=== PATIENT | male | born 1935 | race Caucasian/White ===

== ENCOUNTER 2016-10-22 18:04 | Inpatient (IN) | payer OTHER ==
[~2016-10-22] VITALS: Ht 188 cm; Wt 101.7 kg
--- NOTE | ~2016-10-22 | PR ---
[place], [place] PROGRESS NOTE NAME: MARKY HAYWARD UNIT #: [id number] ROOM: 411 DOCTOR: BEL FERNANDEZ MD BIRTHDATE: [birth year] DOS: 10/24/2016 NEPHROLOGY FOLLOWUP NOTE SUBJECTIVE: The patient was seen and examined. He is awake and alert, sitting in a chair. He denies shortness of breath, nausea, vomiting or diarrhea. He appeared in no acute distress. OBJECTIVE: VITAL SIGNS: Temperature 97.5, pulse 69, respiratory rate 19, blood pressure 160/78. HEENT: Shows no JVD. LUNGS: Clear. No wheeze. HEART: Normal S1, S2. No rub, thrill or gallop. ABDOMEN: Soft, nontender. There is no organomegaly. EXTREMITIES: Showed trace edema. SKIN: Showed no rash. NEUROLOGIC: No focal findings. LABORATORY DATA: Hemoglobin 9.8, white count of 2.7, platelets of 43. BUN 36, creatinine 1.95, sodium 140, potassium 4.6, CO2 of 27 and calcium of 10.4. IMPRESSION: 1. Chronic kidney disease with a baseline creatinine in the range of 2.0. The patient's renal function is stable and appears to be at baseline. He has acceptable electrolytes. 2. Anemia with pancytopenia. Continue to follow CBC. He does have a history of myelodysplastic syndrome apparently. 3. Hypertension. Continue medications. 4. Diabetes mellitus type 2. Avoid using metformin. 5. Chest discomfort. Being worked up by the Primary Service. On discharge, the patient should follow up in our office, but apparently he would like to think about this first. [place], [place] PROGRESS NOTE NAME: MARKY HAYWARD UNIT #: [id number] ROOM: 411 DOCTOR: BEL FERNANDEZ MD BIRTHDATE: [birth year] BEL FERNANDEZ MD CM:PNTRANS 1356 1523 BEL FERNANDEZ MD 10/24/16 1524 interface
--- NOTE | ~2016-10-22 | PR ---
[place], [place] PROGRESS NOTE NAME: MARKY HAYWARD [facility] #: [id number] UNIT #: [id number] ROOM: 411 DOCTOR: RBUEN RUEDA MD BIRTHDATE: [birth year] DOS: 10/24/2016 SUBJECTIVE: The patient is doing much better. REVIEW OF SYSTEMS HEENT: No trouble swallowing. No double vision. No loss of vision. No pain. ENT AND RESPIRATORY: No wheeze. No change in voice. No cough. No shortness of breath. No coughing up blood. No epistaxis. CARDIOLOGIC: No chest pain. No dizziness. No irregular heartbeat. No leg edema. No palpitations. No shortness of breath. HEMATOLOGIC AND LYMPH: No past transfusion. No fatigue. No loss of appetite. No easy bruising. GASTROENTEROLOGIC: No change in bowel habits. No vomiting blood. No abdominal cramping. No nausea. No vomiting. No diarrhea. No constipation. No blood in stool. MALE REPRODUCTIVE: No testicular pain. No penile discharge. MUSCULOSKELETAL: No back pain. No muscle pain or weakness. No tingling/numbness. UROLOGIC: No pain with urination. No difficulty urinating. No frequent urination. NEUROLOGIC: No burning pain in feet. No trouble with coordination. No loss of consciousness. No headache. No tingling/numbness. No memory loss. PHYSICAL EXAMINATION: GENERAL: Pleasant gentleman, in no apparent distress. VITAL SIGNS: Blood pressure 140/60, pulse 65, respirations 20, temperature 98. HEENT: Normocephalic, atraumatic NECK AND THYROID: Supple. No JVD, thyromegaly, or lymphadenopathy. HEART: Normal S1, S2. Regular rate and rhythm. LUNGS: Clear to auscultation and percussion. ABDOMEN: Soft. Nontender, nondistended. Bowel sounds present. EXTREMITIES: Normal ROM. No clubbing. No edema. LABORATORY DATA: White count of 2.7, hemoglobin 9.8, hematocrit 29.3, MCV 96.7, platelet count of 43,000. ASSESSMENT: 1. Pancytopenia, probably secondary to myelodysplastic syndrome. 2. Macrocytosis secondary to possible myelodysplastic syndrome. 3. Chronic kidney disease. PLAN: We are awaiting for the records to come from [place] as well as from [facility], depending on further intervention. In the meantime, transfusion on p.r.n. basis. Ample time was given to the patient to ask me questions. We will follow. [place], [place] PROGRESS NOTE NAME: MARKY HAYWARD UNIT #: [id number] ROOM: 411 DOCTOR: RUBEN RUEDA MD BIRTHDATE: [birth year] RUBEN RUEDA MD CM:PNTRANS [id number] [id number] RUBEN RUEDA MD 10/24/16 2231 interface
--- NOTE | ~2016-10-22 | PR ---
[place], [place] PROGRESS NOTE NAME: MARKY HAYWARD [facility] #: [id number] UNIT #: [id number] ROOM: 411 DOCTOR: RUBEN RUEDA MD BIRTHDATE: [birth year] DOS: 10/27/2016 SUBJECTIVE: The patient is doing much better. PHYSICAL EXAMINATION: GENERAL: Pleasant gentleman in no apparent distress. VITAL SIGNS: Blood pressure 138/80, respirations 20, pulse 65, temperature 97.4. HEENT: Oral mucosa appears intact. The external ears are normal in appearance. Nares are patent without lesions, exudates, erythema, or inflammation. Tongue is symmetrical. Uvula is midline. NECK AND THYROID: Neck supple without palpable masses. Trachea is midline. No thyromegaly. No carotid bruit or JVD. BREASTS: Normal. Nipples unremarkable. No drainage. No lumps felt on either side. HEART: Normal S1, S2, without significant murmur, rub, or gallop. LUNGS: Clear to auscultation and percussion with good air entry bilaterally. The patient is breathing easily without the use of accessory muscles. Diaphragmatic excursions are intact. ABDOMEN: No costovertebral angle tenderness. Soft. No organomegaly or masses. Nontender. No hernias present. Liver and spleen are not palpable. LYMPHATIC: No adenopathy noted in the cervical, supraclavicular, axillary, or inguinal regions. NEUROLGIC: Nonfocal. Oriented to person, place, and time. MENTAL STATUS: Appropriate for mood and affect. PERIPHERAL PULSES: No varicosities. Femoral and pedal pulses are palpable. EXTREMITIES: Without cyanosis, clubbing, or edema. No gross anomalies. LABORATORY DATA: From 10/27/2016, white count of 3.6, hemoglobin 10.0, hematocrit 30.1, platelet count 61,000. Peripheral smear shows no metamyelocytes or myelocytes. Glucose 143, BUN of 73, EGFR is 35, sodium 139, potassium 4.6, chloride 98, bicarbonate 32, calcium 10.2, total protein 6.08, SGOT is 13, SGPT 19, alkaline phosphatase 34. IMPRESSION: Pancytopenia secondary to low grade myelodysplastic syndrome. ____ also cause pancytopenia, gastroesophageal reflux disease. PLAN: I had ____, but we will keep a close watch as the peripheral smear does not look to be abnormal. Advised if any fever, chills, any bleeding or bruising to call us. Otherwise, follow as outpatient. Ample time was given to the patient to ask me questions. [place], [place] PROGRESS NOTE NAME: MARKY HAYWARD UNIT #: [id number] ROOM: 411 DOCTOR: RUBEN RUEDA MD BIRTHDATE: [birth year] RUBEN RUEDA MD CM:PNTRANS 0918 1050 RUBEN RUEDA MD 10/27/16 1051 interface
--- NOTE | ~2016-10-22 | ST ---
[place], [place] EXERCISE STRESS TEST REPORT NAME: MARKY HAYWARD UNIT #: [id number] ROOM: 411 DOCTOR: LEOPOLDO GLYNN MD BIRTHDATE: [birth year] DOS: 10/23/2016 LEXISCAN STRESS TEST INDICATION: Chest pain, patient also has myelodysplastic syndrome. PHARMACOLOGICAL STRESS TEST: The patient was given Lexiscan 0.4 mg over 10 seconds followed by nuclear injection at 40 seconds. PERFORMANCE: Baseline heart rate 108, blood pressure 128/80. Stress EKG, no ST changes, then clinical response. Baseline EKG, sinus tachycardia. Stress EKG, no change. His baseline heart rate was 108, blood pressure 128/80, heart rate at 2 minutes was 122, blood pressure 148/68 and clinical response, no symptoms. INTERPRETATION: 1. Negative Lexiscan stress test. 2. Wait for Cardiolite images for full report. LEOPOLDO GLYNN MD CM:STRESS:EXERCISE STRESS TEST REPORT [id number] LEOPOLDO GLYNN MD
--- NOTE | ~2016-10-22 | PR ---
[place], [place] PROGRESS NOTE NAME: MARKY HAYWARD [facility] #: [id number] UNIT #: [id number] ROOM: 411 DOCTOR: RUBEN RUEDA MD BIRTHDATE: [birth year] DOS: 10/26/2016 SUBJECTIVE: The patient is doing much better. He is awake and alert. REVIEW OF SYSTEMS HEENT: No trouble swallowing. No double vision. No loss of vision. No pain. ENT AND RESPIRATORY: No wheeze. No change in voice. No cough. No shortness of breath. No coughing up blood. No epistaxis. CARDIOLOGIC: No chest pain. No dizziness. No irregular heartbeat. No leg edema. No palpitations. No shortness of breath. HEMATOLOGIC AND LYMPH: No past transfusion. No fatigue. No loss of appetite. No easy bruising. GASTROENTEROLOGIC: No change in bowel habits. No vomiting blood. No abdominal cramping. No nausea. No vomiting. No diarrhea. No constipation. No blood in stool. MALE REPRODUCTIVE: No testicular pain. No penile discharge. MUSCULOSKELETAL: No back pain. No muscle pain or weakness. No tingling/numbness. UROLOGIC: No pain with urination. No difficulty urinating. No frequent urination. NEUROLOGIC: No burning pain in feet. No trouble with coordination. No loss of consciousness. No headache. No tingling/numbness. No memory loss. PHYSICAL EXAMINATION: GENERAL: Pleasant gentleman, in no apparent distress. VITAL SIGNS: Blood pressure 138/80, respirations 20, pulse 65 and temperature 97.4. HEENT: Normocephalic, atraumatic NECK AND THYROID: Supple. No JVD, thyromegaly, or lymphadenopathy. HEART: Normal S1, S2. Regular rate and rhythm. LUNGS: Clear to auscultation and percussion. ABDOMEN: Soft. Nontender, nondistended. Bowel sounds present. EXTREMITIES: Normal ROM. No clubbing. No edema. LABORATORY DATA: Sodium of 136, potassium 4.4, chloride 94, bicarbonate 29, eGFR is 30. White count 2.6, hemoglobin 10.9, hematocrit 32.2, platelet count of 55,000. ASSESSMENT: 1. Pancytopenia secondary to low-grade myelodysplastic syndrome. 2. Splenomegaly. 3. Chest pain which has resolved. 4. Gastroesophageal reflux disease. PLAN: Overall, he is doing much better. He is not bleeding or bruising at this time. Denies any weakness, tiredness, fever or chills. We will follow his count as outpatient, if it continues to drop, then further intervention. In the meantime, we will review records from [place]. I had detailed discussion with the patient about it and seemed to understand. Ample time was given for the patient to ask me questions. [place], [place] PROGRESS NOTE NAME: YESYMARKY J UNIT #: [id number] ROOM: 411 DOCTOR: RUBEN RUEDA MD BIRTHDATE: [birth year] RUBEN RUEDA MD CM:BERNARD 1355 1604 RUBEN RUEDA MD 10/26/16 1604 interface
--- NOTE | ~2016-10-22 | PR ---
[place], [place] PROGRESS NOTE NAME: MARKY HAYWARD [facility] #: [id number] UNIT #: [id number] ROOM: 411 DOCTOR: MEG ESCOBAR MD BIRTHDATE: [birth year] DOS: 10/25/2016 SUBJECTIVE: The patient has been seen by Dr. Malik due to his pancytopenia, which is old, and he has not recommended any new treatment, and the patient has been seen by Dr. Carlitos Quispe, supportive employment case manager also. According to him, the patient does not have any acute [place] problem at present and the patient has been doing good. He does not have any chest pain, no difficulty in breathing, no nausea, no vomiting. Heart is regular. Chest is clear. Abdomen is soft. Blood culture and sensitivity did not grow any bacteria. OBJECTIVE: VITAL SIGNS: Blood pressure 154/72, pulse 73, respirations 18, temperature 97.3. CHEST: Clear. HEART: Regular. ABDOMEN: Soft. MEG ESCOBAR MD CM:PNTRANS 1003 [id number] MEG ESCOBAR MD 10/25/162106 interface
--- NOTE | ~2016-10-22 | PR ---
[place], [place] PROGRESS NOTE NAME: MARKY HAYWARD [facility] #: [id number] UNIT #: [id number] ROOM: 411 DOCTOR: MEG ESCOBAR MD BIRTHDATE: [birth year] DOS: 10/24/2016 SUBJECTIVE: The patient has been admitted to the hospital with chest pain with shortness of breath and weakness. Today, he is feeling fairly good. There is no chest pain, no difficulty breathing. Echocardiogram showed left ventricle is normal in size, moderate concentric left ventricular hypertrophy with normal left ventricular segmental wall motion, left ventricular systolic function is normal, left atrium is mildly dilated, aortic wall leaflets are sclerotic but open well and there is a small hemodynamically-insignificant pericardial effusion present. Myocardial perfusion scan: Left ventricle size is normal, systolic function is normal, left ventricular systolic function is normal, wall motions are normal, left ventricle wall motions are normal and this is a normal nuclear test. No evidence of any myocardial infarction. Stress test also did not show any positive findings. Blood cultures and sensitivities negative. CBC today showed white count of 2700. The patient has already seen by retail training manager. His hemoglobin is 9.8 and hematocrit 29.3. Blood pressure is 140/60, pulse 65, respirations 20 and temperature 98. MEG ESCOBAR MD CM:PNTRANS 1214 1304 MEG ESCOBAR MD 10/24/16 1305 interface
--- NOTE | ~2016-10-22 | CON ---
[place], [place] REPORT OF CONSULTATION NAME: MARKY HAYWARD [facility] #: [id number] UNIT #: [id number] ROOM: 411 DOCTOR: RUBEN RUEDA MD BIRTHDATE: [birth year] DOS: 10/23/2016 HISTORY OF PRESENT ILLNESS: The patient is a pleasant 81-year-old gentleman who looks much younger than his stated age. He started complaining of chest pain associated with shortness of breath. He has had chest pain that started a day before admission and was intermittently. It was substernal and sharp, but it started getting worse and subsequently presented to the Emergency Room and admitted. On routine CBC examination, the patient was found to have pancytopenia and subsequently consulted for further evaluation and management. PAST MEDICAL HISTORY: Significant for chronic kidney disease, COPD, diabetes mellitus type 2, diverticulitis, endogenous depression, GERD, hypertension, hyperlipidemia, insomnia, major depression, myelodysplastic syndrome, osteoarthritis, suicidal ideation, vitamin D deficiency. PAST SURGICAL HISTORY: Right knee surgery, history of transurethral resection of prostate, history of bilateral knee replacement, history of colonoscopy, history of EGD. SOCIAL HISTORY: No drinking, smoking, or drugs. FAMILY HISTORY: Father ____ back. Mother of cervical cancer. Other family history of diabetes, hypertension. ALLERGIES: CHLORDIAZEPOXIDE, CLONAZEPAM, LEVOFLOXACIN, AND KETOROLAC. MEDICATIONS: Allopurinol, vitamin D3, Toprol, fenofibrate, ____, lisinopril, metformin, metoprolol succinate, potassium chloride, Zosyn, and zolpidem tartrate. REVIEW OF SYSTEMS CONSTITUTIONAL: No chills. No fatigue. No fever. No loss of appetite. No night sweats. No weakness. No weight loss. HEENT: No trouble swallowing. No loss of smell. No loss of hearing. No double vision. No pain. No discharge. ENT AND RESPIRATORY: No wheeze. No sore throat. No change in voice. No hearing loss. No nose bleed. No cough. No trouble breathing through nose. No shortness of breath. No coughing up blood. No epistaxis. CARDIOVASCULAR: No chest pain. No dizziness. No irregular heartbeat. No leg edema. No pain in legs while walking. No palpitations. No shortness of breath. DERMATOLOGIC: No acne. No hives. No laceration. No mole. No rash. ENDOCRINE: No cold intolerance. No diabetes. No fatigue. No hot flashes. No polydipsia. No polyuria. No urinating frequently. No weight loss. HEMATOLOGIC AND LYMPH: No fatigue. No easy bruising. GASTROENTEROLOGIC: No change in bowel habits. No indigestion. No frequent bloating. No vomiting blood. No abdominal cramping. No nausea. No heartburn. No vomiting. No abdominal pain. No dysphagia. No diarrhea. No constipation. No blood in stool. MALE REPRODUCTIVE: No testicular pain. No difficulty with erection. No [place], [place] REPORT OF CONSULTATION NAME: MARKY HAYWARD UNIT #: [id number] ROOM: [facility] DOCTOR: RUBEN RUEDA MD BIRTHDATE: [birth year] diminished sexual drive. No penile discharge. MUSCULOSKELETAL: No back pain. No muscle pain or weakness. No neck pain. No tingling/numbness. No swelling/bruising. No osteoporosis treatment. OPHTHALMOLOGIC: No double vision. No diminished vision. No loss of vision. UROLOGIC: No dysuria. No frequent nighttime urination. No pain with urination. No difficulty urinating. No blood in urine. No frequent urination. No urinary incontinence. NEUROLOGIC: No loss of sensation in specific body area. No vertigo. No burning pain in feet. No trouble with balance. No trouble with coordination. No loss of consciousness. No loss of feeling/power. No confusion. No headache. No tingling/numbness. PSYCHOLOGIC: No tinnitus. No headaches. No shortness of breath. No weight decrease. No nausea. No vomiting. No abdominal discomfort. No constipation. No diarrhea. No depression. No anxiety. PHYSICAL EXAMINATION: GENERAL: Pleasant gentleman, in no apparent distress. VITAL SIGNS: Stable, afebrile. HEENT: Oral mucosa appears intact. The external ears are normal in appearance. Nares are patent without lesions, exudates, erythema, or inflammation. Tongue is symmetrical. Uvula is midline. NECK AND THYROID: Neck supple without palpable masses. Trachea is midline. No thyromegaly. No carotid bruit or JVD. BREASTS: Normal. Nipples unremarkable. No drainage. No lumps felt on either side. HEART: Normal S1, S2, without significant murmur, rub, or gallop. LUNGS: Clear to auscultation and percussion with good air entry bilaterally. The patient is breathing easily without the use of accessory muscles. Diaphragmatic excursions are intact. ABDOMEN: No costovertebral angle tenderness. Soft. No organomegaly or masses. Nontender. No hernias present. Liver and spleen are not palpable. LYMPHATIC: No adenopathy noted in the cervical, supraclavicular, axillary, or inguinal regions. NEUROLOGIC: Nonfocal. Oriented to person, place, and time. MENTAL STATUS: Appropriate for mood and affect. PERIPHERAL PULSES: No varicosities. Femoral and pedal pulses are palpable. EXTREMITIES: Without cyanosis, clubbing, or edema. No gross anomalies. LABORATORY DATA: Sodium 142, potassium 4.1, chloride 106, bicarbonate 25, BUN of 25. White count of 1.7, hemoglobin 10.3, hematocrit 30.4, platelet count of 42,000. ASSESSMENT: 1. Pancytopenia, probably secondary to myelodysplastic syndrome. 2. Chronic kidney disease. 3. Diabetes mellitus. 4. Gastroesophageal reflux disease. PLAN: The patient not bleeding or bruising at this time. I will get records from [place] as well as from Dr. Nilson Thapa's office. In the meantime, [place], [place] REPORT OF CONSULTATION NAME: MARKY HAYWARD UNIT #: [id number] ROOM: 411 DOCTOR: RUBEN RUEDA MD BIRTHDATE: [birth year] the patient was advised any bleeding, bruising, fevers, chills, to call us. Depending on the workup, further intervention. We will also get a peripheral smear. Thanks for consulting me and letting us participate in the care of this interesting patient. RUBEN RUEDA MD CM:CONSTR:REPORT OF CONSULTATION 0940 10/23/16 1010 interface
[~2016-10-22 18:04] MED LIST: ACTOS45 MG PO; ALLOPURINOL300 MG PO; AMBIEN10 M1 PO; AMOXICILLIN500 MG PO; AMOXIL500 MG PO; AUGMENTIN 875 M1 TAB PO; BACTRIM DS 8001 TA1 PO; CARDURA2 M1 PO; CENTRUM SILVER PO; CIPRO500 MG PO; CIPROFLOXACIN500 MG PO; CLARITIN10 MG PO; CLONIDINE HCL0.3 MG PO; CORBAN MAGNESI400 MG PO; CYMBALTA30 MG PO; CYMBALTA60 MG PO; DELTASONE20 MG PO; DIABETA5 MG PO; DIAZEPAM10 M1 PO; DOXYCYCLINE100 M3 PO; ESIDREX,ORETIC,25 MG PO; FAMILY PHARMAC325 MG PO; FENOFIBRATE134 MG PO; FENOFIBRATE160 MG PO; FLAGYL 500 MG500 MG PO; FLAGYL500 MG PO; FOLIC ACID1 MG PO; Fenofibrate PO; HYDROCODONE BIT1 T11 PO; HYDRODIURIL25 MG PO; IMDUR ER30 MG PO; IMDUR30 MG PO; K-DUR 20MEQ20 MEQ PO; K-PHOS500 MG PO; KLOR-CON M2020 MEQ PO; LASIX40 MG PO; LEVOFLOXACIN500 MG; LEVOFLOXACIN500 MG PO; LISINOPRIL10 M1 PO; LOPRESSOR50 MG PO; LOSARTAN POTAS100 M1 PO; METFORMIN500 MG PO; METOPROLOL SUCC50 M1 PO; METOPROLOL25 MG PO; MIRTAZAPINE15 M2 PO; MOTRIN600 MG PO; NATURE'S BLEND F1 MG PO; NEUTRA-PHOS1 PDR PO; PERCOCET 325 MG1 TA2 PO; PERCOCET 325 MG1 TA7 PO; PHOSPHA 250 NEU1 TAB PO; POTASSIUM CHLO20 ME3 PO; Percocet 325 MG1 TAB PO; REMERON30 MG PO; ROBAXIN750 MG PO; SIMVASTATIN40 MG PO; SINGULAIR10 MG PO; SONATA10 MG PO; TERAZOSIN1 MG PO; TERAZOSIN5 MG PO; TEVA PO; THERA TABS1 TAB PO; TORADOL10 MG PO; TRAZADONE HYDR100 MG PO; TRILIPIX45 M1 PO; ULTRAM50 MG PO; VALIUM10 MG PO; VIBRAMYCIN100 MG PO; VICODIN 5/500 505 MG PO; VICODIN 500 MG-1 TAB PO; VICODIN ES 7501 TA1 PO; VICON FORTE1 CAP PO; VISTARIL25 M1 PO; VITAMIN D1000 IU PO; VITAMIN D2; VITAMIN D50000 I2 PO; ZOFRAN ODT4 MG SL; ZOLPIDEM TART10 MG PO; [UNRECOGNIZED DRUG - OTHER] PO
[2016-10-22 18:06] VITALS: BP 170/79
[2016-10-22 18:43] LABS: HEMATOCRIT 30.4 % (42.0-52.0); HEMOGLOBIN 10.3 g/dl (14.0-18.0); MEAN CELL VOLUME 96.2 fl (80.0-94.0); MEAN CORPUSCULAR HGB 32.6 pg (27.0-31.0); MEAN CORPUSCULAR HGB CONC 33.9 g/dl (33.0-37.0); MEAN PLATELET VOLUME 11.6 fl (9.6-12.3); PLATELET COUNT AUTOMATED 42 10*3/uL (130-400); RED BLOOD COUNT 3.16 10*6/uL (4.50-5.90)
[2016-10-22 18:48] LABS: WHITE BLOOD COUNT 1.7 10*3/uL (4.8-10.8)
[2016-10-22 18:56] LABS: POTASSIUM 4.1 mmol/L (3.5-5.1)
[2016-10-22 19:04] LABS: ATYPICAL LYMPHS 3 % (0-0); EOSINOPHIL # 0.1 10*3/uL (0-0.4); EOSINOPHILS 6 % (1-4); LYMPHOCYTE # 0.7 10*3/uL (1.3-4.4); METAMYELOCYTES 1 % (0-0); MONOCYTE # 0.1 10*3/uL (0.1-1.0); NEUTROPHIL # 0.8 10*3/uL (2.3-7.9); NEUTROPHILS 48 % (47-73); TOTAL CELLS COUNTED 100 #CELLS
[2016-10-22 19:05] LABS: PLATELET SUFFICIENCY LOW (NORMAL)
[2016-10-22 19:06] LABS: OVALOCYTES FEW
[2016-10-22 19:12] LABS: TROPONIN I 0.026 ng/ml (<0.045)
[2016-10-22 19:14] VITALS: BP 169/88
[2016-10-22] MEDS ORDERED: FENOFIBRATE160 MG PO (19:19)
[2016-10-22] MEDS ORDERED: CITALOPRAM20 MG PO (19:27)
[2016-10-22 19:48] VITALS: BP 169/86
[2016-10-22 20:20] VITALS: BP 190/86; BP 191/86
[2016-10-22] MEDS ORDERED: VITAMIN D1000 IU PO (20:47)
[2016-10-23] VITALS (7 sets, daily range): BP systolic 134–169; BP diastolic 72–99
[2016-10-23 00:43] LABS: CKMB 2.7 ng/ml (0.5-3.6); TROPONIN I 0.031 ng/ml (<0.045)
[2016-10-23 06:24] LABS: HEMOGLOBIN 10.3 g/dl (14.0-18.0); MEAN CELL VOLUME 96.3 fl (80.0-94.0); MEAN CORPUSCULAR HGB CONC 33.2 g/dl (33.0-37.0); PLATELET COUNT AUTOMATED 46 10*3/uL (130-400); RED BLOOD COUNT 3.22 10*6/uL (4.50-5.90); RED CELL DISTRI WIDTH 14.9 % (0-14.5)
[2016-10-23 06:26] LABS: CKMB 2.3 ng/ml (0.5-3.6); TROPONIN I 0.032 ng/ml (<0.045)
[2016-10-23 06:34] LABS: ALBUMIN 3.8 gm/dl (3.1-4.5); BILIRUBIN, TOTAL 0.9 mg/dl (0.2-1.0); FREE T4 1.04 ng/dl (0.76-1.46); MAGNESIUM 1.8 mg/dL (1.5-2.1); PHOSPHOROUS 1.9 mg/dL (2.5-4.9); POTASSIUM 4.4 mmol/L (3.5-5.1); TOTAL PROTEIN 6.5 gm/dL (6.4-8.2)
[2016-10-23 06:36] LABS: INTERNATIONAL NORM RATIO 1.2 (2.0-3.5); PROTHROMBIN TIME 12.7 SECONDS (9.0-12.4)
[2016-10-23 06:39] LABS: THYROID STIM HORMONE (HS) 1.13 uIU/ml (0.358-4.75)
[2016-10-23 06:53] LABS: LYMPHOCYTE # 0.3 10*3/uL (1.3-4.4); METAMYELOCYTES 2 % (0-0); MONOCYTE # 0.1 10*3/uL (0.1-1.0); NEUTROPHIL # 1.6 10*3/uL (2.3-7.9); NEUTROPHILS 79 % (47-73); TOTAL CELLS COUNTED 100 #CELLS
[2016-10-23 06:56] LABS: PLATELET SUFFICIENCY LOW (NORMAL)
[2016-10-23 07:45] LABS: HEMOGLOBIN A1c 4.7 % (4.8-5.6)
[2016-10-23 08:06] LABS: VITAMIN D, 25-HYDROXY 22.2 ng/mL (30-100)
[2016-10-23 08:40] LABS: FOLIC ACID > 24.00 ng/mL (>5.38)
[2016-10-23 12:09] LABS: TROPONIN I 0.035 ng/ml (<0.045)
[2016-10-24] VITALS: BP 140/60
[2016-10-24 06:39] LABS: HEMATOCRIT 29.3 % (42.0-52.0); HEMOGLOBIN 9.8 g/dl (14.0-18.0); MEAN CELL VOLUME 96.7 fl (80.0-94.0); MEAN CORPUSCULAR HGB 32.3 pg (27.0-31.0); MEAN CORPUSCULAR HGB CONC 33.4 g/dl (33.0-37.0); MEAN PLATELET VOLUME 12.2 fl (9.6-12.3); PLATELET COUNT AUTOMATED 43 10*3/uL (130-400); RED BLOOD COUNT 3.03 10*6/uL (4.50-5.90); RED CELL DISTRI WIDTH 15.1 % (0-14.5); WHITE BLOOD COUNT 2.7 10*3/uL (4.8-10.8)
[2016-10-24 07:10] LABS: POTASSIUM 4.6 mmol/L (3.5-5.1)
[2016-10-24 07:13] LABS: ATYPICAL LYMPHS 1 % (0-0); LYMPHOCYTE # 0.4 10*3/uL (1.3-4.4); METAMYELOCYTES 1 % (0-0); MONOCYTE # 0.1 10*3/uL (0.1-1.0); NEUTROPHIL # 2.2 10*3/uL (2.3-7.9); NEUTROPHILS 82 % (47-73); TOTAL CELLS COUNTED 100 #CELLS
[2016-10-24 07:14] LABS: OVALOCYTES FEW; PLATELET SUFFICIENCY LOW (NORMAL)
[2016-10-24 08:00] VITALS: BP 148/68
[2016-10-24 12:00] VITALS: BP 160/78
[2016-10-24 16:00] VITALS: BP 139/82
[2016-10-24 20:00] VITALS: BP 142/74
[2016-10-25] VITALS: BP 152/77
[2016-10-25 08:00] VITALS: BP 154/72
[2016-10-25 12:00] VITALS: BP 154/78
[2016-10-25 16:00] VITALS: BP 137/84
[2016-10-25 20:00] VITALS: BP 160/79
[2016-10-26] VITALS: BP 155/82
[2016-10-26 08:00] VITALS: BP 138/80
[2016-10-26 12:00] VITALS: BP 148/70
[2016-10-26 13:17] LABS: HEMATOCRIT 32.2 % (42.0-52.0); HEMOGLOBIN 10.9 g/dl (14.0-18.0); IG # 0.1 10*3/uL (0.0-0.1); LYMPH # 0.2 10*3/uL (1.3-4.4); LYMPH % 9.2 % (27.0-41.0); MEAN CELL VOLUME 96.7 fl (80.0-94.0); MEAN CORPUSCULAR HGB 32.7 pg (27.0-31.0); MEAN CORPUSCULAR HGB CONC 33.9 g/dl (33.0-37.0); MEAN PLATELET VOLUME 12.3 fl (9.6-12.3); MONO # 0.1 10*3/uL (0.1-1.0); MONO % 3.1 % (3.0-9.0); NEUT # 2.2 10*3/uL (2.3-7.9); PLATELET COUNT AUTOMATED 55 10*3/uL (130-400); RED BLOOD COUNT 3.33 10*6/uL (4.50-5.90); RED CELL DISTRI WIDTH 15.1 % (0-14.5); WHITE BLOOD COUNT 2.6 10*3/uL (4.8-10.8)
[2016-10-26 13:29] LABS: POTASSIUM 4.4 mmol/L (3.5-5.1)
[2016-10-26 16:00] VITALS: BP 149/76
[2016-10-26 20:00] VITALS: BP 158/67
[2016-10-27] VITALS: BP 123/64
[2016-10-27 06:44] LABS: EOS % 0.3 % (1.0-4.0); HEMATOCRIT 30.1 % (42.0-52.0); IG # 0.1 10*3/uL (0.0-0.1); LYMPH # 0.7 10*3/uL (1.3-4.4); MEAN CELL VOLUME 95.9 fl (80.0-94.0); MEAN CORPUSCULAR HGB 31.8 pg (27.0-31.0); MEAN CORPUSCULAR HGB CONC 33.2 g/dl (33.0-37.0); MEAN PLATELET VOLUME 11.3 fl (9.6-12.3); MONO # 0.3 10*3/uL (0.1-1.0); MONO % 8.6 % (3.0-9.0); NEUT # 2.5 10*3/uL (2.3-7.9); NEUT % 68.9 % (47.0-73.0); PLATELET COUNT AUTOMATED 61 10*3/uL (130-400); RED BLOOD COUNT 3.14 10*6/uL (4.50-5.90); RED CELL DISTRI WIDTH 15.2 % (0-14.5); WHITE BLOOD COUNT 3.6 10*3/uL (4.8-10.8)
[2016-10-27 07:18] LABS: ALBUMIN 3.6 gm/dl (3.1-4.5); POTASSIUM 4.6 mmol/L (3.5-5.1)
[2016-10-27 08:00] VITALS: BP 128/66
[2016-10-27] MEDS ORDERED: AMARYL4 MG PO (11:24)
== END 2016-10-27 12:24 | disposition home or self-care (01) | DRG 871 ==
LOC: ED 18:04 → 4E 19:04 → EDHOLD 19:04 → 4E 19:55
PROVIDERS: Emergency Medicine; Internal Medicine; Student in an Organized Health Care Education/Training Program
PROC: 4A02XM4 Measurement of Cardiac Total Activity, External Approach (ICD-10-PCS; principal; 2016-10-23)
DX: A41.9 Sepsis, unspecified organism (principal); J18.9 Pneumonia, unspecified organism; D61.818 Other pancytopenia; E11.22 Type 2 diabetes mellitus with diabetic chronic kidney disease; N18.3 Chronic kidney disease, stage 3 (moderate); J44.9 Chronic obstructive pulmonary disease, unspecified; R16.1 Splenomegaly, not elsewhere classified; J44.0 Chronic obstructive pulmonary disease with (acute) lower respiratory infection; F33.9 Major depressive disorder, recurrent, unspecified; K21.9 Gastro-esophageal reflux disease without esophagitis; I12.9 Hypertensive chronic kidney disease with stage 1 through stage 4 chronic kidney disease, or unspecified chronic kidney disease; E78.5 Hyperlipidemia, unspecified; M19.90 Unspecified osteoarthritis, unspecified site; Z96.653 Presence of artificial knee joint, bilateral; I16.0 Hypertensive urgency; D46.9 Myelodysplastic syndrome, unspecified; E55.9 Vitamin D deficiency, unspecified; G47.00 Insomnia, unspecified; Z80.49 Family history of malignant neoplasm of other genital organs; Z80.8 Family history of malignant neoplasm of other organs or systems; Z88.1 Allergy status to other antibiotic agents; Z88.8 Allergy status to other drugs, medicaments and biological substances; Z79.899 Other long term (current) drug therapy; Z79.84 Long term (current) use of oral hypoglycemic drugs; Z90.49 Acquired absence of other specified parts of digestive tract

== ENCOUNTER 2017-03-27 15:37 | Emergency (ER) | payer OTHER ==
[~2017-03-27] VITALS: Ht 185.4 cm; Wt 102.1 kg
[~2017-03-27 15:37] MED LIST changes: +AMARYL4 MG PO; +CITALOPRAM20 MG PO
[2017-03-27 15:48] VITALS: BP 169/70
[2017-03-27 17:38] LABS: EOS % 2.2 % (1.0-4.0); HEMATOCRIT 31.9 % (42.0-52.0); HEMOGLOBIN 10.5 g/dl (14.0-18.0); LYMPH # 0.7 10*3/uL (1.3-4.4); MEAN CELL VOLUME 98.5 fl (80.0-94.0); MEAN CORPUSCULAR HGB 32.4 pg (27.0-31.0); MEAN CORPUSCULAR HGB CONC 32.9 g/dl (33.0-37.0); MEAN PLATELET VOLUME 12.8 fl (9.6-12.3); MONO # 0.2 10*3/uL (0.1-1.0); MONO % 10.8 % (3.0-9.0); NEUT # 0.9 10*3/uL (2.3-7.9); NEUT % 49.9 % (47.0-73.0); PLATELET COUNT AUTOMATED 47 10*3/uL (130-400); RED BLOOD COUNT 3.24 10*6/uL (4.50-5.90); RED CELL DISTRI WIDTH 14.7 % (0-14.5)
[2017-03-27 17:55] LABS: ALBUMIN 3.8 gm/dl (3.1-4.5); BILIRUBIN, TOTAL 0.7 mg/dl (0.2-1.0); POTASSIUM 4.4 mmol/L (3.5-5.1); TOTAL PROTEIN 6.8 gm/dL (6.4-8.2); TROPONIN I 0.024 ng/ml (<0.045)
[2017-03-27 18:07] LABS: EOSINOPHILS 4 % (1-4); METAMYELOCYTES 1 % (0-0); NEUTROPHILS 55 % (47-73); TOTAL CELLS COUNTED 100 #CELLS
[2017-03-27 18:10] LABS: PLATELET SUFFICIENCY LOW (NORMAL)
[2017-03-27 18:12] LABS: WHITE BLOOD COUNT 1.9 10*3/uL (4.8-10.8)
[2017-03-27] MEDS ORDERED: NORCO 5-325 TA1 EACH PO (18:20)
== END 2017-03-27 20:21 | disposition home or self-care (01) ==
LOC: ED 15:37
PROVIDERS: Physician Assistant
DX: M54.5 Low back pain (principal); H92.01 Otalgia, right ear; Z88.1 Allergy status to other antibiotic agents; Z88.6 Allergy status to analgesic agent; Z88.8 Allergy status to other drugs, medicaments and biological substances; Z79.899 Other long term (current) drug therapy

== ENCOUNTER 2017-04-20 11:19 | Inpatient (IN) | payer OTHER ==
[~2017-04-20] VITALS: Ht 185.4 cm; Wt 98.1 kg
[~2017-04-20 11:19] MED LIST changes: +NORCO 5-325 TA1 EACH PO
[2017-04-20 11:22] VITALS: BP 156/80
[2017-04-20 12:06] LABS: HEMATOCRIT 32.2 % (42.0-52.0); HEMOGLOBIN 10.5 g/dl (14.0-18.0); MEAN CORPUSCULAR HGB 32.6 pg (27.0-31.0); MEAN CORPUSCULAR HGB CONC 32.6 g/dl (33.0-37.0); MEAN PLATELET VOLUME 13.2 fl (9.6-12.3); PLATELET COUNT AUTOMATED 49 10*3/uL (130-400); RED BLOOD COUNT 3.22 10*6/uL (4.50-5.90); RED CELL DISTRI WIDTH 15.4 % (0-14.5); WHITE BLOOD COUNT 2.5 10*3/uL (4.8-10.8)
--- NOTE | 2017-04-20 12:16 | NUR ---
PT REPORTS MODERATE IMPROVEMENT IN PAIN LEVEL SINCE TORADOL INJECTION.
[2017-04-20 12:19] LABS: ALBUMIN 3.3 gm/dl (3.1-4.5); CREATININE 1.7 mg/dL (0.70-1.30); POTASSIUM 4.8 mmol/L (3.5-5.1)
[2017-04-20 12:34] LABS: TOTAL CELLS COUNTED 100 #CELLS
[2017-04-20 12:35] LABS: PLATELET SUFFICIENCY LOW (NORMAL)
--- NOTE | 2017-04-20 14:00 | NUR ---
ALL TESTING RETURNED, PT CONTINUES TO EXPRESS MODERATE RELIEF OF PAIN AFTER INJECTION OF TROADOL. AWAITING PLAN OF CARE DECISION.
--- NOTE | 2017-04-20 14:19 | NUR ---
PT IS SITTING UP NOW,EATING LUNCH. REMAINS ALERT. NO DISTRESS NOTED. ANIYAH MORGAN
--- NOTE | 2017-04-20 15:11 | NUR ---
PT REFUSES TO DISROBED PRIOR TO ADMISSION, PREFERS TO STAY IN HIS STRET CLOTHES.
[2017-04-20 16:00] VITALS: BP 190/86
--- NOTE | 2017-04-20 16:30 | NUR ---
A 81, admitted to , under the services of LEOPOLDO Jean MD with a diagnosis of RIGHT LEG PAIN, MALNUTRITION, UNABLE TO AMBULATE. Chief complaint is RIGHT LEG PAIN. Patient arrived via bed from ER. Monitor applied. Initial assessment completed. Vital signs taken and recorded. LEOPOLDO JEAN MD notified of admission to the unit. Orders received. See assessment for past medical history, medications and allergies. Patient and/or family oriented to unit. [facility] visitation policy reviewed. Clothing/patient valuable form completed. MAME REESE
[2017-04-20] MEDS ORDERED: METOPROLOL TART50 M1 PO (17:06)
--- NOTE | 2017-04-20 17:12 | NUR ---
DR. JONAS ANSWERING SERVICE NOTIFIED OF CONSULT.
--- NOTE | 2017-04-20 20:00 | NUR ---
ASSUMED CARE OF PATIENT. ASSESSMENT COMPLETE. RESTING IN BED. CALL LIGHT IN REACH. WILL CONTINUE TO MONITOR.
--- NOTE | 2017-04-20 20:21 | NUR ---
MEDICATE WITH PRN NORCO FOR C/O RIGHT HIP PAIN. RATES 03/18. WILL MONITOR FOR EFFECTIVENESS.
--- NOTE | 2017-04-20 21:44 | NUR ---
CALLED AND SPOKE TO DR DANIEL REGARDING PT HOME REMERON. ORDER RECEIVED TO CONTINUE IT
[2017-04-21] VITALS: BP 132/59
--- NOTE | 2017-04-21 02:00 | NUR ---
SLEEPING. RESP EASY AND NONLABORED ON ROOM AIR. NO DISTRESS NOTED. IVF INFUSING PER ORDER WITHOUT DIFFICULTY. CALL LIGHT IN REACH. WILL CONTINUE TO MONITOR.
--- NOTE | 2017-04-21 05:38 | NUR ---
PT REQUESTING SOMETHING STRONGER FOR RIGHT HIP PAIN. MEDICATED WITH PRN MORPHINE. SEE MAR
[2017-04-21 07:03] LABS: HEMOGLOBIN 9.8 g/dl (14.0-18.0); MEAN CELL VOLUME 98.7 fl (80.0-94.0); MEAN CORPUSCULAR HGB 32.2 pg (27.0-31.0); MEAN CORPUSCULAR HGB CONC 32.7 g/dl (33.0-37.0); MEAN PLATELET VOLUME 11.9 fl (9.6-12.3); PLATELET COUNT AUTOMATED 43 10*3/uL (130-400); RED BLOOD COUNT 3.04 10*6/uL (4.50-5.90); RED CELL DISTRI WIDTH 15.7 % (0-14.5); WHITE BLOOD COUNT 2.5 10*3/uL (4.8-10.8)
--- NOTE | 2017-04-21 07:30 | NUR ---
Shift chart check completed.24 HR chart check completed.
[2017-04-21 07:32] LABS: ACT PARTIAL THROMBO TIME 28.3 SECONDS (20.8-31.5); INTERNATIONAL NORM RATIO 1.2 (2.0-3.5)
[2017-04-21 07:33] LABS: ALBUMIN 2.9 gm/dl (3.1-4.5); CREATININE 1.73 mg/dL (0.70-1.30); MAGNESIUM 1.9 mg/dL (1.5-2.1); PHOSPHOROUS 3.3 mg/dL (2.5-4.9); POTASSIUM 4.4 mmol/L (3.5-5.1); TOTAL PROTEIN 5.6 gm/dL (6.4-8.2)
[2017-04-21 07:40] LABS: THYROID STIM HORMONE (HS) 1.14 uIU/ml (0.358-4.75)
[2017-04-21 07:48] LABS: ATYPICAL LYMPHS 1 % (0-0); PLATELET SUFFICIENCY LOW (NORMAL); ROULEAUX SLIGHT; TOTAL CELLS COUNTED 100 #CELLS
[2017-04-21 08:00] VITALS: BP 140/80
[2017-04-21 08:21] LABS: VITAMIN D, 25-HYDROXY 23.9 ng/mL (30-100)
--- NOTE | 2017-04-21 08:30 | NUR ---
Bronze Chaser in to talk to patient. Patient states lives at HOME IN AN APARTMENT ALONE with . There are 1 steps in the home. Physician: DR ESCOBAR Pharmacy: [facility] Home health services: NONE HAS PRIVATE [employer] Patient's level of ADLs: MINIMAL ASSIST Patient has working utilities: YES DME: [facility] Follow-up physician's appointment after d/c: PREFERS TO MAKE HIS OWN APPT Does patient want to access PORTAL?: Discharge plan DISCUSSED SNF PT HAS BEEN FALLING. REFUSES. STATES HE NEEDS TO GET THE PAIN UBDER CONTROL AND HE WILL BE FINE. ALOS REFUSES HOME HEALTH. LESLIE JACKSON
--- NOTE | 2017-04-21 10:29 | NUR ---
On assessment this am pt up and about in his room, pleasant, c/o some discomfort mainly pointing to back of his right thigh. Dr Thapa has visited.
--- NOTE | 2017-04-21 11:26 | NUR ---
PT TO CT SCAN, VIA W/C, PER PER ORDER.
--- NOTE | 2017-04-21 11:30 | NUR ---
OCCUPATIONAL THERAPY: Patient out of his room for testing. OTR will recheck at a later time. Thank you for this referral. Altagracia Beth OTR/regla
--- NOTE | 2017-04-21 11:50 | NUR ---
PHYSICAL THERAPY Patient out of room for CAT scan. Thank you for this referral. Lory Das,PT
--- NOTE | 2017-04-21 12:56 | NUR ---
Hold Occupational Therapy evaluation. Awaiting CT Scans of hip and femur and MD orders for weight bearing and activity tolerance. Altagracia Beth OTR/L
--- NOTE | 2017-04-21 12:56 | NUR ---
PHYSICAL THERAPY Awaiting results from CAT scan of femur and hip prior to initiating PT. Lory Das,PT
--- NOTE | 2017-04-21 14:28 | NUR ---
DR BETHANIE JOHN NOTIFIED OF THE CT RESULTS. NO NEW ORDERS.
[2017-04-21 16:00] VITALS: BP 118/77
--- NOTE | 2017-04-21 16:52 | NUR ---
DR MORILLO IN TO SEE PT.
[2017-04-22] VITALS: BP 145/75
--- NOTE | 2017-04-22 01:19 | NUR ---
SLEEPING. NO SXS OF DISTRESS. CALL LIGHT IN REACH
[2017-04-22 06:51] LABS: HEMATOCRIT 30.8 % (42.0-52.0); HEMOGLOBIN 10.1 g/dl (14.0-18.0); MEAN CELL VOLUME 98.1 fl (80.0-94.0); MEAN CORPUSCULAR HGB 32.2 pg (27.0-31.0); MEAN CORPUSCULAR HGB CONC 32.8 g/dl (33.0-37.0); MEAN PLATELET VOLUME 12.9 fl (9.6-12.3); PLATELET COUNT AUTOMATED 42 10*3/uL (130-400); RED BLOOD COUNT 3.14 10*6/uL (4.50-5.90); RED CELL DISTRI WIDTH 15.2 % (0-14.5); WHITE BLOOD COUNT 2.6 10*3/uL (4.8-10.8)
[2017-04-22 07:25] LABS: ALBUMIN 3.2 gm/dl (3.1-4.5); CREATININE 1.7 mg/dL (0.70-1.30); POTASSIUM 3.9 mmol/L (3.5-5.1)
[2017-04-22 07:33] LABS: TOTAL CELLS COUNTED 100 #CELLS
[2017-04-22 07:34] LABS: PLATELET SUFFICIENCY LOW (NORMAL)
[2017-04-22 08:00] VITALS: BP 154/73
--- NOTE | 2017-04-22 09:10 | NUR ---
PHYSICAL THERAPY PAtient evaluated on 4, full evaluation to follow. Continue with PT as per plan of care with fall, significant (B)LE and low back pain with associated weakness to (B)LE precautions. Ortho has ordered MRI. May require out patient PT pending MRI results versus farm specialist. PAtient is moderate complexity via chart review, tests and evalaution: [id number]. Thank you for this referral. Lory Das,PT
--- NOTE | 2017-04-22 10:11 | NUR ---
PATIENT RESTING IN BED CALL LIGHT IN REACH. GAVE MORNING MEDICATIONS . PATIENT WAITING FOR MORNING TESTING.
--- NOTE | 2017-04-22 11:20 | NUR ---
Occupational Therapy evaluation completed on 4 with full eval to follow. Precautions include severe low back pain, low complexity level 99549. Patient does not feel he needs to use adapative equipment for LB self care/back protection at this time. He does dress in bed to protect his back. Recommend no further OT at this time and return home alone upon d/c. Thank you for this referral. Altagracia Beth OTR/l
[2017-04-22] MEDS ORDERED: METFORMIN HCL500 MG PO (11:25)
[2017-04-22] MEDS ORDERED: POTASSIUM CHLO20 ME4 PO (11:26)
--- NOTE | 2017-04-22 13:15 | NUR ---
INFORMED CONSENT SIGNED FOR LEXISCAN WITH DR. GLYNN. RESTING EKG, NSR WITH HR OF 62 AND BP OF 172/82. BREATH SOUNDS CLEAR, POX 100% VIA RA. COMPLETED ONE MINUTE OF LEXISCAN PROTOCOL RECEIVING LEXISCAN 0.4 MG OVER 10 SECONDS. DEVELOPED A WARM FEELING THAT WAS RELIEVED IN RECOVERY. HAD A PEAK HR OF 75, WITH A BP 154/68. LAST RECOVERY HR OF 69 WITH A BP OF 144/66. AWAITING NUCLEAR IMAGING IN STABLE CONDITION.
--- NOTE | 2017-04-22 13:19 | NUR ---
PHYSICAL THERAPY Arturo off the floor this PM went down for his stress test. 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
--- NOTE | 2017-04-22 14:00 | NUR ---
tO mri TO PRE MEDICATE PT. HE IS CLAUSTROPHOBIC.
--- NOTE | 2017-04-22 14:02 | NUR ---
Dr. Burciaga was notified of need for valium dose for tomorrows MRI.
--- NOTE | 2017-04-22 15:04 | NUR ---
Returned from MRI and stress testing . Radiology called stating that pt. declined to have knee x-ray as he has developed right shoulder pain. Dr. Thacker aware stated he would be up to see pt.
--- NOTE | 2017-04-22 15:12 | NUR ---
medicated for c/o pain to right shoulder. placed heating pad to shoulder and stated it feels a little better.
[2017-04-22 16:00] VITALS: BP 173/75
--- NOTE | 2017-04-22 16:15 | NUR ---
PATIENT RESTING QUIETLY IN BED. NO DISTRESS NOTED. EARLIER PAIN MEDICATION COMBINED WITH HEATING PAD EFFECTIVE PER PT FOR RIGHT SHOULDER PAIN. WILL CONTINUE TO MONITOR. CALL LIGHT WITHIN REACH.
--- NOTE | 2017-04-22 17:44 | NUR ---
DR. Flower JOHN NOTIFIED REGARDING PATIENT'S REQUEST FOR A MUSCLE RELIEVER CREAM FOR HIS RIGHT SHOULDER. WILL BE UP TO SEE THE PATIENT. AWAITING PHYSICIAN ORDERS.
[2017-04-22 17:50] VITALS: BP 150/55
[2017-04-22 20:00] VITALS: BP 155/83
--- NOTE | 2017-04-22 20:32 | NUR ---
NORCO GIVEN FOR CHRONIC BACK PAIN THAT RADIATES IN THE RIGHT LEG. PATIENT RATED PAIN 7/10 WILL MONITOR.
--- NOTE | 2017-04-22 21:10 | NUR ---
NORCO EFFECTIVE NO C/O PAIN.
[2017-04-23] VITALS: BP 147/59
--- NOTE | 2017-04-23 00:14 | NUR ---
24 HR chart check completed.
--- NOTE | 2017-04-23 05:50 | NUR ---
NORCO GIVEN FOR LOWER BACK PAIN RATED 7/10. WILL MONITOR.
[2017-04-23 06:06] LABS: HEMATOCRIT 31.3 % (42.0-52.0); HEMOGLOBIN 10.3 g/dl (14.0-18.0); MEAN CORPUSCULAR HGB 32.9 pg (27.0-31.0); MEAN CORPUSCULAR HGB CONC 32.9 g/dl (33.0-37.0); MEAN PLATELET VOLUME 13.1 fl (9.6-12.3); PLATELET COUNT AUTOMATED 47 10*3/uL (130-400); RED BLOOD COUNT 3.13 10*6/uL (4.50-5.90); RED CELL DISTRI WIDTH 15.4 % (0-14.5); WHITE BLOOD COUNT 2.8 10*3/uL (4.8-10.8)
[2017-04-23 06:09] LABS: CREATININE 1.72 mg/dL (0.70-1.30); POTASSIUM 4.2 mmol/L (3.5-5.1)
[2017-04-23 06:34] LABS: PLATELET SUFFICIENCY LOW (NORMAL); POLYCHROMASIA SLIGHT; TOTAL CELLS COUNTED 100 #CELLS
--- NOTE | 2017-04-23 06:35 | NUR ---
NORCO EFFECTIVE, PATIENT SATISFIED.
--- NOTE | 2017-04-23 07:19 | NUR ---
DR. GLYNN, PATIENTS LISINOPRIL DID NOT GET ORDERED. HE WAS ALSO QUESTIONING WHY HE IS NOT GETTING HIS 20mEq POTASSIUM.
--- NOTE | 2017-04-23 07:32 | NUR ---
PT MEDICATED WITH PRN VALIUM AND TAKEN TO MRI AT THIS TIME.
[2017-04-23 08:00] VITALS: BP 162/80
--- NOTE | 2017-04-23 08:36 | NUR ---
PHYSICAL THERAPY Pt off the floor this AM therapy visit. Pt went down for his MRI. 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
--- NOTE | 2017-04-23 09:48 | NUR ---
PHYSICAL THERAPY Back to see Arturo this AM, Pt back from his MRI now. Pt supine in bed said that he was tired after his MRI but would try. Transfer supine/sit, sit/stand independent. Pt did have C/O back and bilateral leg pain with his gait. Gait with Pt's straight cane total 130' X 1, CGA X 1, no LOB just complaint of back discomfort and bilateral legs. Pt back supine in bed to rest, call light and phone no other complaints, treatment time 17 min. Arturo did not want to try the stairs today. 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
--- NOTE | 2017-04-23 12:32 | NUR ---
PEER TO PEER PAPERWORK FAXED TO DR GLYNN'S OFFICE. DR GLYNN MESSAGED.
[2017-04-23] MEDS ORDERED: VITAMIN D-32000 UNI1 PO (14:55)
--- NOTE | 2017-04-23 18:38 | NUR ---
REPORT GIVEN TO RECIEVING UNIT. 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
--- NOTE | 2017-04-23 18:48 | NUR ---
PT TRANSPORTED VIA [facility] TO [facility]. VSS. REPORT GIVEN .HEPLOCK INTACT.
--- NOTE | 2017-04-26 07:48 | NUR ---
PHYSICAL THERAPY CO-SIGN I approve of the Phyical Therapy notes written above. BRITTANEY PERALTA PT
== END 2017-04-23 18:48 | disposition short-term general hospital (02) | DRG 552 ==
LOC: ED 11:19 → 4E 15:03 → EDHOLD 15:03 → 4E 15:28
PROVIDERS: Emergency Medicine; Internal Medicine; ADMIT Internal Medicine
PROC: 3E073KZ Introduction of Other Diagnostic Substance into Coronary Artery, Percutaneous Approach (ICD-10-PCS; principal; 2017-04-22)
PROC: 4A02XM4 Measurement of Cardiac Total Activity, External Approach (ICD-10-PCS; principal; 2017-04-22)
DX: M48.06 Spinal stenosis, lumbar region (principal); E44.0 Moderate protein-calorie malnutrition; D68.9 Coagulation defect, unspecified; N18.3 Chronic kidney disease, stage 3 (moderate); I13.0 Hypertensive heart and chronic kidney disease with heart failure and stage 1 through stage 4 chronic kidney disease, or unspecified chronic kidney disease; E11.22 Type 2 diabetes mellitus with diabetic chronic kidney disease; I50.30 Unspecified diastolic (congestive) heart failure; D47.1 Chronic myeloproliferative disease; F33.9 Major depressive disorder, recurrent, unspecified; M54.31 Sciatica, right side; R26.81 Unsteadiness on feet; E86.0 Dehydration; K21.9 Gastro-esophageal reflux disease without esophagitis; E78.5 Hyperlipidemia, unspecified; M19.90 Unspecified osteoarthritis, unspecified site; J44.9 Chronic obstructive pulmonary disease, unspecified; E55.9 Vitamin D deficiency, unspecified; G47.00 Insomnia, unspecified; M70.61 Trochanteric bursitis, right hip; Z96.653 Presence of artificial knee joint, bilateral; E80.6 Other disorders of bilirubin metabolism; D72.825 Bandemia; Z79.899 Other long term (current) drug therapy; Z88.8 Allergy status to other drugs, medicaments and biological substances; Z88.1 Allergy status to other antibiotic agents; Z83.3 Family history of diabetes mellitus; Z82.49 Family history of ischemic heart disease and other diseases of the circulatory system; Z80.8 Family history of malignant neoplasm of other organs or systems; Z92.21 Personal history of antineoplastic chemotherapy; Z68.28 Body mass index [BMI] 28.0-28.9, adult

== ENCOUNTER 2017-05-13 20:04 | Emergency (ER) | payer OTHER ==
[~2017-05-13] VITALS: Ht 187.9 cm; Wt 90.7 kg
[2017-05-13 20:04] VITALS: BP 154/76
[~2017-05-13 20:04] MED LIST changes: +METFORMIN HCL500 MG PO; +METOPROLOL TART50 M1 PO; +POTASSIUM CHLO20 ME4 PO; +VITAMIN D-32000 UNI1 PO
[2017-05-13 20:46] LABS: HEMATOCRIT 26.9 % (42.0-52.0); HEMOGLOBIN 8.8 g/dl (14.0-18.0); MEAN CELL VOLUME 98.9 fl (80.0-94.0); MEAN CORPUSCULAR HGB 32.4 pg (27.0-31.0); MEAN CORPUSCULAR HGB CONC 32.7 g/dl (33.0-37.0); MEAN PLATELET VOLUME 12.7 fl (9.6-12.3); PLATELET COUNT AUTOMATED 49 10*3/uL (130-400); RED BLOOD COUNT 2.72 10*6/uL (4.50-5.90); RED CELL DISTRI WIDTH 15.1 % (0-14.5); WHITE BLOOD COUNT 3.2 10*3/uL (4.8-10.8)
[2017-05-13 20:59] LABS: ALBUMIN 2.8 gm/dl (3.1-4.5); CREATININE 1.78 mg/dL (0.70-1.30); POTASSIUM 4.3 mmol/L (3.5-5.1); TOTAL PROTEIN 5.4 gm/dL (6.4-8.2)
[2017-05-13 21:06] LABS: ATYPICAL LYMPHS 1 % (0-0); PLATELET SUFFICIENCY LOW (NORMAL); TOTAL CELLS COUNTED 100 #CELLS
[2017-05-13 21:52] LABS: BILIRUBIN NEGATIVE (NEGATIVE); BLOOD 1+ (NEGATIVE); CLARITY CLOUDY (CLEAR); COLOR YELLOW (YELLOW); GLUCOSE NEGATIVE (NEGATIVE); KETONE NEGATIVE (NEGATIVE); LEUKO ESTERASE 1+ (NEGATIVE); NITRITE NEGATIVE (NEGATIVE); PH 6.5 (5.0-9.0)
[2017-05-13 22:13] LABS: BACTERIA 1+; RBC 21-30 rbc/hpf (0-2); WBC 31-40 wbc/hpf (0-5)
[2017-05-13] MEDS ORDERED: MACROBID100 M1 PO (22:35)
[2017-05-13] MEDS ORDERED: PERCOCET 5-3251 EACH PO (22:35)
== END 2017-05-13 23:39 | disposition home or self-care (01) ==
LOC: ED 20:04
PROVIDERS: Emergency Medicine
DX: N39.0 Urinary tract infection, site not specified (principal); D64.9 Anemia, unspecified; K40.90 Unilateral inguinal hernia, without obstruction or gangrene, not specified as recurrent; I13.0 Hypertensive heart and chronic kidney disease with heart failure and stage 1 through stage 4 chronic kidney disease, or unspecified chronic kidney disease; I50.9 Heart failure, unspecified; N18.3 Chronic kidney disease, stage 3 (moderate); E78.5 Hyperlipidemia, unspecified; E11.9 Type 2 diabetes mellitus without complications; K21.9 Gastro-esophageal reflux disease without esophagitis; Z88.1 Allergy status to other antibiotic agents; Z88.6 Allergy status to analgesic agent

== ENCOUNTER 2018-06-22 23:09 | Emergency (ER) | payer OTHER ==
[~2018-06-22] VITALS: Wt 90.7 kg
--- NOTE | ~2018-06-22 | EKG ---
[place], [place] ELECTROCARDIOGRAM REPORT NAME: MARKY HAYWARD UNIT #: [id number] ROOM: DOCTOR: EPIPHANY DRAFT REPORT BIRTHDATE: [birth year] [facility] Test Date: 2018-06-23 Test Time: 00:07:53 Pat Name: MARKY HAYWARD Department: ER Room: Gender: Dance Entertainer: Keiko Gonzalez : 1935 Requested By: MYRIAM JONES PA-C Order Number: [id number] Reading MD: Nilson Thapa MD Measurements Intervals [place] Rate: 87 P: MO: QRS: -15 QRSD: 111 T: 74 QT: 352 QTc: 424 Interpretive Statements Atrial fibrillation Incomplete left bundle branch block Borderline low voltage, extremity leads Minimal ST elevation, inferior leads Electronically Signed On 06-28-2018 7:19:14 PST by Nilson Thapa MD CM:EKGRPT:ELECTROCARDIOGRAM REPORT [id number] MYRIAM JONES PA-C EPIPHANY DRAFT REPORT MYRIAM JONES PA-C
[~2018-06-22 23:09] MED LIST changes: +MACROBID100 M1 PO; +PERCOCET 5-3251 EACH PO
[2018-06-22 23:55] LABS: HEMATOCRIT 21.1 % (42.0-52.0); HEMOGLOBIN 6.7 g/dl (14.0-18.0); MEAN CELL VOLUME 99.5 fl (80.0-94.0); MEAN CORPUSCULAR HGB 31.6 pg (27.0-31.0); MEAN CORPUSCULAR HGB CONC 31.8 g/dl (33.0-37.0); PLATELET COUNT AUTOMATED 33 10*3/uL (130-400); RED BLOOD COUNT 2.12 10*6/uL (4.50-5.90); RED CELL DISTRI WIDTH 16.4 % (0-14.5)
[2018-06-22 23:59] LABS: WHITE BLOOD COUNT 0.9 10*3/uL (4.8-10.8)
[2018-06-23 00:02] LABS: INTERNATIONAL NORM RATIO 1.3 (2.0-3.5)
[2018-06-23 00:09] LABS: ALBUMIN 3.1 gm/dl (3.1-4.5); CREATININE 2.86 mg/dL (0.70-1.30); POTASSIUM 4.9 mmol/L (3.5-5.1); TOTAL PROTEIN 5.5 gm/dL (6.4-8.2)
[2018-06-23 00:22] LABS: TROPONIN I 0.07 ng/ml (<0.045)
[2018-06-23 00:29] LABS: PLATELET SUFFICIENCY LOW (NORMAL); TOTAL CELLS COUNTED 100 #CELLS
[2018-06-23 00:30] LABS: OVALOCYTES FEW
[2018-06-23 00:31] LABS: BURR CELLS MODERATE
[2018-06-23 02:33] VITALS: BP 144/72
== END 2018-06-23 03:26 | disposition short-term general hospital (02) ==
LOC: ED 23:09
PROVIDERS: Physician Assistant
DX: D61.818 Other pancytopenia (principal); R10.84 Generalized abdominal pain; N17.9 Acute kidney failure, unspecified; K74.69 Other cirrhosis of liver; R18.8 Other ascites; R79.89 Other specified abnormal findings of blood chemistry; R16.1 Splenomegaly, not elsewhere classified; E11.9 Type 2 diabetes mellitus without complications; Z79.84 Long term (current) use of oral hypoglycemic drugs; Z79.899 Other long term (current) drug therapy; Z88.8 Allergy status to other drugs, medicaments and biological substances; Z88.1 Allergy status to other antibiotic agents; Z88.6 Allergy status to analgesic agent; Z90.49 Acquired absence of other specified parts of digestive tract

== ENCOUNTER 2018-07-14 19:47 | Emergency (ER) | payer OTHER ==
[~2018-07-14] VITALS: Ht 190.5 cm; Wt 107.0 kg
[2018-07-14] MEDS ORDERED: AMBIEN10 M1 PO (20:05)
[2018-07-14] MEDS ORDERED: CELEXA20 MG PO (20:06)
[2018-07-14] MEDS ORDERED: DILTIAZEM60 MG PO (20:08)
[2018-07-14] MEDS ORDERED: FENOFIBRATE160 MG PO (20:10)
[2018-07-14] MEDS ORDERED: FIRVANQ25 MG/1 ML PO (20:14)
[2018-07-14] MEDS ORDERED: VOLTAREN100 GM T (20:15)
[2018-07-14 20:44] LABS: HEMATOCRIT 22.6 % (42.0-52.0); HEMOGLOBIN 7.3 g/dl (14.0-18.0); MEAN CELL VOLUME 94.2 fl (80.0-94.0); MEAN CORPUSCULAR HGB 30.4 pg (27.0-31.0); MEAN CORPUSCULAR HGB CONC 32.3 g/dl (33.0-37.0); PLATELET COUNT AUTOMATED 49 10*3/uL (130-400); RED CELL DISTRI WIDTH 16.5 % (0-14.5)
[2018-07-14 21:09] LABS: PLATELET SUFFICIENCY LOW (NORMAL); TOTAL CELLS COUNTED 100 #CELLS
[2018-07-14 21:10] LABS: BURR CELLS FEW
[2018-07-14 21:28] LABS: WHITE BLOOD COUNT 1.2 10*3/uL (4.8-10.8)
[2018-07-14 22:06] VITALS: BP 144/63; BP 147/70; BP 163/86; BP 164/78
== END 2018-07-14 21:32 ==
LOC: ED 19:47
PROVIDERS: Emergency Medicine Emergency Medical Services
DX: D61.818 Other pancytopenia (principal); J44.9 Chronic obstructive pulmonary disease, unspecified; K21.9 Gastro-esophageal reflux disease without esophagitis; E78.5 Hyperlipidemia, unspecified; I13.0 Hypertensive heart and chronic kidney disease with heart failure and stage 1 through stage 4 chronic kidney disease, or unspecified chronic kidney disease; E11.22 Type 2 diabetes mellitus with diabetic chronic kidney disease; N18.3 Chronic kidney disease, stage 3 (moderate); I50.30 Unspecified diastolic (congestive) heart failure; M19.90 Unspecified osteoarthritis, unspecified site; Z88.8 Allergy status to other drugs, medicaments and biological substances; Z88.1 Allergy status to other antibiotic agents; Z88.6 Allergy status to analgesic agent; Z79.4 Long term (current) use of insulin; Z79.899 Other long term (current) drug therapy

== ENCOUNTER → 2018-07-16 | Emergency (ER) | payer OTHER ==
[~2018-07-16] VITALS: Ht 187.9 cm; Wt 107.0 kg
[~2018-07-16] MED LIST changes: +CELEXA20 MG PO; +DILTIAZEM60 MG PO; +FIRVANQ25 MG/1 ML PO; +VOLTAREN100 GM T
[2018-07-16 18:31] LABS: BILIRUBIN NEGATIVE (NEGATIVE); BLOOD 3+ (NEGATIVE); CLARITY CLEAR (CLEAR); COLOR YELLOW (YELLOW); GLUCOSE NEGATIVE (NEGATIVE); KETONE NEGATIVE (NEGATIVE); LEUKO ESTERASE NEGATIVE (NEGATIVE); NITRITE NEGATIVE (NEGATIVE); SPECIFIC GRAVITY 1.025 (1.005-1.030); UROBILINOGEN 0.2 E.U./dl (0.2-1.0)
[2018-07-16 18:44] LABS: RBC TNTC rbc/hpf (0-2)
[2018-07-16 18:45] LABS: BACTERIA 2+; EPITHELIAL CELLS 0-2
[2018-07-16 20:00] VITALS: BP 160/81
== END ==
LOC: ED 17:25
PROVIDERS: Emergency Medicine
DX: N17.9 Acute kidney failure, unspecified (principal); N18.9 Chronic kidney disease, unspecified; D46.9 Myelodysplastic syndrome, unspecified; Z88.8 Allergy status to other drugs, medicaments and biological substances; Z88.1 Allergy status to other antibiotic agents; Z88.6 Allergy status to analgesic agent; Z79.2 Long term (current) use of antibiotics; Z79.899 Other long term (current) drug therapy

== ENCOUNTER 2018-08-14 10:44 | Inpatient (IN) | payer OTHER, MEDICAID ==
[~2018-08-14] VITALS: Ht 190.5 cm; Wt 89.2 kg
[2018-08-14] VITALS (13 sets, daily range): BP systolic 124–164; BP diastolic 51–92
--- NOTE | ~2018-08-14 | PR ---
[place], [place] PROGRESS NOTE NAME: MARKY HAYWARD [facility] #: [id number] UNIT #: [id number] ROOM: 518 DOCTOR: MEG ESCOBAR MD BIRTHDATE: [birth year] DOS: SUBJECTIVE: The patient has been admitted to the hospital with multiple medical problems including pancytopenia, C. difficile colitis, C. difficile diarrhea due to kidney injury supplemented chronic kidney disease, anemia, myelodysplastic syndrome, fatigue, generalized weakness, decreased appetite, stage 2 pressure ulcer on the right buttock, urinary tract infection, bronchitis, hyperkalemia, sepsis, elevated troponin level, diabetes mellitus type 2. He is progressively feeling better. He is not in any acute distress, active and alert. He does not have any new complaint. His CBC today showed white count 1.8, RBC 2.52, hemoglobin 7.8, hematocrit 24.9, MCV 98.8, 72% neutrophils, 20% lymphocyte, and comprehensive metabolic profile showed glucose 139, BUN 34, creatinine 1.99, GFR 32, total protein 5.9, albumin 2.5 indicating hypoproteinemia and albuminemia with chronic renal failure and his blood culture did not grow any bacteria. OBJECTIVE: VITAL SIGNS: His blood pressure today is 169/87, pulse is 96, respirations 20, temperature 97.6. CHEST: Clear. HEART: Regular. ABDOMEN: Soft. MEG ESCOBAR MD CM:PNTRANS [id number] MEG ESCOBAR MD 08/22/18 0711 interface
--- NOTE | ~2018-08-14 | CON ---
[place], [place] REPORT OF CONSULTATION [facility] [id number] UNIT #: [id number] ROOM: 518 DOCTOR: SUSAN ADAMS MD BIRTHDATE: [birth year] DOS: 08/17/2018 HISTORY OF PRESENT ILLNESS: This is a very pleasant -Chinese gentleman who is now 83 years old. He has never had a heart attack, heart failure, any rhythm disorder of the heart, but does carry a diagnosis of diastolic heart failure, type 2 diabetes mellitus, essential hypertension, previously known elevated troponin level, GERD, and chronic kidney disease, which has culminated end stage now. He has myelodysplastic syndrome, pancytopenia, and plasma cell dyscrasia. He also has had a history of cirrhosis of the liver and ascites. I was asked to see him because of sudden increased troponin I level. He did not have any chest pain, any palpitations, heaviness in the chest, but has had swelling in the legs for quite some time. MEDICATIONS: He had been taking medications regularly which are numerous. He has been on bumetanide 2 mg b.i.d., cholecalciferol, citalopram, diltiazem 240 once a day, fenofibrate 160 daily, folic acid, melatonin 3 mg at bedtime, metolazone 2.5 mg b.i.d., mirtazapine 15 mg at bedtime p.r.n., terazosin 5 mg b.i.d. He has been on vancomycin p.o., subcutaneous heparin. PHYSICAL EXAMINATION: GENERAL: This reveals a patient who is morbidly obese, pleasant, alert, and comfortable. He is oriented. He looks little pale. He is not diaphoretic. VITAL SIGNS: Temperature is normal at 98.1 degrees, pulse is 80 regular, blood pressure 151/77. NECK: JVP is normal. AJR is negative. No carotid bruit is present. CARDIAC: Auscultation revealed no murmurs or rubs, and there is no cardiomegaly. EXTREMITIES: He has a 2-3+ edema below the knees. Pedal pulses are difficult to appreciate because of severe pedal edema. RESPIRATORY: Breath sounds are pretty good bilaterally with hardly any adventitious sounds. ABDOMEN: Liver is not enlarged. There is no guarding or rigidity. There is no abdominal bruit. LABORATORY DATA: An ECG demonstrated normal sinus rhythm with PACs, rate 71 beats per minute, and no acute changes. Troponin I level has been 0.114 and there about. There is no trending upward, trending down of the number. Hemoglobin is 8.5 g/dL. INR is 1.4, BUN 63, creatinine 3.21. Serum albumin 2.6 g/dL. Chest x-ray demonstrated no acute changes and no edema. This patient had an echocardiogram in 2017, which showed normal LV systolic function and diastolic dysfunction of impaired relaxation of the left ventricle. IMPRESSION: [place], [place] REPORT OF CONSULTATION NAME: MARKY HAYWARD UNIT #: [id number] ROOM: 518 DOCTOR: SUSAN ADAMS MD BIRTHDATE: [birth year] 1. Slightly increased troponin level is most likely not due to epicardial coronary artery occlusion. It is most likely a type 2 myocardial infarction and also related to end-stage renal disease. 2. He does not display any evidence of volume overload or heart failure. 3. Edema in the lower extremities is substantial and this may be partly due to obesity and from a high dose of diltiazem. RECOMMENDATIONS: 1. Diltiazem changed to carvedilol for blood pressure control. I think this will result in improvement in edema of the lower extremities. 2. An echocardiogram has been done, but was not in my VOX to read. 3. Myelodysplastic syndrome with pancytopenia. 4. End-stage renal disease, he is currently dialyzing. I thank you for this consult. SUSAN ADAMS MD CM:CONSTR:REPORT OF CONSULTATION 1813 08/18/18 0720 interface
--- NOTE | ~2018-08-14 | PR ---
[place], [place] PROGRESS NOTE [facility]: [facility] [id number] UNIT #: [id number] ROOM: 518 DOCTOR: ABDULKADIR ALLEN MD BIRTHDATE: [birth year] DOS: 08/19/2018 SUBJECTIVE: The patient was seen by Dr. Orlando yesterday, covering for him today. The patient evaluated. Denies any complaints, tolerated the hemodialysis yesterday. He had about almost 3 liters out. OBJECTIVE: GENERAL: The patient is alert, awake, not in acute distress, responsive, pleasant and cooperative. HEENT: Unremarkable. NECK: Supple, no JVD. LUNGS: Diminished breath sounds. HEART: Sounds are regular. ABDOMEN: Soft. EXTREMITIES: About 2+ edema. NEUROLOGICAL: Intact. PSYCHOLOGICALLY: good historian. SKIN: Warm and dry. REVIEW OF SYSTEMS: As per HPI, otherwise unremarkable. I's and O's showed as 218 mL, positive. LABORATORY DATA: Shows hemoglobin 8.1, hematocrit 25.6, and white count of 6.6. Electrolytes are normal. Creatinine is 1.9. Blood pressure is 150/60, which is much better. IMPRESSION: Pancytopenia, hypertension, renal disease, myelodysplastic syndrome, end-stage renal disease, septicemia and diabetes mellitus. RECOMMENDATIONS: Continue the present medications. Continue the p.o. vancomycin to complete for C. diff treatment. Continue the Coreg as ordered. The patient is already undergoing dialysis. The patient diltiazem has been discontinued and recommend the use hydralazine as needed for blood pressure and we will follow up. [place], [place] PROGRESS NOTE NAME: MARKY HAYWARD UNIT #: [id number] ROOM: 518 DOCTOR: ABDULKADIR ALLEN MD BIRTHDATE: [birth year] ABDULKADIR ALLEN MD CM:PNTRANS 0715 1353 ABDULKADIR ALLEN MD 08/19/18 1354 interface
--- NOTE | ~2018-08-14 | PR ---
[place], [place] PROGRESS NOTE [id number] UNIT #: [id number] ROOM: 518 DOCTOR: SUSAN ADAMS MD BIRTHDATE: [birth year] DOS: 08/22/2018 SUBJECTIVE: The patient has been dialyzing irregularly. He has no chest pain or breathing difficulty. No palpitations. He is alert and who keeps asking the similar questions repeatedly. PHYSICAL EXAMINATION: GENERAL: Revealed the patient is very pleasant and alert. VITAL SIGNS: Temperature is normal, pulse is irregular, blood pressure is 126/60. NECK: Normal JVP. LUNGS: He has rhonchi in both lungs with some crackles. SKIN: Edema below the knees remains severe and 1+ edema in the thighs and very little edema of the torso. LABORATORY DATA: His weight on the 08/14/2018 was 105 kilos and now is 93.6 kilos, which is higher than a couple of days. IMPRESSION: This patient still has significant volume overload. I think he needs to be diuresed a little more aggressively. I had discontinued the high dose diltiazem in this gentleman, which I thought may have been causing some degree of lower limb edema. Chest x-ray 08/17/2018 showed some cephalization and some congestion on the right side. RECOMMENDATION: I think this gentleman needs to further unloading of fluid because of marked edema of the lower extremities. His vital signs seemed to be fairly stable. SUSAN ADAMS MD CM:PNTRANS 1725 [id number] SUSAN ADAMS MD 08/23/18 0740 interface
--- NOTE | ~2018-08-14 | EKG ---
[place], [place] ELECTROCARDIOGRAM REPORT NAME: MARKY HAYWARD UNIT #: [id number] ROOM: 518 DOCTOR: JOSE DRAFT REPORT BIRTHDATE: [birth year] [facility] Test Date: 2018-08-14 Test Time: 11:18:21 Pat Name: MARKY HAYWARD Department: Room: 518 Gender: M Check Viewer: Kourtney Cherry : 1935 Requested By: BHAVYA JOHN Order Number: [id number] Reading MD: Dante Paul MD Measurements Intervals [place] Rate: 71 P: 24 AK: 165 QRS: -13 QRSD: 105 T: 71 QT: 383 QTc: 417 Interpretive Statements Sinus rhythm Atrial premature complex LVH with secondary repolarization abnormality Compared to ECG 06/23/2018 00:07:53 Atrial premature complex(es) now present No significant change Electronically Signed On 08-15-2018 14:32:13 PST by Dante Pual MD CM:EKGRPT:ELECTROCARDIOGRAM REPORT [id number] BHAVYA BURTON DRAFT REPORT BHAVYA JOHN DO
[2018-08-14 11:26] LABS: HEMATOCRIT 20.9 % (42.0-52.0); HEMOGLOBIN 6.4 g/dl (14.0-18.0); MEAN CELL VOLUME 98.1 fl (80.0-94.0); MEAN CORPUSCULAR HGB CONC 30.6 g/dl (33.0-37.0); MEAN PLATELET VOLUME 12.9 fl (9.6-12.3); PLATELET COUNT AUTOMATED 37 10*3/uL (130-400); RED BLOOD COUNT 2.13 10*6/uL (4.50-5.90); RED CELL DISTRI WIDTH 18.8 % (0-14.5)
--- NOTE | 2018-08-14 11:27 | NUR ---
WBC IS 1.4 CALLED CRITICAL RESULT AT THIS TIME.
[2018-08-14 11:28] LABS: WHITE BLOOD COUNT 1.4 10*3/uL (4.8-10.8)
[2018-08-14 11:36] LABS: ACT PARTIAL THROMBO TIME 29.4 SECONDS (20.8-31.5); INTERNATIONAL NORM RATIO 1.4 (2.0-3.5)
[2018-08-14 11:43] LABS: ACANTHOCYTES FEW; PLATELET SUFFICIENCY LOW (NORMAL); POLYCHROMASIA SLIGHT; TOTAL CELLS COUNTED 100 #CELLS
[2018-08-14 11:46] LABS: ALBUMIN 2.3 gm/dl (3.1-4.5); CREATININE 3.08 mg/dL (0.70-1.30); POTASSIUM 4.7 mmol/L (3.5-5.1)
[2018-08-14 11:49] LABS: TROPONIN I 0.128 ng/ml (<0.045)
--- NOTE | 2018-08-14 11:50 | NUR ---
PT RESTING QUIETLY, VOICES NO COMPLAINTS, PT WITH TROP 0.128, DR JOHN NOTIFIED.
[2018-08-14] MEDS ORDERED: BUMETANIDE2 MG PO (11:53)
[2018-08-14] MEDS ORDERED: VITAMIN D5000 UNIT PO (11:54)
[2018-08-14] MEDS ORDERED: METOLAZONE2.5 MG PO (11:57)
[2018-08-14] MEDS ORDERED: MELATONIN1 MG PO (11:57)
[2018-08-14] MEDS ORDERED: OXYCODONE5 M1 PO (12:00)
[2018-08-14 12:15] LABS: BILIRUBIN NEGATIVE (NEGATIVE); BLOOD 3+ (NEGATIVE); CLARITY CLOUDY (CLEAR); COLOR YELLOW (YELLOW); GLUCOSE NEGATIVE (NEGATIVE); KETONE NEGATIVE (NEGATIVE); LEUKO ESTERASE 2+ (NEGATIVE); NITRITE NEGATIVE (NEGATIVE); UROBILINOGEN 0.2 E.U./dl (0.2-1.0)
[2018-08-14 12:22] LABS: BACTERIA 4+
--- NOTE | 2018-08-14 12:22 | NUR ---
PT REMAINS COMFORTABLE, VOICES NO COMPLAINTS. STAGE 2 WOUND TO COCCXY.
[2018-08-14 12:23] LABS: WBC TNTC wbc/hpf (0-5)
--- NOTE | 2018-08-14 14:35 | NUR ---
A 83YO MALE, admitted to , under the services of LEOPOLDO Jean MD with a diagnosis of PANCYTOPENIA/C DIFF COLITIS. Chief complaint is WEAKNESS, NAUSEA, AND ABNORMAL LAB RESULTS TODAY. Patient arrived via stretcher from ER. Monitor applied. Initial assessment completed. Vital signs taken and recorded. LEOPOLDO JEAN MD notified of admission to the unit. Orders received. See assessment for past medical history, medications and allergies. Patient and/or family oriented to unit. [facility] visitation policy reviewed. Clothing/patient valuable form completed. PHYLLIS PEREZ
[2018-08-14] MEDS ORDERED: MILK OF MA400 MG/51 PO (15:02)
[2018-08-14] MEDS ORDERED: MULTIVITAMINS1 EAC6 PO (15:03)
[2018-08-14] MEDS ORDERED: NATURAL BALANCE15 M1 OU (15:04)
[2018-08-14] MEDS ORDERED: ZOFRAN4 MG PO (15:05)
[2018-08-14] MEDS ORDERED: SALINE MIST 4444 ML NAS (15:07)
[2018-08-14] MEDS ORDERED: VANCOMYCIN LIQUID PO (15:12)
[2018-08-14] MEDS ORDERED: MELATONIN3 MG PO (15:15)
[2018-08-14] MEDS ORDERED: HUMALOG100 UNIT/1 SQ (15:19)
[2018-08-14] MEDS ORDERED: HEPARIN 5,5000 UNIT/ SC (15:20)
[2018-08-14] MEDS ORDERED: FLEET ENEMA 13133 ML R (15:22)
[2018-08-14] MEDS ORDERED: DULCOLAX10 M1 R (15:23)
[2018-08-14] MEDS ORDERED: DILTIAZEM 24HR120 MG PO (15:24)
--- NOTE | 2018-08-14 15:26 | NUR ---
MED REC UPDATED/CORRECTED USING INFORMATION PROVIDED BY [facility] RECORDS.
--- NOTE | 2018-08-14 17:12 | NUR ---
DR. DÍAZ NOTIFIED OF CONSULT RE: HEMODIALYSIS.
--- NOTE | 2018-08-14 23:20 | NUR ---
TRANSFUSION OF 2ND UNIT OF PRBC INITIATED AT THIS TIME.
[2018-08-15] VITALS (8 sets, daily range): BP systolic 144–167; BP diastolic 72–89
--- NOTE | 2018-08-15 00:33 | NUR ---
PT TOLERATED BLOOD TRANSFUSION WELL. NO SXS OF DISTRESS. NO COMPLAINTS VOICED. SEE VITALS.
--- NOTE | 2018-08-15 00:54 | NUR ---
MESSAGE LEFT FOR DIALYSIS REGARDING PTS NEEDS IN AM.
--- NOTE | 2018-08-15 01:45 | NUR ---
BLOOD TRANSFUSION COMPLETED. NO VOICED COMPLAINTS. VSS. IN BED WITH CALL LIGHT IN REACH.
--- NOTE | 2018-08-15 02:46 | NUR ---
24 HR CHART CHECK COMPLETED.
[2018-08-15 06:47] LABS: HEMATOCRIT 24.2 % (42.0-52.0); MEAN CELL VOLUME 95.3 fl (80.0-94.0); MEAN CORPUSCULAR HGB 31.5 pg (27.0-31.0); MEAN CORPUSCULAR HGB CONC 33.1 g/dl (33.0-37.0); PLATELET COUNT AUTOMATED 37 10*3/uL (130-400); RED BLOOD COUNT 2.54 10*6/uL (4.50-5.90)
[2018-08-15 06:50] LABS: WHITE BLOOD COUNT 1.7 10*3/uL (4.8-10.8)
[2018-08-15 07:09] LABS: ALBUMIN 2.3 gm/dl (3.1-4.5); POTASSIUM 4.6 mmol/L (3.5-5.1)
[2018-08-15 07:12] LABS: CREATININE 2.95 mg/dL (0.70-1.30); PHOSPHOROUS 3.3 mg/dL (2.5-4.9); TOTAL PROTEIN 5.1 gm/dL (6.4-8.2)
[2018-08-15 07:17] LABS: TOTAL CELLS COUNTED 100 #CELLS
[2018-08-15 07:18] LABS: ACANTHOCYTES FEW
[2018-08-15 07:22] LABS: PLATELET SUFFICIENCY LOW (NORMAL)
--- NOTE | 2018-08-15 08:33 | NUR ---
Patient comes from [facility]. Patient requires a precert to return, will need PT/OT evals.
--- NOTE | 2018-08-15 08:54 | NUR ---
MARKY HAYWARD [id number] Please refer to the physician's history and physical for past medical history, comorbid conditions, and allergies. Diagnosis: PANCYTOPENIA C DIFFICILE COLITIS Tye Score: 13,MODERATE RISK WOUND DESCRIPTIONS: Location of the wound: right buttocks Type of wound: stage 3 Thickness: Full Size: 1.7cm x 0.9cm x <0.1cm Tunneling: none Undermining: none Sinus Tract: none Presence of Exudate: Serous Amount: Light Color: Yellow, red Odor: None Periwound Skin Appearance: Scar Wound edges: approxiamted Pain (associated with wound): none at time of assessment How does patient state this happened? pt stated this opened 42 days ago when he was a patient in [facility] [place] at [facility]. Surface the patient is resting on: Isoflex SKIN PREVENTION RECOMMENDATION: 1. Pressure redistribution support surface as appropriate 2. Elevate heels 3. Remove boots/TEDS every shift and reapply 4. Head of bed 30 degrees as tolerated 5. Assess nutrition and hydration 6. Manage moisture 7. Avoid the use of containment devices while in bed 8. Use absorptive products on surfaces limit layers of linens on bed 9. Turn and reposition every 1-2 hours in bed and every 1 hour in chair as tolerated 10. Weight shifts every 15 minutes while up in chair 11. Offloading with pillows or device to keep heels elevated off bed 12. Monitor skin at least every shift 13. Inspect under medical devices twice a day WOUND TREATMENT RECOMMENDATIONS: Wheelchair cushion when oob. Heel raiser pro boots while in bed. Stage 3 guidelines: Cleanse right buttocks with nss and apply sureprep around the wound therahoney to wound bed and cover with optifoam gentle. Consult Sofie Montejo GEAR REPAIR SUPERVISOR- for possible debridement. Patient is requesting podiatry consult for toenails to be cut.
--- NOTE | 2018-08-15 09:00 | NUR ---
Ballet Dancer in to see patient. He is currently at [facility] short term and would like to return there upon discharge. He is independent in his ADLs and uses a cane for ambulation. He is MWF dialysis. environmental emergencies planner following. When medically stable and precert is obtained he will be discharged to [facility].
[2018-08-15 09:40] LABS: VITAMIN D, 25-HYDROXY 30.6 ng/mL (30-100)
[2018-08-15 09:41] LABS: PTH INTACT 151.7 pg/mL (18.5-88.0)
--- NOTE | 2018-08-15 11:19 | NUR ---
PER DR. DÍAZ, NO NEED FOR DIALYSIS TODAY ACCORDING TO LABS AND ADEQUATE AMOUNT OF URINARY OUTPUT FOR THE PAST 24 HOURS. SHE DID ENTER ORDER FOR 24 HOUR URINE CREATININE PROFILE.
--- NOTE | 2018-08-15 12:52 | NUR ---
MEDICATED WITH PRN PO OXY-IR FOR PELVIC PAIN D/T OLD FRACTURE INJURY.
--- NOTE | 2018-08-15 12:57 | NUR ---
Dr. Palm notified of wound care recommendations.
--- NOTE | 2018-08-15 13:20 | NUR ---
PRN OXY-IR EFFECTIVE, PER PATIENT.
--- NOTE | 2018-08-15 14:33 | NUR ---
PODIATRY IS AWARE OF CONSULT FOR TOENAIL CUTTING
--- NOTE | 2018-08-15 20:00 | NUR ---
CLEANED FOR SMALL, SIFT, ORANGE BM. SCDS/BOOTS APPLIED.
--- NOTE | 2018-08-15 20:11 | NUR ---
24 HR chart check completed.
--- NOTE | 2018-08-15 20:52 | NUR ---
MEDICATED WITH PO AMBIEN ORDERED PER PT REQUEST FOR C/O INSOMNIA.
--- NOTE | 2018-08-15 23:30 | NUR ---
ASSUMED CARE OF PT AT THIS TIME. PT ASLEEP IN BED, EASILY AROUSABLE. VOICES NO COMPLAINTS. RESPIRATIONS EASY ON 2L NC. WILL CONTINUE TO MONITOR. CALL LIGHT LEFT IN REACH.
[2018-08-16] VITALS: BP 149/64
--- NOTE | 2018-08-16 03:08 | NUR ---
PATIENT HAD SMALL ORANGE BOWEL MOVEMENT IN BEDPAN. PT CLEANED UP AND DRESSING TO R BUTTOCK CHANGED PER ORDER. NEW CHUCKS PROVIDED. IV TO R ARM/WRIST AREA WAS LEAKING BLOOD. IV SITE REMOVED AND NEW 20G IV SITE INITIATED IN RAC. PT TOLERATED WELL. PT ASSISTED TO REPOSITION FOR COMFORT. PT REQUESTING TO HAVE SCDs AND HEEL BOOTS TAKEN OFF. SCDs AND HEEL BOOTS REMOVED AT THIS TIME. WILL CONTINUE TO MONITOR. BED LEFT LOCKED IN LOW POSITION, CALL LIGHT LEFT IN REACH.
[2018-08-16 07:18] LABS: HEMATOCRIT 24.3 % (42.0-52.0); MEAN CELL VOLUME 95.7 fl (80.0-94.0); MEAN CORPUSCULAR HGB 31.5 pg (27.0-31.0); MEAN CORPUSCULAR HGB CONC 32.9 g/dl (33.0-37.0); PLATELET COUNT AUTOMATED 32 10*3/uL (130-400); RED BLOOD COUNT 2.54 10*6/uL (4.50-5.90); RED CELL DISTRI WIDTH 18.9 % (0-14.5)
[2018-08-16 07:21] LABS: WHITE BLOOD COUNT 0.9 10*3/uL (4.8-10.8)
--- NOTE | 2018-08-16 07:25 | NUR ---
NOTIFIED OF CRITICAL WBC COUNT 0.9. NO NEW ORDERS RECEIEVED.
[2018-08-16 07:44] LABS: ALBUMIN 2.4 gm/dl (3.1-4.5); CREATININE 3.12 mg/dL (0.70-1.30); TOTAL PROTEIN 5.1 gm/dL (6.4-8.2)
[2018-08-16 07:54] LABS: ACANTHOCYTES FEW; PLATELET SUFFICIENCY LOW (NORMAL); POLYCHROMASIA SLIGHT; TOTAL CELLS COUNTED 100 #CELLS
--- NOTE | 2018-08-16 08:16 | NUR ---
PHYSICAL THERAPY Nursing screen received. PT orders also received. Thank you. Lory Das,PT
--- NOTE | 2018-08-16 09:00 | NUR ---
Bd Special Education Teacher in to see patient. When medically stable and precert is obtained he will be discharged to [facility]. land planner following.
--- NOTE | 2018-08-16 10:16 | NUR ---
Recommend follow up for wound care in outpatient setting patient being discharge to another facility at this time.
--- NOTE | 2018-08-16 11:38 | NUR ---
INFECTIOUS DISEASE OFFICE AWARE OF CONSULT.
[2018-08-16 12:00] VITALS: BP 154/79
--- NOTE | 2018-08-16 13:34 | NUR ---
DR ADAMS AWARE OF CONSULT. STATES HE WILL SEE THE PATIENT THIS EVENING.
--- NOTE | 2018-08-16 14:32 | NUR ---
PHYSICAL THERAPY PAtient evaluated on 5, full evaluation to follow. Continue with PT as per plan of care with fall, max (A) x 2+ , C diff and non ambulatory or standing since Thankgiving precautions. May require LTAC versus SNF. Patient is high complexity via chart review, tests and evaluation: 61816. Thank you for this referral. Lory Das.PT
--- NOTE | 2018-08-16 15:16 | NUR ---
Occupational Therapy evaluation completed on 5 with full eval to follow. Precautions include mattson, fall risk, poor stand tolerance, IV UE, dialysis m,w,f, nigel for transfers. Patient is high complexity level 84264 per chart review, testing and evaluation. REcommend OT per pOC and SNf to enable max ability to function. Thank you. Altagracia Beth OTR/L
[2018-08-16 16:00] VITALS: BP 160/82
--- NOTE | 2018-08-16 19:15 | NUR ---
PATIENT RECEIVED OXY FOR PAIN RATED 6/10.
--- NOTE | 2018-08-16 21:59 | NUR ---
NOTIFIED OF PATIENT'S INABILITY TO URINATE AFTER GODOY REMOVAL AROUND 6PM THIS EVENING. DISCUSSED BLADDER SCAN OF >347. ALSO DISCUSSED PITTING EDEMA TO BLE. PATIENT STATES HE WAS AT [facility] FOR 47 DAYS AND HAD A GODOY THE ENTIRE TIME. WHEN THE NURSES AT [facility] D/Arnol GODOY, THEY INSERTED A NEW ONE THAT NIGHT BECAUSE OF HOW MUCH SWELLING IN LEGS THEY OBSERVED. PER , INSERT NEW GODOY.
--- NOTE | 2018-08-16 22:59 | NUR ---
PT MEDICATED WITH PO AMBIEN PER PRN ORDER FOR C/O SLEEPLESSNESS. WILL MONITOR EFFECTIVENESS. CALL LIGHT LEFT IN REACH.
--- NOTE | 2018-08-16 23:10 | NUR ---
GODOY CATHETER INSERTED UNDER STERILE PROCEDURE PER POLICY PER ' ORDER. PATIENT TOLERATED WELL. 200 CCs OF DARK YELLOW/ALMOST MARTIN URINE WITH SOME SEDIMENT NOTED. UA^UC COLLECTED AND SENT TO LAB PER ORDER. WILL MONITOR. CALL LIGHT LEFT IN REACH.
[2018-08-16 23:37] LABS: BILIRUBIN NEGATIVE (NEGATIVE); BLOOD 1+ (NEGATIVE); CLARITY SL CLOUDY (CLEAR); COLOR YELLOW (YELLOW); GLUCOSE NEGATIVE (NEGATIVE); KETONE NEGATIVE (NEGATIVE); LEUKO ESTERASE 2+ (NEGATIVE); NITRITE NEGATIVE (NEGATIVE); PH 5.5 (5.0-9.0); SPECIFIC GRAVITY 1.025 (1.005-1.030); UROBILINOGEN 0.2 E.U./dl (0.2-1.0)
[2018-08-17] VITALS: BP 147/78
[2018-08-17 00:18] LABS: BACTERIA 1+; RBC 21-30 rbc/hpf (0-2); WBC 31-40 wbc/hpf (0-5)
--- NOTE | 2018-08-17 01:37 | NUR ---
PT ASLEEP IN BED. RESPIRATIONS EASY. NO S/S OF DISTRESS NOTED. WILL MONITOR. CALL LIGHT LEFT IN REACH.
--- NOTE | 2018-08-17 02:25 | NUR ---
PATIENT ASLEEP IN BED AT THIS TIME. RESPIRATIONS EASY. NO S/S OF DISTRESS NOTED. ON ROOM AIR. WILL MONITOR. CALL LIGHT LEFT IN REACH.
[2018-08-17 07:29] LABS: HEMATOCRIT 26.1 % (42.0-52.0); HEMOGLOBIN 8.5 g/dl (14.0-18.0); MEAN CELL VOLUME 96.3 fl (80.0-94.0); MEAN CORPUSCULAR HGB 31.4 pg (27.0-31.0); MEAN CORPUSCULAR HGB CONC 32.6 g/dl (33.0-37.0); MEAN PLATELET VOLUME 13.2 fl (9.6-12.3); PLATELET COUNT AUTOMATED 33 10*3/uL (130-400); RED BLOOD COUNT 2.71 10*6/uL (4.50-5.90); RED CELL DISTRI WIDTH 19.1 % (0-14.5)
[2018-08-17 07:40] LABS: INTERNATIONAL NORM RATIO 1.4 (2.0-3.5)
[2018-08-17 07:48] LABS: TOTAL CELLS COUNTED 100 #CELLS
[2018-08-17 07:49] LABS: ACANTHOCYTES FEW; BURR CELLS FEW; PLATELET SUFFICIENCY LOW (NORMAL); POLYCHROMASIA SLIGHT
[2018-08-17 08:00] VITALS: BP 146/68
[2018-08-17 08:07] LABS: POTASSIUM 4.2 mmol/L (3.5-5.1)
[2018-08-17 08:22] LABS: ALBUMIN 2.6 gm/dl (3.1-4.5); CREATININE 3.21 mg/dL (0.70-1.30); TOTAL PROTEIN 5.3 gm/dL (6.4-8.2)
--- NOTE | 2018-08-17 09:00 | NUR ---
Supervisor Sewer System in to see patient. When medically stable and precert is obtained he will be discharged to [facility]. assortment planner following.
--- NOTE | 2018-08-17 09:03 | NUR ---
Patient updated clinicals and therapy evals faxed to [facility], asked to start precert for patient to return. Waiting on auth./
--- NOTE | 2018-08-17 09:17 | NUR ---
Nursing screen received 08/15/18 and Occupational Therapy evaluation completed. Thank you. Altagracia Beth OTR/L
--- NOTE | 2018-08-17 10:14 | NUR ---
Spoke with Dr. Carranza. We reviewed patients labs, x-ray results, and follow up treatment from 08-16-17. She said that patient will have dialysis today and let the dialysis nurse know. I had face to face encounter with Delores to let her know I spoke with Dr. Carranza and patient will have dialysis today.
--- NOTE | 2018-08-17 10:30 | NUR ---
OT NOTE Pt was seen this A.M. 1:1 for 15 minute OT session. Upon arrival pt was supine in bed, pt identified by name and . Pt had no complaints at this time. Pt transferred supine to sit EOB with with SBA. While sitting EOB pt completed BUE towel exercises over all planes of motion for 1 X 15 to increase UE strength needed for increased I in self care tasks and functional transfers. Pt then returned to supine in bed with SBA where he was left with call light in hand, tray table in place, and phone in reach. Continue with rec D/C plan to SNF. JOSE Bryant/Latrice
--- NOTE | 2018-08-17 10:52 | NUR ---
PHYSICAL THERAPY Patient presented to therapy in supine position with head of bed elevated and report of no pain or other concerns. Patient says he is willing to participate in therapy this morning. Patient was identified by name and . Patient performed supine to sitting at EOB with MOD A X 2. Patient transferred STS with MIN A X 2 with V/Cs for pushing off bed with hands. Patient performed seated ther ex to the bilateral LEs x 20 reps each in all planes of movement for strengthening in order to improve patient's functional mobility. Patient needed to use rest room and no bedside commode was available after extensive search, so patient was laid down in bed and call light was activated, and commercial loan assistant informed that patient needed cleaned up. Patient could not walk to the restroom due ot LE weakness. Patient was left in supine position in bed with head of bed elevated, call light activated, and bed alarm activated. Patient was 1:1 with this CHIEF SECURITY OFFICER for 20 minutes total. Patient is recommended for SNF upon discharge. MITA MCLAIN CHIEF SECURITY OFFICER
[2018-08-17 12:00] VITALS: BP 151/77
--- NOTE | 2018-08-17 12:26 | NUR ---
AQUAPHOR TO BLE APPLIED PER ORDER.
--- NOTE | 2018-08-17 13:33 | NUR ---
Called Dr. Orlando regarding consult for elevated troponins. He was unable to talk and is to call me back.
--- NOTE | 2018-08-17 14:37 | NUR ---
Waiting for 1400 dose of Vanc from pharmacy. Face to face encounter with registered pharmacy technician.
--- NOTE | 2018-08-17 14:40 | NUR ---
Called Dr. Palm for Tylenol order. Patient c/o headache. See new orders.
--- NOTE | 2018-08-17 14:52 | NUR ---
Tylenol given per patient request for c/o headache. Will monitor.
--- NOTE | 2018-08-17 15:45 | NUR ---
Tylenol effective. Patient satisfied.
--- NOTE | 2018-08-17 16:30 | NUR ---
patient not availalbe for echo. he is out of his room for other testing.
[2018-08-17 20:00] VITALS: BP 123/58; BP 153/69
--- NOTE | 2018-08-17 21:43 | NUR ---
PATIENT RECEIVED AMBIEN TO AIDE SLEEP.
--- NOTE | 2018-08-17 22:53 | NUR ---
PATIENT RESTING COMFORTABLY IN HIS BED AT THIS TIME. NO S/S OF DISTRESS. PATIENT RECEIVED ALL EVENING MEDICATIONS. RESPIRATIONS EASY. CALL LIGHT WITHIN REACH.
[2018-08-18] VITALS: BP 154/63
--- NOTE | 2018-08-18 00:48 | NUR ---
24 HR chart check completed.
--- NOTE | 2018-08-18 04:53 | NUR ---
PATIENT RESTING COMFORTABLY IN HIS BED AT THIS TIME. EYES CLOSED RESP EASY. NO S/S OF DISTRESS. CALL LIGHT WITHIN REACH.
--- NOTE | 2018-08-18 05:54 | NUR ---
TYLENOL GIVEN FOR SINUS CONGESTION
[2018-08-18 06:26] LABS: HEMATOCRIT 25.6 % (42.0-52.0); HEMOGLOBIN 8.1 g/dl (14.0-18.0); MEAN CELL VOLUME 97.7 fl (80.0-94.0); MEAN CORPUSCULAR HGB 30.9 pg (27.0-31.0); MEAN CORPUSCULAR HGB CONC 31.6 g/dl (33.0-37.0); RED BLOOD COUNT 2.62 10*6/uL (4.50-5.90); RED CELL DISTRI WIDTH 19.1 % (0-14.5); WHITE BLOOD COUNT 6.6 10*3/uL (4.8-10.8)
[2018-08-18 06:27] LABS: PLATELET COUNT AUTOMATED 31 10*3/uL (130-400)
[2018-08-18 06:35] LABS: ALBUMIN 2.2 gm/dl (3.1-4.5); CREATININE 1.92 mg/dL (0.70-1.30); POTASSIUM 3.9 mmol/L (3.5-5.1)
[2018-08-18 06:37] LABS: TOTAL PROTEIN 4.9 gm/dL (6.4-8.2)
[2018-08-18 07:08] LABS: PLATELET SUFFICIENCY LOW (NORMAL); TOTAL CELLS COUNTED 100 #CELLS
[2018-08-18 07:09] LABS: ACANTHOCYTES FEW; BURR CELLS FEW
--- NOTE | 2018-08-18 07:20 | NUR ---
BLOOD SUGAR ON BASIC WAS 77. BSG WAS NOT PERFORMED, TAKEN FROM LABS.
[2018-08-18 08:00] VITALS: BP 138/66
--- NOTE | 2018-08-18 09:00 | NUR ---
Server Administrator in to see patient. When medically stable and precert is obtained he will be discharged to [facility]. planner internship following.
--- NOTE | 2018-08-18 10:10 | NUR ---
PHYSICAL THERAPY Patient seen this am 1:1 for therapy visit and was supine in bed upon therapist arrival. Patient reports no new c/o's and stated he has had only a single episode of loose stool this morning. Patient transfers supine to sit EOB with MIN A x 1 tolerating EOB sit x 7 minutes, SBA. Patient able to perform seated AROM, B LE heel raises, marching and LAQ x 10 reps each without c/o. Patient also able to perform several sit to stand transfers, MOD A, tolerating 3 minutes or Less x 2 trials, CGA static stand. Patient returned to supine in bed upon physician arrival and remained in bed with call light, tray table and bed alarm for safety. Will continue per POC as tolerated, total treatment time 17 minutes. Aj Shoemaker, MOLD CONSTRUCTION SUPERVISOR
--- NOTE | 2018-08-18 10:25 | NUR ---
OT NOTE Pt was seen this A.M. 1:1 for 25 minute OT session. Upon arrival pt was supine in bed, pt identified by name and . Pt had no complaints at this time. Pt transferred supine to sit EOB with Estrella for assist with UB. While sitting EOB pt donned socks with maxA due to poor forward flexion. Pt then completed sit to stand transfers from bed level with modA X 2. Challenged pt's static standing tolerance needed for increased I in self care tasks and functional transfers, pt was able to tolerate aprox 3 minutes at a time before sitting due to fatigue. While sitting EOB pt completed BUE towel exercises over all planes of motion for 1 X 15 to increase UE strength needed for increased I in ADl/IADL tasks. Pt then transferred back into bed sit to supine with modA for assist with BLE. Pt was left supine in bed with call light in hand, tray table in place, and phone in reach. Continue with rec D/C plan to SNF. JOSE Bryant/Latrice
[2018-08-18 10:52] LABS: WBC TNTC wbc/hpf (0-5)
[2018-08-18 10:54] LABS: BACTERIA 2+
[2018-08-18 10:55] LABS: RBC 31-40 rbc/hpf (0-2)
--- NOTE | 2018-08-18 10:58 | NUR ---
Judy from [place] called regarding hematocrit of 50.7. Asking if Dr. Hale still wants phlebotomy today. Hematocrit was 55.[address] yesterday. Attempted to call Dr. Hale, was on hold for >[address] Hale called back and he said to do phlebotomy notified Judy in [place].
[2018-08-18 12:00] VITALS: BP 145/70
--- NOTE | 2018-08-18 13:00 | NUR ---
Pt states that Dr. Thapa was in and saw him, pt states that told him he will probably be DC on Wednesday. Pt son visiting.
[2018-08-18 16:00] VITALS: BP 158/79
[2018-08-18 20:00] VITALS: BP 170/68
[2018-08-19] VITALS: BP 156/71
--- NOTE | 2018-08-19 07:43 | NUR ---
Patient comes from [facility] short term, precert is required for patient to return. Precert started 08/17/18, waiting on auth
[2018-08-19 08:00] VITALS: BP 146/82
--- NOTE | 2018-08-19 09:00 | NUR ---
Printing Equipment Mechanic Apprentice in to see patient. When medically stable and precert is obtained he will be discharged to [facility]. Son and patient both want patient to return to [facility] for continued therapy. office workforce planner following.
--- NOTE | 2018-08-19 10:25 | NUR ---
OT NOTE Pt was seen this A.M. 1:1 for 25 minute OT session. Upon arrival pt was sitting upright on the EOB. Pt identified by name and and had no complaints at this time. While sitting EOB challenged pt's sitting balance needed for increased I and enhanced safety and pt was able to maintian G- sitting balance throughout. Completed multiple sit to stand transfers from bed level with modA X 2 and education for proper hand placement for increased I and improved technique. Challenged pt's static standing tolerance needed for increased I in ADL/IADL tasks, pt was able to tolerate aprox 2 minutes before sitting due to fatigue. Pt completed stand pivot to recliner with modA X 2 where we then completed sit to stand from chair level with maxA X 2 due to being a lower surface. While sitting in recliner pt completed BUE towel exercises over all planes of motion with emphasis on triceps for 1 X 15 to increase UE strength needed for functional transfers. Pt was left sitting upright in recliner with call light in hand, tray table in place, and body alarm on for safety. Continue with rec D/C plan to SNF. JOSE Bryant/Latrice
--- NOTE | 2018-08-19 10:27 | NUR ---
Dialysis called and stated they will be here at 2 pm for dialysis.
--- NOTE | 2018-08-19 10:30 | NUR ---
PHYSICAL THERAPY Patient seen this am 1:1 for therapy visit and was supine in bed upon therapist arrival. Patient reports no new c/o's at this time and transfers supine to sit EOB with Mod A, tolerating EOB sit x 5 minutes SBA. Patient performed sit to stand Mod A and completed SPT to bedside chair demonstrating "cautious" step sequence. Patient remained in bedside chair with call light, tray table and body alarm for safety. Will continue per POC as tolerated, total treatment time 13 minutes. Aj Shoemaker, EXHAUST MACHINE OPERATOR
[2018-08-19 12:00] VITALS: BP 133/58
--- NOTE | 2018-08-19 13:04 | NUR ---
Dr. Thapa and Dr. Carranza notified patient is able to go back to [facility] when medically stable. Possible discharge tomorrow.
--- NOTE | 2018-08-19 13:04 | NUR ---
Patient has received auth for [facility], patient is ok to go when medically stable for discharge as long as it is not on a dialysis day.
--- NOTE | 2018-08-19 14:40 | NUR ---
Pt taken to dialysis.
--- NOTE | 2018-08-19 18:30 | NUR ---
Pt remains in dialysis.
[2018-08-19 20:00] VITALS: BP 145/77
--- NOTE | 2018-08-19 23:13 | NUR ---
DR. BUTLER WAS NOTIFIED OF PATIENT'S HOME INSULIN NOT BEING CONTINUED.
[2018-08-20] VITALS: BP 141/67
--- NOTE | 2018-08-20 06:54 | NUR ---
PATIENT RATES BACK PAIN AT A 6. PATIENT REQUESTS AND RECIEVES PRN OXYCODONE. WILL MONITOR FOR EFFECTIVENESS.
[2018-08-20 08:00] VITALS: BP 140/72; BP 154/70
[2018-08-20 12:00] VITALS: BP 154/66
--- NOTE | 2018-08-20 14:50 | NUR ---
DR DÍAZ IN TO SEE PT AT THIS TIME.
[2018-08-20 15:00] LABS: ALBUMIN 2.5 gm/dl (3.1-4.5); CREATININE 1.99 mg/dL (0.70-1.30); POTASSIUM 4.2 mmol/L (3.5-5.1); TOTAL PROTEIN 5.2 gm/dL (6.4-8.2)
[2018-08-20 16:00] VITALS: BP 160/82
[2018-08-20 16:09] LABS: HEMATOCRIT 23.7 % (42.0-52.0); HEMOGLOBIN 7.8 g/dl (14.0-18.0); MEAN CELL VOLUME 97.9 fl (80.0-94.0); MEAN CORPUSCULAR HGB 32.2 pg (27.0-31.0); MEAN CORPUSCULAR HGB CONC 32.9 g/dl (33.0-37.0); RED BLOOD COUNT 2.42 10*6/uL (4.50-5.90); RED CELL DISTRI WIDTH 18.3 % (0-14.5)
[2018-08-20 16:17] LABS: PLATELET COUNT AUTOMATED 44 10*3/uL (130-400)
--- NOTE | 2018-08-20 16:30 | NUR ---
IN TO OBTAIN D/C PHOTOS IN PREPARATION FOR D/C. PT REFUSES ANY PHOTOS AND DENIES NEED FOR NEW DRESSING APPLICATION. AMINA MORGAN PRESENT,
[2018-08-20 16:31] LABS: PLATELET SUFFICIENCY LOW (NORMAL); TOTAL CELLS COUNTED 100 #CELLS
[2018-08-20 16:32] LABS: ACANTHOCYTES FEW; BURR CELLS FEW
[2018-08-20 20:00] VITALS: BP 173/90
--- NOTE | 2018-08-20 22:52 | NUR ---
PATIENT REQUESTED AND RECIEVED CORAZON FOR INSOMNIA. WILL MONITOR.
[2018-08-21] VITALS: BP 155/94
--- NOTE | 2018-08-21 02:35 | NUR ---
Shift chart check completed.
[2018-08-21 08:00] VITALS: BP 154/90; BP 160/74
--- NOTE | 2018-08-21 08:30 | NUR ---
PT CHANGED AND PILAR CARE PROVIDED AT THIS TIME FOR LARGE SOFT BM.
[2018-08-21 11:01] LABS: HEMATOCRIT 24.9 % (42.0-52.0); HEMOGLOBIN 7.8 g/dl (14.0-18.0); MEAN CELL VOLUME 98.8 fl (80.0-94.0); MEAN CORPUSCULAR HGB CONC 31.3 g/dl (33.0-37.0); MEAN PLATELET VOLUME 13.3 fl (9.6-12.3); RED BLOOD COUNT 2.52 10*6/uL (4.50-5.90); RED CELL DISTRI WIDTH 18.1 % (0-14.5)
[2018-08-21 11:06] LABS: PLATELET COUNT AUTOMATED 28 10*3/uL (130-400)
[2018-08-21 11:07] LABS: WHITE BLOOD COUNT 1.8 10*3/uL (4.8-10.8)
--- NOTE | 2018-08-21 11:10 | NUR ---
DR DÍAZ MADE AWARE OF CRITICAL LAB RESULTS- WBC 1.8, PLT 28.
[2018-08-21 11:22] LABS: ATYPICAL LYMPHS 1 % (0-0); TOTAL CELLS COUNTED 100 #CELLS
[2018-08-21 11:23] LABS: PLATELET SUFFICIENCY LOW (NORMAL); ROULEAUX MODERATE; SCHISTOCYTES FEW
[2018-08-21 12:00] VITALS: BP 156/58
[2018-08-21 16:00] VITALS: BP 160/78; BP 169/87
--- NOTE | 2018-08-21 17:30 | NUR ---
PT MEDICATED WITH TYLENOL PER PRN ORDER FOR COMPLAINTS OF HEADACHE. WILL MONITOR FOR EFFECTIVENESS.
[2018-08-21 20:00] VITALS: BP 160/80
--- NOTE | 2018-08-21 23:00 | NUR ---
DR. JACQUES WAS NOTIFIED ABOUT THE PTS AMBIEN ORDER FALLING OFF. HE REORDERED THE AMBIEN.
--- NOTE | 2018-08-21 23:18 | NUR ---
PATIENT REQUESTED AND RECIEVED PRN AMBIEN FOR INSOMNIA. WILL MONITOR FOR EFFECTIVENESS.
[2018-08-22] VITALS: BP 150/72
[2018-08-22 06:47] LABS: HEMATOCRIT 22.2 % (42.0-52.0); MEAN CELL VOLUME 97.8 fl (80.0-94.0); MEAN CORPUSCULAR HGB 30.8 pg (27.0-31.0); MEAN CORPUSCULAR HGB CONC 31.5 g/dl (33.0-37.0); RED BLOOD COUNT 2.27 10*6/uL (4.50-5.90); RED CELL DISTRI WIDTH 18.3 % (0-14.5)
[2018-08-22 06:52] LABS: WHITE BLOOD COUNT 1.7 10*3/uL (4.8-10.8)
[2018-08-22 06:53] LABS: PLATELET COUNT AUTOMATED 26 10*3/uL (130-400)
--- NOTE | 2018-08-22 06:54 | NUR ---
DR. BUENO WAS NOTIFIED ABOUT PATIENTS CRITICAL LAB
[2018-08-22 07:13] LABS: ACANTHOCYTES FEW; ATYPICAL LYMPHS 1 % (0-0); BASOPHILS 1 % (0-1); PLATELET SUFFICIENCY LOW (NORMAL); POLYCHROMASIA SLIGHT; TOTAL CELLS COUNTED 100 #CELLS
[2018-08-22 07:25] LABS: POTASSIUM 3.9 mmol/L (3.5-5.1)
[2018-08-22 07:36] LABS: ALBUMIN 2.3 gm/dl (3.1-4.5); CREATININE 2.22 mg/dL (0.70-1.30); TOTAL PROTEIN 4.8 gm/dL (6.4-8.2)
--- NOTE | 2018-08-22 08:42 | NUR ---
OT NOTE Attempted to see pt this A.M. for OT session and upon arrival pt was out of room for dialysis. Will check back at a later time/date as able. JOSE Bryant/Latrice
--- NOTE | 2018-08-22 09:00 | NUR ---
Outsole Handler in to see patient. When medically stable and precert is obtained he will be discharged to [facility]. enterprise resource planner following.
--- NOTE | 2018-08-22 09:41 | NUR ---
Pt off floor in dialysis unable to assess patient at this time.
--- NOTE | 2018-08-22 09:50 | NUR ---
Patient did have auth to go to [facility], however it was only through the weekend. Precert will need to be restarted again, will have to wait for auth.
--- NOTE | 2018-08-22 10:12 | NUR ---
PHYSICAL THERAPY Patient is out of room this am and in Dialysis. Will continue this pm per POC as able. Aj Shoemaker, CHIEF ELECTRICIAN
--- NOTE | 2018-08-22 10:49 | NUR ---
DR. DÍAZ ON FLOOR AT THIS TIME. MADE AWARE OF PATIENTS HEMOGLOBIN BEING 7.0. NO NEW ORDERS RECIEVED AT THIS TIME.
--- NOTE | 2018-08-22 12:00 | NUR ---
PATIENT RETURNED FROM DIALYSIS. 4KG REMOVED OFF PATIENT TODAY. BENCH ASSEMBLER ELECTRICAL STATED PATIENT TOLERATED WELL.
--- NOTE | 2018-08-22 14:10 | NUR ---
PHYSICAL THERAPY Patient seen this pm 1:1 for therapy visit and was supine in bed upon therapist arrival. Patient reports no c/o's pain and presented with increased B foot / ankle edema. Patient instructed on continued LE ROM including ankle pumps and heel slides to promote increased circulation prior to transfering supine to sit EOB with CGA x 1. Patient now able to transfer sit to stand, CGA, from elevated bed surface and amblated with use of std walker, 30'x 1, CGA, demonstrating decreased stride. Patient also needed v/c to improve walker safety / navigation due to "over reaching" with walker advance placement. Patient returned to supine in bed with mild fatigue and remained with bed side rails raised, call light, tray table and telephone. Bed alarm was INOP at this time as simeon is aware. Will continue per POC as tolerated, total treatment time 14 minutes. Aj Shoemaker, EVAPORATOR SUPERVISOR
--- NOTE | 2018-08-22 14:29 | NUR ---
OT NOTE Pt was seen this P.M. 1:1 for 15 minute OT session. Upon arrival pt was supine in bed, pt identified by name and . Pt had no complaints at this time. Pt transferred supine to sit EOB with SBA and use of bed rails. While sitting EOB pt donned socks with modA due to limited ROM. Sit to stand completed from bed level with Estrella followed by challenging his dynamic standing tolerance needed for increased I in self care tasks and functional transfers, pt was able to tolerate aprox 4 minutes each time before sitting due to fatigue. Pt transferred back into bed sit to supine with SBA where he was left with call light in hand, tray table in place, and bed rails up. Continue with rec D/C plan to SNF. JOSE Bryant/Latrice
[2018-08-22 15:31] LABS: HEMATOCRIT 23.4 % (42.0-52.0); HEMOGLOBIN 7.3 g/dl (14.0-18.0); MEAN CELL VOLUME 98.3 fl (80.0-94.0); MEAN CORPUSCULAR HGB 30.7 pg (27.0-31.0); MEAN CORPUSCULAR HGB CONC 31.2 g/dl (33.0-37.0); MEAN PLATELET VOLUME 12.6 fl (9.6-12.3); RED BLOOD COUNT 2.38 10*6/uL (4.50-5.90); RED CELL DISTRI WIDTH 18.4 % (0-14.5)
[2018-08-22 15:34] LABS: PLATELET COUNT AUTOMATED 25 10*3/uL (130-400); WHITE BLOOD COUNT 1.4 10*3/uL (4.8-10.8)
[2018-08-22 15:57] LABS: ACANTHOCYTES FEW; PLATELET SUFFICIENCY LOW (NORMAL); POLYCHROMASIA SLIGHT; TOTAL CELLS COUNTED 100 #CELLS
[2018-08-22 16:00] VITALS: BP 126/60
[2018-08-22 20:00] VITALS: BP 166/69
--- NOTE | 2018-08-22 20:00 | NUR ---
RESTING IN BED. RESPIRATIONS EASY. LUNGS DIMINISHED WITH EXP WHEEZES. PULSE OX 98% RA. LOOSE COUGH PRODUCTIVE FOR GREEN. ABD SOFT WITH HYPERACTIVE BOWEL SOUNDS, STOOLS FORMED. GODOY PATENT. CALL LIGHT WITHIN REACH. NO VOICED COMPLAINTS.
--- NOTE | 2018-08-22 21:39 | NUR ---
REQUESTED AND RECEIVED TYLENOL AND AMBIEN PER PRN ORDER FOR COMPLAINTS OF GENERALIZED PAIN RATING A 7 AND TO ASSIST WITH SLEEP. CALL LIGHT WITHIN REACH. WILL MONITOR FOR EFFECTIVENESS
--- NOTE | 2018-08-22 23:00 | NUR ---
MEDS EFFECTIVE. SLEEPING. RESPIRATIONS EASY. CALL LIGHT WITHIN REACH
[2018-08-23] VITALS (13 sets, daily range): BP systolic 143–166; BP diastolic 50–87
--- NOTE | 2018-08-23 00:30 | NUR ---
SLEEPING. RESPIRATIONS EASY. VSS. CALL LIGHT WITHIN REACH
--- NOTE | 2018-08-23 02:00 | NUR ---
24 HR chart check completed.
--- NOTE | 2018-08-23 06:00 | NUR ---
SLEPT THROUGHOUT NIGHT WITH NO DISTRESS NOTED. RESPIRATIONS EASY. CALL LIGHT WITHIN REACH. NO VOICED COMPLAINTS THIS SHIFT
--- NOTE | 2018-08-23 07:34 | NUR ---
Faxed patient updates to restart precert, waiting for auth
--- NOTE | 2018-08-23 09:00 | NUR ---
Song Writer in to see patient. When medically stable and precert is obtained he will be discharged to [facility] enterprise resource planner following.
--- NOTE | 2018-08-23 09:15 | NUR ---
MARKY HAYWARD [id number] Please refer to the physician's history and physical for past medical history, comorbid conditions, and allergies. Diagnosis: PANCYTOPENIA C DIFFICILE COLITIS Tye Score: 13,MODERATE RISK WOUND DESCRIPTIONS: Patient right buttocks is red and blanchable at this time. No open areas noted at this time. No complaints of pain at this time. Patient incontient for x-large amount of stool. Pericare provided. Surface the patient is resting on: Isoflex SKIN PREVENTION RECOMMENDATION: 1. Pressure redistribution support surface as appropriate 2. Elevate heels 3. Remove boots/TEDS every shift and reapply 4. Head of bed 30 degrees as tolerated 5. Assess nutrition and hydration 6. Manage moisture 7. Avoid the use of containment devices while in bed 8. Use absorptive products on surfaces limit layers of linens on bed 9. Turn and reposition every 1-2 hours in bed and every 1 hour in chair as tolerated 10. Weight shifts every 15 minutes while up in chair 11. Offloading with pillows or device to keep heels elevated off bed 12. Monitor skin at least every shift 13. Inspect under medical devices twice a day WOUND TREATMENT RECOMMENDATIONS: D/C stage 3 guidelines Cleanse right buttocks with soap and water and apply hydraguard every shift and prn for soiling.
--- NOTE | 2018-08-23 10:51 | NUR ---
Notified Dr. Palm of patient accepted and can go to [facility] today.
--- NOTE | 2018-08-23 10:53 | NUR ---
Hema michele stated patient can go today if ready for discharge; if patient is not able to discharge today, they will have to start completely over with the insurance precert. NEIDA Oh notified.
--- NOTE | 2018-08-23 10:55 | NUR ---
OT NOTE Attempted to see pt this A.M. for OT session and upon arrival pt's bed was stuck at an elevated height resulting in unsafe height for transfers. Nurse notified. Will check back at a later time/date after bed is fixed. JOSE Bryant/Latrice
--- NOTE | 2018-08-23 11:14 | NUR ---
Dr. Palm notified of wound care recommendations.
--- NOTE | 2018-08-23 12:17 | NUR ---
GODOY REMOVED AT THIS TIME PER DOCTOR ORDERS. PATIENT TOLERATED WELL.
--- NOTE | 2018-08-23 13:45 | NUR ---
PHYSICAL THERAPY Patient seen this pm 1:1 for therapy visit and was supine in bed upon therapist arrival. Patient still presents with increased B dorsum of foot / ankle edema, however no c/o's pain. Patient transfers supine to sit EOB with Min A and sit to stand, CGA x 2. Patient ambulates with use of wh walker, 30'x 1, demonstrating improved upright posture, cautious gait pattern and unsteady balance during all turns. Patient returned to supine in bed with Min A and remained with call light, tray table and telephone. Bed side rails were also raised as nurse / patient attendant made aware of INOP bed alarm and no body alarms available upon completion of all treatment. Will continue per POC as toerlated, total treatment time 14 minutes. Aj Shoemaker, FARE COLLECTOR
--- NOTE | 2018-08-23 14:00 | NUR ---
OT NOTE Pt was seen this P.M. 1:1 for 15 minute OT session. Upon arrival pt was supine in bed, pt identified by name and . Pt had no complaints at this time. Pt transferred supine to sit EOB with CGA and use of bed rails. While sitting EOB pt donned socks with modA due to limited forward flexion and being unable to bring legs over his knees. Pt then completed sit to stand transfers from bed level with Estrella X 2 and education on proper hand placement for increased I and improved technique. Challenged pt's dynamic standing tolerance needed for increased I in self care tasks and functional transfers, pt was able to tolerate aprox 3 minutes before sitting due to fatigue. Pt then transferred back into bed sit to supine with SBA where he was left with call light in hand, tray table in place, and bed rails up for safety. Continue with rec D/C plan SNF. JOSE Bryant/Latrice
--- NOTE | 2018-08-23 14:49 | NUR ---
PHYSICAL THERAPY CO-SIGN I approve of the Phyical Therapy notes written above. BRITTANEY PERALTA PT
--- NOTE | 2018-08-23 15:20 | NUR ---
BLOOD INITIATED AT THIS TIME PER DOCTOR ORDERS. PATIENT TOLERATING WELL.
[2018-08-23] MEDS ORDERED: OXYCODONE5 M1 PO (17:05)
[2018-08-23] MEDS ORDERED: AQUAPHOR WITH N50 GM T (17:05)
--- NOTE | 2018-08-23 18:09 | NUR ---
BLOOD FINISHED AT THIS TIME. PATIENT TOLERATED WELL.
[2018-08-23 18:40] LABS: HEMATOCRIT 28.1 % (42.0-52.0); HEMOGLOBIN 9.1 g/dl (14.0-18.0); MEAN CELL VOLUME 97.2 fl (80.0-94.0); MEAN CORPUSCULAR HGB 31.5 pg (27.0-31.0); MEAN CORPUSCULAR HGB CONC 32.4 g/dl (33.0-37.0); MEAN PLATELET VOLUME 12.4 fl (9.6-12.3); PLATELET COUNT AUTOMATED 30 10*3/uL (130-400); RED BLOOD COUNT 2.89 10*6/uL (4.50-5.90); RED CELL DISTRI WIDTH 18.9 % (0-14.5); WHITE BLOOD COUNT 13.3 10*3/uL (4.8-10.8)
[2018-08-23 19:00] LABS: TOTAL CELLS COUNTED 100 #CELLS
[2018-08-23 19:02] LABS: PLATELET SUFFICIENCY LOW (NORMAL)
--- NOTE | 2018-08-23 21:08 | NUR ---
JULIO CALLED TO [facility] NURSE TO AMBULANCE HERE TO SPOON MAKER PATIENT. PATIENT STABLE AND BELONGINGS READY TO GO BACK.
--- NOTE | 2018-08-24 07:49 | NUR ---
OCCUPATIONAL THERAPY CO-SIGN I approve of the Occupational Therapy notes written above. MALU ESCOBAR OTR/Latrice
[2018-09-15] MEDS ORDERED: MAPAP EXTRA ST500 MG PO (09:15)
[2018-09-15] MEDS ORDERED: Ipratropium Brom3 ML INH (09:23)
[2018-09-15] MEDS ORDERED: OXYCODONE HCL5 M1 PO (09:27)
[2018-09-20] MEDS ORDERED: GENTEAL TEARS 015 ML OP (04:18)
[2018-09-20] MEDS ORDERED: VOLTAREN100 GM T (04:20)
[2018-09-20] MEDS ORDERED: ACETAMINOPHEN500 M4 PO (04:26)
[2018-09-20] MEDS ORDERED: AMBIEN10 M1 PO (04:27)
[2018-10-18] MEDS ORDERED: NEUPOGEN300 MCG/1 IJ (11:46)
[2018-12-20] MEDS ORDERED: ALBUTEROL S5 MG/1 ML NEB (21:50)
[2018-12-20] MEDS ORDERED: Rocaltrol0.25 MCG PO (21:52)
[2018-12-20] MEDS ORDERED: CARDIZEM CD240 M1 PO (21:55)
[2018-12-20] MEDS ORDERED: XANAX0.25 MG PO (22:03)
[2019-01-21] MEDS ORDERED: CALPHRON667 MG PO (17:59)
[2019-01-31] MEDS ORDERED: BUMETANIDE2 MG (12:47)
[2019-02-17] MEDS ORDERED: DOCUSATE SOD100 MG PO (13:47)
[2019-02-17] MEDS ORDERED: GRANIX SQ (13:48)
[2019-02-17] MEDS ORDERED: CITALOPRAM10 MG PO (15:02)
[2019-03-02] MEDS ORDERED: VANCO 750750 MG/250 IV (11:13)
== END 2018-08-23 21:08 | disposition other institution (70) | DRG 871 ==
LOC: ED 10:44 → 5E 12:53 → EDHOLD 12:53 → 5E 13:56
PROVIDERS: Emergency Medicine; Internal Medicine Nephrology; Student in an Organized Health Care Education/Training Program; ADMIT Internal Medicine
DX: A41.9 Sepsis, unspecified organism (principal); N18.6 End stage renal disease; C94.6 Myelodysplastic disease, not elsewhere classified; D61.818 Other pancytopenia; A04.72 Enterocolitis due to Clostridium difficile, not specified as recurrent; N17.9 Acute kidney failure, unspecified; N30.01 Acute cystitis with hematuria; E44.0 Moderate protein-calorie malnutrition; I50.32 Chronic diastolic (congestive) heart failure; F33.1 Major depressive disorder, recurrent, moderate; I13.2 Hypertensive heart and chronic kidney disease with heart failure and with stage 5 chronic kidney disease, or end stage renal disease; D63.0 Anemia in neoplastic disease; E88.09 Other disorders of plasma-protein metabolism, not elsewhere classified; R05 Cough; K74.60 Unspecified cirrhosis of liver; Z96.653 Presence of artificial knee joint, bilateral; E11.22 Type 2 diabetes mellitus with diabetic chronic kidney disease; L89.312 Pressure ulcer of right buttock, stage 2; M48.00 Spinal stenosis, site unspecified; J40 Bronchitis, not specified as acute or chronic; E87.5 Hyperkalemia; R74.8 Abnormal levels of other serum enzymes; K21.9 Gastro-esophageal reflux disease without esophagitis; L89.152 Pressure ulcer of sacral region, stage 2; E78.5 Hyperlipidemia, unspecified; M19.91 Primary osteoarthritis, unspecified site; E55.9 Vitamin D deficiency, unspecified; R16.1 Splenomegaly, not elsewhere classified; J44.9 Chronic obstructive pulmonary disease, unspecified; E11.42 Type 2 diabetes mellitus with diabetic polyneuropathy; B96.5 Pseudomonas (aeruginosa) (mallei) (pseudomallei) as the cause of diseases classified elsewhere; B96.89 Other specified bacterial agents as the cause of diseases classified elsewhere; S90.414A Abrasion, right lesser toe(s), initial encounter; Y92.238 Other place in hospital as the place of occurrence of the external cause; X58.XXXA Exposure to other specified factors, initial encounter; Y93.89 Activity, other specified; Y99.8 Other external cause status; Z88.1 Allergy status to other antibiotic agents; Z88.8 Allergy status to other drugs, medicaments and biological substances; Z92.21 Personal history of antineoplastic chemotherapy; Z91.81 History of falling; Z87.440 Personal history of urinary (tract) infections; Z83.3 Family history of diabetes mellitus; Z82.49 Family history of ischemic heart disease and other diseases of the circulatory system; Z80.8 Family history of malignant neoplasm of other organs or systems; Z79.899 Other long term (current) drug therapy; Z99.2 Dependence on renal dialysis; Z68.28 Body mass index [BMI] 28.0-28.9, adult

== ENCOUNTER → 2018-09-15 | Outpatient (CLI) | payer OTHER ==
[2018-09-15] VITALS (7 sets, daily range): BP systolic 108–133; BP diastolic 59–87
[~2018-09-15] MED LIST changes: +ACETAMINOPHEN500 M4 PO; +AQUAPHOR WITH N50 GM T; +BUMETANIDE2 MG PO; +DILTIAZEM 24HR120 MG PO; +DULCOLAX10 M1 R; +FLEET ENEMA 13133 ML R; +GENTEAL TEARS 015 ML OP; +HEPARIN 5,5000 UNIT/ SC; +HUMALOG100 UNIT/1 SQ; +Ipratropium Brom3 ML INH; +MAPAP EXTRA ST500 MG PO; +MELATONIN1 MG PO; +MELATONIN3 MG PO; +METOLAZONE2.5 MG PO; +MILK OF MA400 MG/51 PO; +MULTIVITAMINS1 EAC6 PO; +NATURAL BALANCE15 M1 OU; +NEUPOGEN300 MCG/1 IJ; +OXYCODONE HCL5 M1 PO; +OXYCODONE5 M1 PO; +SALINE MIST 4444 ML NAS; +VANCOMYCIN LIQUID PO; +VITAMIN D5000 UNIT PO; +ZOFRAN4 MG PO
--- NOTE | 2018-09-15 10:26 | NUR ---
MEDICATED WITH ROXICODONE 5MG PO FOR C/O GENERALIZED PAIN.
== END | disposition home or self-care (01) ==
LOC: TRNFUSION 07:51
DX: D46.9 Myelodysplastic syndrome, unspecified (principal)

== ENCOUNTER 2018-10-25 15:28 | Inpatient (IN) | payer OTHER, MEDICAID ==
[2018-10-25] VITALS (9 sets, daily range): BP systolic 102–140; BP diastolic 47–72
[~2018-10-25] VITALS: Ht 190.5 cm; Wt 86.8 kg
[2018-10-25 16:37] LABS: HEMATOCRIT 21.6 % (42.0-52.0); MEAN CELL VOLUME 101.4 fl (80.0-94.0); MEAN CORPUSCULAR HGB 32.9 pg (27.0-31.0); MEAN CORPUSCULAR HGB CONC 32.4 g/dl (33.0-37.0); RED BLOOD COUNT 2.13 10*6/uL (4.50-5.90); RED CELL DISTRI WIDTH 16.5 % (0-14.5); WHITE BLOOD COUNT 2.7 10*3/uL (4.8-10.8)
[2018-10-25 16:43] LABS: PLATELET COUNT AUTOMATED 43 10*3/uL (130-400)
--- NOTE | 2018-10-25 16:45 | NUR ---
Time: 1644 A 83 year old MALE admitted to 5E under services of [facility]. RENARD FOX,[facility]. Pt. arrived via bed from ER. Chief complaint: ANEMIA. ARIANA JONES
[2018-10-25 17:06] LABS: PLATELET SUFFICIENCY LOW (NORMAL); SCHISTOCYTES FEW; TOTAL CELLS COUNTED 100 #CELLS
[2018-10-25 17:08] LABS: BURR CELLS FEW
--- NOTE | 2018-10-25 17:26 | NUR ---
CALLED DR GLYNN FOR ORDERS. ORDERS RECEIVED.
--- NOTE | 2018-10-25 17:26 | NUR ---
CALLED DR DÍAZ TO CLARIFY THAT THE PATIENT'S NEXT DIALYSIS SESSION WILL BE WEDNESDAY. CONFIRMED. DR DÍAZ WILL SEE PATIENT TOMORROW.
--- NOTE | 2018-10-25 17:27 | NUR ---
MED REC COMPLETED PER [facility] PAPERWORK, HOME MEDICATIONS CONTINUED PER DR GLYNN.
--- NOTE | 2018-10-25 19:00 | NUR ---
PT AWAKE AND RESTING IN BED. NO COMPLAINTS VOICED AT THIS TIME. PT REASSURED THAT SOON BLOOD IS RECIEVED WE WILL BEGIN TRANSFUSION. BED LOW, CALL LIGHT WITHIN REACH.
--- NOTE | 2018-10-25 19:30 | NUR ---
BLOOD TRANSFUSION INITIATED. BASELINE VITALS OBTAINED AND WNL. WILL CONTINUE TO MONITOR.
--- NOTE | 2018-10-25 19:39 | NUR ---
PRN ZOFRAN GIVEN FOR C/O NAUSEA. WILL CONTINUE TO MONITOR.
--- NOTE | 2018-10-25 23:00 | NUR ---
PT'S SECOND UNIT OF BLOOD INITIATED. PT TOLERATING WELL WITH NO COMPLAINTS. VITALS STABLE WILL CONTINUE TO MONITOR.
[2018-10-26 00:15] VITALS: BP 117/63
[2018-10-26 06:58] LABS: HEMATOCRIT 24.2 % (42.0-52.0); HEMOGLOBIN 7.9 g/dl (14.0-18.0); MEAN CELL VOLUME 98.8 fl (80.0-94.0); MEAN CORPUSCULAR HGB 32.2 pg (27.0-31.0); MEAN CORPUSCULAR HGB CONC 32.6 g/dl (33.0-37.0); MEAN PLATELET VOLUME 13.2 fl (9.6-12.3); PLATELET COUNT AUTOMATED 46 10*3/uL (130-400); RED BLOOD COUNT 2.45 10*6/uL (4.50-5.90); RED CELL DISTRI WIDTH 18.6 % (0-14.5); WHITE BLOOD COUNT 9.1 10*3/uL (4.8-10.8)
[2018-10-26 07:07] LABS: CREATININE 3.27 mg/dL (0.70-1.30); POTASSIUM 4.6 mmol/L (3.5-5.1)
[2018-10-26 08:00] VITALS: BP 152/73
[2018-10-26 08:49] LABS: ACANTHOCYTES FEW; PLATELET SUFFICIENCY LOW (NORMAL); TOTAL CELLS COUNTED 100 #CELLS
--- NOTE | 2018-10-26 11:00 | NUR ---
Sausage Linker in to see patient. He is currently short term at [facility] and plans to return their upon discharge. program services planner following.
[2018-10-26 12:00] VITALS: BP 152/76
--- NOTE | 2018-10-26 12:16 | NUR ---
DR GLYNN UPDATED ON PT LABS. DR DÍAZ UPDATED ON PT STATUS ALSO AT THIS TIME.
[2018-10-26 16:00] VITALS: BP 144/56
--- NOTE | 2018-10-26 18:06 | NUR ---
REPORT CALLED TO NURSE RYDER AT [facility].
--- NOTE | 2018-10-26 18:10 | NUR ---
PT OFF UNIT AT THIS TIME WITH AMBULANCE COMPANY, ALL DOCUMENTS AND BELONGINGS SENT WITH PT. Discharge instructions reviewed with patient/family. Patient receptive and verbalizes understanding. Follow-up care arranged. Written instructions given to patient/family. HUGO BRIONES
--- NOTE | 2018-10-27 10:04 | NUR ---
PHYSICAL THERAPY Nursing screen received. Patient discharged. Thank you. Lory Das,PT
[2018-12-20] MEDS ORDERED: ALBUTEROL S5 MG/1 ML NEB (21:50)
[2018-12-20] MEDS ORDERED: Rocaltrol0.25 MCG PO (21:52)
[2018-12-20] MEDS ORDERED: CARDIZEM CD240 M1 PO (21:55)
[2018-12-20] MEDS ORDERED: XANAX0.25 MG PO (22:03)
[2019-01-21] MEDS ORDERED: CALPHRON667 MG PO (17:59)
[2019-01-31] MEDS ORDERED: BUMETANIDE2 MG (12:47)
[2019-02-17] MEDS ORDERED: DOCUSATE SOD100 MG PO (13:47)
[2019-02-17] MEDS ORDERED: GRANIX SQ (13:48)
[2019-02-17] MEDS ORDERED: CITALOPRAM10 MG PO (15:02)
[2019-03-02] MEDS ORDERED: VANCO 750750 MG/250 IV (11:13)
== END 2018-10-26 18:10 | disposition other institution (70) | DRG 808 ==
LOC: ED 15:28 → 5E 16:05 → EDHOLD 16:05 → 5E 16:22
PROVIDERS: Emergency Medicine; ADMIT Internal Medicine
PROC: 30233N1 Transfusion of Nonautologous Red Blood Cells into Peripheral Vein, Percutaneous Approach (ICD-10-PCS; principal; 2018-10-25)
DX: D61.818 Other pancytopenia (principal); E43 Unspecified severe protein-calorie malnutrition; N18.6 End stage renal disease; I13.2 Hypertensive heart and chronic kidney disease with heart failure and with stage 5 chronic kidney disease, or end stage renal disease; I50.32 Chronic diastolic (congestive) heart failure; D46.9 Myelodysplastic syndrome, unspecified; E11.22 Type 2 diabetes mellitus with diabetic chronic kidney disease; K21.9 Gastro-esophageal reflux disease without esophagitis; E78.5 Hyperlipidemia, unspecified; J44.9 Chronic obstructive pulmonary disease, unspecified; F32.9 Major depressive disorder, single episode, unspecified; R16.1 Splenomegaly, not elsewhere classified; K74.60 Unspecified cirrhosis of liver; M19.90 Unspecified osteoarthritis, unspecified site; E55.9 Vitamin D deficiency, unspecified; G47.00 Insomnia, unspecified; M32.14 Glomerular disease in systemic lupus erythematosus; M54.40 Lumbago with sciatica, unspecified side; Z96.653 Presence of artificial knee joint, bilateral; Z99.2 Dependence on renal dialysis; Z88.1 Allergy status to other antibiotic agents; Z88.8 Allergy status to other drugs, medicaments and biological substances; Z92.21 Personal history of antineoplastic chemotherapy; Z87.440 Personal history of urinary (tract) infections; Z87.01 Personal history of pneumonia (recurrent); Z90.79 Acquired absence of other genital organ(s); Z98.1 Arthrodesis status; Z82.49 Family history of ischemic heart disease and other diseases of the circulatory system; Z83.3 Family history of diabetes mellitus; Z80.8 Family history of malignant neoplasm of other organs or systems; Z79.4 Long term (current) use of insulin; Z79.899 Other long term (current) drug therapy; Z68.22 Body mass index [BMI] 22.0-22.9, adult

== ENCOUNTER 2018-11-02 20:28 | Emergency (ER) | payer OTHER, MEDICAID ==
[~2018-11-02] VITALS: Ht 187.9 cm; Wt 85.3 kg
[2018-11-02 21:33] LABS: HEMATOCRIT 22.5 % (42.0-52.0); HEMOGLOBIN 7.2 g/dl (14.0-18.0); MEAN CELL VOLUME 100.4 fl (80.0-94.0); MEAN CORPUSCULAR HGB 32.1 pg (27.0-31.0); MEAN PLATELET VOLUME 12.2 fl (9.6-12.3); PLATELET COUNT AUTOMATED 45 10*3/uL (130-400); RED BLOOD COUNT 2.24 10*6/uL (4.50-5.90); RED CELL DISTRI WIDTH 16.7 % (0-14.5); WHITE BLOOD COUNT 6.4 10*3/uL (4.8-10.8)
[2018-11-02 21:48] LABS: ALBUMIN 2.2 gm/dl (3.1-4.5); CREATININE 3.28 mg/dL (0.70-1.30); POTASSIUM 4.3 mmol/L (3.5-5.1); TOTAL PROTEIN 5.9 gm/dL (6.4-8.2)
[2018-11-02 21:55] LABS: PLATELET SUFFICIENCY LOW (NORMAL); TOTAL CELLS COUNTED 100 #CELLS
[2018-11-02 21:56] LABS: BURR CELLS FEW
[2018-11-02 22:43] VITALS: BP 124/60
[2018-11-02] MEDS ORDERED: VIBRAMYCIN100 MG PO (23:18)
[2018-12-20] MEDS ORDERED: ALBUTEROL S5 MG/1 ML NEB (21:50)
[2018-12-20] MEDS ORDERED: Rocaltrol0.25 MCG PO (21:52)
[2018-12-20] MEDS ORDERED: CARDIZEM CD240 M1 PO (21:55)
[2018-12-20] MEDS ORDERED: XANAX0.25 MG PO (22:03)
[2019-01-21] MEDS ORDERED: CALPHRON667 MG PO (17:59)
[2019-01-31] MEDS ORDERED: BUMETANIDE2 MG (12:47)
[2019-02-17] MEDS ORDERED: DOCUSATE SOD100 MG PO (13:47)
[2019-02-17] MEDS ORDERED: GRANIX SQ (13:48)
[2019-02-17] MEDS ORDERED: CITALOPRAM10 MG PO (15:02)
[2019-03-02] MEDS ORDERED: VANCO 750750 MG/250 IV (11:13)
== END 2018-11-03 00:45 | disposition other institution (70) ==
LOC: ED 20:28
PROVIDERS: Physician Assistant
DX: J06.9 Acute upper respiratory infection, unspecified (principal); Z88.1 Allergy status to other antibiotic agents; Z88.8 Allergy status to other drugs, medicaments and biological substances; Z88.6 Allergy status to analgesic agent; Z79.899 Other long term (current) drug therapy

== ENCOUNTER 2019-03-07 10:59 | Inpatient (IN) | payer OTHER, MEDICAID ==
[~2019-03-07] VITALS: Ht 193 cm; Wt 103.9 kg
--- NOTE | ~2019-03-07 | CON ---
[place], [place] REPORT OF CONSULTATION NAME: MARKY HAYWARD UNIT #: [id number] ROOM: 405 DOCTOR: DON PEREZ,NOVEMBER BIRTHDATE: [birth year] DOS: 03/11/2019 HISTORY OF PRESENT ILLNESS: This is an 83-year-old male who was admitted from an area fdc a couple of days ago for anemia. His hemoglobin was down to 6.5. He was admitted to receive blood transfusions. The patient was just recently discharged on March 01. He was being followed by Infectious Disease for probable bilateral septic shoulders, aspirate from the left shoulder is growing gram-positive bacilli. He also had blood cultures from February 22 with gram-positive bacilli, two separate sets. Reviewing the cultures, those have still not been resulted. They were sent out to reference lab for identification of sensitivities. The patient refused any surgical procedures. He has been seen by Dr. Michelle with Orthopedics. The patient has myelodysplastic syndrome. He continues to have pain primarily in the left shoulder, a little pain in the right. ID is consulted for antibiotic management for his septic shoulders and bacteremia. He has been receiving IV vancomycin and must receive a total of 4 weeks. PAST MEDICAL HISTORY: As above, as well as COPD, CHF, diabetes, end-stage renal disease, on hemodialysis; GERD, hypertension, hyperlipidemia, inguinal hernia, liver cirrhosis, macrocytic anemia, osteoarthritis, spinal stenosis, splenomegaly, vitamin D deficiency, right knee surgery, TURP, bilateral knee replacement. SOCIAL HISTORY: Nonsmoker, nondrinker. No illicit drug use. He has been residing in a fdc most recently. FAMILY MEDICAL HISTORY: Father had cancer of the back. Mother had cervical cancer. There is also family history of diabetes and hypertension. REVIEW OF SYSTEMS: Alert and oriented. Again, continues to have significant pain and swelling of the left shoulder, less pain and swelling of the right shoulder. No recent fevers or shaking chills. No nausea, vomiting or diarrhea. He does have abdominal distention and lower extremity edema, generalized weakness. He is myelodysplastic with chronic thrombocytopenia and anemia. He states he is eating well. End-stage renal disease, on hemodialysis. Somewhat poor historian. ALLERGIES: Include ROCEPHIN, LEVAQUIN, CHLORDIAZEPOXIDE, CLONAZEPAM, KETOROLAC PREDNISONE. MEDICATIONS: Granix, vancomycin, Bumex, multivitamin, Colace, Cardizem, Celexa, vitamin D, Rocaltrol, folic acid, PhosLo, Ambien, Hytrin, Remeron, Systane, Roxicodone, Roxicodone, [place] nasal spray, Xanax, DuoNeb, Tylenol, Zofran. LABORATORY DATA: WBCs 2.8, platelets 48. BUN 34, creatinine 2.96. Last vancomycin level yesterday 27.7. Left shoulder aspirate from March 08, wbc's 19,450, rbc's 33,700 and 92% neutrophils. Cultures remain sterile. Gram stain, no organisms. PHYSICAL EXAMINATION: [place], [place] REPORT OF CONSULTATION NAME: MARKY HAYWARD UNIT #: [id number] ROOM: 405 DOCTOR: DON PEREZNOVEMBER BIRTHDATE: [birth year] VITAL SIGNS: Temperature 97.7, pulse 79, respirations 18, BP 113/57. GENERAL: An 83-year-old male, chronically ill in appearance. HEAD, EYES, EARS, NOSE AND THROAT: Normocephalic. Pupils equal, round, reactive to light. No thrush. Edentulous. NECK: Supple. LUNGS: Few crackles in the bases. Respirations even and unlabored. HEART: Regular rhythm. No murmur appreciated. ABDOMEN: Soft, moderate distention with ascites, nontender. EXTREMITIES: +2 edema to bilateral lower extremities. Right shoulder with mild effusion. Left shoulder with moderate to large effusion. No erythema. He does have tenderness. SKIN: Warm, dry, pale. Free of rashes. Right chest Tesio dressing dry and intact. ASSESSMENT: Bilateral septic shoulders, left shoulder hemarthrosis as well as Gram-positive bacilli bacteremia from February 22. PLAN: Follow up with microbiology on Wednesday regarding the send out cultures for the shoulder and blood. Continue IV vancomycin. He is to receive a minimum of 4 weeks. The patient has deferred any surgical procedures to his shoulders myelodysplastic syndrome. NOVEMBER CHRIS OCHOA Karen Grewal MD CM:CONSTR:REPORT OF CONSULTATION 1553 03/13/19 0744 interface
--- NOTE | ~2019-03-07 | PR ---
[place], [place] PROGRESS NOTE [id number] UNIT #: [id number] ROOM: 405 DOCTOR: DON PEREZ,NOVEMBER BIRTHDATE: [birth year] DOS: 03/12/2019 SUBJECTIVE: The patient is an 83-year-old male who again is being followed for bilateral septic shoulders. He also has left shoulder hemarthrosis. He remains on IV vancomycin. He is supposed to be receiving a total of 4 weeks. He was admitted during this hospitalization for anemia. He received blood transfusions. He is going back to the [facility] today. He will need to see Dr. Grewal in followup. He is alert and oriented, complaining of bilateral shoulder pain. No nausea, vomiting or diarrhea. No rash. No fevers. LABORATORY DATA: Show WBCs of 7.8, platelets 49. BUN 29, creatinine 3.14. He is myelodysplastic. PHYSICAL EXAMINATION: VITAL SIGNS: Temperature 98.1, pulse 80, respirations 16, BP 116/54. GENERAL: Alert and oriented 83-year-old male, in no acute distress. HEENT: Normocephalic, no thrush. Edentulous. LUNGS: Clear to auscultation bilaterally. Respirations even and unlabored. HEART: Regular rhythm. No murmur appreciated. Right chest Tesio dressed. EXTREMITIES: +2 edema bilateral lower extremities. Right shoulder with mild effusion. Left shoulder with moderate to large effusion, no erythema. SKIN: Warm, dry, free of rashes. ASSESSMENT: Bilateral septic shoulder. Left shoulder hemarthrosis as well as Gram-positive bacilli bacteremia from 02/22/2019. None of these have reportedly been identified according to review of the cultures. They were sent out for identification. PLAN: He needs to follow up with Dr. Grewal. Continue the IV vancomycin. He is to receive a minimum of 4 weeks. The patient has refused any surgical interventions to his shoulders given his myelodysplastic disease. NOVEMBER CHRIS OCHOA [place], [place] PROGRESS NOTE NAME: MARKY HAYWARD UNIT #: [id number] ROOM: 405 DOCTOR: DON PEREZ,NOVEMBER BIRTHDATE: [birth year] Karen Grewal MD CM:PNGINNA [id number] DON PEREZ 03/12/19 153 interface
[~2019-03-07 10:59] MED LIST changes: +ALBUTEROL S5 MG/1 ML NEB; +BUMETANIDE2 MG; +CALPHRON667 MG PO; +CARDIZEM CD240 M1 PO; +CITALOPRAM10 MG PO; +DOCUSATE SOD100 MG PO; +GRANIX SQ; +Rocaltrol0.25 MCG PO; +VANCO 750750 MG/250 IV; +XANAX0.25 MG PO
[2019-03-07 11:02] VITALS: BP 103/50
--- NOTE | 2019-03-07 12:19 | NUR ---
MSDISTime: N A 83 year old MALE admitted to 4E under services of DR. RENARD FOX,[facility]. Pt. arrived via bed from ER. Chief complaint: PAIN, LT SHOULDER. PRINCE TOMAS
--- NOTE | 2019-03-07 12:23 | NUR ---
DR. DÍAZ NOTIFIED OF CONSULT.
--- NOTE | 2019-03-07 12:49 | NUR ---
DR. RAMIREZ'S OFFICE NOTIFIED OF CONSULT.
[2019-03-07 16:00] VITALS: BP 108/58
--- NOTE | 2019-03-07 17:46 | NUR ---
DILAUDID GIVEN FOR C/O LT SHOULDER PAIN. RATES 8/10 ON PAIN SCALE. ZOFRAN GIVEN FOR C/O NAUSEA. WILL MONITOR.
[2019-03-07 20:00] VITALS: BP 109/54
--- NOTE | 2019-03-07 20:00 | NUR ---
PT RESTING IN BED. REPOSITIONED FOR COMFORT. NO C/O AT THIS TIME. OXYGEN IN USE. SKIN PALE. CALL LIGHT IN REACH.
--- NOTE | 2019-03-07 22:11 | NUR ---
TOLERATED ROUTINE AMBIEN AND REMERON PER ORDER, SEE EMAR. NO C/O AT THIS TIME. POSITIONED IN BED. CALL LIGHT IN REACH. BED ALRM ON.
--- NOTE | 2019-03-07 22:20 | NUR ---
24 HR chart check completed.
[2019-03-08] VITALS: BP 104/50
--- NOTE | 2019-03-08 | NUR ---
SLEEPING IN BED. RESP-EASY AND REGULAR. CALL LIGHT IN REACH. OXYGEN INUSE. SEE SHIFT ASSESSMENT.
--- NOTE | 2019-03-08 04:00 | NUR ---
SLEEPING IN BED. RESP-EASY AND REGULAR. CALL LIGHT IN REACH.
[2019-03-08 06:23] LABS: HEMATOCRIT 21.3 % (42.0-52.0); MEAN CELL VOLUME 103.4 fl (80.0-94.0); MEAN PLATELET VOLUME 12.3 fl (9.6-12.3); PLATELET COUNT AUTOMATED 42 10*3/uL (130-400); RED BLOOD COUNT 2.06 10*6/uL (4.50-5.90); RED CELL DISTRI WIDTH 17.1 % (0-14.5); WHITE BLOOD COUNT 2.1 10*3/uL (4.8-10.8)
[2019-03-08 06:30] LABS: HEMOGLOBIN 6.6 g/dl (14.0-18.0)
[2019-03-08 06:41] LABS: CREATININE 3.25 mg/dL (0.70-1.30); PHOSPHOROUS 4.1 mg/dL (2.5-4.9); POTASSIUM 4.3 mmol/L (3.5-5.1)
--- NOTE | 2019-03-08 06:43 | NUR ---
MARKY HAYWARD [id number] Please refer to the physician's history and physical for past medical history, comorbid conditions, and allergies. Diagnosis: ANEMIA Tye Score: 14,MODERATE RISK WOUND DESCRIPTIONS: Wound Number: 1 Location of the wound: left buttocks ( Left coccyx) Type of wound: stage 2 Thickness: Partial Size: 0.5cm x 0.5cm x 0.1cm Tunneling: none Undermining: none Sinus Tract: none Presence of Exudate: none Amount: None Color: Red Odor: None Periwound Skin Appearance: Scar Wound edges: approximated Pain (associated with wound): none at time of assessment How does patient state this happened? pt stated this started a couple of days ago Wound Number: 2 Location of the wound: left 2nd toe Type of wound: stage 1 Size: 0.1cm x 0.2cm x <0.1cm Tunneling: none Undermining: none Sinus Tract: none Presence of Exudate: none Amount: None Color: Red Odor: None Periwound Skin Appearance: Normal Wound edges: closed Pain (associated with wound): none at time of assessment How does patient state this happened? pt stated this started a couple of days ago Wound Number: 3 Location of the wound: left 4th toe Type of wound: stage 1 Size: 0.3cm x 0.4cm x <0.1cm Tunneling: none Undermining: none Sinus Tract: none Presence of Exudate: none Amount: None Color: Red Odor: None Periwound Skin Appearance: Normal Wound edges: closed Pain (associated with wound): none at time of assessment How does patient state this happened? pt stated this started a couple of days ago Surface the patient is resting on: Position Pro SKIN PREVENTION RECOMMENDATION: 1. Pressure redistribution support surface as appropriate 2. Elevate heels 3. Remove boots/TEDS every shift and reapply 4. Head of bed 30 degrees as tolerated 5. Assess nutrition and hydration 6. Manage moisture 7. Avoid the use of containment devices while in bed 8. Use absorptive products on surfaces limit layers of linens on bed 9. Turn and reposition every 1-2 hours in bed and every 1 hour in chair as tolerated 10. Weight shifts every 15 minutes while up in chair 11. Offloading with pillows or device to keep heels elevated off bed 12. Monitor skin at least every shift 13. Inspect under medical devices twice a day WOUND TREATMENT RECOMMENDATIONS: Apply sureprep to left 2nd toe, and left 4th toe allow time to dry then cover with bandaid daily. Cleanse left buttocks with soap and water and apply calazime every shift and prn for soiling. Wheelchair cushion when oob. Heel raiser pro boots to bilateral feet while in bed.
--- NOTE | 2019-03-08 06:52 | NUR ---
PT RESTING IN BED. RESP-EASY AND REGULAR. C/O BILATERAL SHOULDER PAIN, RATES PAIN 7 ON PAIN SCALE 0-10. MEDICATED WITH DILAUDID IV PER PRN ORDER, SEE EMAR. CALL LIGHT IN REACH. BED ALARM ON.
--- NOTE | 2019-03-08 07:02 | NUR ---
Upon discharge recommend patient to follow up for wound care in outpatient setting continue current wound care orders at discharging facility.
--- NOTE | 2019-03-08 07:18 | NUR ---
Patient comes from [facility], [facility], ok to return when medically stable.
--- NOTE | 2019-03-08 07:36 | NUR ---
OK TO PUT IN FOR [address] GLYNN.
[2019-03-08 07:50] LABS: PLATELET SUFFICIENCY LOW (NORMAL); SCHISTOCYTES FEW; TOTAL CELLS COUNTED 100 #CELLS
[2019-03-08 07:51] LABS: OVALOCYTES FEW
[2019-03-08 08:00] VITALS: BP 111/55
--- NOTE | 2019-03-08 09:00 | NUR ---
Metal Sorter in to see patient. He is a LTC resident at [facility] and plans to return there upon discharge. He states he doesn't get out of bed except for going to his dialysis treatments three times a week by wheelchair. He is HD MWF. When medically stable he will be discharged to [facility]. raw material planner following.
--- NOTE | 2019-03-08 11:01 | NUR ---
PT ORDERED TWO UNITS. PER BLOOD BANK THE BLOOD IS READY. PT TO GO TO DIALYSIS. I CALLED DIALYSIS TO SEE HOW THEY WANTED ME TO PROCEED SINCE HE IS GOING TO HAVE DIALYSIS TODAY. THEY TOLD ME TO ASK DR DÍAZ. I CALLED DR DÍAZ AND SHE SAID SHE WOULD RATHER HIM GET IT WITH DIALYSIS BUT SHE WILL GIVE THEM A CALL. SHE STATED TO HOLD OFF ON IT RIGHT NOW.
[2019-03-08 12:00] VITALS: BP 110/60
--- NOTE | 2019-03-08 12:08 | NUR ---
PT REFUSING TO HAVE DIALYSIS AND BLOOD TODAY. DR GLYNN AND DR DÍAZ BOTH IN TO TALK TO PATIENT AND THEY BOTH TALKED TO PATIENT IN REGARDS TO THIS AND EDUCATED HIM. PATIENT STATES HE'S NOT DOING IT BECAUSE IT MAKES HIM SICK. DR GLYNN AND DR DÍAZ STATED HE CAN GET DIALYSIS TODAY AND BLOOD TOMORROW MORNING PER PT REQUEST. DARRIAN FROM BLOOD BANK UPDATED.
[2019-03-08 12:25] LABS: BF LYMPHOCYTES 2 %; BF MONOCYTES 6 %; BF NEUTROPHILS 92 %
[2019-03-08 12:26] LABS: BODY FLUID WBC 19450 /uL
--- NOTE | 2019-03-08 13:36 | NUR ---
C/O BACK PAIN OF 8 AND REQUESTS IV DILAUDID. GIVEN AT THIS TIME. WILL CONT TO MONITOR.
--- NOTE | 2019-03-08 15:47 | NUR ---
C/O NAUSEA. IV ZOFRAN GIVEN AT THIS TIME. WILL CONT TO MONITOR. CALL LIGHT IN REACH.
--- NOTE | 2019-03-08 15:52 | NUR ---
PT LEFT FLOOR FOR DIALYSIS.
--- NOTE | 2019-03-08 19:45 | NUR ---
PATIENT RETURNED FROM DIALYSIS. 0.8 KILOS REMOVED. PATIENT STABLE ON RETURN. NO COMPLAINTS. WILL CONTINUE TO MONITOR. CALL LIGHT IN REACH.
[2019-03-08 20:00] VITALS: BP 114/57
[2019-03-09] VITALS (15 sets, daily range): BP systolic 90–122; BP diastolic 45–75
--- NOTE | 2019-03-09 07:53 | NUR ---
Faxed updates to [facility] for review, patient is group home care and can return when medically stable for discharge.
--- NOTE | 2019-03-09 08:29 | NUR ---
C/O BACK PAIN OF 03/18. REQUESTED IV DILAUDID. WILL CONT TO MONITOR. CALL LIGHT IN REACH.
--- NOTE | 2019-03-09 09:00 | NUR ---
Molder Machine Tender in to see patient. No new needs or request at this time. When medically stable he will be discharged to [facility] where he is a LTC resident. senior production planner following.
--- NOTE | 2019-03-09 09:29 | NUR ---
IV DILAUDID EFF. WILL CONT TO MONITOR.
--- NOTE | 2019-03-09 14:48 | NUR ---
JOYCE DIAMOND CALLED TO [facility] IN PHARMACY
--- NOTE | 2019-03-09 15:05 | NUR ---
C/O NAUSEA. IV ZOFRAN GIVEN REQUESTED. WILL CONT TO MONITOR. CALL LIGHT IN REACH.
--- NOTE | 2019-03-09 16:05 | NUR ---
MAXINE EFF. WILL CONT TO MONITOR. CALL LIGHT IN REACH.
--- NOTE | 2019-03-09 18:11 | NUR ---
XANAX GIVEN AT THIS TIME UPON REQUEST FOR C/O ANXIETY. WILL CONT TO MONITOR. CALL LIGHT IN REACH.
--- NOTE | 2019-03-09 21:15 | NUR ---
PATIENT GIVEN DULCOLAX SUPPOSITORY FOR COMPLAINTS OF CONSTIPATION. WILL MONITOR FOR EFFECTIVENESS. CALL LIGHT IN REACH.
--- NOTE | 2019-03-09 21:42 | NUR ---
PATIENT MEDICATED WITH DILAUDID 0.25MG IV FOR COMPLAINTS OF GENERALIZED PAIN. WILL CONTINUE TO MONITOR. CALL LIGHT IN REACH.
[2019-03-10] VITALS (7 sets, daily range): BP systolic 92–132; BP diastolic 50–68
[2019-03-10 06:55] LABS: HEMATOCRIT 25.6 % (42.0-52.0); HEMOGLOBIN 8.2 g/dl (14.0-18.0); MEAN PLATELET VOLUME 12.3 fl (9.6-12.3); PLATELET COUNT AUTOMATED 48 10*3/uL (130-400); RED BLOOD COUNT 2.56 10*6/uL (4.50-5.90); RED CELL DISTRI WIDTH 17.3 % (0-14.5); WHITE BLOOD COUNT 2.8 10*3/uL (4.8-10.8)
[2019-03-10 06:59] LABS: CREATININE 2.96 mg/dL (0.70-1.30); POTASSIUM 4.5 mmol/L (3.5-5.1)
[2019-03-10 07:36] LABS: ATYPICAL LYMPHS 1 % (0-0); PLATELET SUFFICIENCY LOW (NORMAL); SCHISTOCYTES FEW; TOTAL CELLS COUNTED 100 #CELLS
--- NOTE | 2019-03-10 09:00 | NUR ---
Acquisition Cost Estimator in to see patient. No new needs or request at this time. When medically stable he will be discharged to [facility] where he is a LTC resident. program services planner following.
--- NOTE | 2019-03-10 09:35 | NUR ---
PT AT DIALYSIS. WILL CATCH PT UP ON MEDICATIONS WHEN HE RETURNS.
--- NOTE | 2019-03-10 10:25 | NUR ---
DIALYSIS NURSE CALLS THIS NURSE AND STATES THAT PT IS NAUSEOUS AND NEEDS MEDICATION. 4 MG ZOFRAN VIA IV GIVEN AT THIS TIME. WILL MONITOR FOR EFFECTIVENESS. PT CURRENTLY AT DIALYSIS RECEIVING TREATMENT.
--- NOTE | 2019-03-10 13:40 | NUR ---
PT RETURNS FROM DIALYSIS, STABLE. BLOOD PRESSURE WNL. VITALS WNL. RESPIRATIONS EASY AND UNLABORED ON 2L NC. PT CAUGHT UP ON ALL AM MEDICATIONS, SITTING UP IN BED, EATING LUNCH. ALL SAFETY MEASURES IN PLACE. CALL LIGHT IN REACH.
--- NOTE | 2019-03-10 13:47 | NUR ---
PT GIVEN DILAUDID AT THIS TIME FOR C/O PAIN TO LEFT SHOULDER. WILL MONITOR FOR EFFECTIVENESS. CALL LIGHT IN REACH.
--- NOTE | 2019-03-10 14:47 | NUR ---
DILAUDID EFFECTIVE PER PT.
--- NOTE | 2019-03-10 17:14 | NUR ---
XANAX GIVEN DUE TO C/O ANXIETY. WILL MONITOR FOR EFFECTIVENESS.
--- NOTE | 2019-03-10 18:14 | NUR ---
XANAX EFFECTIVE PER PT.
--- NOTE | 2019-03-10 19:30 | NUR ---
24 HOUR CHART CHECK COMPLETE.
[2019-03-11] VITALS (7 sets, daily range): BP systolic 97–122; BP diastolic 50–78
--- NOTE | 2019-03-11 01:30 | NUR ---
SPOKE WITH DR GLYNN. T.O. TAKEN FOR ID CONSULT TO BE MADE IN THE MORNING REGARDING GPB IN SYNOVIAL FLUID ASPIRATED FROM LT SHOULDER.
--- NOTE | 2019-03-11 01:32 | NUR ---
PRN DILAUDID ADMINISTERED PRESCRIBED FOR PT C/O SHOULDER PAIN RATED A 10 ON THE PAIN SCALE. WILL CONTINUE TO MONITOR AND REASSESS IN A HALF HOUR. NO OTHER COMPLAINTS AT THIS TIME. CALL LIGHT IN REACH.
--- NOTE | 2019-03-11 02:18 | NUR ---
PT ASLEEP. NO SIGNS OF DISCOMFORT OR DISTRESS NOTED. WILL CONTINUE TO MONITOR.
--- NOTE | 2019-03-11 05:22 | NUR ---
PRN XANAX AND ZOFRAN ADMINISTERED FOR PT C/O OF ANXIETY AND NAUSEA. WILL CONTINEU TO MONITOR.
--- NOTE | 2019-03-11 06:31 | NUR ---
SPOKE WITH ANSWERING SERVICE REGARDING NEW PATIENT CONSULT FOR DR. JOHNSON.
--- NOTE | 2019-03-11 10:57 | NUR ---
PT GIVEN 0.25 MG DILAUDID VIA IV AT THIS TIME DUE TO PAIN TO LEFT SHOULDER. PT RATES PAIN AN "8". WILL MONITOR FOR EFFECTIVENESS. PT SITTING IN BED, HOB ELEVATED, ALL SAFETY MEASURES IN PLACE. CALL LIGHT IN REACH.
--- NOTE | 2019-03-11 11:53 | NUR ---
PT GIVEN 4 MG ZOFRAN VIA IV FOR C/O NAUSEA. WILL MONITOR FOR EFFECTIVENESS. CALL LIGHT IN REACH.
--- NOTE | 2019-03-11 11:57 | NUR ---
DILAUDID EFFECTIVE PER PT.
--- NOTE | 2019-03-11 12:53 | NUR ---
ZOFRAN EFFECTIVE PER PATIENT.
--- NOTE | 2019-03-11 17:12 | NUR ---
PT GIVEN DILAUDID 0.25 MG VIA IV AT THIS TIME FOR C/O PAIN TO LEFT SHOULDER. RATES PAIN AN "8". WILL MONITOR FOR EFFECTIVENESS. CALL LIGHT IN REACH.
--- NOTE | 2019-03-11 18:12 | NUR ---
PT GIVEN ZOFRAN AT THIS TIME FOR C/O NAUSEA. WILL MONITOR FOR EFFECTIVENESS. CALL LIGHT IN REACH.
--- NOTE | 2019-03-11 18:13 | NUR ---
DILAUDID EFFECTIVE PER PT.
--- NOTE | 2019-03-11 19:30 | NUR ---
24 HOUR CHART CHECK COMPLETE.
--- NOTE | 2019-03-11 22:45 | NUR ---
PRN XANAX ADMINISTERED PRESCRIBED. WILL CONTINUE TO MONITOR PT.
[2019-03-12] VITALS: BP 104/46
--- NOTE | 2019-03-12 01:58 | NUR ---
PRN DILAUDID ADMINISTERED PRESCRIBED FOR PT C/O LT SHOULDER PAIN RATED A 7/10 ON THE PAIN SCALE. WILL CONTINUE TO MONITOR THE PT AND REASSESS. NO OTHER COMPLAINTS AT THIS TIME. PT REPOSITIONED ONTO RIGHT SIDE. CALL LIGHT IN REACH ON BEDISIDE TABLE.
--- NOTE | 2019-03-12 02:21 | NUR ---
PT ASLEEP. NO SIGNS OF DISCOMFORT OR DISTRESS ARE NOTED AT THIS TIME. WILL CONTINUE TO MONITOR.
[2019-03-12 05:55] LABS: HEMATOCRIT 26.1 % (42.0-52.0); HEMOGLOBIN 8.1 g/dl (14.0-18.0); MEAN CELL VOLUME 100.8 fl (80.0-94.0); MEAN CORPUSCULAR HGB 31.3 pg (27.0-31.0); MEAN PLATELET VOLUME 12.1 fl (9.6-12.3); RED BLOOD COUNT 2.59 10*6/uL (4.50-5.90); RED CELL DISTRI WIDTH 17.1 % (0-14.5)
[2019-03-12 05:57] LABS: PLATELET COUNT AUTOMATED 49 10*3/uL (130-400); WHITE BLOOD COUNT 7.8 10*3/uL (4.8-10.8)
[2019-03-12 06:07] LABS: CREATININE 3.14 mg/dL (0.70-1.30); POTASSIUM 4.5 mmol/L (3.5-5.1)
[2019-03-12 06:56] LABS: PLATELET SUFFICIENCY LOW (NORMAL); TOTAL CELLS COUNTED 100 #CELLS
[2019-03-12 08:00] VITALS: BP 114/64
--- NOTE | 2019-03-12 08:39 | NUR ---
PT RESTING IN BED. SEE SHIFT ASSESSMENT. CALL LIGHT WITHIN REACH WILL MONITOR
--- NOTE | 2019-03-12 09:50 | NUR ---
PT REQUESTED AND GIVEN DILAUDID FOR C/O SHOULDER PAIN. PT RATES PAIN 8/10 WILL MONITOR
--- NOTE | 2019-03-12 11:39 | NUR ---
PT STATES THAT KRISTIE HELPED WILL MONITOR
[2019-03-12 12:00] VITALS: BP 116/54
--- NOTE | 2019-03-12 12:06 | NUR ---
PT REQUESTED AND GIVEN ZOFRAN FOR C/O NAUSEA WILL MONITOR
--- NOTE | 2019-03-12 14:06 | NUR ---
PT REFUSED DC WOUND PHOTOS
--- NOTE | 2019-03-12 15:06 | NUR ---
REPORT CALLED TO VO SPOKE WITH ERNESTO
[2019-03-12 16:00] VITALS: BP 107/52
--- NOTE | 2019-03-12 17:08 | NUR ---
PT REQUESTED AND GIVEN DILAUDID FOR C/O LEFT SHOULDER PAIN PT RATES PAIN 8/ WILL MONITOR
--- NOTE | 2019-03-12 18:04 | NUR ---
KRISTIE HELPED WILL MONITOR
--- NOTE | 2019-03-12 18:20 | NUR ---
Discharge instructions reviewed with patient/family. Patient receptive and verbalizes understanding. Follow-up care arranged. Written instructions given to patient/family. RK HOGUE
== END 2019-03-12 18:20 | DRG 548 ==
LOC: ED 10:59 → 4E 11:22 → EDHOLD 11:22 → 4E 11:36
PROVIDERS: Internal Medicine Nephrology; Orthopaedic Surgery; ADMIT Internal Medicine
PROC: 0R9K3ZZ Drainage of Left Shoulder Joint, Percutaneous Approach (ICD-10-PCS; principal; 2019-03-08)
PROC: 5A1D70Z Performance of Urinary Filtration, Intermittent, Less than 6 Hours Per Day (ICD-10-PCS; principal; 2019-03-08)
PROC: 30233N1 Transfusion of Nonautologous Red Blood Cells into Peripheral Vein, Percutaneous Approach (ICD-10-PCS; 2019-03-09)
PROC: 5A1D70Z Performance of Urinary Filtration, Intermittent, Less than 6 Hours Per Day (ICD-10-PCS; 2019-03-10)
DX: M00.812 Arthritis due to other bacteria, left shoulder (principal); N18.6 End stage renal disease; E43 Unspecified severe protein-calorie malnutrition; D61.818 Other pancytopenia; I13.2 Hypertensive heart and chronic kidney disease with heart failure and with stage 5 chronic kidney disease, or end stage renal disease; I50.32 Chronic diastolic (congestive) heart failure; M00.9 Pyogenic arthritis, unspecified; M00.811 Arthritis due to other bacteria, right shoulder; L89.312 Pressure ulcer of right buttock, stage 2; K74.60 Unspecified cirrhosis of liver; E11.22 Type 2 diabetes mellitus with diabetic chronic kidney disease; D46.9 Myelodysplastic syndrome, unspecified; Z66 Do not resuscitate; Z51.5 Encounter for palliative care; F32.9 Major depressive disorder, single episode, unspecified; Z96.653 Presence of artificial knee joint, bilateral; E83.39 Other disorders of phosphorus metabolism; B96.89 Other specified bacterial agents as the cause of diseases classified elsewhere; M19.90 Unspecified osteoarthritis, unspecified site; M48.00 Spinal stenosis, site unspecified; M54.30 Sciatica, unspecified side; L89.152 Pressure ulcer of sacral region, stage 2; M25.412 Effusion, left shoulder; K21.9 Gastro-esophageal reflux disease without esophagitis; E78.5 Hyperlipidemia, unspecified; J44.9 Chronic obstructive pulmonary disease, unspecified; Z99.2 Dependence on renal dialysis; Z88.1 Allergy status to other antibiotic agents; Z88.8 Allergy status to other drugs, medicaments and biological substances; Z98.1 Arthrodesis status; Z80.8 Family history of malignant neoplasm of other organs or systems; Z83.3 Family history of diabetes mellitus; Z82.49 Family history of ischemic heart disease and other diseases of the circulatory system; Z79.899 Other long term (current) drug therapy; Z68.24 Body mass index [BMI] 24.0-24.9, adult

== ENCOUNTER → 2019-03-29 | Outpatient (CLI) | payer OTHER ==
[2019-03-29] VITALS (9 sets, daily range): BP systolic 109–131; BP diastolic 55–72
== END | disposition home or self-care (01) ==
LOC: TRNFUSION 02:05
DX: D64.9 Anemia, unspecified (principal)

== ENCOUNTER 2019-04-25 11:09 | Inpatient (IN) | payer MEDICARE ==
[2019-04-25] VITALS (8 sets, daily range): BP systolic 81–100; BP diastolic 41–60
[~2019-04-25] VITALS: Ht 190.5 cm; Wt 76.9 kg
--- NOTE | ~2019-04-25 | PR ---
[place], [place] PROGRESS NOTE NAME: MARKY HAYWARD [facility] #: [id number] UNIT #: [id number] ROOM: 520 DOCTOR: TOBI ROGERS MD,MAXI BIRTHDATE: [birth year] DOS: 05/07/2019 PULMONARY PROGRESS NOTE SUBJECTIVE: The patient noted comfortable at this time, resting in bed this morning of assessment, has been noted with some cough with small amount of sputum expectoration, acute shortness of breath, no chest pain. OBJECTIVE: VITAL SIGNS: Normal temperature, respiratory rate 20, heart rate ____, blood pressure 96/67. Pulse oxygen saturation recorded on 2 liters nasal cannula was recorded as 100% saturation. HEENT: Examination shows head was atraumatic. Eyes nonicterus. NECK: Supple. CARDIOVASCULAR: S1, S2 audible. LUNGS: Without any wheeze or crackles. ABDOMEN: Soft. EXTREMITIES: Without any new changes. IMPRESSION: 1. Stable respiratory status with resolving acute pneumonia. 2. Improving bilateral pleural effusions. 3. History of ascites and liver cirrhosis. 4. End-stage renal failure. PLAN OF MANAGEMENT: No change in plan of care at this time will be needed. All other therapy as in progress will be continued. Supportive care. MAXI BRITTON MD CM:PNTRANS [id number] MAXI ROGERS MD 05/07/19 1521 interface
--- NOTE | ~2019-04-25 | PR ---
[place], [place] PROGRESS NOTE [id number] UN[facility] #: [id number] ROOM: 520 DOCTOR: SUSAN ADAMS MD BIRTHDATE: [birth year] DOS: 05/03/2019 SUBJECTIVE: The patient has oxygen on and he is mildly tachypneic. He does not complain of any chest pain, but has some back pain. Appetite is fair. He does not feel very well today. It is declining hemodialysis. PHYSICAL EXAMINATION: GENERAL: The patient is alert and oriented x 3. VITAL SIGNS: Temperature is normal, pulse is 76, blood pressure 119/62. NECK: JVP is low. EXTREMITIES: He has 2+ pedal and leg edema and some edema of the torso is also present. LUNGS: Breath sounds are diminished with crackles. ANDOMEN: Not distended. He had paracentesis done a while ago. IMPRESSION: 1. End-stage renal disease, and hypoalbuminemia with still some degree of volume overload. 2. Ascites, which seems to be under control. PETER: No new recommendations. SUSAN ADAMS MD CM:PNTRANS [id number] SUSAN ADAMS MD [id number]/03/192141 interface
--- NOTE | ~2019-04-25 | PR ---
[place], [place] PROGRESS NOTE NAME: [facility]WARD [facility] [id number] UNIT #: [id number] ROOM: 520 DOCTOR: SUSAN ADAMS MD BIRTHDATE: [birth year] DOS: 05/04/2019 SUBJECTIVE: He feels fairly well. Appetite is not very good. He is little confused and does not complain of any chest pain or breathing difficulty. He has a harsh cough without expectoration. PHYSICAL EXAMINATION: GENERAL: Reveals a patient who looks pale, underweight with sarcopenia. He has a fair amount of dependent edema on the lower part of the torso and dependent part of the legs. Elbows have some edema as well. NECK: JVP is normal. CARDIOVASCULAR: Auscultation with no murmurs. LUNGS: Breath sounds are diminished with some adventitious sounds. ABDOMEN: Not yet distended. IMPRESSION: 1. This patient has end-stage renal disease and appeared to be euvolemic, edema in the torso and lower extremities are likely to be from severe hypoalbuminemia. 2. Ascites, reaccumulation of fluid is slow. No new recommendations. SUSAN ADAMS MD CM:PNTRANS [id number] SUSAN ADAMS MD 05/05/19 0204 interface
--- NOTE | ~2019-04-25 | PR ---
[place], [place] PROGRESS NOTE NAME: MARKY HAYWARD [facility] #: [id number] UNIT #: [id number] ROOM: 520 DOCTOR: TOBI ROGERS MD,MAXI BIRTHDATE: [birth year] DOS: 05/01/2019 SUBJECTIVE: The patient was noted comfortable at this time, resting on the bed this morning. He has been receiving hemodialysis. He has not been noted symptoms of fever or chills and stating his shortness of breath. He is better from yesterday. There were no symptoms of coughing or sputum expectoration as stated. OBJECTIVE: VITAL SIGNS: Normal temperature, respiratory rate 18, heart rate 87, blood pressure 100/62. Pulse oxygen saturation on 2 liters nasal cannula 100% saturation recorded. HEENT: Examination shows head was atraumatic. Eyes nonicterus. NECK: Supple. CARDIOVASCULAR: S1, S2 audible. LUNGS: Noted without any crackles or wheezing. Decreased breath sounds noted in the lower portion of the lungs. ABDOMEN: Soft with positive ____ some ascites. EXTREMITIES: Without any new changes. LABORATORY DATA: BMP today: BUN 26, creatinine 3.41, sodium 135. IMPRESSION: 1. Bilateral pleural fluid secondary to the hypoalbuminemia as well as congestive heart failure and history of liver cirrhosis. 2. End-stage renal failure, on hemodialysis. PLAN OF MANAGEMENT: No changes in plan of management at this time. Order chest x-ray to assess the pleural fluid improvement. Other therapy, plan of management. Additional treatment changes will be made based on the progression of the illness. MAXI BRITTON MD CM:PNTRANS [id number] MAXI ROGERS MD 05/01/19 1610 interface
--- NOTE | ~2019-04-25 | PR ---
[place], [place] PROGRESS NOTE NAME: [facility]WARD [facility] #: [id number] UNIT #: [id number] ROOM: 520 DOCTOR: TOBI ROGERS MD,MAXI BIRTHDATE: [birth year] DOS: 05/08/2019 PULMONARY PROGRESS NOTE SUBJECTIVE: The patient was noted comfortable at this time, receiving the hemodialysis, stated that he is not able to cough the phlegm up, using flutter valve. He has been noted; otherwise, stable without any acute distress. He denies symptoms of acute shortness of breath or chest pain. OBJECTIVE: VITAL SIGNS: Normal temperature, respiratory rate is 18, heart rate is 86, blood pressure is 125/84 and the pulse ox saturation on 2 liters nasal cannula is 95%-96% saturation recorded. HEENT: On examination, head was atraumatic. Eyes nonicterus. NECK: Supple. CARDIOVASCULAR SYSTEM: S1, S2 audible. LUNGS: Noted without any wheezing or crackles at the present time. ABDOMEN: Soft, nontender. Bowel sounds present. EXTREMITIES: No new change. IMPRESSION: Resolving acute pneumonia with improving acute respiratory status with improved pleural fluid radiologically and clinically. PLAN OF TREATMENT: Ordered Pitocin to help with sputum expectoration. Bronchodilator will be ordered to q.i.d. as well. Other therapy, plan of management, and additional treatment changes will be ordered based on the progression of the illness. MAXI BRITTON MD CM:PNTRANS [id number] [id number] MAXI ROGERS MD 05/09/19 0053 interface
--- NOTE | ~2019-04-25 | PR ---
[place], [place] PROGRESS NOTE NAME: MARKY HAYWARD [facility] #: [id number] UNIT #: [id number] ROOM: 520 DOCTOR: TOBI ROGERS MD,MAXI BIRTHDATE: [birth year] DOS: 05/05/2019 SUBJECTIVE: The patient has been noted comfortable at this time without any acute distress, resting comfortably, receiving hemodialysis. Denies acute shortness of breath, any coughing or chest pain. The patient already being treated for acute pneumonia. OBJECTIVE: GENERAL: The patient this morning, resting comfortably on the bed. VITAL SIGNS: Normal temperature, respiratory rate 16, heart rate 82, ____ previously was noted, blood pressure 125/64. Pulse ox saturation on 2 liters nasal cannula was recorded 100% saturation. HEENT: Examination shows head was atraumatic. Eyes nonicterus. NECK: Supple. CARDIOVASCULAR: S1, S2 audible. LUNGS: Noted without any wheezing or crackles at the present time. ABDOMEN: Soft with moderate ascites. No tenderness. Bowel sounds present. EXTREMITIES: The patient is without any new changes. IMPRESSION: Stable respiratory status, resolving acute pneumonia, improving overall fluid status, including bilateral pleural fluid, stable moderate ascites with previous paracentesis, cytology of the fluid noted negative for malignant cells. PLAN OF MANAGEMENT: Continue hemodialysis, other medical treatment as in progress. No additional change in treatment at this time required. Oxygen supplementation, maintain pulse oxygen saturation 92% or greater. MAXI BRITTON MD CM:PNTRANS [id number] MAXI ROGERS MD 05/05/19 1629 interface
--- NOTE | ~2019-04-25 | PR ---
[place], [place] PROGRESS NOTE NAME: MARKY HAYWARD [facility] #: [id number] UNIT #: [id number] ROOM: 520 DOCTOR: TOBI ROGERS MD,MAXI BIRTHDATE: [birth year] DOS: 05/03/2019 SUBJECTIVE: The patient noted comfortable at this time, resting on the bed this morning. He was complaining of symptoms of nausea, vomiting last night. Shortness of breath remains in control. Denies symptoms of fever or chills. OBJECTIVE: VITAL SIGNS: Normal temperature, respiratory rate 16, heart rate 88, blood pressure 100/58. Pulse ox saturation on 2 liters nasal cannula 100% saturation recorded. HEENT: Examination shows head was atraumatic. Eyes nonicterus. NECK: Supple. CARDIOVASCULAR: S1, S2 audible. LUNGS: Noted without any wheeze or crackles. ABDOMEN: Soft with yelu-dv-yqookrru ascites. EXTREMITIES: No new change. LABORATORY DATA: Vancomycin trough level noted 22.7. IMPRESSION: Stable respiratory status, bilateral pleural fluid with history of ascites. Respiratory symptoms, shortness of breath related to that. The patient was also treated for acute pneumonia as well. PLAN OF MANAGEMENT: No changes in the plan of care at this time. Continue the patient's current plan of management, pulmonary standpoint, no changes need to be made. Vancomycin trough level noted 22, mildly about therapeutic range. Adjustment will be done dialysis dosing with the hemodialysis. MAXI BRITTON MD CM:PNTRANS [id number] MAXI ROGERS MD 05/03/19 1708 interface
--- NOTE | ~2019-04-25 | CON ---
[place], [place] REPORT OF CONSULTATION NAME: MARKY HAYWARD [facility] #: [id number] UNIT #: [id number] ROOM: 520 DOCTOR: TOBI ROGERS MDMAXI BIRTHDATE: [birth year] DOS: 04/28/2019 PULMONARY CONSULTATION, EVALUATION AND MANAGEMENT CONSULTATION REQUESTED BY: Nilson Thapa MD REASON FOR CONSULTATION: For assessment of the current shortness of breath with pleural effusions. HISTORY OF PRESENT ILLNESS: This is an 83-year-old very complicated patient with multiple chronic medical illnesses. The patient has been admitted to the hospital for the medical management of her recent diagnosis of anemia with hypotension. The patient has been noted with end-stage renal failure, receiving hemodialysis Wednesday, Wednesday, and Wednesday. He has been noted with some symptoms of shortness of breath severe. Mobility was noted limited. Denies symptoms of coughing, chest pain, or any hemoptysis. The patient has been admitted to the hospital, also noted with a finding of anasarca as well, which has been managed with albumin infusion, at this time the patient is also receiving his usual hemodialysis 3 times a week. He has been also assessed by the Cardiology, Dr. Orlando with findings as noted with congestive heart failure with anasarca and known with preserved ejection fraction with previous transesophageal echocardiogram in 09/2018. The patient has been noted comfortable at this time, receiving hemodialysis this morning of assessment. REVIEW OF SYSTEMS: CONSTITUTIONAL SYMPTOMS: He has been noted severe weakness and fatigue. Denies symptoms of fever or chills from home. EYES: Denies burning, redness, diplopia, or decreased visual acuity. GASTROINTESTINAL: Noted abnormal distention with intermittent constipation at this time. He has been noted with weight loss as well, which has been gradual. No symptoms of hematemesis or melena. GENITOURINARY: The patient is started on hemodialysis as stated by the patient for the past 7 months. Denies any suprapubic pain. MUSCULOSKELETAL: Denies any joint pain, redness, tenderness, or deformities. SKIN: Denies lesions or rashes. CENTRAL NERVOUS SYSTEM: The patient was noted general weakness as well. PAST MEDICAL HISTORY: Reported several that includes: 1. The patient has a history of end-stage renal failure, on hemodialysis Wednesday, Wednesday, and Wednesday. 2. Very frequent hospitalization for multiple reasons. The patient has already occurred in this year for many reasons. 3. Congestive heart failure with preserved ejection fraction. 4. 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 5. History of gastroesophageal reflux. 6. Myelodysplastic syndrome, which is not treated. 7. History of major depression. 8. History of spinal stenosis. 9. Decubitus wound of the right buttock. [place], [place] REPORT OF CONSULTATION NAME: MARKY HAYWARD UNIT #: [id number] ROOM: [facility] DOCTOR: TOBI ROGERS MD,MAXI BIRTHDATE: [birth year] PAST SURGICAL HISTORY: Reported as: 1. Knee surgery. 2. TURP. 3. Bilateral total knee replacement. 4. EGD and colonoscopy. SOCIAL HISTORY: Noted as tobacco use about a pack smoked in a week that has been discontinued about 10 years ago. He is currently living in the nursing facility at [facility]. FAMILY HISTORY: The patient reported for history of cancer of the back in the father and cancer of the cervix in the mother. Both . CURRENT MEDICATIONS: Which were listed on admission as use of Xanax, calcitriol, calcium acetate, vitamin D, citalopram, diclofenac, Colace, folic acid, DuoNeb, Remeron, multivitamin, sodium chloride, Granix injections every Wednesday, terazosin, Ambien, and some other p.r.n. meds. Current medications, which were administered on this hospitalization were noted as use of vitamin D, Granix injection every Wednesday, Midodrine 10 mg t.i.d., multivitamin, citalopram, calcitriol, p.r.n. use of albumin 25% infusions, folic acid, Remeron, DuoNeb, diclofenac, intravenous vancomycin, doxycycline, meropenem, and some other p.r.n. meds. DRUG ALLERGIES: REPORTED CHLORDIAZEPOXIDE AND KLONOPIN BOTH CAUSING RASH. PREDNISONE, ALLERGIES UNKNOWN; TORADOL UNKNOWN ALLERGIES; ROCEPHIN CAUSING SKIN RASH AND FACE SWELLING; LEVAQUIN CAUSING RASH AND FACE SWELLING. PHYSICAL EXAMINATION: GENERAL: This is an 83-year-old white male patient who has been noted extremely cachectic and chronically ill looking, currently receiving hemodialysis. There are no signs of respiratory distress. Height of 6 feet 3 inches, weight 190 pounds, BMI 23 recorded was nursing staff on admission. VITAL SIGNS: For the patient recorded with this morning as a temperature normal, respiratory rate 20, heart rate 90, blood pressure 94/56 at 8 o'clock noted with previous intermittent mild hypotension with lowest blood pressure 83/43. Pulse oxygen saturation recorded on room air is 99% saturation. HEENT: Loss of muscle mastication was noted. Head was atraumatic. Eyes nonicterus. NECK: Supple. CARDIOVASCULAR: S1, S2 is audible. LUNGS: Noted decreased breath sounds in lower portion of the lungs. There were no wheeze or crackles. The lungs were noted clear. ABDOMEN: Noted with significant ascites. The patient's abdominal distention. EXTREMITIES: Noted with loss of muscle mass. VISIBLE SKIN: No lesions or rashes. CENTRAL NERVOUS SYSTEM: With general weakness and fatigue. The exam is limited otherwise. LABORATORY DATA: I assessed. CBC 04/25/2019 on admission, WBC count 2.5, [place], [place] REPORT OF CONSULTATION NAME: MARKY HAYWARD UNIT #: [id number] ROOM: [facility] DOCTOR: TOBI ROGERS [facility] BIRTHDATE: [birth year] hemoglobin 6.2, hematocrit 20, platelet count of 38,000. CMP on 04/26/2019, BUN 25, creatinine 3.49 at that time. Albumin 1.9. CMP of this morning, glucose 44, already treated. BUN 26, creatinine 3.08. Sodium 135, albumin 1.3. CBC after blood transfusion 04/26/2019 was noted with hemoglobin 8.4, hematocrit 26.2, platelet count 41,000 at that time. Chest x-ray that was done, reviewed on 04/25/2019 noted with mild cardiomegaly with the pleural fluid noted bilaterally with finding of interstitial edema, some congestive heart failure. A CT scan of the chest that was completed on 04/27/2019, was also personally reviewed, shows moderate sized bilateral pleural fluid, greater on the right than the left side. Acute infiltration noted in the right upper lobe. Elevation of the right hemidiaphragm was also noted. Left lung does not show any acute pulmonary infiltration. Small fluid tracking in the left fissure. IMPRESSION: 1. The patient will be currently admitted to the hospital with known history of pancytopenia secondary to myelodysplastic syndrome with symptoms of hypotension as well as anemia, hypotension may be considered for possibility of sepsis as a likely cause. 2. The patient with third spacing with anasarca picture with a large ascites and bilateral pleural fluid noted most as moderate. 3. Possibility of acute pneumonia with immunosuppression of the right upper lobe. The patient has been currently treated with broad-spectrum intervenous antibiotics. 4. Severe cachexia was noted secondary to multiple medical illnesses. 5. History of chronic obstructive pulmonary disease, but there was no evidence of acute exacerbation at the present time. 6. Anemia, improved with post-blood transfusion, but there was no CBC repeated after 04/26/2019, consider repeating another CBC to assess the WBC count. 7. Continue hemodialysis maximal fluid removal. The patient was also started on midodrine for the medical management the hypotension by the Nephrology services. PLAN OF MANAGEMENT: At this time, the patient will benefit from the paracentesis to be done with noted large volume that improve his overall respiratory status. Monitor culture results and modify the antibiotic accordingly. Sputum for Gram stain culture will be ordered. Other therapy, plan of management additional treatment changes will be made for this patient based on progression of the illness. Blood culture, which has been taken yesterday and this morning with pending results. Other therapy, plan of management, additional treatment changes will be made based on progression of the illness. Overall, prognosis remains guarded at the present time. The patient code status for already noted DNR comfort care. Oxygen supplementation in case of hypoxia will be continued. Thanks for allowing me to participate in the care of this patient. [place], [place] REPORT OF CONSULTATION NAME: MARKY HAYWARD UNIT #: [id number] ROOM: 520 DOCTOR: MAXI GREEN MD BIRTHDATE: [birth year] MAXI BRITTON MD CM:CONSTR:REPORT OF CONSULTATION 1057 04/29/19 0049 interface
--- NOTE | ~2019-04-25 | PR ---
[place], [place] PROGRESS NOTE [facility] [id number] UNIT #: [id number] ROOM: 520 DOCTOR: SUSAN ADAMS MD BIRTHDATE: [birth year] DOS: 05/08/2019 SUBJECTIVE: He is actually dialyzing now. He complains of back pain. No leg pain or chest pain. Has not had any palpitations, has a harsh cough with a little expectoration. PHYSICAL EXAMINATION: GENERAL: This is a patient who has very little muscle mass. He looks pale. VITAL SIGNS: Temperature is normal, pulse is regular, blood pressure 127/99. NECK: JVP is normal to low. LUNGS: Auscultation reveals a lot of rhonchi bilaterally, with reduced breath sounds. Some crackles are present too. EXTREMITIES: There is very little edema in the lower extremities now. IMPRESSION: This patient had anasarca because of end-stage renal disease and severe hypoalbuminemia. His serum albumin has gone up and he seems to be in euvolemic state with very little edema. No new recommendations. SUSAN ADAMS MD CM:PNTRANS 1725 SUSAN ADAMS MD 05/09/19 0705 interface
--- NOTE | ~2019-04-25 | PR ---
[place], [place] PROGRESS NOTE NAME: MARKY HAYWARD [facility] #: [id number] UNIT #: [id number] ROOM: 520 DOCTOR: TOBI ROGERS MD,MAXI BIRTHDATE: [birth year] DOS: 05/04/2019 SUBJECTIVE: The patient noted comfortable at this time, resting on the bed, has not reported any acute respiratory symptoms. The patient symptoms of nausea and vomiting resolved from yesterday. He denies any coughing or any chest pain. OBJECTIVE: VITAL SIGNS: For the patient, which were recorded shows a temperature recorded as normal today. The respiratory rate recorded as 18, heart rate 78, blood pressure 126/48. Pulse oxygen saturation, 100% saturation, 1 liter nasal cannula. HEENT: Chronic changes. NECK: Supple. Head was atraumatic. Eyes nonicterus. CARDIOVASCULAR: S1, S2 audible. LUNGS: Noted with any wheezing or crackles. ABDOMEN: Soft. Moderate obesity. Bowel sounds present. EXTREMITIES: No new change. IMPRESSION: Stable respiratory status was noted at the present time with resolving pleural fluid, improving acute pneumonia, history of liver cirrhosis, recurrent ascites, end-stage renal failure, on hemodialysis, chronic thrombocytopenia, multifactorial including related to liver cirrhosis. PLAN OF MANAGEMENT: No changes in the plan of care at this time. Continue the patient's current therapy and plan of care. MAXI BRITTON MD CM:PNTRANS 1342 1502 MAXI ROGERS MD 05/04/19 1459 interface
--- NOTE | ~2019-04-25 | PR ---
[place], [place] PROGRESS NOTE NAME: MARKY HAYWARD [facility] #: [id number] UNIT #: [id number] ROOM: 520 DOCTOR: TOBI ROGERS MD,MAXI BIRTHDATE: [birth year] DOS: 05/09/2019 PULMONARY PROGRESS NOTE SUBJECTIVE: The patient was noted comfortable this morning. Coughing has been reported by the patient, stated that he has expectorated some sputum and the patient is feeling better with that. Denies symptoms of chest pain, fever or chills. Denies symptoms of any acute wheezing. OBJECTIVE: GENERAL: The patient is comfortably lying in the bed this morning of assessment. VITAL SIGNS: For the patient recorded as a normal temperature, respiratory rate of 18, heart rate of 83, blood pressure 147/54. The pulse oxygen saturation recorded on 2 liters nasal cannula was 100% saturation. HEENT: Examination shows head was atraumatic. Eyes nonicterus. NECK: Supple. CARDIOVASCULAR: S1, S2 is audible. LUNGS: The patient was noted without any wheeze or crackles. ABDOMEN: Soft, nontender. Bowel sounds present. EXTREMITIES: No new change. IMPRESSION: Stable respiratory status noted at this time, resolved pleural fluid significantly, improved, acute pneumonia, coughing intermittent sputum expectoration reported, history of end-stage renal failure, hemodialysis as well as liver cirrhosis. PLAN OF THERAPY: Continuation of current plan as in progress without any changes. Continue bronchodilators. The patient mainstay of treatment to help mobilize secretions. Use of the flutter valve and oxygen. MAXI BRITTON MD CM:PNTRANS 1242 1540 MAXI ROGERS MD 05/09/19 1540 interface
--- NOTE | ~2019-04-25 | PR ---
[place], [place] PROGRESS NOTE NAME: MARKY HAYWARD [facility] #: [id number] UNIT #: [id number] ROOM: 520 DOCTOR: ABDULKADIR ALLEN MD BIRTHDATE: [birth year] DOS: 04/30/2019 SUBJECTIVE: The patient significantly improved after paracentesis. Hemodynamically much more stable. Denies any chest discomfort or breathing is also significantly better. The patient also had a hemodialysis day before yesterday, shortness of breath is also a lot better. Denies any abdominal pain, hemodynamically stable. OBJECTIVE: GENERAL: The patient is lying in bed. VITAL SIGNS: Blood pressure is 90/60, pulse ox is 99%. NECK: Supple, no JVD. LUNGS: Diminished breath sounds. HEART: Sounds are diminished. NEUROLOGIC: Stable. ABDOMEN: Ascites is improved. LABORATORY DATA: Shows patient's hemoglobin is 7.5, hematocrit 24. Electrolytes normal, creatinine is 3. IMPRESSION: Ascites significant for hypoalbuminemia, which appears to be somewhat improved. The last albumin level is 2.7, which is better than 1.9 when she was admitted. Continue the other medications. Monitor the heart rate and blood pressure closely. The patient is already on albumin supplementation. Cardiac status is stable and we will follow up. ABDULKADIR ALLEN MD CM:PNTRANS 1151 1637 ABDULKADIR ALLEN MD 05/23/19 0750 interface
--- NOTE | ~2019-04-25 | PR ---
[place], [place] PROGRESS NOTE NAME: MARKY HAYWARD [facility] #: [id number] UNIT #: [id number] ROOM: 520 DOCTOR: TOBI ROGERS MD,MAXI BIRTHDATE: [birth year] DOS: 04/30/2019 SUBJECTIVE: The patient was noted comfortable at this time, resting in the bed this morning, underwent paracentesis yesterday, reported significant reduction in shortness of breath with that as well. Denies symptoms of chest pain. Mild cough noted without any sputum expectoration. Denies symptoms of fever, chills or hemoptysis. OBJECTIVE: VITAL SIGNS: Normal temperature, respiratory rate 17, heart rate 87, blood pressure . Pulse oxygen saturation on 2 liters, 99% saturation recorded. HEAD, EYES, EARS, NOSE, AND THROAT: Examination shows head was atraumatic. Eyes nonicterus. NECK: Supple. CARDIOVASCULAR SYSTEM: S1, S2 audible. LUNGS: Decreased breath sounds in the lower portion. ABDOMEN: Noted much softer today after the paracentesis. Bowel sounds present, nontender. EXTREMITIES: No new change. LABORATORY DATA: BMP this morning, BUN 22, creatinine 3.06. IMPRESSION: 1. The patient has been noted with cirrhosis of the liver. Thrombocytopenia, status post thoracentesis large volume of the ascitic fluid. 2. Bilateral pleural fluid, resulting from congestive heart failure, respiratory failure with history of liver cirrhosis and hypoalbuminemia. PLAN OF MANAGEMENT: Continuation of the hemodialysis maximum free water removal as much as possible. Continue bronchodilators, oxygen supplementation and other respiratory support management. No additional treatment changes need to be done today. MAXI BRITTON MD CM:PNTRANS 1302 1701 MAXI ROGERS MD 05/01/19 0835 interface
--- NOTE | ~2019-04-25 | PR ---
[place], [place] PROGRESS NOTE NAME: MARKY HAYWARD [facility] #: [id number] UNIT #: [id number] ROOM: 520 DOCTOR: TOBI ROGERS MD,MAXI BIRTHDATE: [birth year] DOS: 04/29/2019 PULMONARY PROGRESS NOTE SUBJECTIVE: The patient was planned for paracentesis to be done by the GI services today at the bedside. He has completed hemodialysis yesterday, but not appearing any symptoms of shortness of breath. There were no symptoms of coughing, sputum expectoration, or chest pain reported by the patient. Denies symptoms of headache or diplopia. Denies symptoms of nausea, vomiting, or diarrhea. Denies abdominal pain. The patient has been using oxygen supplementation with the nasal cannula this morning of assessment. Remaining systems were reviewed, they were noted all negative. OBJECTIVE: GENERAL: The patient is comfortably lying in the bed without any acute distress, using oxygen supplement nasal cannula. Appeared to be chronic cachexia as well and ill looking. VITAL SIGNS: Normal temperature at noon, respiratory rate 17, heart rate 86, blood pressure 90/53 recorded. Pulse ox saturation on 2 L nasal cannula was recorded 98% saturation this morning. HEENT: Examination shows head was atraumatic. Eyes nonicterus. NECK: Supple. CARDIOVASCULAR SYSTEM: S1, S2 audible. LUNGS: Noted still decreased breath sounds in lower portion of the lungs bilaterally. ABDOMEN: Noted ascites. Bowel sounds present. There is no tenderness. CENTRAL NERVOUS SYSTEM: No gross focal deficit. Loss of muscle mass was noted. MUSCULOSKELETAL: Without any other deformities. SKIN: No acute lesions. LABORATORY DATA: CBC this morning; WBC count 17.9, hemoglobin 8.4, hematocrit of 26.1, platelet count 44,000. BMP this morning was noted as normal. Blood culture noted as normal blood culture. No bacterial growth from of this month. CMP that was done this morning, BUN 19, creatinine 2.57, sodium 131. Albumin of 3.0. IMPRESSION: 1. The patient who has been noted with third spacing of the fluid with anasarca picture with ascites, thrombocytopenia related to liver cirrhosis. Chronic anemia. Bilateral pleural fluid with respiratory compromise because of the current pleural fluid secondary to overall fluid retention. 2. End-stage renal failure, on hemodialysis. PLAN OF MANAGEMENT: Continuation of the patient's current plan of management. Proceed with the paracentesis, would result in improvement in overall respiratory status. Prognosis remains guarded. Continue with the cardiac management as well as Nephrology service for maximal fluid removal. Other therapy, plan of management. Additional treatment changes will be ordered based on the progression of the illness. The patient was also with known history of myelodysplastic syndrome as well. Acute pneumonia of the right lung was treated [place], [place] PROGRESS NOTE [id number] UNIT #: [id number] ROOM: [facility] DOCTOR: MAXI GREEN MD BIRTHDATE: [birth year] with the antibiotics. MAXI BRITTON MD CM:PNTRANS [phone] MAXI ROGERS MD 04/30/19 0157 interface
--- NOTE | ~2019-04-25 | PR ---
[place], [place] PROGRESS NOTE [facility] [id number] UNIT #: [id number] ROOM: 520 DOCTOR: SUSAN ADAMS MD BIRTHDATE: [birth year] DOS: 05/01/2019 SUBJECTIVE: He feels too tired, too many IVs are bothering him. He does not have any breathing difficulty and no belly pain or chest pain. Has not had any palpitations either. PHYSICAL EXAMINATION: GENERAL: This reveals a patient who is rather pale. VITAL SIGNS: Pulse is 80, blood pressure 124/51. NECK: JVP is normal now. EXTREMITIES: He has no murmurs. LUNGS: Breath sounds are diminished with some crackles, but no rub. EXTREMITIES: Edema in the upper torso and lower extremities has decreased significantly. His weight is down by 11 kilos since admission. IMPRESSION: This patient has end-stage renal disease and has some degree of volume overload. I think this volume overload is due to severe hypoalbuminemia causing third spacing of fluid, all in all this has improved significantly. RECOMMENDATIONS: No new cardiac recommendations at this time. SUSAN ADAMS MD CM:PNTRANS [id number] SUSAN ADAMS MD 05/03/19 0217 interface
--- NOTE | ~2019-04-25 | PR ---
[place], [place] PROGRESS NOTE NAME: MARKY HAYWARD [facility] #: [id number] UNIT #: [id number] ROOM: 520 DOCTOR: SUSAN ADAMS MD BIRTHDATE: [birth year] DOS: 05/05/2019 SUBJECTIVE: The patient feels well. He is alert, watching TV. He is not short of breath, does not complain of any chest pain or back pain. His appetite is not very good. He has a harsh cough with expectoration and no chills. PHYSICAL EXAMINATION: GENERAL: Reveals a patient who is alert, oriented. He has much muscle mass loss. He is pale looking. VITAL SIGNS: Pulse is 80 and regular, blood pressure 125/64. NECK: Normal to low. No murmurs are present. LUNGS: He has quite a few rhonchi and crackles bilaterally with reduced breath sounds. EXTREMITIES: Edema of the torso and the lower limbs has subsided significantly. LABORATORY DATA: Serum albumin 2.7 g/dL and hemoglobin was 7.3 grams yesterday. IMPRESSION: 1. The patient's generalized edema has been improving fairly rapidly. 2. End-stage renal disease. He is in the euvolemic state. A transesophageal echocardiogram done in earlier part of this year demonstrated LVEF of 60-65% and grade 1 diastolic dysfunction of the left ventricle. RECOMMENDATIONS: No new recommendations at this time. SUSAN ADAMS MD CM:PNTRANS [id number] SUSAN ADAMS MD 05/05/19 1437 interface
--- NOTE | ~2019-04-25 | PR ---
[place], [place] PROGRESS NOTE NAME: MARKY HAYWARD [facility] #: [id number] UNIT #: [id number] ROOM: 520 DOCTOR: SUSAN ADAMS MD BIRTHDATE: [birth year] DOS: 05/07/2019 SUBJECTIVE: The patient feels fairly well, does not complain of shortness of breath, no chest pain or palpitations. He has been eating okay. He has been in bed for the most part and I do not think he has been walking. He has been dialyzing regularly. PHYSICAL EXAMINATION: GENERAL: The patient is very pleasant, alert, he is watching [employer]. VITAL SIGNS: Pulse is 80, blood pressure 143/67. NECK: JVP is normal. LUNGS: He has a lot of rhonchi with reduced breath sounds bilaterally. EXTREMITIES: Edema in the lower extremities, which is now very little. IMPRESSION: 1. End-stage renal disease. The patient is euvolemic. 2. Generalized edema of the lower extremities has improved markedly. Serum albumin has also come up. PLAN: No new recommendations. SUSAN ADAMS MD CM:PNTRANS [phone] SUSAN ADAMS MD 05/08/19 0352 interface
--- NOTE | ~2019-04-25 | O ---
[place], [place] OPERATIVE NOTE NAME: MARKY HAYWARD UNIT #: [id number] ROOM: 520 DOCTOR: ALBERTO NUGENT MD BIRTHDATE: [birth year] DOS: 04/29/2019 INDICATIONS: An 83-year-old patient who has presented with chief complaint of intense ascites, undergoing investigation and therapeutic paracentesis. Consultation has been dictated already. PROCEDURE: Today's procedure part of investigation is paracentesis. REPORT: After putting the patient in supine position, right lower quadrant aseptically was prepped, 2 mL of Xylocaine 2% was injected. Trocar was introduced in same area. Free flow of ascites fluid established, samples for Gram stain, cytology and culture was all undertaken and continuous drainage of the ascites at the bedside is ongoing and hoping for drainage of as much as we can today. IMPRESSION: Intense ascites, paracentesis. Work in progress. Supportive albumin infusion in progress. ALBERTO NUGENT MD CM:OPRECORD:OPERATIVE NOTE [id number] ALBERTO NUGENT MD 04/29/19 1441 interface
--- NOTE | ~2019-04-25 | PR ---
[place], [place] PROGRESS NOTE NAME: MARKY AHYWARD [facility] #: [id number] UNIT #: [id number] ROOM: 520 DOCTOR: TOBI ROGERS MD,MAXI BIRTHDATE: [birth year] DOS: 05/06/2019 SUBJECTIVE: The patient was comfortable at this time with minimal cough reported. Shortness of breath has improved. Denies symptoms of chest pain, fever or chills. He received the hemodialysis yesterday. OBJECTIVE: VITAL SIGNS: Normal temperature, respiratory rate 20, heart rate 92, blood pressure 100/80. The pulse oxygen saturation recorded on 2 liters, 100% saturation. HEENT: Head was atraumatic. Eyes nonicterus. NECK: Supple. CARDIOVASCULAR: S1, S2 is audible. LUNGS: Noted without any wheeze or crackles. ABDOMEN: Soft, possible moderate ascites. EXTREMITIES: With improvement in the edema. IMPRESSION: 1. Improved acute pneumonia. 2. Improving acute respiratory failure as well with the oxygen requirement decreased. 3. End-stage renal failure. PLAN OF MANAGEMENT: No changes in the plan of care at this time. Continue current plan of management as in progress ____, usual therapy, plan of care. MAXI BRITTON MD CM:PNTRANS [phone] MAXI ROGERS MD 05/06/19 1919 interface
--- NOTE | ~2019-04-25 | CON ---
[place], [place] REPORT OF CONSULTATION NAME: MARKY HAYWARD [facility] #: [id number] UNIT #: [id number] ROOM: 520 DOCTOR: SUSAN ADAMS MD BIRTHDATE: [birth year] DOS: 04/28/2019 HISTORY OF PRESENT ILLNESS: This is an 83-year-old -[place] man with a history of myelodysplastic syndrome with chronic anemia and thrombocytopenia. He has end-stage renal disease and dialyzes 3 times a week. He also has cirrhosis of the liver with portal hypertension. He has type 2 diabetes mellitus and diastolic dysfunction of the left ventricle per transesophageal echocardiogram done in September of this year. He has major depression, sciatica, spinal stenosis, has had knee surgery, TURP, bilateral knee replacement. He does not smoke nor does he drink alcoholic beverages. He was admitted to the hospital because of low blood pressure and anemia. He also has had painful left shoulder, definitive diagnosis of this pain has not been yet made. He has not had any chest pain, palpitation, dizziness and does not complain of any particularly shortness of breath. He has no cough, has not had any fever or chills. He has chronic swelling of the legs and his belly has been rather large. HOME MEDICATIONS: Included acetaminophen, alprazolam, Rocaltrol, vitamin D3, citalopram, Voltaren, folic acid, DuoNeb treatment, mirtazapine, multivitamins, oxycodone, Granix, terazosin and Ambien. PHYSICAL EXAMINATION: GENERAL: This reveals a patient who is alert, oriented. His facial muscle mass and muscle mass on the anterior chest is decreased, i.e., osteopenia. His complexion is very pale. He is not cyanotic nor jaundiced. VITAL SIGNS: Pulse is regular at 86 beats per minute, blood pressure 120/65. NECK: JVP is not elevated. There is no carotid bruit. CARDIAC: Auscultation reveals no murmurs or rubs. EXTREMITIES: He has 3+ pedal edema. He has a dressing on his lower part of the legs, which is probably making this edema worse. He has severe edema of his torso. RESPIRATORY: He is not tachypneic. Breath sounds are diminished with some crackles in the lungs. ABDOMEN: This is very large with eversion of the umbilicus and most of the abdomen has dullness, even anteriorly. Liver could not be palpated. Shifting dullness is present. Chest x-ray demonstrated effusion and some bibasilar infiltrates/airspace opacities. LABORATORY DATA: Hemoglobin is 8.4 g/dl, platelets 41,000. Serum albumin is 1.9, BUN is 25, creatinine 3.49, potassium 3.9. AST and ALT are rather low. IMPRESSION: 1. The patient has anasarca and I think this is most likely due to severe hypoalbuminemia. He has some airspace opacities in the bases and I strongly suspect this is because of restrictive lung issue because of severe ascites, [place], [place] REPORT OF CONSULTATION NAME: MARKY HAYWARD UNIT #: [id number] ROOM: [facility] DOCTOR: SUSAN ADAMS MD BIRTHDATE: [birth year] which impedes diaphragmatic movement. The pleural effusions are due to severe hypoalbuminemia as well. 2. The patient has large ascites, which I think is impeding his lung expansion. 3. I do not feel that he has significant heart failure. I performed a transesophageal echocardiogram in September of this year, which demonstrated left ventricular hypertrophy, normal LV systolic function, normal right ventricular systolic function and essentially normal valves and there was no pericardial effusion or endocarditis. RECOMMENDATIONS: The patient is dialyzing 3 times a week. I think dialysis should be continued. This patient should have a paracentesis. I also believe he should have serial albumin intravenously for a few days and that will shift the interstitial edema. I thank you for this consult. SUSAN ADAMS MD CM:CONSTR:REPORT OF CONSULTATION 04/28/19 0826 interface
--- NOTE | ~2019-04-25 | PR ---
[place], [place] PROGRESS NOTE NAME: MARKY HAYWARD [facility] #: [id number] UNIT #: [id number] ROOM: 520 DOCTOR: TOBI ROGERS MD,MAXI BIRTHDATE: [birth year] DOS: 05/02/2019 SUBJECTIVE: The patient was noted comfortable at this time, resting in the bed this morning of assessment. He has been reporting reduction in symptoms of shortness of breath. Denies symptoms of chest pain or cough. OBJECTIVE: VITAL SIGNS: The vital signs which were recorded showed normal temperature, respiratory rate 20, heart rate 80, blood pressure 127/91. Pulse ox saturation on 2 liters at 100% saturation. HEENT: Examination shows head was atraumatic. Eyes nonicterus. NECK: Supple. CARDIOVASCULAR: S1, S2 audible. LUNGS: The patient noted no wheezing or crackles at present time. ABDOMEN: Soft, nontender. Bowel sounds present. EXTREMITIES: No new change. LABORATORY DATA: Chest x-ray done this morning shows improving pleural fluid bilaterally improvement in aeration noted There were no finding of congestive heart failure. IMPRESSION: 1. Resolving bilateral pleural fluid with ascites of the liver and liver cirrhosis. 2. End-stage renal failure, on hemodialysis. PLAN OF MANAGEMENT: Continuation of the current plan of care at this time as in progress. No other change in treatment will be necessary. The patient is responding and improving treatment with current plan of management. MAXI BRITTON MD CM:PNTRANS 1206 1306 MAXI ROGERS MD 05/02/19 1303 interface
--- NOTE | 2019-04-25 12:00 | NUR ---
BLOOD BANK CALLS AND MULTIPLE ANTIBODIES PRESENT. SEND OUT SPECIMEN. BLOOD NOT EXPECTED UNTIL AROUND MIDNIGHT.
--- NOTE | 2019-04-25 12:41 | NUR ---
WBC 2.5 DOES NOT REQUIRE NEUTROPENIC PRECAUTIONS AT THIS TIME PER DR BOURGEOIS. HX ESBL URINE WILL PLACE PT IN ISOLATION. ROOM ASSIGNED TO 520 BUT THE BED WAS JUST VACATED AND DIRECTOR OF ENTERPRISE ARCHITECTURE STATES FLOOR WILL CALL WHEN THEY ARE READY FOR PT TO BE TRANSPORTED UPSTAIRS.
--- NOTE | 2019-04-25 13:39 | NUR ---
FLOOR CONTACTED STATE THAT THEY ARE STILL CLEANING THE ROOM THEY WILL BE READY IN ABOUT 5 MINUTES.
--- NOTE | 2019-04-25 13:50 | NUR ---
Time: 1349 A 83 year old MALE admitted to 5E under services of DR. RENARD FOX,LEOPOLDO. Pt. arrived via bed from ER. Chief complaint: ANEMIA. HUGO MARIANO
--- NOTE | 2019-04-25 14:00 | NUR ---
IN AT BEDSIDE.
--- NOTE | 2019-04-25 14:22 | NUR ---
Patient is halfway at [facility] and can return when medically stable. -YANIRA Muhammad
--- NOTE | 2019-04-25 16:25 | NUR ---
AWARE OF STAGE II TO RIGHT HIP. ORDERS IN PLACE.
--- NOTE | 2019-04-25 16:25 | NUR ---
CALLED TO VERIFIED ORDERS. ODERSIN PLACE PER WISHES
--- NOTE | 2019-04-25 16:52 | NUR ---
IS AWARE OF CONSULT.
--- NOTE | 2019-04-25 16:54 | NUR ---
[facility] CALLED INFORMED OF [facility] HD FOR TOMORROW.
--- NOTE | 2019-04-25 17:00 | NUR ---
CONSENT FOR M FOR BLOOD TRANSFUSION SIGNED BY PATIENT
--- NOTE | 2019-04-25 17:57 | NUR ---
PATIENT MEDICATED FOR CH BACK PAIN, ANXIETY AND NAUSEA, SEE EMAR. WILL MONITOR
--- NOTE | 2019-04-25 18:57 | NUR ---
OXY-IR/XANAX/ZOFRAN EFFECTIVE FOR SYMPTOMS
--- NOTE | 2019-04-25 23:35 | NUR ---
UNABLE TO SCAN BLOOD PRODUCT INTO TAR PRODUCT BARCODE NOT SCANNING. NOTIFIED LAB AND SHIFT DIRECTOR. BLOOD VERIFIED BY TWO RNs AND INITIATED AT [id number].
[2019-04-26] VITALS (11 sets, daily range): BP systolic 83–99; BP diastolic 43–61
--- NOTE | 2019-04-26 00:14 | NUR ---
VITALS REMAIN STABLE. PATIENT IS DROWSY, BEFORE, BUT RESPONDS TO MINIMAL VERBAL STIMULI. DENIES ANY NEW/WORSENING SYMPTOMS. RATE OF BLOOD TRANSFUSION INCREASED TO 120 ML/HR AT THIS TIME. WILL CONTINUE TO MONITOR. CALL LIGHT LEFT IN REACH.
--- NOTE | 2019-04-26 02:35 | NUR ---
SECOND UNIT PRBCs INITIATED AT THIS TIME. WILL MONITOR.
--- NOTE | 2019-04-26 05:29 | NUR ---
MARKY HAYWARD [id number] Please refer to the physician's history and physical for past medical history, comorbid conditions, and allergies. Diagnosis: ANEMIA Tye Score: 15,AT RISK WOUND DESCRIPTIONS: Wound Number: 1 Location of the wound: Right hip Type of wound: DTI Size: 2.0cm x 0.5cm x <0.1cm Tunneling: none Undermining: none Sinus Tract: none Presence of Exudate: none Amount: None Color: Purple, dark red Odor: None Periwound Skin Appearance: Normal Wound edges: approximated Pain (associated with wound): none at time of assessment How does patient state this happened? pt unable to state when this started Patient has scar tissue noted to several area on his right buttocks, left buttocks and coccyx. No open areas at time of assessment. No drainage at time of assessment. Surface the patient is resting on: Isoflex SKIN PREVENTION RECOMMENDATION: 1. Pressure redistribution support surface as appropriate 2. Elevate heels 3. Remove boots/TEDS every shift and reapply 4. Head of bed 30 degrees as tolerated 5. Assess nutrition and hydration 6. Manage moisture 7. Avoid the use of containment devices while in bed 8. Use absorptive products on surfaces limit layers of linens on bed 9. Turn and reposition every 1-2 hours in bed and every 1 hour in chair as tolerated 10. Weight shifts every 15 minutes while up in chair 11. Offloading with pillows or device to keep heels elevated off bed 12. Monitor skin at least every shift 13. Inspect under medical devices twice a day WOUND TREATMENT RECOMMENDATIONS: D/C calazime DTI guidelines: Apply sureprep to right hip and cover with optifoam gentle daily. Cleanse entire buttocks with soap and water and apply hydraguard every shift and prn for soiling. Wheelchair cushion when oob. Heel raiser pro boots while in bed to bilateral feet.
--- NOTE | 2019-04-26 05:30 | NUR ---
SECOND UNIT OF BLOOD COMPLETE AT THIS TIME. MYRIAM, WOUND RN, HERE TO SEE PATIENT.
[2019-04-26 06:28] LABS: ALBUMIN 1.9 gm/dl (3.1-4.5); ALKALINE PHOSPHATASE 45 U/L (45-117); BUN 25 mg/dl (7-24); CHLORIDE 101 mmol/L (98-107); CREATININE 3.49 mg/dL (0.70-1.30); POTASSIUM 3.9 mmol/L (3.5-5.1); SGOT/AST 16 IU/L (3-35); SODIUM 136 mmol/L (136-145); TOTAL PROTEIN 5.7 gm/dL (6.4-8.2)
[2019-04-26 06:31] LABS: HEMATOCRIT 26.2 % (42.0-52.0); HEMOGLOBIN 8.4 g/dl (14.0-18.0); MEAN CELL VOLUME 99.2 fl (80.0-94.0); MEAN CORPUSCULAR HGB 31.8 pg (27.0-31.0); MEAN CORPUSCULAR HGB CONC 32.1 g/dl (33.0-37.0); MEAN PLATELET VOLUME 12.3 fl (9.6-12.3); PLATELET COUNT AUTOMATED 41 10*3/uL (130-400); RED BLOOD COUNT 2.64 10*6/uL (4.50-5.90); RED CELL DISTRI WIDTH 19.8 % (0-14.5); WHITE BLOOD COUNT 5.8 10*3/uL (4.8-10.8)
[2019-04-26 06:51] LABS: SGPT/ALT < 6 U/L (12-78)
[2019-04-26 07:46] LABS: TOTAL CELLS COUNTED 100 #CELLS
[2019-04-26 07:47] LABS: ACANTHOCYTES FEW; BURR CELLS FEW; PLATELET SUFFICIENCY LOW (NORMAL)
--- NOTE | 2019-04-26 09:01 | NUR ---
Wound care recommendations left with nurse caring patient Delores MORGAN as well as voicemail left with Dr. Thapa.
--- NOTE | 2019-04-26 09:32 | NUR ---
PHYSICAL THERAPY Physical therapy evaluation attempted. Patient out of room for dialysis at this time. Will return to attempt PT evaluation at a later date. Thank you. Astrid Garcia,PT,DPT
--- NOTE | 2019-04-26 10:12 | NUR ---
ROXICODONE GIVEN FOR C/O BACK PAIN, RATES 9/10 ON PAIN SCALE. WILL MONITOR.
--- NOTE | 2019-04-26 11:00 | NUR ---
Funeral Limousine Driver in to see patient. He is currently in dialysis. Will follow up at a later time.
--- NOTE | 2019-04-26 11:15 | NUR ---
ROXICODONE EFFECTIVE PER PT.
--- NOTE | 2019-04-26 13:10 | NUR ---
SNOW MAKER faxed updates to [facility]. -YANIRA Muhammad
--- NOTE | 2019-04-26 14:30 | NUR ---
Cycle Counter in to see patient. He is a LTC resident at [facility] and plans to return there upon discharge. He states he doesn't get out of bed except for going to his dialysis treatments three times a week by wheelchair. He is HD MWF. When medically stable he will be discharged to [facility]. systems planner following.
--- NOTE | 2019-04-26 17:07 | NUR ---
XANAX GIVEN FOR C/O ANXIETY. WILL MONITOR.
--- NOTE | 2019-04-26 21:31 | NUR ---
PATIENT MEDIATED WITH OXYCODONE AND ZOFRAN FOR C/O NAUSEA AND SEVERE BACK PAIN. RATES PAIN 04/18. WILL CHECK EFFECTIVENESS.
--- NOTE | 2019-04-26 23:30 | NUR ---
PER PATIENT MEDICATIONS EFFECTIVE. WILL CONTINUE TO MONITOR.
[2019-04-27] VITALS: BP 123/64
--- NOTE | 2019-04-27 00:50 | NUR ---
PATIENT C/O HEART BURN. REQUESTING TUMS. NOTIFIED DR. BUTLER.
--- NOTE | 2019-04-27 02:12 | NUR ---
PT VOMITING. MEDICATED WITH ONE TIME IV ZOFRAN. UNABLE TO GIVE TUMS BECAUSE OF PT VOMITING. WILL REASSESS.
--- NOTE | 2019-04-27 02:21 | NUR ---
NOTJAMEL RODGERS OF PT VOMITING. TOLD TO GIVE ONE TIME DOSE OF IV ZOFRAN. CALL LIGHT WITHIN REACH. WILL MONITOR.
--- NOTE | 2019-04-27 03:05 | NUR ---
PT STATES ZOFRAN WAS EFFECTIVE. CALL LIGHT WITHIN REACH. WILL MONITOR.
--- NOTE | 2019-04-27 03:34 | NUR ---
PT STEWARD/STEWARDESS BATH LIGHT STATES HE IS STILL THROWING UP. NOTIFIED. DR. BUTLER TO ORDER PHENERGAN.
--- NOTE | 2019-04-27 04:05 | NUR ---
PT MEDICATED WITH PHENERGAN AT THIS TIME. WILL CHECK EFFECTIVENESS.
--- NOTE | 2019-04-27 04:22 | NUR ---
Upon discharge recommend patient to follow up for wound care in outpatient setting continue current wound care orders at discharging facility.
--- NOTE | 2019-04-27 05:00 | NUR ---
PT STATES PHERERGAN WAS EFFECTIVE.
--- NOTE | 2019-04-27 05:02 | NUR ---
PT C/O ANXIETY. MEDICATED WITH PRN XANEX. CALL LIGHT WITHIN REACH. WILL REASSESS.
--- NOTE | 2019-04-27 05:40 | NUR ---
PT SLEEPING. MEDICATION EFFECTIVE. NO SIGNS OF DISTRESS. RESPIRATIONS EASY, NONLABORED.
[2019-04-27 08:00] VITALS: BP 102/58
--- NOTE | 2019-04-27 09:01 | NUR ---
METER REPAIRER HELPER faxed updates to [facility]. -YANIRA Muhammad
--- NOTE | 2019-04-27 10:36 | NUR ---
ECHO DONE. PER JAMAL HE SEEN A LOT OF FLUID IN THE CHEST AND IT WAS VERY HARD TO GET PICTURES. DR DÍAZ MADE AWARE.
--- NOTE | 2019-04-27 10:46 | NUR ---
PT C/O PAIN OF 02/15 TO BACK. ROXICODONE GIVEN AT THIS TIME. WILL CONT TO MONITOR. CALL LIGHT IN REACH.
--- NOTE | 2019-04-27 10:47 | NUR ---
PHYSICIAN WAS NOTIFIED OF DR. DOWNING CONSULT. RESPONSE OF NOTIFICATION WAS OK I WILL SEE HIM. . AMINA MEDINA
--- NOTE | 2019-04-27 11:00 | NUR ---
Line Repairer Tower in to see patient. No new needs or request at this time. Per multidisciplinary discharge planning meeting he will possibly be discharged on Wednesday as he is MWF HD and hypotensive. When medically stable he will be discharged to [facility] where he is a LTC resident. machine operator hop worker following.
--- NOTE | 2019-04-27 11:19 | NUR ---
DR DÍAZ MADE AWARE OF US OF ABD AND SHE STATED SHE HAS ALREADY VIEWED THE RESULTS.
--- NOTE | 2019-04-27 11:26 | NUR ---
PHYSICAL THERAPY Physical therapy evaluation attempted. Patient out of room for testing at this time. Will attempt PT evaluation at a later date. Thank you. Astrid Garcia,PT,DPT
--- NOTE | 2019-04-27 11:46 | NUR ---
ROXICODONE EFF. WILL CONT TO MONITOR. CALL LIGHT IN REACH.
--- NOTE | 2019-04-27 11:48 | NUR ---
C/O NAUSEA. ZOFRAN GIVEN AT THIS TIME. WILL CONT TO MONITOR. CALL LIGHT IN REACH.
[2019-04-27 12:00] VITALS: BP 100/58
--- NOTE | 2019-04-27 12:05 | NUR ---
PHYSICIAN WAS NOTIFIED OF DR. ADAMS CONSULT. RESPONSE OF NOTIFICATION WAS OK I WILL SEE HIM TOMORROW MORNING.. AMINA MEDINA
--- NOTE | 2019-04-27 12:48 | NUR ---
MAXINE EFF. WILL CONT TO MONITOR. CALL LIGHT IN REACH.
--- NOTE | 2019-04-27 14:17 | NUR ---
REQUESTS XANAX FOR ANXIETY. GIVEN AT THIS TIME. WILL CONT TO MONITOR. CALL LIGHT IN REACH.
--- NOTE | 2019-04-27 15:08 | NUR ---
CT CHEST REPORTED TO DR GLYNN. NEW ORDERS RECEIVED FOR ANTIBIOTICS.
--- NOTE | 2019-04-27 15:17 | NUR ---
PT RESTING QUIETLY AT THIS TIME. XANAX EFF. WILL CONT TO MONITOR. CALL LIGHT IN REACH.
--- NOTE | 2019-04-27 15:38 | NUR ---
PHYSICIAN WAS NOTIFIED OF DR. TOBI EDMONDSON. RESPONSE OF NOTIFICATION WAS OK THANK YOU. AMINA MEDINA
[2019-04-27 16:00] VITALS: BP 103/57
[2019-04-27 20:00] VITALS: BP 102/61
--- NOTE | 2019-04-27 20:49 | NUR ---
PT C/O NAUSEA. MEDICATED WITH PRN ZOFRAN. CALL LIGHT WITHIN REACH. WILL REASSESS FOR EFFECTIVENESS.
--- NOTE | 2019-04-27 21:50 | NUR ---
PT STATES ZOFRAN WAS EFFECTIVE. WILL CONTINUE TO MONITOR.
[2019-04-28] VITALS: BP 120/65
--- NOTE | 2019-04-28 02:13 | NUR ---
PT C/O OF NAUSEA. NOTIFIED. IV ZOFRAN ORDERED.
--- NOTE | 2019-04-28 02:26 | NUR ---
PT C/O NAUSEA. MEDICATED WITH IV ZOFRAN. CALL LIGHT WITHIN REACH. WILL MONITOR EFFECTIVENESS.
--- NOTE | 2019-04-28 03:20 | NUR ---
PT SLEEPING. IV ZOFRAN EFFECTIVE. WILL CONTINUE TO MONITOR.
--- NOTE | 2019-04-28 05:58 | NUR ---
PT C/O ANXIETY. MEDICATED WITH PRN XANEX. CALL LIGHT WITHIN REACH. WILL MONITOR.
--- NOTE | 2019-04-28 05:58 | NUR ---
PT C/O SHOULDER PAIN RATING IT A 7/10. MEDICATED WITH PRN ROXICODONE. CALL LIGHT SHAWNA GAMBLE. WILL REASSESS.
--- NOTE | 2019-04-28 06:46 | NUR ---
PT STATES ANXIETY MED WAS EFFECTIVE. CALL LIGHT WITHIN REACH. WILL CONTINUE TO MONITOR.
--- NOTE | 2019-04-28 06:47 | NUR ---
PT STATES PAIN MED WAS EFFECTIVE RATING PAIN A 5/10. CALL LIGHT WITHIN REACH. WILL CONTINUE TO MONITOR.
[2019-04-28 07:29] LABS: ALKALINE PHOSPHATASE 49 U/L (45-117); BUN 26 mg/dl (7-24); CHLORIDE 99 mmol/L (98-107); CREATININE 3.08 mg/dL (0.70-1.30); POTASSIUM 3.8 mmol/L (3.5-5.1); SGOT/AST 10 IU/L (3-35); SODIUM 135 mmol/L (136-145); TOTAL PROTEIN 5.6 gm/dL (6.4-8.2)
--- NOTE | 2019-04-28 07:30 | NUR ---
CALLED DR. GLYNN AND NOTIFIED OF BS 44. NEW ORDER RECIEVED.
[2019-04-28 07:35] LABS: SGPT/ALT < 6 U/L (12-78)
[2019-04-28 08:00] VITALS: BP 94/56
--- NOTE | 2019-04-28 08:05 | NUR ---
PATIENT TAKEN TO DIALYSIS. PATIENT REFUSED TO EAT BUT DRANK ORANGE JUICE. SLINGER SEQUINS TO GIVE D10 SUBSTITUTE FOR 2 AMPS D50.
--- NOTE | 2019-04-28 08:49 | NUR ---
PHYSICAL THERAPY Physical therapy evaluation attempted. Patient out of room for dialysis at this time. Will attempt PT evaluation at a later date. Thank you, Eleanor Mcclendon, SPT Astrid Garcia,PT,DPT
--- NOTE | 2019-04-28 11:22 | NUR ---
Faxed updates to [facility]. 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 -YANIRA Muhammad
[2019-04-28 12:00] VITALS: BP 98/52
--- NOTE | 2019-04-28 12:00 | NUR ---
Hay Farmer in to see patient. No new needs or request at this time. Per multidisciplinary discharge planning meeting he will be discharged next week as patient CT chest was positive and IV antibiotics were started. When medically stable he will be discharged to [facility] where he is a LTC resident. railway traction line worker following.
--- NOTE | 2019-04-28 13:07 | NUR ---
ZOFRAN GIVEN FOR NAUSEA. WILL MONITOR. CALL LIGHT WITHIN REACH. VISITOR AT BEDSIDE.
--- NOTE | 2019-04-28 14:07 | NUR ---
DR. NUGENT AWARE OF CONSULT.
--- NOTE | 2019-04-28 14:30 | NUR ---
DR. NUGNET HERE TO DO PARACENTESIS BUT UNABLE TO DO BECAUSE PLATELETS TOO LOW.
[2019-04-28 16:00] VITALS: BP 98/55
--- NOTE | 2019-04-28 16:03 | NUR ---
MICHAEL JUARES OFFICE NOTIFIED OF CONSULT.
--- NOTE | 2019-04-28 16:51 | NUR ---
MEDICATED WITH PRN ZOFRAN AND DILAUDID PER ORDERS AND REQUEST.
[2019-04-28 20:00] VITALS: BP 95/57
--- NOTE | 2019-04-28 20:29 | NUR ---
NOTIFIED PT IS C/O NAUSEA. PT STATES ZOFRAN IS NOT EFFECTIVE FOR HIM AND HE WANTS PHENERGAN, WHICH WAS EFFECTIVE FOR HIM A FEW NIGHTS AGO. ORDER FOR PHENERGAN TO BE PUT IN PER .
--- NOTE | 2019-04-28 20:30 | NUR ---
IV started left antecubital with #22 protective cath after 2 attempts. Site prepped with Chloroprep. Sterile dressing applied. Patient tolerated procedure well. DALE GIBBONS
--- NOTE | 2019-04-28 20:58 | NUR ---
PT C/O NAUSEA. MEDICATED WITH PHERGAN. CALL LIGHT WITHIN REACH. WILL MONITOR EFFECTIVENESS.
--- NOTE | 2019-04-28 21:45 | NUR ---
PT STATES PHENERGAN WAS EFFECTIVE. WILL CONTINUE TO MONITOR.
--- NOTE | 2019-04-28 22:17 | NUR ---
PT C/O BUTTOCKS PAIN RATING IT AN 8/10. MEDICATED WITH PRN ROXICODONE. CALL LIGHT WITHIN REACH. WILL MONITOR EFFECTIVENESS.
--- NOTE | 2019-04-28 22:30 | NUR ---
NOTIFIED DR. ADAMS PATIENT BLOOD SUGAR IS 38. SEE NEW ORDERS.
--- NOTE | 2019-04-28 22:45 | NUR ---
PATIENT ALERT X3, TALKATIVE. ATE A POPSICLE, HALF A ICE CREAM AND DRANK ONE OJ. STATES HES UNABLE TO EAT OR DRINK ANYTHING ELSE. DEXTROSE BEING BOLUSED AT THIS TIME. WILL CONTINUE TO MONITOR.
--- NOTE | 2019-04-28 23:10 | NUR ---
PT STATES PAIN MED WAS EFFECTIVE. RATING PAIN A 5/10. CALL LIGHT WITHIN REACH. WILL MONITOR.
--- NOTE | 2019-04-28 23:27 | NUR ---
RECHECKED PTS BS IT IS NOW 122. PT STATES HE IS FEELING MUCH BETTER. DR. ADAMS NOTIFIED. WILL CONTINUE TO MONITOR.
[2019-04-29] VITALS (7 sets, daily range): BP systolic 100–130; BP diastolic 53–84
--- NOTE | 2019-04-29 02:35 | NUR ---
RECHECKED PATIENTS BLOOD SUGAR, 93. VOICES NO COMPLAINTS AT THIS TIME. RESPIRATIONS EASY, NON LABORED. BED IN LOWEST POSITON, CALL LIGHT WITHIN REACH. BED ALARM ON. WILL CONTINUE TO MONITOR.
--- NOTE | 2019-04-29 04:25 | NUR ---
PT C/O BACK PAIN RATING IT AN 8/10. MEDICATED WITH PRN DILAUDID. CALL LIGHT WITHIN REACH. WILL CONTINUE TO MONITOR.
--- NOTE | 2019-04-29 05:15 | NUR ---
PT STATES PAIN MED WAS EFFECTIVE RATING PAIN A 5/10. CALL LIGHT WITHIN REACH. WILL CONTINUE TO MONITOR.
--- NOTE | 2019-04-29 05:41 | NUR ---
BS 60. NOTFIED. WILL RECHECK BS IN 30 MINUTES.
--- NOTE | 2019-04-29 06:10 | NUR ---
NOTFIED BS 62. NO NEW ORDERS RECEIVED. WILL CONTINUE TO MONITOR.
--- NOTE | 2019-04-29 06:29 | NUR ---
PT C/O NAUSEA. MEDICATED WITH PRN ZOFRAN. CALL LIGHT WITHIN REACH. WILL CHECK EFFECTIVENESS.
[2019-04-29 06:30] LABS: ALKALINE PHOSPHATASE 44 U/L (45-117); BUN 19 mg/dl (7-24); CHLORIDE 97 mmol/L (98-107); CREATININE 2.57 mg/dL (0.70-1.30); POTASSIUM 3.6 mmol/L (3.5-5.1); SGOT/AST 9 IU/L (3-35); SODIUM 131 mmol/L (136-145)
[2019-04-29 06:32] LABS: SGPT/ALT < 6 U/L (12-78)
--- NOTE | 2019-04-29 07:15 | NUR ---
PT STATES ZOFRAN WAS EFFECTIVE. CALL LIGHT WITHIN REACH.
--- NOTE | 2019-04-29 08:53 | NUR ---
PATIENT MEDICATED WITH PHENERGAN FOR COMPLAINTS OF NAUSEA. WILL CHECK EFFECTIVENESS.
[2019-04-29 09:25] LABS: HEMATOCRIT 26.1 % (42.0-52.0); HEMOGLOBIN 8.4 g/dl (14.0-18.0); MEAN CELL VOLUME 98.5 fl (80.0-94.0); MEAN CORPUSCULAR HGB 31.7 pg (27.0-31.0); MEAN CORPUSCULAR HGB CONC 32.2 g/dl (33.0-37.0); MEAN PLATELET VOLUME 11.3 fl (9.6-12.3); PLATELET COUNT AUTOMATED 44 10*3/uL (130-400); RED BLOOD COUNT 2.65 10*6/uL (4.50-5.90); RED CELL DISTRI WIDTH 19.2 % (0-14.5); WHITE BLOOD COUNT 17.9 10*3/uL (4.8-10.8)
[2019-04-29 10:01] LABS: PLATELET SUFFICIENCY LOW (NORMAL); TOTAL CELLS COUNTED 100 #CELLS
--- NOTE | 2019-04-29 10:01 | NUR ---
PATIENT REFUSING TO TAKE PO MEDICATIONS THIS MORNING. STATES HE IS TOO NAUSEATED TO TAKE PILLS.
--- NOTE | 2019-04-29 12:00 | NUR ---
PHYSICAL THERAPY PT SEEN TODAY IN ROOM FOR PT SCREEN TODAY. UPON ASSESSMENT PATIENT [place] AND WHERE HE IS NON AMBULATORY AND A [facility] IS USED FOR ALL TRANSFERS. STATES HE IS TOTAL DEPENDENT FOR ALL MOBILITY AND THEREFORE DOES NOT WANT OR NEED ANY PT SERVICES AT THIS TIME. THANK YOU [facility]
--- NOTE | 2019-04-29 12:04 | NUR ---
EYE DROPS AND MILLY GIVEN FOR DRY EYES AND PAIN RATED 8/10 "ALL OVER" WILL MONITOR. CALL LIGHT IN REACH. BED ALARM ON. REPOSITIONED FOR COMFORT AT THIS TIME.
--- NOTE | 2019-04-29 12:09 | NUR ---
C/O OF FEELING "AWFULLY DPRESSED TODAY" REQUESTIGN MEDICATION FOR THIS. INFORMED PT THAT HE REFUSED HIS CELEXA YESTERDAY AND EARLIER TODAY. SAOD HE WOULD LIKE IT NOW. ALSO C/O ABD PAIN. SEE MAR. CELEXA ANS MILLY GIVEN FOR COMPLAINTS. WILL MONITOR.
--- NOTE | 2019-04-29 12:42 | NUR ---
PER PT, PAIN IS "MUCH BETTER". CALL LIGHT IN REACH.
--- NOTE | 2019-04-29 13:13 | NUR ---
PLATELET TRANSFUSION STARTED. WILL MONITOR CLOSELY. CALL LIGHT IN REACH.
--- NOTE | 2019-04-29 13:22 | NUR ---
, AWARE THAT PLTS HAVE BEEN STARTED.
--- NOTE | 2019-04-29 13:38 | NUR ---
PLATELET TRANSFUSION COMPLETE. VSS REMAINED STABLE THROUGHOUT.
--- NOTE | 2019-04-29 13:47 | NUR ---
IN TO START PARACENTESIS. VSS. CONSENT SIGNED. NURSE AND PA ALSO AT BEDSIDE.
--- NOTE | 2019-04-29 14:02 | NUR ---
TOLERATING PARACENTESIS WELL. VOICES LESS PAIN TO SCRUM AREA AFTER FLUID HAS BEGUN TO DRAIN. VITALS REMAIN STABLE. NURSE AND PA AT BEDSIDE. IN TO CHECK ON PROGRESS.
--- NOTE | 2019-04-29 14:21 | NUR ---
STILL DRAINING. VSS.
--- NOTE | 2019-04-29 14:58 | NUR ---
EYE DROPS GIVN FOR C/O DRY EYES. EYES ALSO WIPPED CLEAN AND REMOVED THICK YELLOW DRAINAGE FROM RT EYE.
--- NOTE | 2019-04-29 15:30 | NUR ---
9.5 BOTTLES OF FLUID DRAINED FROM ADB VIA PARACENTESIS. VSS. PT REPORTING RELIEF OF SACRAL PAIN AND BREATHING EASIER.
--- NOTE | 2019-04-29 16:09 | NUR ---
10L IN TOTAL DRAINED FOR ABDOMEN VIA PARACENTESIS.
--- NOTE | 2019-04-29 16:09 | NUR ---
PARACENTESIS CATH REMOVED. PRESSURE APPLIED TO SITE. MINIMAL BLOOD FOUND ON GUAZE. WILL MONITOR. VSS. FLUID SENT TO LAB FOR TESTING.
[2019-04-29 16:31] LABS: BODY FLUID WBC 57 /uL
[2019-04-29 17:16] LABS: BF LYMPHOCYTES 40 %; BF MACROPHAGES 40 %; BF MONOCYTES 12 %; BF NEUTROPHILS 8 %
--- NOTE | 2019-04-29 17:20 | NUR ---
DILAUDID GIVEN FOR C/O PAIN RATED 10/10 ALL OVER. WILL MOONITOR.
--- NOTE | 2019-04-29 17:20 | NUR ---
ZOFRAN GIVEN FOR NAUSEA. WILL MONITOR.
--- NOTE | 2019-04-29 17:46 | NUR ---
PER PT, SHORTY IS BETTER FOLLOWING DILAUDID. PAIN RATED 2/10. CALL LIGHT IN REACH. BED ALARM ON.
--- NOTE | 2019-04-29 18:02 | NUR ---
PER PT, ZOFRAN WAS EFFECTIVE.
--- NOTE | 2019-04-29 19:55 | NUR ---
CALLED TO ROOM TO CHECK SUGAR. PT FEELS "WARM INSIDE." BSG 79. REQUESTING PAIN PILL. SEE MAR.
--- NOTE | 2019-04-29 21:01 | NUR ---
SLEEPING. NO COMPLAINTS VOICED. CALL LIGHT IN REACH. BED ALARM ON.
--- NOTE | 2019-04-29 21:08 | NUR ---
VOLTAREN APPLIED TO LEFT HIP AREA FOR C/O PAIN. MASSAGED. PT REPORTING RELIEF. CALL LIGHT IN REACH. EYE DROPS ALSO GIVEN AT THIS TIME FOR C/O DRY EYES.
--- NOTE | 2019-04-29 21:52 | NUR ---
PHENERGEN GIVEN FOR C/O NAUSEA THAT IS "ABOUT TO COME UP". CALL LIGHT IN REACH. WILL MONITOR.
--- NOTE | 2019-04-29 21:53 | NUR ---
PHENERGAN GIVEN FOR NAUSEA. CALL LIGHT IN REACH. REPSOTIONED FOR COMFORT.
--- NOTE | 2019-04-29 22:52 | NUR ---
SLEEPING. NO SXS OF DISTRESS NOTED. CALL LIGHT IN REACH. PHENERGAN EFFECTIVE.
[2019-04-30] VITALS: BP 110/61
--- NOTE | 2019-04-30 00:30 | NUR ---
RESTING IN BED WITH EYES CLOSE; HOB SLIGHLTY ELEVATED. 02 INTACT VIA N/C. LUNGS WITH RHONCHI NOTED; NO COUGH NOTED AT THIS TIME. CALL LIGHT WITHIN REACH.
--- NOTE | 2019-04-30 04:18 | NUR ---
MEDICATED WITH DILAUDID FOR C/O GENERALIZED DISCOMFORT RATED AN 8/10. BLOOD SUGAR AT THIS TIME 75. WILL CONTINUE TO MONITOR. CALL LIGHT WITHIN REACH.
[2019-04-30 06:07] LABS: HEMOGLOBIN 7.5 g/dl (14.0-18.0); MEAN CELL VOLUME 98.8 fl (80.0-94.0); MEAN CORPUSCULAR HGB 30.9 pg (27.0-31.0); MEAN CORPUSCULAR HGB CONC 31.3 g/dl (33.0-37.0); MEAN PLATELET VOLUME 11.2 fl (9.6-12.3); PLATELET COUNT AUTOMATED 42 10*3/uL (130-400); RED BLOOD COUNT 2.43 10*6/uL (4.50-5.90); RED CELL DISTRI WIDTH 18.6 % (0-14.5); WHITE BLOOD COUNT 9.3 10*3/uL (4.8-10.8)
[2019-04-30 06:28] LABS: ACANTHOCYTES FEW; PLATELET SUFFICIENCY LOW (NORMAL); TOTAL CELLS COUNTED 100 #CELLS
--- NOTE | 2019-04-30 06:30 | NUR ---
AWAKE & ALERT AT THIS TIME RESTING IN BED. VOICES NO C/O OF PAIN AT THIS TIME. DILAUDID APPARENTLY EFFECTIVE. CALL LIGHT WITHIN REACH.
--- NOTE | 2019-04-30 06:35 | NUR ---
PT. REFUSED TO GET A BATH THIS MORNING.
[2019-04-30 06:37] LABS: ALBUMIN 2.7 gm/dl (3.1-4.5); ALKALINE PHOSPHATASE 39 U/L (45-117); BUN 22 mg/dl (7-24); CHLORIDE 99 mmol/L (98-107); CREATININE 3.06 mg/dL (0.70-1.30); POTASSIUM 3.6 mmol/L (3.5-5.1); SGOT/AST 8 IU/L (3-35); SODIUM 136 mmol/L (136-145); TOTAL PROTEIN 4.9 gm/dL (6.4-8.2)
[2019-04-30 06:43] LABS: SGPT/ALT < 6 U/L (12-78)
[2019-04-30 08:00] VITALS: BP 107/54
--- NOTE | 2019-04-30 08:21 | NUR ---
ZOFRAN 4MG IV GIVEN PER PATIENT REQUEST FOR NAUSEA.
--- NOTE | 2019-04-30 08:30 | NUR ---
ROXICODONE 5MG PO GIVEN PER PATIENT REQUEST FOR COCCYX PAIN.
[2019-04-30 12:00] VITALS: BP 101/53
[2019-04-30 16:00] VITALS: BP 108/62
--- NOTE | 2019-04-30 18:40 | NUR ---
NEW ORDERS FOR CBC, BMP, PORTABLE CXR IN AM FOR PNEUMONIA FOLLOW-UP REC'D FROM .
[2019-04-30 20:00] VITALS: BP 107/51
--- NOTE | 2019-04-30 21:16 | NUR ---
FELT LIKE SOMETHING WAS IN HIS EYE. FLUSHED WITH SALINE. REPORTING RELIEF NOW. ALSO C/O HE IS "SICK TO HIS STOMACH". WILL GIVEN MEDICATION FOR RELIEF. SEE MAR.
[2019-05-01] VITALS: BP 90/54
[2019-05-01 07:15] LABS: HEMATOCRIT 28.1 % (42.0-52.0); HEMOGLOBIN 8.8 g/dl (14.0-18.0); MEAN CELL VOLUME 100.4 fl (80.0-94.0); MEAN CORPUSCULAR HGB 31.4 pg (27.0-31.0); MEAN CORPUSCULAR HGB CONC 31.3 g/dl (33.0-37.0); PLATELET COUNT AUTOMATED 44 10*3/uL (130-400); RED CELL DISTRI WIDTH 18.8 % (0-14.5); WHITE BLOOD COUNT 8.3 10*3/uL (4.8-10.8)
[2019-05-01 07:29] LABS: CREATININE 3.41 mg/dL (0.70-1.30); POTASSIUM 3.9 mmol/L (3.5-5.1)
[2019-05-01 07:33] LABS: ACANTHOCYTES FEW; BURR CELLS FEW; OVALOCYTES FEW; PLATELET SUFFICIENCY LOW (NORMAL); SCHISTOCYTES FEW; TOTAL CELLS COUNTED 100 #CELLS
--- NOTE | 2019-05-01 07:44 | NUR ---
RUNNER OUT faxed updates to [facility]
--- NOTE | 2019-05-01 07:58 | NUR ---
24 HR chart check completed.
[2019-05-01 08:00] VITALS: BP 100/62
--- NOTE | 2019-05-01 11:00 | NUR ---
MEDICATED WITH DILAUDID 0.25MG IV FOR C/O COCCYX PAIN THAT HE RATED A 10. IT IS NOW A 5. MED SOMEWHAT EFFECTIVE.
--- NOTE | 2019-05-01 11:00 | NUR ---
Technical Spec in to see patient. He is currently in dialysis. No new needs or request at this time. When medically stable he will be discharged to [facility] where he is a LTC resident. janitorial maintenance worker following.
[2019-05-01 12:00] VITALS: BP 110/54
--- NOTE | 2019-05-01 15:00 | NUR ---
REPORT RECEIVED. PT IS ALERT AND ORIENTED AND VOICES NO NEEDS AT THIS TIME. CALL LIGHT IN REACH.
[2019-05-01 16:00] VITALS: BP 124/51
--- NOTE | 2019-05-01 16:21 | NUR ---
XANAX GIVEN PER REQUEST FOR COMPLAINTS OF ANXIETY. WILL MONITOR.
--- NOTE | 2019-05-01 18:30 | NUR ---
PER PT, XANAX EFFECTIVE
[2019-05-01 20:00] VITALS: BP 95/45
[2019-05-02] VITALS: BP 127/91
--- NOTE | 2019-05-02 02:00 | NUR ---
PATIENT SLEEPING IN BED. AWAKENS EASILY TO VOICE. NO COMPLAINTS AT THIS TIME. CALL LIGHT WITHIN REACH.
--- NOTE | 2019-05-02 03:46 | NUR ---
24 HR chart check completed.
[2019-05-02 07:38] LABS: CREATININE 2.78 mg/dL (0.70-1.30)
--- NOTE | 2019-05-02 11:00 | NUR ---
NOTFIED DR. RENARD CHAN LOST IV ACCESS AND AFTER MULTIPLE ATTEMPTS BY 2 NURSES WE CAN NOT GET IV ACCESS. PATIENT VERY EDEMATOUS AND IN PAIN. TOLD TO PLACE PICC LINE ORDER FOR SURGERY.
--- NOTE | 2019-05-02 11:00 | NUR ---
Pourer Crane Ladle in to see patient. No new needs or request at this time. Per multidisciplinary discharge planning meeting patient needs a few more days due to increasing pneumonia and on IV antibiotics. When medically stable he will be discharged to [facility] where he is LTC resident. pick and shovel worker following.
--- NOTE | 2019-05-02 11:30 | NUR ---
DR. BUENO CALLED BACK REGARDING NO IV ACCESS. INSTEAD OF PICC PLACEMENT. IV ANTIBIOTICS TO BE CHANGED TO PO INSTEAD. WILL CONTINUE TO MONITOR. PICC LINE ORDER D/C
[2019-05-02 12:00] VITALS: BP 105/54
[2019-05-02 12:15] LABS: BASO % 0.1 % (0.0-1.0); EOS % 0.4 % (1.0-4.0); HEMATOCRIT 27.1 % (42.0-52.0); HEMOGLOBIN 8.5 g/dl (14.0-18.0); LYMPH # 2.1 10*3/uL (1.3-4.4); LYMPH % 26.5 % (27.0-41.0); MEAN CELL VOLUME 98.5 fl (80.0-94.0); MEAN CORPUSCULAR HGB 30.9 pg (27.0-31.0); MEAN CORPUSCULAR HGB CONC 31.4 g/dl (33.0-37.0); MEAN PLATELET VOLUME 13.2 fl (9.6-12.3); MONO # 0.5 10*3/uL (0.1-1.0); MONO % 6.2 % (3.0-9.0); NEUT # 5.1 10*3/uL (2.3-7.9); NEUT % 65.9 % (47.0-73.0); PLATELET COUNT AUTOMATED 50 10*3/uL (130-400); RED BLOOD COUNT 2.75 10*6/uL (4.50-5.90); RED CELL DISTRI WIDTH 18.7 % (0-14.5); WHITE BLOOD COUNT 7.8 10*3/uL (4.8-10.8)
--- NOTE | 2019-05-02 12:47 | NUR ---
SPEECH PATHOLOGY Clinical swallowing evaluation completed due to recurrent pneumonia. Patient is diagnosed with anemia, COPD, CHF, DM, ESRD, HTN, HLD, liver cirrhosis, generalized weakness. He receives a regular diet and thin liquid. Patient was seen during lunchtime meal, alert and cooperative. He was edentulous and oral skills were WNL in terms of strength, ROM and coordination. He was observed with solid food and thin liquids taken by straw. Patient displayed no overt difficulty with any item consumed. He has been afebrile and current WBC is within normal range. Recommend he remain on present diet. No MBS is warranted at this time. Patient was educated on results and seble. and verbalized understanding. His nurse will also be informed. Refer to report in [facility] [employer] [facility] [employer] for further information. Thank you for this referral. PRABHA OJEDA MSCCC-DINING SERVICE SUPERVISOR
--- NOTE | 2019-05-02 12:49 | NUR ---
PER DR. BUENO D/C STEPHANIE. PATIENT DOES NOT NEED THEM AT THIS TIME. NOTIFIED BLOOD BANK.
--- NOTE | 2019-05-02 15:12 | NUR ---
PATIENT MEDICATED WITH OXYCODONE FOR C/O SHOULDER PAIN. RATES 01/16. WILL CHECK EFFECTIVENESS.
[2019-05-02 16:59] VITALS: BP 107/55
[2019-05-02 20:00] VITALS: BP 99/56
--- NOTE | 2019-05-02 20:00 | NUR ---
CALLED DR GLYNN BECAUSE PATIENT HAS NO IV ACCESS AND ZOFRAN AND PHENERGAN ARE IV, POK TO CHANGE TO PO. ALSO OK TO RENEW OXYCODE PRESCRIBED. SEE EMAR.
--- NOTE | 2019-05-02 20:36 | NUR ---
PATIENT C/O NAUSEA. PHENERGAN PO ADMINISRERED PRESCRIBED. WILL MONITOR FOR EFFECTIVENESS.
--- NOTE | 2019-05-02 21:36 | NUR ---
PATIENT RESTING WITH EYES CLOSED. NO DISTRESS NOTED. RESPIRATIONS EASY AND UNLABORED. WILL MONITOR.
[2019-05-03] VITALS: BP 119/62
--- NOTE | 2019-05-03 02:22 | NUR ---
PATIENT REQUESTING MEDICATION FOR NAUSEA.ZOFRAN ADMINISTERED PRESCRIBED. WILL MONITOR.
--- NOTE | 2019-05-03 03:22 | NUR ---
PATIENT STATES THAT ZOFRAN WAS A LITTLE EFFECTIVE FOR NAUSEA. DOES NOT WANT ANY OTHER MEDICATION AT THIS TIME. WILL MONITOR.
--- NOTE | 2019-05-03 05:56 | NUR ---
PATIENT STATES THAT HE IS NOT FEELING WELL AND DO NOT WANT TO HAVE DIALYSIS TODAY.
--- NOTE | 2019-05-03 06:33 | NUR ---
DR GLYNN CALLED AND MADE AWARE THAT PATIENT IS REFUSING DIALYSIS TODAY BECAUSE "HE IS JUST NOT FEELING WELL".
--- NOTE | 2019-05-03 06:44 | NUR ---
AUTOMOTIVE COLLISION REPAIR INSTRUCTOR AWARE THAT PATIENT IS REFUSING DIALYSIS TODAY.
--- NOTE | 2019-05-03 06:53 | NUR ---
MARKY HAYWARD [id number] Please refer to the physician's history and physical for past medical history, comorbid conditions, and allergies. Diagnosis: ANEMIA Tye Score: 15,AT RISK WOUND DESCRIPTION: (Follow up visit) Wound Number: 1 Location of the wound: Right hip Type of wound: DTI Size: 2.0cm x 0.5cm x <0.1cm Tunneling: none Undermining: none Sinus Tract: none Presence of Exudate: none Amount: None Color: Purple, dark red Odor: None Periwound Skin Appearance: Normal Wound edges: approximated Pain (associated with wound): none at time of assessment How does patient state this happened? pt unable to state when this started Wound Number: 2 ( new skin impairment ) Location of the wound: right medial aspect of great toe Type of wound: DTI Size: 0.6cm x 0.6cm x <0.1cm Tunneling: none Undermining: none Sinus Tract: none Presence of Exudate: Serous Amount: Light Color: Purple, red, yellow Odor: None Periwound Skin Appearance: Normal Wound edges: approximated Pain (associated with wound): none at time of assessment How does patient state this happened? pt is unsure how this happened Wound Number: 3 ( new skin impairment ) Location of the wound: left buttocks Type of wound: stage 2 Thickness: Partial Size: 2.0cm x 0.7cm x 0.1cm Tunneling: none Undermining: none Sinus Tract: none Presence of Exudate: Serosanguineous Amount: Light Color: Red Odor: None Periwound Skin Appearance: Normal Wound edges: scar Pain (associated with wound): none at time of assessment How does patient state this happened? pt is unsure how this happened Wound Number: 4 ( new skin impairment ) Location of the wound: coccyx Type of wound: stage 2 Thickness: Partial Size: 0.3cm x 0.3cm x 0.1cm Tunneling: none Undermining: none Sinus Tract: none Presence of Exudate: Serosanguineous Amount: Light Color: Red Odor: None Periwound Skin Appearance: Scar Wound edges: approximated Pain (associated with wound): none at time of assessment How does patient state this happened? pt is unsure how this happened Surface the patient is resting on: Position Pro SKIN PREVENTION RECOMMENDATION: 1. Pressure redistribution support surface as appropriate 2. Elevate heels 3. Remove boots/TEDS every shift and reapply 4. Head of bed 30 degrees as tolerated 5. Assess nutrition and hydration 6. Manage moisture 7. Avoid the use of containment devices while in bed 8. Use absorptive products on surfaces limit layers of linens on bed 9. Turn and reposition every 1-2 hours in bed and every 1 hour in chair as tolerated 10. Weight shifts every 15 minutes while up in chair 11. Offloading with pillows or device to keep heels elevated off bed 12. Monitor skin at least every shift 13. Inspect under medical devices twice a day WOUND TREATMENT RECOMMENDATIONS: Cleanse left buttocks and coccyx with soap and water and apply calazime every shift and prn for soiling. DTI guidelines: Cleanse right medial aspect of great toe with nss and apply sureprep around the wound therahoney to wound bed then cover with bandaid. D/C dressing change orders to entire buttocks. Continue heel raiser pro boots while in bed. Continue wheelchair cushion while ouf ot bed
--- NOTE | 2019-05-03 07:52 | NUR ---
PT MEDICATED WITH PHENERGAN AND OXY IR FOR C/O NAUSEA AND BACK PAIN.
[2019-05-03 08:00] VITALS: BP 114/59
--- NOTE | 2019-05-03 08:11 | NUR ---
Spoke with Dr. Palm she stated to put the wound care recommendations under Dr. Thapa.
--- NOTE | 2019-05-03 10:56 | NUR ---
PT HAS AGREED TO GO TO DIALYSIS TODAY. DIALYSIS STAFF NOTIFIED AND THEY WILL DO HIS TREATMENT THIS AFTERNOON.
--- NOTE | 2019-05-03 11:00 | NUR ---
Mobile Game Engineer in to see patient. No new needs or request at this time. When medically stable he will be discharged to [facility] where he is a LTC resident. Discussed discharge planning with Dr. Palm. Discharge time undecided at this time. vegetable ii farmworker following.
[2019-05-03 12:00] VITALS: BP 101/58
--- NOTE | 2019-05-03 13:21 | NUR ---
PREPARATION SUPERVISOR FREEZING faxing updates to [facility]. Patient is Snf and can return when medically stable. -YANIRA Muhammad
--- NOTE | 2019-05-03 13:45 | NUR ---
PT TAKEN TO DIALYSIS ROOM AT THIS TIME.
[2019-05-03 15:17] LABS: HEMATOCRIT 24.3 % (42.0-52.0); HEMOGLOBIN 7.8 g/dl (14.0-18.0); MEAN CELL VOLUME 98.4 fl (80.0-94.0); MEAN CORPUSCULAR HGB 31.6 pg (27.0-31.0); MEAN CORPUSCULAR HGB CONC 32.1 g/dl (33.0-37.0); MEAN PLATELET VOLUME 12.3 fl (9.6-12.3); RED BLOOD COUNT 2.47 10*6/uL (4.50-5.90); RED CELL DISTRI WIDTH 18.5 % (0-14.5); WHITE BLOOD COUNT 7.1 10*3/uL (4.8-10.8)
[2019-05-03 15:28] LABS: ALBUMIN 2.3 gm/dl (3.1-4.5); CREATININE 1.78 mg/dL (0.70-1.30); POTASSIUM 4.4 mmol/L (3.5-5.1)
[2019-05-03 15:34] LABS: PLATELET COUNT AUTOMATED 39 10*3/uL (130-400)
[2019-05-03 15:36] LABS: PLATELET SUFFICIENCY LOW (NORMAL); TOTAL CELLS COUNTED 100 #CELLS
[2019-05-03 15:37] LABS: BURR CELLS FEW; OVALOCYTES FEW
--- NOTE | 2019-05-03 16:50 | NUR ---
PT REMAINS IN DIALYSIS ROOM.
[2019-05-03 20:00] VITALS: BP 102/67
--- NOTE | 2019-05-03 21:35 | NUR ---
PATIENT REQUESTING PAIN MEDICATION AND NAUSEA MEDICATION. OXYCODONE AND PHENERGAN ADMINISTERED PRESCRIBED. WILL MONITOR FOR EFFECTIVENESS.
--- NOTE | 2019-05-03 22:35 | NUR ---
PATIENT RESTING WITH EYES CLOSED. RESPIRATIONS EASY AND UNLABORED. BED ALARM ON AND CALL LIGHT WITHIN REACH.
[2019-05-04] VITALS (8 sets, daily range): BP systolic 106–141; BP diastolic 45–69
--- NOTE | 2019-05-04 00:54 | NUR ---
24 HR chart check completed.
--- NOTE | 2019-05-04 02:24 | NUR ---
PATIENT RESTING WITH EYES CLOSED. RESPIRATIONS EASY AND UNLABORED. BED ALARM ON, CALL LIGHT WITHIN REACH. WILL MONITOR.
[2019-05-04 07:09] LABS: HEMATOCRIT 23.5 % (42.0-52.0); HEMOGLOBIN 7.3 g/dl (14.0-18.0); MEAN CELL VOLUME 101.3 fl (80.0-94.0); MEAN CORPUSCULAR HGB 31.5 pg (27.0-31.0); MEAN CORPUSCULAR HGB CONC 31.1 g/dl (33.0-37.0); MEAN PLATELET VOLUME 12.3 fl (9.6-12.3); PLATELET COUNT AUTOMATED 36 10*3/uL (130-400); RED BLOOD COUNT 2.32 10*6/uL (4.50-5.90); RED CELL DISTRI WIDTH 18.7 % (0-14.5); WHITE BLOOD COUNT 4.6 10*3/uL (4.8-10.8)
[2019-05-04 07:20] LABS: INTERNATIONAL NORM RATIO 1.4 (2.0-3.5)
[2019-05-04 07:28] LABS: ALBUMIN 2.6 gm/dl (3.1-4.5); ALKALINE PHOSPHATASE 40 U/L (45-117); BUN 21 mg/dl (7-24); CHLORIDE 103 mmol/L (98-107); PHOSPHOROUS 1.7 mg/dL (2.5-4.9); SGOT/AST 10 IU/L (3-35); SODIUM 138 mmol/L (136-145); TOTAL PROTEIN 5.3 gm/dL (6.4-8.2)
[2019-05-04 07:34] LABS: POTASSIUM 5.6 mmol/L (3.5-5.1); SGPT/ALT < 6 U/L (12-78)
[2019-05-04 07:46] LABS: TOTAL CELLS COUNTED 100 #CELLS
[2019-05-04 07:47] LABS: PLATELET SUFFICIENCY LOW (NORMAL)
--- NOTE | 2019-05-04 08:06 | NUR ---
TECHNOLOGY ANALYST faxed updates to [facility]. The patient is [facility] and can return when medically stable. -YANIRA Muhammad
--- NOTE | 2019-05-04 08:37 | NUR ---
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 PATIENT PLATELET COUNT THIS AM 04 MAY [address] GARDUNO OF LACK OF IV ACCESS AND DECLINED PICC OR MIDLINE PLACEMENT. DR. RIVERA SAID TO USE TESSIO IT IS BEING REMOVED BUT TO CLEAR THROUGH DR. GLYNN AND DR. DÍAZ. SPOKE TO DR. BUENO (DR. GLYNN RESIDENT) AND DR. DÍAZ, THEY BOTH AGREED IT IS IN THE PATIENT BEST INTEREST TO USE TESSIO FOR INFUSION HIS PLATELETS ARE TO LOW AT THIS POINT AND IT IS GOING TO BE REMOVED. SPOKE WITH DIALYSIS NURSE. SHE CANNOT INFUSE PLATELETS UNLESS PATIENT IS BEING DIALYSED, BUT ALSO CANNOT INFUSE PLATELETS AT ALL BECAUSE IT CLOGS DIALYSIS MACHINE. SHE INSTRUCTED ME TO RMOVE HEPARIN FROM PORT AND USE EITH PORT FOR INFUSION. SPOKE TO BANK ANALYST AND AWAITING INSTRUCTIONS FROM HER AND WILBERTO TO OK USE OF TESSIO PORT BY NURSING TO INFUSE PLATELETS SINCE IT IS BEING REMOVED ANYWAY.
--- NOTE | 2019-05-04 11:00 | NUR ---
Steeler in to see patient. No new needs or request at this time. When medically stable he will be discharged to [facility] where he is a LTC resident. Discussed discharge planning with Dr. Palm. Discharge time undecided at this time. barrow worker helper following.
--- NOTE | 2019-05-04 11:56 | NUR ---
PHYSICAL THERAPY Physical therapy evaluation attempted. Patient receiving platelets at this time. Plan to try again at a later time/date. Thank you. Astrid Garcia,PT,DPT
--- NOTE | 2019-05-04 12:18 | NUR ---
TESIO NOT USED FOR PLATELET TRANSFUSION. PT GAVE CONSENT TO TRY FOR IV AGAIN AND WITH USE OF ULTRASOUND IV WAS PLACED . PLATELETS TRANSFUSING AND CONINUING WITH IR PLAN FOR TODAY.
--- NOTE | 2019-05-04 12:19 | NUR ---
PT BLOOD SUGAR 55. PT IS ASYMPTOMATIC..WILL ADMINISTER D50 ORDERRED.
--- NOTE | 2019-05-04 12:20 | NUR ---
Mr Flores is declining to participate with occupational therapy this date but requested we check back tomorow 05/05. Will check back for OT evaluation. Shirley Lyons OTR/L
--- NOTE | 2019-05-04 18:56 | NUR ---
NOTIFIED DR. BUENO OF PATIENTS HEMOGLOBIN 7.3, AND HEMATOCRIT OF 23.5. NO INSTRUCTIONS GIVEN AT THIS TIME.
[2019-05-05] VITALS: BP 125/64
--- NOTE | 2019-05-05 03:01 | NUR ---
24 HR chart check completed.
[2019-05-05 08:00] VITALS: BP 172/90
[2019-05-05 08:36] LABS: HEMATOCRIT 23.3 % (42.0-52.0); HEMOGLOBIN 7.4 g/dl (14.0-18.0); MEAN CELL VOLUME 98.3 fl (80.0-94.0); MEAN CORPUSCULAR HGB 31.2 pg (27.0-31.0); MEAN CORPUSCULAR HGB CONC 31.8 g/dl (33.0-37.0); MEAN PLATELET VOLUME 12.2 fl (9.6-12.3); PLATELET COUNT AUTOMATED 43 10*3/uL (130-400); RED BLOOD COUNT 2.37 10*6/uL (4.50-5.90); RED CELL DISTRI WIDTH 18.4 % (0-14.5); WHITE BLOOD COUNT 4.9 10*3/uL (4.8-10.8)
[2019-05-05 09:20] LABS: TOTAL CELLS COUNTED 100 #CELLS
[2019-05-05 09:21] LABS: PLATELET SUFFICIENCY LOW (NORMAL)
[2019-05-05 09:22] LABS: BURR CELLS FEW
[2019-05-05 09:23] LABS: OVALOCYTES FEW
--- NOTE | 2019-05-05 10:57 | NUR ---
PHYSICAL THERAPY Physical therapy evaluation attemtped. Patient out of room for dialysis. Will return for evaluation at a later date. Thank you. Astrid Garcia,PT,DPT
--- NOTE | 2019-05-05 10:58 | NUR ---
Occupational therapy orders received and chart reviewed. Patient admitted for anemia with a PMH including COPD, CHF, ESRD, and GERD. Patient was out of room in the am. Will follow up with patient for OT evaluation and POC. Thank you for the referral. Rachel Melendez, OTR/L
--- NOTE | 2019-05-05 11:07 | NUR ---
IV VANC SENT TO DIALYSIS TO BE INFUSED AFTER TREATMENT.
[2019-05-05 12:56] LABS: ALBUMIN 3.1 gm/dl (3.1-4.5); CREATININE 1.47 mg/dL (0.70-1.30); PHOSPHOROUS 1.4 mg/dL (2.5-4.9)
[2019-05-05 12:58] LABS: POTASSIUM 3.7 mmol/L (3.5-5.1)
--- NOTE | 2019-05-05 14:17 | NUR ---
Second Helper in to see patient. He is currently eating lunch with his son at his bedside. No new needs or request at this time. When medically stable he will be discharged to [facility] where he is a LTC resident. coke worker following.
[2019-05-05 16:00] VITALS: BP 141/51
[2019-05-05 20:00] VITALS: BP 171/52
--- NOTE | 2019-05-05 20:51 | NUR ---
PT GIVEN OXYCODONE 5 MG PO AT THIS TIME FOR C/O GENERALIZED PAIN. WILL MONITOR FOR EFFECTIVENESS. PT ASSESSMENT COMPLETE AT THIS TIME. NO OTHER COMPLAINTS VOICED. ALL NEEDS MET. RESPIRATIONS EASY AND UNLABORED ON 2L NC. WILL CONTINUE TO MONITOR. CALL LIGHT IN REACH.
[2019-05-05 20:54] VITALS: BP 140/62
--- NOTE | 2019-05-05 21:51 | NUR ---
OXYCODONE EFFECTIVE PER PT.
[2019-05-06] VITALS: BP 156/65
--- NOTE | 2019-05-06 00:30 | NUR ---
PT LYING IN BED. RESPIRATIONS EASY AND UNLABORED. WILL CONTINUE TO MONITOR. HOB ELEVATED. SAFETY MEASURES IN PLACE. CALL LIGHT IN REACH.
[2019-05-06 08:00] VITALS: BP 134/41
--- NOTE | 2019-05-06 10:00 | NUR ---
MEDICATED FOR C/O BACK PAIN 02/15
[2019-05-06 12:00] VITALS: BP 100/80
[2019-05-06 16:00] VITALS: BP 113/54
--- NOTE | 2019-05-06 17:31 | NUR ---
PT MEDICATED WITH ZOFRAN FOR C/O NAUSEA WILL MONITOR
--- NOTE | 2019-05-06 19:46 | NUR ---
TOOK OVER CARE OF PT. PT LYING IN BED, HOB ELEVATED. ALERT ORIENTED AND PLEASANT MOOD. PT IS WATCHING TELEVISION, SPEECH APPROPRIATE. PT C/O PAIN TO LOWER BACK AND BILATERAL SHOULDERS. DILAUDID 0.25 MG GIVEN VIA IV TO LUE AT THIS TIME. WILL MONITOR FOR EFFECTIVENESS. ASSESSMENT COMPLETE. LACTULOSE GIVEN AT THIS TIME PER EMAR ORDERS. WILL MONITOR FOR EFFECTIVENESS. ALL SAFETY MEASURES IN PLACE. CALL LIGHT IN REACH.
[2019-05-06 20:00] VITALS: BP 111/85
--- NOTE | 2019-05-06 20:50 | NUR ---
DILAUDID EFFECTIVE PER PT.
[2019-05-07] VITALS: BP 120/87
--- NOTE | 2019-05-07 02:39 | NUR ---
PT RESTING IN BED. NO S/S OF DISTRESS. RESPIRATIONS EASY AND UNLABORED ON 2L NC. ALL NEEDS MET. ALL SAFETY MEASURES IN PLACE. CALL LIGHT IN REACH.
--- NOTE | 2019-05-07 06:49 | NUR ---
PT STATES THAT LACTULOSE IS EFFECTIVE AND THAT HE HAS HAD SEVERAL BOWEL MOVEMENTS T/O NIGHT
[2019-05-07 08:00] VITALS: BP 99/50
--- NOTE | 2019-05-07 08:55 | NUR ---
PT RESTING IN BED. NO DISTRESS NOTED. WILL MONITOR
--- NOTE | 2019-05-07 11:26 | NUR ---
PT REQUESTED AND GIVEN DILAUDID FOR C/O GEN PAIN PT RATES PAIN / WILL MONITOR
[2019-05-07 12:00] VITALS: BP 96/67
--- NOTE | 2019-05-07 12:30 | NUR ---
PHYSICAL THERAPY PT EVAL COMPLETED 05/07/19 ON LEVEL 5: FULL EVAL TO FOLLOW. RECOMMEND PT WHILE HERE TO ADDRESS DECREASED STRENGTH AND FUNCTIONAL MOBILITY. PT EVAL IS MODERATE COMPLEXITY: [id number]. D/C RECOMMENDATIONS ARE TO RETURN TO SNF FOR SNF IF HE MEETS THEIR CRITERIA TO REGAIN HIGHEST LEVEL OF FUNCTIONAL MOBILTY. TH[facility] YOU [facility]
[2019-05-07 16:00] VITALS: BP 127/52; BP 157/74
--- NOTE | 2019-05-07 19:55 | NUR ---
24 HR chart check completed.
[2019-05-07 20:00] VITALS: BP 143/67
--- NOTE | 2019-05-07 20:00 | NUR ---
RESTING IN BED. NO ACUTE DISTRESS NOTED. RESPIRATIONS EASY. LUNGS DIMINISHED WITH RHONCHI. PULSE OX 100% 2L. LOOSE NON-PRODUCTIVE COUGH NOTED. FISTULA RIGHT ARM +THRILL/BRUIT. TRACE BLE EDEMA WITH HEEL PROTECTORS IN PLACE. CALL LIGHT WITHIN REACH. NO VOICED COMPLAINTS. BED ALARM MAINTAINED FOR SAFETY
--- NOTE | 2019-05-07 20:54 | NUR ---
REQUESTED AND RECEIVED DILAUDID PER PRN ORDER FOR COMPLAINTS OF PAIN TO SHOULDERS RATING A 6. CALL LIGHT WITHIN REACH. WILL MONITOR FOR FEECTIVENESS
--- NOTE | 2019-05-07 23:00 | NUR ---
EARLIER MEDS APPEAR EFFECTIVE. SLEEPING. RESPIRATIONS EASY. CALL LIGHT WITHIN REACH. BED ALARM MAINTAINED FOR SAFETY
[2019-05-08] VITALS (8 sets, daily range): BP systolic 106–133; BP diastolic 45–99
--- NOTE | 2019-05-08 00:15 | NUR ---
SLEEPING. RESPIRATIONS EASY. VSS. CALL LIGHT WITHIN REACH. BED ALARM MAINTAINED
[2019-05-08] MEDS ORDERED: Diltiazem HCl120 MG PO (02:02)
[2019-05-08 05:48] LABS: BASO % 0.1 % (0.0-1.0); EOS # 0.1 10*3/uL (0.0-0.4); EOS % 0.7 % (1.0-4.0); LYMPH # 2.2 10*3/uL (1.3-4.4); LYMPH % 23.9 % (27.0-41.0); MEAN CELL VOLUME 99.5 fl (80.0-94.0); MEAN CORPUSCULAR HGB 31.7 pg (27.0-31.0); MEAN CORPUSCULAR HGB CONC 31.8 g/dl (33.0-37.0); MEAN PLATELET VOLUME 12.9 fl (9.6-12.3); MONO # 0.4 10*3/uL (0.1-1.0); NEUT # 6.5 10*3/uL (2.3-7.9); NEUT % 70.8 % (47.0-73.0); PLATELET COUNT AUTOMATED 54 10*3/uL (130-400); RED BLOOD COUNT 2.21 10*6/uL (4.50-5.90); RED CELL DISTRI WIDTH 18.8 % (0-14.5); WHITE BLOOD COUNT 9.2 10*3/uL (4.8-10.8)
--- NOTE | 2019-05-08 06:00 | NUR ---
SLEPT THROUGHOUT NIGHT WITH NO DISTRESS NOTED. RESPIRATIONS EASY. CALL LIGHT WITHIN REACH. NO VOICED COMPLAINTS. BED ALARM MAINTAINED FOR SAFETY
[2019-05-08 06:03] LABS: CREATININE 3.32 mg/dL (0.70-1.30); POTASSIUM 4.6 mmol/L (3.5-5.1)
[2019-05-08 06:08] LABS: PHOSPHOROUS 3.3 mg/dL (2.5-4.9)
[2019-05-08 06:15] LABS: VANCOMYCIN RANDOM 21.6 ug/mL
--- NOTE | 2019-05-08 07:53 | NUR ---
DIALYSIS CALLED RE: PT HEMOGLOBIN OF 7.0. DR GLYNN CALLED AND NOTIFIED. ORDERS RECEIVED FOR 2 UNITS TO BE GIVEN.
--- NOTE | 2019-05-08 08:20 | NUR ---
Patient has MWF HD. Patient is mcfp at [facility]. FINANCIAL SERVICES SALES REPRESENTATIVE faxed updates to [facility]. -YANIRA Muhammad
--- NOTE | 2019-05-08 10:00 | NUR ---
PHYSICAL THERAPY PT NOT IN ROOM ON FIRST ATTEMP THIS A.M. WILL TRY AGAIN AT A LATER TIME/DATE. VARGAS COTA PTA
[2019-05-08 10:36] LABS: INTERNATIONAL NORM RATIO 1.3 (2.0-3.5)
--- NOTE | 2019-05-08 11:00 | NUR ---
Water Pump Operator in to see patient. He is currently in dialysis. When medically stable he will be discharged to [facility] where he is a LTC resident. Discussed discharge planning with Dr. Carranza he is a possible discharged tomorrow back to [facility]. floorworker following.
--- NOTE | 2019-05-08 11:33 | NUR ---
Patient not available for Occupational Therapy evaluation as he is in dialysis. Altagracia Beth OTR/l
--- NOTE | 2019-05-08 12:00 | NUR ---
BLOOD BANK CALLED AND NOTIFIED DR GARDUNO STATES PLATLETS AREN'T NEEDED TO BE GIVEN PRIOR TO TESSIO REMOVAL.
--- NOTE | 2019-05-08 12:21 | NUR ---
While in dialysis hemoglobin became low and patient now needs blood. OTR will recheck at a later date. Altagracia Beth OTR/l
--- NOTE | 2019-05-08 13:50 | NUR ---
PT LEFT FOR OR- FOR TESSIO REMOVAL
--- NOTE | 2019-05-08 14:00 | NUR ---
PHYSICAL THERAPY PT OUT OF ROOM FOR 2ND ATTEMPT THIS DATE. PHYSICAL THERAPY WILL TRY AGAIN AT A LATER TIME/DATE. VARGAS COTA PTA
--- NOTE | 2019-05-08 14:23 | NUR ---
REPORT CALLED FROM OR- TESSIO REMOVED.
--- NOTE | 2019-05-08 16:30 | NUR ---
Patient resting quietly with no c/o discomfort. Respirations easy and regular. Vital signs stable. No overt distress. DALE MARTINEZ R
--- NOTE | 2019-05-08 19:19 | NUR ---
BLOOD NOT READY PER LAB AT THIS TIME
--- NOTE | 2019-05-08 19:29 | NUR ---
PATIENT RESTING IN BED WATCHING TV. STATES HE WOULD LIKE TO HAVE PAIN MEDICATION BEFORE BED. UPDATED ON BLOOD NOT BEING READY YET. VERBALIZED UNDERSTANDING. BED IN LOWEST POSITION, CALL LIGHT IN REACH
[2019-05-09] VITALS (16 sets, daily range): BP systolic 91–183; BP diastolic 40–77
--- NOTE | 2019-05-09 02:51 | NUR ---
MEDICATED WITH PRN DILAUDID FOR C/O PAIN IN BACK. WILL MONITOR
[2019-05-09 07:12] LABS: HEMOGLOBIN 8.2 g/dl (14.0-18.0); MEAN CELL VOLUME 97.3 fl (80.0-94.0); MEAN CORPUSCULAR HGB 31.9 pg (27.0-31.0); MEAN CORPUSCULAR HGB CONC 32.8 g/dl (33.0-37.0); MEAN PLATELET VOLUME 12.7 fl (9.6-12.3); PLATELET COUNT AUTOMATED 42 10*3/uL (130-400); RED BLOOD COUNT 2.57 10*6/uL (4.50-5.90); RED CELL DISTRI WIDTH 17.6 % (0-14.5); WHITE BLOOD COUNT 5.2 10*3/uL (4.8-10.8)
[2019-05-09 07:31] LABS: ALBUMIN 2.7 gm/dl (3.1-4.5); CHLORIDE 102 mmol/L (98-107); POTASSIUM 3.7 mmol/L (3.5-5.1); SODIUM 138 mmol/L (136-145)
[2019-05-09 07:36] LABS: ALKALINE PHOSPHATASE 46 U/L (45-117); BUN 25 mg/dl (7-24); CREATININE 2.78 mg/dL (0.70-1.30); SGOT/AST 11 IU/L (3-35); SGPT/ALT < 6 U/L (12-78); TOTAL PROTEIN 5.9 gm/dL (6.4-8.2)
[2019-05-09 07:43] LABS: INTERNATIONAL NORM RATIO 1.2 (2.0-3.5)
--- NOTE | 2019-05-09 08:13 | NUR ---
PARA PROFESSIONAL faxed updates to [facility]. Patient is Clerk Rating and can return when medically stable. -YANIRA Muhammad
[2019-05-09 08:16] LABS: PLATELET SUFFICIENCY LOW (NORMAL); TOTAL CELLS COUNTED 100 #CELLS
[2019-05-09 08:17] LABS: BURR CELLS FEW
--- NOTE | 2019-05-09 09:15 | NUR ---
PATIENT TO ULTRASOUND
--- NOTE | 2019-05-09 09:30 | NUR ---
PHYSICAL THERAPY Patient was out of his room for US when approached this am for therapy visit. Will continue per POC as able. Aj Shoemaker, ALODIZE MACHINE OPERATOR
--- NOTE | 2019-05-09 10:30 | NUR ---
Electronic Science Teacher in to see patient. No new needs or request at this time. When medically stable he will be discharged to [facility] where he is a LTC resident. stage set up worker following.
--- NOTE | 2019-05-09 10:33 | NUR ---
Patient not available for Occupational Therapy evaluation as he is eating breakfast. Altagracia Beth OTR/l
--- NOTE | 2019-05-09 13:09 | NUR ---
Spoke to Dr. Pa regarding discharge planning. Plan is to discharge the patient today to [facility]. tea tree farm worker following.
[2019-05-09] MEDS ORDERED: DOXYCYCLINE100 MG PO (13:43)
[2019-05-09] MEDS ORDERED: LACTULOSE20 GM/30 M PO (13:43)
[2019-05-09] MEDS ORDERED: LASIX40 MG PO (13:43)
[2019-05-09] MEDS ORDERED: MIDODRINE HCL5 M1 PO (13:43)
--- NOTE | 2019-05-09 14:36 | NUR ---
ROCIO MEDICATED WITH DILAUDID UPON REQUEST FOR COMPLAINTS OF BACK PAIN 03/18. WILL MONITOR FOR EFFECTIVENESS.
--- NOTE | 2019-05-09 14:42 | NUR ---
SENIOR NUCLEAR MEDICINE TECHNOLOGIST spoke with Earl. SENIOR NUCLEAR MEDICINE TECHNOLOGIST reached out to [facility] and scheduled a 4:30 pickup time. SENIOR NUCLEAR MEDICINE TECHNOLOGIST notified RN of pickup time. SENIOR NUCLEAR MEDICINE TECHNOLOGIST contacted patient son and alerted him to the transport time. SENIOR NUCLEAR MEDICINE TECHNOLOGIST spoke with Maureen. SENIOR NUCLEAR MEDICINE TECHNOLOGIST will fax demographics to [facility]. -YANIRA Muhammad
--- NOTE | 2019-05-09 14:43 | NUR ---
Patient to be discharged to LTC today. Altagracia Beth OTR/L
--- NOTE | 2019-05-09 15:15 | NUR ---
PER PATIENT, DILAUDID HAS BEEN EFFECTIVE- DENIES FURTHER COMPLAINTS AT THIS TIME.
--- NOTE | 2019-05-09 15:17 | NUR ---
PHYSICAL THERAPY CO-SIGN I approve of the Physical Therapy notes written above. CASEY ALFARO PT, DPT
--- NOTE | 2019-05-09 19:29 | NUR ---
BETZAIDA HERE TO FUR WEIGHER PATIENT AT THIS TIME TO TRANSFER TO [facility]. LEFT WITH EMS AT THIS TIME.
== END 2019-05-09 19:29 | DRG 177 ==
LOC: ED 11:09 → EDHOLD 12:27 → 5E 12:27
PROVIDERS: Internal Medicine; Internal Medicine Gastroenterology; Internal Medicine Nephrology; Student in an Organized Health Care Education/Training Program; ADMIT Internal Medicine
PROC: 30233N1 Transfusion of Nonautologous Red Blood Cells into Peripheral Vein, Percutaneous Approach (ICD-10-PCS; principal; 2019-04-25)
PROC: 5A1D70Z Performance of Urinary Filtration, Intermittent, Less than 6 Hours Per Day (ICD-10-PCS; 2019-04-26)
PROC: 5A1D70Z Performance of Urinary Filtration, Intermittent, Less than 6 Hours Per Day (ICD-10-PCS; 2019-04-28)
PROC: 0W9G3ZZ Drainage of Peritoneal Cavity, Percutaneous Approach (ICD-10-PCS; 2019-04-29)
PROC: 30233R1 Transfusion of Nonautologous Platelets into Peripheral Vein, Percutaneous Approach (ICD-10-PCS; 2019-04-29)
PROC: 5A1D70Z Performance of Urinary Filtration, Intermittent, Less than 6 Hours Per Day (ICD-10-PCS; 2019-05-01)
PROC: 5A1D70Z Performance of Urinary Filtration, Intermittent, Less than 6 Hours Per Day (ICD-10-PCS; 2019-05-03)
PROC: 5A1D70Z Performance of Urinary Filtration, Intermittent, Less than 6 Hours Per Day (ICD-10-PCS; 2019-05-05)
PROC: 5A1D70Z Performance of Urinary Filtration, Intermittent, Less than 6 Hours Per Day (ICD-10-PCS; 2019-05-08)
PROC: 0JPT3XZ Removal of Tunneled Vascular Access Device from Trunk Subcutaneous Tissue and Fascia, Percutaneous Approach (ICD-10-PCS; 2019-05-08)
PROC: 02PYX3Z Removal of Infusion Device from Great Vessel, External Approach (ICD-10-PCS; 2019-05-08)
DX: J15.6 Pneumonia due to other Gram-negative bacteria (principal); N18.6 End stage renal disease; E43 Unspecified severe protein-calorie malnutrition; J96.01 Acute respiratory failure with hypoxia; D61.818 Other pancytopenia; I50.32 Chronic diastolic (congestive) heart failure; I13.2 Hypertensive heart and chronic kidney disease with heart failure and with stage 5 chronic kidney disease, or end stage renal disease; R18.8 Other ascites; K76.6 Portal hypertension; J44.0 Chronic obstructive pulmonary disease with (acute) lower respiratory infection; J98.11 Atelectasis; K74.60 Unspecified cirrhosis of liver; D46.9 Myelodysplastic syndrome, unspecified; I95.9 Hypotension, unspecified; I34.0 Nonrheumatic mitral (valve) insufficiency; E83.39 Other disorders of phosphorus metabolism; D53.9 Nutritional anemia, unspecified; M19.90 Unspecified osteoarthritis, unspecified site; R16.1 Splenomegaly, not elsewhere classified; Z66 Do not resuscitate; Z51.5 Encounter for palliative care; K21.9 Gastro-esophageal reflux disease without esophagitis; E78.5 Hyperlipidemia, unspecified; M54.30 Sciatica, unspecified side; M48.00 Spinal stenosis, site unspecified; Z96.653 Presence of artificial knee joint, bilateral; F32.9 Major depressive disorder, single episode, unspecified; R53.1 Weakness; E11.22 Type 2 diabetes mellitus with diabetic chronic kidney disease; M25.412 Effusion, left shoulder; Z99.2 Dependence on renal dialysis; Z88.1 Allergy status to other antibiotic agents; Z88.8 Allergy status to other drugs, medicaments and biological substances; Z98.1 Arthrodesis status; Z80.8 Family history of malignant neoplasm of other organs or systems; Z83.3 Family history of diabetes mellitus; Z82.49 Family history of ischemic heart disease and other diseases of the circulatory system; Z79.899 Other long term (current) drug therapy; Z68.23 Body mass index [BMI] 23.0-23.9, adult

== ENCOUNTER 2019-05-29 13:24 | Inpatient (IN) | payer MEDICARE ==
[~2019-05-29] VITALS: Ht 190.5 cm; Wt 58.6 kg
--- NOTE | ~2019-05-29 | CON ---
[place], [place] REPORT OF CONSULTATION [id number] UN[facility] #: [id number] ROOM: 508 DOCTOR: SUSAN ADAMS MD BIRTHDATE: [birth year] DOS: HISTORY OF PRESENT ILLNESS: This is an 84-year-old -[place] man with a history of cirrhosis of the liver, portal hypertension, and recurrent ascites that has been drained repeatedly. He has COPD, type 2 diabetes mellitus, end-stage renal disease, and dialyzes 3 times a week. He also has a GERD, inguinal hernia, and chronic anemia and MDS/myelodysplastic syndrome, and pancytopenia. He has diastolic heart failure as well. He had a transesophageal echocardiogram earlier this year because of bacteremia. It demonstrated no endocarditis, but LV ejection fraction was 65% and no significant valvular abnormality was present. This patient also has a spinal stenosis and is somewhat malnourished and has significant hypoalbuminemia. He has had right knee surgery, TURP, and EGD. He does not drink nor does he use alcoholic beverages. He was admitted to the hospital about 6 days ago because his belly was getting big and he felt ill, but no nausea, abdominal pain. He had no chest pain, breathing difficulty or palpitations and he did not pass out, although he felt some lightheadedness. His appetite is fine. He is enjoying his breakfast this morning. His mood is very good. CURRENT MEDICATIONS: Reviewed. PHYSICAL EXAMINATION: GENERAL: This reveals a patient who is emaciated, pale-looking, but alert, cheerful, and oriented. There is no thyromegaly. VITAL SIGNS: Temperature is normal. Pulse is 88 and regular, blood pressure 94/50 and had been lower yesterday. NECK: JVP is low. CARDIAC: Auscultation revealed no murmurs or rubs. EXTREMITIES: He has no edema in the lower extremities. RESPIRATORY: Excellent breath sounds on the left side without any adventitious sounds. Mildly reduced breath sounds on the right side with very few crackles. LABORATORY DATA: I reviewed his chest x-ray of 05/29/2019. It showed poor inspiration, and of course, this may be from ascitic fluid at that time as well and a very tiny right pleural effusion. Cardiac silhouette seemed to be okay. LABORATORY DATA: Hemoglobin 8.2 g/dL, platelets 57,000, WBC 6.4, albumin is 2.4 g/dL, potassium 3.9, BUN 26, creatinine 2.96. IMPRESSION: 1. This patient has hypotension and this may be the result of hypoalbuminemia and third-spacing of fluid into the peritoneal cavity. He has modest ascites demonstrated clinically today, but his central venous pressure is rather low, i.e., intravascular volume is somewhat depleted. 2. There is no evidence of cardiac decompensation. 3. Cirrhosis of the liver with initiation and portal hypertension. [place], [place] REPORT OF CONSULTATION NAME: MARKY HAYWARD UNIT #: [id number] ROOM: 508 DOCTOR: SUSAN ADAMS MD BIRTHDATE: [birth year] RECOMMENDATIONS: Patient has been given albumin, I think that may be useful occasionally to prop up blood pressure, but I would also recommend increasing his dry weight by about 2 kilos to receive intravascular volume expanders; of course, this is going to be a little tough to measure because he re-accumulates fluid in his peritoneal cavity. Thanks for this consult. SUSAN ADAMS MD CM:CONSTR:REPORT OF CONSULTATION 0850 06/05/19 0044 interface
--- NOTE | ~2019-05-29 | PR ---
[place], [place] PROGRESS NOTE NAME: MARKY HAYWARD [facility] #: [id number] UNIT #: [id number] ROOM: 508 DOCTOR: ABDULKADIR ALLEN MD BIRTHDATE: [birth year] DOS: 06/13/2019 SUBJECTIVE: A 24-hour events noted. The patient is comfortably sleeping. He feels fairly well. No new changes since yesterday. He denies any chest discomfort, shortness of breath. Abdomen is still getting bigger with fair amount of ascites. OBJECTIVE: VITAL SIGNS: Blood pressure today is 100/50. HEENT: Unremarkable. NECK: Supple, no JVD. LUNGS: Diminished breath sounds. ABDOMEN: Obese with ascites. No guarding. EXTREMITIES: No edema. LABORATORY DATA: Sodium 131, potassium ____ and creatinine is 3.6. IMPRESSION: Generalized weakness, abdominal distention with ascites, anemia, chronic renal failure, hypertension, diastolic heart failure, and portal hypertension. The patient ____ paracentesis today. RECOMMENDATIONS: Continue the other medications as ordered and we will follow up. ABDULKADIR ALLEN MD CM:PNTRANS [id number] ABDULKADIR ALLEN MD 06/13/19 1048 interface
--- NOTE | ~2019-05-29 | PR ---
[place], [place] PROGRESS NOTE NAME: MARKY HAYWARD [facility] #: [id number] UNIT #: [id number] ROOM: 508 DOCTOR: SUSAN ADAMS MD BIRTHDATE: [birth year] DOS: SUBJECTIVE: I saw the patient 5 days ago and he was doing fine. In the last few days, he has had more cough and is coughing up some thick sputum. He has been dialyzing regularly and yesterday had paracentesis done and 3500 mL of fluid was removed. It eased his breathing to some extent. He has no fever, chills or shivering. His appetite is fine. Mood remains upbeat. PHYSICAL EXAMINATION: GENERAL: This reveals a patient who is very pleasant, alert, oriented. He is much underweight and there is severe sarcopenia. VITAL SIGNS: Pulse is 96 and regular, blood pressure 112/63. NECK: JVP normal. AJR is negative. CARDIOVASCULAR: Auscultation reveals no obvious murmurs. EXTREMITIES: He has 1+ pedal edema. RESPIRATORY: He is mildly tachypneic and he has quite a few rhonchi in the right lower half of the lung field and a few in the left base. He did not have these 5 days ago. DIAGNOSTIC DATA: An echocardiogram was done and it is suboptimal. It demonstrated normal LV systolic function. Right ventricle appeared to be normal as well. There is left ventricular hypertrophy. IMPRESSION: 1. This patient has end-stage renal disease and appear to be euvolemic now. 2. Recurrent ascites with periodic paracentesis. 3. Severe anemia. PLAN: The patient's volume status is fairly decent at this time. No new recommendations. SUSAN ADAMS MD CM:PNTRANS 1801 SUSAN ADAMS MD 06/10/19 0727 interface
--- NOTE | ~2019-05-29 | O ---
[place], [place] OPERATIVE NOTE NAME: MARKY HAYWARD UNIT #: [id number] ROOM: 517 DOCTOR: ALBERTO NUGENT MD BIRTHDATE: [birth year] DOS: 05/31/2019 INDICATION: This gentleman is an 84-year-old presented with epigastric abdominal pain, nausea, anorexia, fullness, bloated difficulty with bowel movement. PROCEDURE: Today's procedure part of investigation is panendoscopy and biopsy. PREMEDICATION: Propofol. SCOPE: Olympus forward-viewing gastroscope Q10 video. REPORT: After putting the patient in left lateral position and application of lubricant to the scope, the scope was introduced. Thereafter, under direct visualization, advanced through the length of esophagus without difficulty. Esophageal ulceration all the way to cervical esophagus secondary to reflux was noticed. Hiatal hernia of 3 cm was noticed. Gastric pouch was entered. Gastritis seen. Duodenal bulb, second and third part within normal limit. The patient extubated after antral biopsy, tolerated the procedure well. IMPRESSION: 1. Reflux esophageal ulcerations. 2. Hiatal hernia. 3. Gastritis. PLAN AND DISCUSSION: Due to the symptomatology expression in this gentleman while in the hospital, we will keep him on Carafate 2 grams 2 hours before meals and at bedtime and Protonix 40 mg IV b.i.d., Reglan 5 mg a.m. and p.m. Elevation of the head of the bed 6 inch all time soft diet. Furthermore, we have done, digital disimpaction of the stool and this patient approximately 0.5 gallon of solid stool was delivered out of his rectum. Therefore, I am going to give 4 doses of MiraLax tonight and then 17 grams of MiraLax daily for continuation of bowel that patency and movements and clinical reassessment. Etiology of constipation is secondary to morphine products he is taking. [place], [place] OPERATIVE NOTE NAME: YESYMARKY Nata UNIT #: [id number] ROOM: 517 DOCTOR: ALBERTO NUGENT MD BIRTHDATE: [birth year] ALBERTO NUGENT MD CM:OPRECORD:OPERATIVE NOTE 17 54 ALBERTO NUGENT MD 05/31/191854 interface
--- NOTE | ~2019-05-29 | PR ---
[place], [place] PROGRESS NOTE NAME: MARKY HAYWARD [facility] #: [id number] UNIT #: [id number] ROOM: 508 DOCTOR: TOBI ROGERS MD,MAXI BIRTHDATE: [birth year] DOS: 06/14/2019 PULMONARY PROGRESS NOTE SUBJECTIVE: The patient noted comfortable at this time, resting on the bed this morning of assessment. He had not been noted symptoms of fever, chills, ____ this afternoon. OBJECTIVE: VITAL SIGNS: For the patient recorded today has a normal temperature, respiratory rate 18, heart rate 87, blood pressure 92/53. Pulse oxygen saturation recorded as 99% saturation on 2 liters nasal cannula. HEENT: Examination shows head was atraumatic. Eyes nonicterus. NECK: Supple. CARDIOVASCULAR: S1, S2 audible. LUNGS: Noted without any wheeze or crackles. ABDOMEN: Soft, nontender. Bowel sounds present. EXTREMITIES: No new change. IMPRESSION: 1. The patient with paracentesis yesterday with improvement noted with reduction in symptoms of shortness of breath as well. 2. Bilateral pleural fluid with advanced liver cirrhosis. PLAN OF MANAGEMENT: Continuation of current therapy at this time without any changes. Usual care, other supportive plan of management and care to be continued. MAXI BRITTON MD CM:PNTRANS 55 3 MAXI ROGERS MD 06/15/19102 interface
--- NOTE | ~2019-05-29 | PR ---
[place], [place] PROGRESS NOTE NAME: MARKY HAYWARD UNIT #: [id number] ROOM: 517 DOCTOR: JOVANNA FOXALBERTO BIRTHDATE: [birth year] DOS: 06/02/2019 SUBJECTIVE: An 84-year-old gentleman with ascites, status post paracentesis of approximately 10 liters few days ago, endoscopic evaluation, gastritis and ulcerations have been addressed with Carafate, Protonix, and Reglan therapy. Hiatal hernia and distal esophageal reflux ulceration has been all recognized. Renal insufficiency is known. Antral biopsy has been benign. CBC differential, H and H of 8 and 24. Comprehensive metabolic panel: BUN and creatinine 34 and ____ all recognized. Potassium ____, he needs replacement. Tonight, he has not had much appetite. He has had 3 bowel movements today. REVIEW OF SYSTEMS: HEENT: Denies double vision, blurred vision. RESPIRATORY: Denies acute shortness of breath. CARDIOVASCULAR: Denies acute chest pain. DIGESTIVE SYSTEM: No appetite tonight. PHYSICAL EXAMINATION: VITAL SIGNS: Frail patient. HEENT: Head normocephalic, nontraumatic. Mouth and buccal mucosa benign. NECK: Supple, no thyromegaly, no cervical lymphadenopathy. CHEST: Symmetric anatomy, COPD. HEART: Normal sinus rhythm, no gallop, no murmur. ABDOMEN: Soft. No hepato-organomegaly, some ascites noticed. NEUROLOGIC: Alert and oriented to time, place, person. EXTREMITIES: Benign. LABORATORY DATA: Labs reviewed. Records reviewed. IMPRESSION: Gastroesophageal reflux, gastritis, and hiatal hernia, all has been recognized. He has been treated with Carafate, Protonix, and Reglan. He is expected to have frequency of stool. His appetite has been not well today, that is a temporary issue. He is having underlying liver disease and status post ascites and paracentesis of 10 liters. PLAN AND DISCUSSION: I believe that he has had a baseline of his stabilization with underlying liver disease and ascites formation. He needs some physical therapy, continuation with Ensure consumption ____ meals that I have reviewed with him again and supportive care. [place], [place] PROGRESS NOTE NAME: MARKY HAYWARD UNIT #: [id number] ROOM: 517 DOCTOR: ALBERTO NUGENT MD BIRTHDATE: [birth year] ALBERTO NUGENT MD CM:PNTRANS 1908 0 ALBERTO NUGENT MD 06/03/190 interface
--- NOTE | ~2019-05-29 | PR ---
[place], [place] PROGRESS NOTE NAME: MARKY HAYWARD [facility] #: [id number] UNIT #: [id number] ROOM: 508 DOCTOR: TOBI ROGERS MD,MAXI BIRTHDATE: [birth year] DOS: 06/15/2019 SUBJECTIVE: He has been noted comfortable at this time, resting in the bed this morning of assessment was not reporting any symptoms of chest pain or acute shortness of breath. Completed hemodialysis yesterday. OBJECTIVE: GENERAL: He was noted comfortable at this time, lying in the bed this morning of assessment. VITAL SIGNS: Normal temperature, respiratory rate 16, heart rate 94, blood pressure 100/60. Pulse ox saturation on 2 liters nasal cannula was recorded 99% saturation. HEAD, EYES, EARS, NOSE, AND THROAT: Examination shows head was atraumatic. Eyes nonicterus. NECK: Supple. CARDIOVASCULAR SYSTEM: S1, S2 audible. LUNGS: Noted decreased breath sounds noted in the lower lung with improvement air entry noted as compared with the previous examination. ABDOMEN: Soft, nontender. IMPRESSION: 1. The patient with bilateral pleural fluid with history of liver cirrhosis, end-stage renal failure, recurrent bilateral pleural fluid, noted because of that. 2. Thrombocytopenia, which is chronic, related to the liver failure. PLAN OF MANAGEMENT: Order a chest x-ray. Reassess the pleural fluid progression at this time radiologically. Continue other therapy, plan of management as in progress. No other additional treatment changes will be recommended today. MAXI BRITTON MD CM:PNTRANS 0936 1030 MAXI ROGERS MD 06/15/19 1028 interface
--- NOTE | ~2019-05-29 | PR ---
[place], [place] PROGRESS NOTE NAME: MARKY HAYWARD [facility] #: [id number] UNIT #: [id number] ROOM: 508 DOCTOR: SUSAN ADAMS MD BIRTHDATE: [birth year] DOS: 06/14/2019 SUBJECTIVE: He remains in good mood. Appetite is fine. He does not complain of any belly pain, chest pain or any pain in the legs. He has some back pain. He had a paracentesis done since yesterday and 7 liters of fluid was removed. PHYSICAL EXAMINATION: GENERAL: Reveals a patient who is underweight with marked loss of muscle mass. VITAL SIGNS: Temperature is normal. He is not tachypneic. Pulse is 80 regular, blood pressure 111/65. NECK: JVP is normal. AJR is negative. LUNGS: He has rhonchi and crackles in both lungs with reduced breath sounds. EXTREMITIES: He has 1 to 2+ edema of the buttocks but no edema in the lower extremities. Weight is 53 kilos and on 06/11/2019, he weighed 64 kilos. LABORATORY DATA: Hemoglobin 9.9 g/dL. BUN 28, creatinine 2.87. IMPRESSION: 1. The patient has end-stage renal disease and for which he is euvolemic. 2. Portal hypertension with recurring ascites requiring paracentesis. 3. Moderate anemia. Hemodynamically fairly stable and discharge plan I believe is for tomorrow. SUSAN ADAMS MD CM:PNTRANS 20 29 SUSAN ADAMS MD 06/14/191928 interface
--- NOTE | ~2019-05-29 | PR ---
[place], [place] PROGRESS NOTE NAME: MARKY HAYWARD [facility] #: [id number] UNIT #: [id number] ROOM: 508 DOCTOR: SUSAN ADAMS MD BIRTHDATE: [birth year] DOS: SUBJECTIVE: He is lying in bed, watching TV. He is very pleasant, alert, oriented, very good mood. He does not complain of any shortness of breath, no chest pain or belly pain. His appetite remains good. He has not had any dizziness or palpitations. PHYSICAL EXAMINATION: GENERAL: This is a patient who looks pale. He is emaciated/has severe sarcopenia. VITAL SIGNS: Temperature is normal, pulse is 88 and regular, blood pressure 94/66 and most of the systolic blood pressures have been over 90. NECK: JVP remains low. LUNGS: Breath sounds are fairly decent. EXTREMITIES: No edema in the lower extremities. ABDOMEN: Still scaphoid. IMPRESSION: 1. Hypotension, seems to have gotten better. His dry weight is up by 1-1/2 kilos. 2. End-stage renal disease. He dialyzes regularly. 3. Anemia, chronic. No new recommendations. SUSAN ADAMS MD CM:PNTRANS 22 1 SUSAN ADAMS MD 06/06/19 0731 interface
--- NOTE | ~2019-05-29 | PR ---
[place], [place] PROGRESS NOTE NAME: MARKY HAYWARD [facility] #: [id number] UNIT #: [id number] ROOM: 508 DOCTOR: TOBI ROGERS MDMAXI BIRTHDATE: [birth year] DOS: 06/13/2019 SUBJECTIVE: He has been noted comfortable at this time, resting in the bed this morning of assessment. He has not been noted any symptoms of cough. Mild shortness of breath was noted. Denies symptoms of chest pain or any acute hemoptysis. Denies symptoms of nausea, vomiting, diarrhea, abdominal pain, hematemesis, melena, or hematochezia. Denies symptoms of headache, or diplopia. Remaining systems were reviewed. They were noted all negative. The patient has completed the hemodialysis yesterday. OBJECTIVE: VITAL SIGNS: Normal temperature, respiratory rate 18, heart rate 95, blood pressure 101/65. Pulse ox saturation on 2 liters nasal cannula 100% saturation. HEENT: Examination shows head was atraumatic. Eyes nonicterus. NECK: Supple. CARDIOVASCULAR: S1, S2 audible. LUNGS: Decreased breath, lower portion of the lung. ABDOMEN: Noted [id number] distention. Bowel sounds present, no ascites. No tenderness. EXTREMITIES: The patient noted no new acute change. MUSCULOSKELETAL: Without any deformity. CENTRAL NERVOUS SYSTEM: The patient was noted essentially no gross focal neurologic deficit. SKIN: Noted scattered bruising of the skin, chronic finding related to underlying liver disease. LABORATORY DATA: BMP done this morning; BUN 28, creatinine of 2.87. Sodium 133. Electrolytes otherwise noted normal. BMP that was done this morning; WBC count of 4.1, hemoglobin 6.9, hematocrit 22.0, platelet count 74,000. IMPRESSION: 1. The patient has been noted with advanced end-stage liver failure with recurrent ascites as well as pleural effusion. 2. End-stage renal failure. 3. Pancytopenia. 4. Decreased hemoglobin and hematocrit was noted suggestive possibility of acute GI bleeding in view of history of liver cirrhosis from the GI tract would be considered likely. PLAN OF MANAGEMENT: Continue the patient's current therapy, plan of management from pulmonary standpoint. However, prognosis noted poor. Continuation of the bronchodilators. The patient has been ordered blood transfusion by the primary care attending. GI consultation should be obtained if not done. Consider placement of Permanent catheter for drainage of the ascitic fluid intermittently for the symptomatic management. Pleural fluid continued to be managed at this time symptomatically and conservatively. [place], [place] PROGRESS NOTE NAME: MARKY HAYWARD UNIT #: [id number] ROOM: 508 DOCTOR: MAXI GREEN MD BIRTHDATE: [birth year] MAXI BRITTON MD CM:BERNARD [id number] MAXI ROGERS MD 06/13/19 1246 interface
--- NOTE | ~2019-05-29 | CON ---
[place], [place] REPORT OF CONSULTATION NAME: MARKY HAYWARD [facility] #: [id number] UNIT #: [id number] ROOM: 508 DOCTOR: MAXI GREEN MD BIRTHDATE: [birth year] DOS: 06/12/2019 PULMONARY CONSULTATION, EVALUATION AND MANAGEMENT CONSULTATION REQUESTED BY: Nilson Thapa MD REASON FOR CONSULTATION: For assessment of pleural effusion. HISTORY OF PRESENT ILLNESS: This is an 84-year-old white male patient with longstanding history of end-stage kidney disease as well as cirrhosis of the liver has been assessed during his last admission when he has been assessed bilateral pleural fluid as well as for the possibility of acute superimposed pneumonia. The patient will be treated effectively. He has been receiving outpatient paracentesis for the large recurrent ascitic fluid. He has been admitted to the hospital under care of his primary care physician since 05/29/2019. He has been receiving the hemodialysis. He had a CT scan of chest done on this admission, which was noted with bilateral pleural effusions. The patient denies symptoms of chest pain. He denies any symptoms of acute cough at this time. Shortness of breath has been reported by the patient, which has been noted controlled at this time and not noted at rest. His ambulation noted quite limited. Denies symptoms of wheezing. Denies any hemoptysis. REVIEW OF SYSTEMS: CONSTITUTIONAL: Fatigue and tiredness noted without any symptoms of fever or chills. EYES: Denies any burning, redness, or tenderness. EARS, NOSE, THROAT SYMPTOMS: Denies sore throat, hoarseness, otalgia, postnasal drainage or epistaxis. CARDIOVASCULAR: Denies angina pain. Denies any pain of the lower extremities or edema. MUSCULOSKELETAL: No acute joint pain, redness, or tenderness. GENITOURINARY SYMPTOMS: No dysuria, suprapubic pain, or hematuria. GASTROINTESTINAL SYMPTOMS: History of recurrent ascites, abdominal distention, but there was no pain, nausea, vomiting, diarrhea, hematemesis, melena, or hematochezia was reported. CENTRAL NERVOUS SYSTEM: General weakness and fatigue, but there were no focal neurologic deficits stated. PAST MEDICAL HISTORY: 1. The patient noted with history of end-stage renal failure, receiving hemodialysis. 2. The patient with bilateral transudative, pleural suspected related to his ascites as well and possible congestive heart failure, hypoalbuminemia. The patient has treatment failure, treated conservatively in the past. 3. History of heart failure, preserved ejection fraction. 4. Liver cirrhosis, recurrent ascites and history of portal hypertension. 5. Gastroesophageal reflux disease. 6. History of myelodysplastic syndrome. 7. History of major depression. 8. Spinal stenosis. [place], [place] REPORT OF CONSULTATION NAME: MARKY HAYWARD UNIT #: [id number] ROOM: 508 DOCTOR: MAXI GREEN MD BIRTHDATE: [birth year] 9. History of decubitus wound on the buttock area in the past. 10. Overall chronic debility secondary to multiple medical illnesses. PAST SURGICAL HISTORY: Reported: 1. Knee surgery. 2. TURP. 3. Bilateral total knee replacement. 4. End-stage renal failure and colonoscopy. SOCIAL HISTORY: He has been known with history of tobacco use, patient started at younger a pack of cigarettes per day until approximately 10 years ago. The patient currently a resident of nursing facility. Denies history of alcohol use or illicit drug use. FAMILY HISTORY: Noted cancer in his father and mother, both had been . CURRENT MEDICATIONS: Which has been administered this hospitalization were noted as Carafate, Reglan, metoprolol, DuoNeb, citalopram, calcitriol, midodrine, Remeron, lactulose, Xanax, and some other p.r.n. meds. DRUG ALLERGIES: Noted as allergies: 1. CHLORDIAZEPOXIDE. 2. KLONOPIN. 3. PREDNISONE. 4. TORADOL. 5. ROCEPHIN. 6. LEVAQUIN. PHYSICAL EXAMINATION: GENERAL: An 84-year-old elderly male without acute distress, currently receiving his hemodialysis this morning of assessment. Height recorded on admission as 6 feet 3 inches, weight of 152 pounds, BMI of 19. VITAL SIGNS: For the patient, which has been recorded shows the patient is frail looking. Vital signs recorded this morning as a normal temperature, respiratory rate 18, heart rate 84, blood pressure 103/57, 105/61. Intake 800, the output was noted essentially none because of anuria with end-stage renal failure. Pulse oxygen saturation on 2 liters nasal cannula 100% saturation. HEENT: Examination shows head was atraumatic. Eyes nonicterus. NECK: Supple. Loss of muscle mastication. CARDIOVASCULAR: S1, S2 audible. LUNGS: Essentially decreased breath sounds in the lower portion of the lungs bilaterally. ABDOMEN: Noted with moderate distention and ascites. There was no tenderness. EXTREMITIES: Chronic loss of muscle mass. VISIBLE SKIN: Scattered bruising related to his illness of liver cirrhosis. MUSCULOSKELETAL: Noted with current deformities. CENTRAL NERVOUS SYSTEM: The patient was noted general weakness and fatigue. [place], [place] REPORT OF CONSULTATION NAME: MARKY HAYWARD UNIT #: [id number] ROOM: 508 DOCTOR: MAXI GREEN MD BIRTHDATE: [birth year] LABORATORY DATA: CBC that was done on 06/12/2019. WBC count normal, hemoglobin 7.3, and platelet count 51,000. BMP that was done on 06/12/2019, BUN 41, creatinine 3.68. Sodium 131. The chest CT scan that was done, reviewed, shows moderate sized bilateral pleural fluid was noted with some area of compression lower lungs. Large ascites was noted as well. Echocardiogram that was done on 06/05/[address] Orlando, reported as moderate concentric LVH with left ventricular ejection fraction 60%-65%. Right ventricular systolic functions were noted as normal. IMPRESSION: 1. The patient with recurrent bilateral pleural fluid secondary to hypoalbuminemia, end-stage renal failure, heart failure with preserved ejection fraction. The patient was not noted in any distress and currently getting oxygen supplementation nasal cannula and saturating well. 2. The patient with a history of chronic hypotension, treated with midodrine as well. 3. Frequent prolonged hospitalization medical illnesses. 4. Portal hypertension, history of liver cirrhosis, thrombocytopenia and anemia. There is no viable option of pleural fluid except to have a chest tube insertion with chemical pleurodesis done or surgical pleurodesis consideration or PleurX catheter insertion for the long-term management of pleural fluid. Even if the thoracentesis is performed the patient's fluid will recur shown. The patient has a past-paracentesis done for the ascites on 06/08/2019 with recurrent ascites noted yesterday. CT scan assessment as well as the physical exam. 5. End-stage renal failure, on hemodialysis as well. Other medical illness as stated. PLAN OF MANAGEMENT: Continue conservative therapy. Maximize the dialysis, possible removal of the pleural fluid. Supportive care. Prognosis is poor. Titrate oxygen supplementation as necessary to maintain a pulse ox 92% or greater. Usual care with all other therapy, plan of management, care plan to be done as ongoing. Continuation of the hemodialysis. Other medical management Usual medical management, other therapies. Thanks for allowing me to participate in the care of this patient. MAXI BRITTON MD CM:CONSTR:REPORT OF CONSULTATION 1043 06/12/19 1419 interface
--- NOTE | ~2019-05-29 | PR ---
[place], [place] PROGRESS NOTE NAME: MARKY HAYWARD [facility] #: [id number] UNIT #: [id number] ROOM: 508 DOCTOR: SUSAN ADAMS MD BIRTHDATE: [birth year] DOS: 06/12/2019 SUBJECTIVE: He feels fairly well. He does not complain of any breathing difficulty, chest pain or palpitations. His abdomen is getting bigger, but there is no pain or discomfort. He does not ambulate much. His appetite is very good and he claims food here is very good. PHYSICAL EXAMINATION: GENERAL: The patient is very pleasant, alert, oriented with severe sarcopenia. VITAL SIGNS: Temperature is normal, pulse is 88 and regular, blood pressure 103/57. NECK: JVP is low. EXTREMITIES: No edema in lower extremities. ABDOMEN: Somewhat distended with a demonstrable ascites. IMPRESSION: 1. The patient has recurrent ascites from cirrhosis of the liver and has reaccumulated fair amount of fluid. 2. There is no evidence of cardiac decompensation. 3. Rhythm is fairly decent. 4. Severe anemia is also present. SUSAN ADAMS MD CM:PNTRANS [id number] SUSAN ADAMS MD 06/13/194 interface
--- NOTE | ~2019-05-29 | CON ---
[place], [place] REPORT OF CONSULTATION [id number] UN[facility] #: [id number] ROOM: 517 DOCTOR: ALBERTO NUGENT MD BIRTHDATE: [birth year] DOS: 05/29/2019 HISTORY OF PRESENT ILLNESS: This is an 84-year-old patient who has presented with ascites, status post paracentesis of 10 liters removal. Weight loss, anorexia, not eating, not feeling well and dialysis dependent. I have been asked for assessment of the patient in this regard. PAST MEDICAL HISTORY: Known for COPD, end-stage renal disease, dialysis dependence, systemic hypertension, major depression, deconditioning. PAST SURGICAL HISTORY: Bilateral knee paracentesis, TURP, endoscopies. SOCIAL HISTORY: Nonsmoker, nonalcohol consumer. FAMILY HISTORY: Noncontributory. ALLERGIES: TO LEVOFLOXACIN, ROCEPHIN. ALLERGIES TO CLONAZEPAM, KETOROLAC, PREDNISONE AND CHLORDIAZEPOXIDE. REVIEW OF SYSTEMS: In general: HEENT: Denies double vision, blurred vision. RESPIRATORY: Denies acute shortness of breath. CARDIOVASCULAR: Denies acute chest pain. DIGESTIVE SYSTEM: Anorexia and status post 10 liters paracentesis. PHYSICAL EXAMINATION: GENERAL: Very frail patient with weight loss. HEENT: Head normocephalic, nontraumatic. Mouth and buccal mucosa benign. NECK: Supple, no thyromegaly. CHEST: Symmetric anatomy, decreased air entry, COPD. HEART: Normal sinus rhythm, no gallop, no murmur. ABDOMEN: Soft, flat and is relatively from what it was. EXTREMITIES: 1+ pedal edema. NEUROLOGIC: Alert, oriented to time, place, person. Sensory, motor intact. Cranial nerves 2-12 intact. IMPRESSION: Protein-calorie malnutrition, anorexia, weight loss, history of chronic renal failure, dialysis dependency and history of status post paracentesis of 10 liters. OTHER ADJUNCTIVE DIAGNOSES: As outlined in paragraph of past medical, surgical history. PLAN AND DISCUSSION: We are going to observe him to see the status of eating. If it is not improved, then we are going to start him on Marinol 2.5 mg b.i.d. and observing improvement on appetite. We are going to continue with ____. Thank you very much indeed. [place], [place] REPORT OF CONSULTATION NAME: MARKY HAYWARD UNIT #: [id number] ROOM: 517 DOCTOR: ALBERTO NUGENT MD BIRTHDATE: [birth year] ALBERTO NUGENT MD CM:CONSTR:REPORT OF CONSULTATION 29 05/30/19 0035 interface
[~2019-05-29 13:24] MED LIST changes: +DOXYCYCLINE100 MG PO; +Diltiazem HCl120 MG PO; +LACTULOSE20 GM/30 M PO; +MIDODRINE HCL5 M1 PO
[2019-05-29 13:28] VITALS: BP 110/68
[2019-05-29 14:03] LABS: MEAN CORPUSCULAR HGB 33.3 pg (27.0-31.0); MEAN CORPUSCULAR HGB CONC 32.4 g/dl (33.0-37.0); MEAN PLATELET VOLUME 11.5 fl (9.6-12.3); PLATELET COUNT AUTOMATED 92 10*3/uL (130-400); RED BLOOD COUNT 2.01 10*6/uL (4.50-5.90); RED CELL DISTRI WIDTH 18.3 % (0-14.5); WHITE BLOOD COUNT 6.5 10*3/uL (4.8-10.8)
[2019-05-29 14:13] LABS: ACT PARTIAL THROMBO TIME 36.9 SECONDS (20.0-32.1); INTERNATIONAL NORM RATIO 1.1 (2.0-3.5)
[2019-05-29 14:17] LABS: ALBUMIN 2.4 gm/dl (3.1-4.5); CREATININE 3.94 mg/dL (0.70-1.30); POTASSIUM 3.8 mmol/L (3.5-5.1)
--- NOTE | 2019-05-29 14:29 | NUR ---
DR CORONADO AWARE OF CRITICAL HGB 6.7 AND HCT 20.7
[2019-05-29 14:35] LABS: HEMOGLOBIN 6.7 g/dl (14.0-18.0)
[2019-05-29 14:36] LABS: HEMATOCRIT 20.7 % (42.0-52.0)
[2019-05-29 15:15] LABS: PLATELET SUFFICIENCY LOW (NORMAL); TOTAL CELLS COUNTED 100 #CELLS
[2019-05-29 15:16] LABS: OVALOCYTES FEW
[2019-05-29 15:34] VITALS: BP 112/70
--- NOTE | 2019-05-29 16:30 | NUR ---
AWAITING PT RETURN FROM US.
[2019-05-29 17:15] LABS: BODY FLUID WBC 113 /uL
[2019-05-29 17:50] VITALS: BP 103/63
--- NOTE | 2019-05-29 17:50 | NUR ---
A 84, admitted to , under the services of LEOPOLDO Jean MD with a diagnosis of ABDOMINAL DISTENTION,ANEMIA,ASCITES,GENERALIZED WEAKNESS,CKD REQUIRING CHRONIC DIALYSIS. Chief complaint is ABDOMINAL DISTENTION. Patient arrived via cart from ER. Monitor applied. Initial assessment completed. Vital signs taken and recorded. LEOPOLDO JEAN MD notified of admission to the unit. Orders received. See assessment for past medical history, medications and allergies. Patient and/or family oriented to unit. [facility] visitation policy reviewed. Clothing/patient valuable form completed. MICHELLE FARRAR
[2019-05-29] MEDS ORDERED: ARTIFICIAL TEAR1512 OP (18:31)
[2019-05-29] MEDS ORDERED: PERCOCET 5-3251 EACH PO (18:41)
[2019-05-29] MEDS ORDERED: VITAMIN C500 M4 PO (18:43)
[2019-05-29] MEDS ORDERED: MIDODRINE HCL10 MG PO (18:51)
[2019-05-29] MEDS ORDERED: LACTULOSE20 GM/30 M PO (18:52)
[2019-05-29 19:25] LABS: BF LYMPHOCYTES 23 %; BF MONOCYTES 5 %; BF NEUTROPHILS 2 %
--- NOTE | 2019-05-29 19:32 | NUR ---
24 HOUR CHART CHECK COMPLETE
--- NOTE | 2019-05-29 19:33 | NUR ---
NOTIFIED DR NUGENT OF CONSULT IN PERSON WHILE HE IS ON FIFTH FLOOR. PHYSICIAN STATES THAT HE HAS ALREADY SEEN PATIENT AND WILL PUT ORDERS IN.
--- NOTE | 2019-05-29 19:35 | NUR ---
DR DÍAZ NOTIFIED OF CONSULT. PHYSICIAN STATES THAT SHE HAS ALREADY SEEN PATIENT IN THE ER.
--- NOTE | 2019-05-29 19:42 | NUR ---
CONSULT CALLED TO [facility]SWERING [facility] REGARDING PALLIATIVE CARE CONSULT. ANSWERING SERVICE STATES THAT THEY WILL GIVE A CALL TO PALLIATIVE CARE SERVICES AND THEY WILL RETURN CALL. AWAITING RETURN CALL AT THIS TIME.
--- NOTE | 2019-05-29 19:49 | NUR ---
DR JACQUES NOTIFIED THAT PT MED REC IS UP TO DATE AND NOTIFIED PHYSICIAN OF PT WOUNDS AND ASKED FOR WOUND CARE ORDERS.
[2019-05-29 20:00] VITALS: BP 100/58
--- NOTE | 2019-05-29 20:05 | NUR ---
SPOKE WITH [facility] REGARDING PT PALLIATIVE CARE CONSULT. ANSWERING SERVICE REQUESTS H&P, MEDS,LABS, ORDER, AND FACE SHEET BE FAXED TO [phone]. REAL ESTATE OFFICE SUPERVISOR GIVEN INFORMATION AND STATES THAT SHE WILL FAX INFORMATION TO COMPANY.
--- NOTE | 2019-05-29 20:15 | NUR ---
PATIENT ASSESSMENT COMPLETE AT THIS TIME WITHOUT INCIDENT, PATIENT COMPAINING OF BEING SHORT OF BREATH, PATIENT REPOSITIONED IN BED AND ASSESSMENT COMPLETED SPO2 98% ON 4 LPM NC, PATIENT STATED BREATHING FELT BETTER AFTER REPOSITIONING. CALL LIGHT WITHIN REACH, WILL CONTINUE TO MONITOR
--- NOTE | 2019-05-29 22:15 | NUR ---
PATIENT REQUESTED PAIN MEDICATION AT THIS TIME FOR PAIN IN HIS HIPS AND BACK 03/18.
--- NOTE | 2019-05-29 23:00 | NUR ---
PAIN REASSESSED AT THIS TIME PATIENT ALERT AND ORIENTED X3, STATED THAT PAIN IS NOW AT A 5/10.
[2019-05-30] VITALS (15 sets, daily range): BP systolic 88–112; BP diastolic 50–64
--- NOTE | 2019-05-30 04:10 | NUR ---
PATIENT RECENTLY REPOSITIONED AT HIS REQUEST, CURRENTLY RESTING, NO SIGNS OR SYMPTOMS OF DISTRESS NOTED AT THIS TIME. CALL LIGHT WITHIN REACH,WILL CONTINUE TO MONITOR.
--- NOTE | 2019-05-30 05:36 | NUR ---
MARKY HAYWARD [id number] Please refer to the physician's history and physical for past medical history, comorbid conditions, and allergies. Diagnosis: ABD DISTENSION,ANEMIA,ASCITES,GENERAL WEAKNESS,CKD Tye Score: 12,HIGH RISK WOUND DESCRIPTIONS: Wound Number: 1 Location of the wound: right outer aspect of great toe Type of wound: DTI Size: 0.6cm x 0.8cm x <0.1cm Tunneling: none Undermining: none Sinus Tract: none Presence of Exudate: none Amount: None Color: Red, dark purple Odor: None Periwound Skin Appearance: Normal Wound edges: approximated Pain (associated with wound): none at time of assessment How does patient state this happened? pt unable to state how this happened Wound Number: 2 entire coccyx is red and blanchable at time of assessment. Scar tissue noted at time of assessment. No drainage noted at time of assessment. Wound Number: 3 Right hip is red and blanchable at time of assessment. Scar tissue noted at time of assessment. No drainage noted at time of assessment. Wound Number: 4 Location of the wound: left 2nd toe Thickness: Partial Size: 0.2cm x 0.2cm x 0.1cm Tunneling: none Undermining: none Sinus Tract: none Presence of Exudate: Serosanguineous Amount: Light Color: Red Odor: None Periwound Skin Appearance: Normal Wound edges: approximated Pain (associated with wound): none at time of assessment How does patient state this happened? pt unable to state how this happened Surface the patient is resting on: Isoflex SKIN PREVENTION RECOMMENDATION: 1. Pressure redistribution support surface as appropriate 2. Elevate heels 3. Remove boots/TEDS every shift and reapply 4. Head of bed 30 degrees as tolerated 5. Assess nutrition and hydration 6. Manage moisture 7. Avoid the use of containment devices while in bed 8. Use absorptive products on surfaces limit layers of linens on bed 9. Turn and reposition every 1-2 hours in bed and every 1 hour in chair as tolerated 10. Weight shifts every 15 minutes while up in chair 11. Offloading with pillows or device to keep heels elevated off bed 12. Monitor skin at least every shift 13. Inspect under medical devices twice a day WOUND TREATMENT RECOMMENDATIONS: D/C dressing change orders to right outer aspect of great toe. D/C unstageable guidelines to coccyx. Cleanse entire coccyx and right hip with soap and water and apply hydraguard every shift and prn for soiling. Partial thickness guidelines: Cleanse left 2nd toe with nss and apply sureprep around the wound hydrogel to wound bed and cover with bandaid. DTI guidelines: Apply sureprep to right medial aspect of great toe then apply optifoam gentle. Wheelchair cushion when oob. Heel raiser pro boots while in bed to bilateral feet.
[2019-05-30 06:33] LABS: ALBUMIN 2.2 gm/dl (3.1-4.5); CREATININE 4.21 mg/dL (0.70-1.30); FREE T4 0.82 ng/dl (0.76-1.46); PHOSPHOROUS 6.1 mg/dL (2.5-4.9); POTASSIUM 3.9 mmol/L (3.5-5.1); TOTAL PROTEIN 5.6 gm/dL (6.4-8.2)
[2019-05-30 06:38] LABS: THYROID STIM HORMONE (HS) 5.31 uIU/ml (0.358-4.75)
[2019-05-30 06:43] LABS: HEMATOCRIT 21.8 % (42.0-52.0); MEAN CELL VOLUME 103.8 fl (80.0-94.0); MEAN CORPUSCULAR HGB 32.9 pg (27.0-31.0); MEAN CORPUSCULAR HGB CONC 31.7 g/dl (33.0-37.0); MEAN PLATELET VOLUME 11.9 fl (9.6-12.3); PLATELET COUNT AUTOMATED 81 10*3/uL (130-400); RED CELL DISTRI WIDTH 18.1 % (0-14.5); WHITE BLOOD COUNT 6.3 10*3/uL (4.8-10.8)
[2019-05-30 07:34] LABS: VITAMIN D, 25-HYDROXY 36.3 ng/mL (30-100)
[2019-05-30 07:46] LABS: TOTAL CELLS COUNTED 100 #CELLS
[2019-05-30 07:47] LABS: OVALOCYTES FEW
[2019-05-30 07:49] LABS: PLATELET SUFFICIENCY LOW (NORMAL); SCHISTOCYTES FEW
[2019-05-30 07:53] LABS: HEMOGLOBIN 6.9 g/dl (14.0-18.0)
--- NOTE | 2019-05-30 08:02 | NUR ---
Dr. Pa notified of wound care recommendations stated okay to give him at discharge planning today
--- NOTE | 2019-05-30 08:59 | NUR ---
Patient is shelter at [facility] and can return when medically stable. -YANIRA Muhammad
--- NOTE | 2019-05-30 09:45 | NUR ---
Percocet given per patient request for c/o chronic back pain. Will monitor.
--- NOTE | 2019-05-30 10:00 | NUR ---
Air Brake Adjuster in to see patient. He is a LTC resident at [facility] and plans to return there upon discharge. He states he doesn't get out of bed except for going to his dialysis treatments three times a week by wheelchair. He is HD MWF. When medically stable he will be discharged to [facility]. production planner following
--- NOTE | 2019-05-30 12:18 | NUR ---
GLOVE FINISHER faxed updates to [facility]. -YANIRA Muhammad
--- NOTE | 2019-05-30 14:15 | NUR ---
PHYSICAL THERAPY Pt currently recieving blood. Will hold off on therapy evaluation until tomorrrow. Thank you Jeanie Delacruz, PT, DPT
--- NOTE | 2019-05-30 16:07 | NUR ---
Notified Dr. Pa that patient is impacted. See Emar.
--- NOTE | 2019-05-30 16:25 | NUR ---
Dr. Pa called regarding patient being impacted. Per physician it was understood that patient will begin prep for EGD Nicholas in morning. Per request of Dr. Thierno Chatterjee was called to verify treatment plan.
--- NOTE | 2019-05-30 16:28 | NUR ---
Spoke with ISIDRA Wooten for Dr. Chatterjee to verify whether or not patient is scheduled for EGD anastasia in morning. Labs were reviewed a brief history was discussed. She is to speak with physician and call back.
[2019-05-30 17:05] LABS: MEAN CORPUSCULAR HGB 32.1 pg (27.0-31.0); MEAN CORPUSCULAR HGB CONC 31.9 g/dl (33.0-37.0); MEAN PLATELET VOLUME 11.5 fl (9.6-12.3); PLATELET COUNT AUTOMATED 71 10*3/uL (130-400); RED BLOOD COUNT 2.09 10*6/uL (4.50-5.90); WHITE BLOOD COUNT 5.8 10*3/uL (4.8-10.8)
[2019-05-30 17:08] LABS: HEMOGLOBIN 6.7 g/dl (14.0-18.0); MEAN CELL VOLUME 100.5 fl (80.0-94.0)
[2019-05-30 17:36] LABS: PLATELET SUFFICIENCY LOW (NORMAL); SCHISTOCYTES FEW; TOTAL CELLS COUNTED 100 #CELLS
--- NOTE | 2019-05-30 20:30 | NUR ---
BLOOD CONTINUES PER ORDER IN LEFT ARM IV WITHOUT DIFFCULT. DULCOLAX GIVEN PER ORDER FOR CONSTIPATION. PT. TO HAVE EGD IN AM. HEPARIN HELD PLT 71.
--- NOTE | 2019-05-30 21:30 | NUR ---
2ND UNIT OF BLOOD COMPLETE. PT. DID WELL NO REACTIONS AT THIS TIME.
--- NOTE | 2019-05-30 21:51 | NUR ---
TYLENOL GIVEN PER ORDER FOR DISCOMFORT PER PT. RATED "5" CHRONIC BACK PAIN.
--- NOTE | 2019-05-30 22:50 | NUR ---
TYLENOL SLIGHTLY EFFECTIVE FOR DISCOMFORT PER PT. PT. POSITION CHANGED.
[2019-05-30 23:18] LABS: HEMATOCRIT 23.9 % (42.0-52.0); HEMOGLOBIN 7.9 g/dl (14.0-18.0)
[2019-05-31] VITALS (8 sets, daily range): BP systolic 94–114; BP diastolic 52–67
--- NOTE | 2019-05-31 01:47 | NUR ---
PERCOCET GIVEN PER ORDER FOR CHRONIC PAIN PER PT. "7" SEE MAR.
--- NOTE | 2019-05-31 02:40 | NUR ---
PERCOCET EFFECTIVE FOR BACK PAIN PER PT. RESTING MORE COMFORTABLE.
--- NOTE | 2019-05-31 03:10 | NUR ---
PER PT. HIS BELLY'S NOT HURTING ANYMORE. PT. HAD PUSHED LARGE AMOUNT OF STOOL OUT. PERICARE DONE AND BEDLINENS CHANGED.
--- NOTE | 2019-05-31 04:37 | NUR ---
Upon discharge recommend patient to follow up for wound care in outpatient setting continue current wound care orders at discharging facility.
[2019-05-31 06:41] LABS: BASO % 0.1 % (0.0-1.0); EOS # 0.1 10*3/uL (0.0-0.4); EOS % 0.8 % (1.0-4.0); HEMATOCRIT 25.7 % (42.0-52.0); HEMOGLOBIN 8.6 g/dl (14.0-18.0); LYMPH # 1.9 10*3/uL (1.3-4.4); LYMPH % 24.9 % (27.0-41.0); MEAN CELL VOLUME 98.1 fl (80.0-94.0); MEAN CORPUSCULAR HGB 32.8 pg (27.0-31.0); MEAN CORPUSCULAR HGB CONC 33.5 g/dl (33.0-37.0); MEAN PLATELET VOLUME 11.8 fl (9.6-12.3); MONO # 0.6 10*3/uL (0.1-1.0); MONO % 7.5 % (3.0-9.0); NEUT # 5.1 10*3/uL (2.3-7.9); NEUT % 66.3 % (47.0-73.0); PLATELET COUNT AUTOMATED 78 10*3/uL (130-400); RED BLOOD COUNT 2.62 10*6/uL (4.50-5.90); RED CELL DISTRI WIDTH 18.7 % (0-14.5); WHITE BLOOD COUNT 7.6 10*3/uL (4.8-10.8)
[2019-05-31 07:00] LABS: ALBUMIN 2.3 gm/dl (3.1-4.5); CREATININE 4.82 mg/dL (0.70-1.30); POTASSIUM 4.3 mmol/L (3.5-5.1); TOTAL PROTEIN 5.2 gm/dL (6.4-8.2)
--- NOTE | 2019-05-31 07:00 | NUR ---
PT REFUSED AEROSOL TREATMENT.
--- NOTE | 2019-05-31 10:00 | NUR ---
Dispatch Machine Runner in to see patient. No new needs or request at this time. When medically stable he will be discharged to [facility] where he is a LTC resident. plant nursery worker following. He is fro dialysis and an EGD today per the multidisciplinary discharge planning meeting.
--- NOTE | 2019-05-31 10:28 | NUR ---
Occupational therapy orders received and chart reviewed. Patient refusing OT evaluation at this time. Patient stated "I haven't eaten anything by mouth, I have a colonoscopy, and dialysis today." Will follow up with patient when appropriate. Thank you. Rachel Melendez OTR/L
--- NOTE | 2019-05-31 10:28 | NUR ---
PHYSICAL THERAPY attempted therapy evaluation however Pt refuse due to not wanting to do anything and having to go to dialysis today. Will attempt later. Thank you Jeanie Delacruz, PT, DPT
--- NOTE | 2019-05-31 11:15 | NUR ---
SPOKE WITH DIALYSIS NURSE AT THIS TIME REGARDING PATIENT BEING SCHEDULED FOR DIALYSIS TODAY & ORDERED FOR AN EGD WITH . DIALYSIS NURSE SAYS THEY ARE AWARE OF SCHEDULED TREATMENT AND THEY WILL BE HERE TO DIALIZE HIM AT SOME POINT TODAY.
--- NOTE | 2019-05-31 17:00 | NUR ---
PT OFF FLOOR FOR EGD
--- NOTE | 2019-05-31 18:20 | NUR ---
ORDERS RECEIVED PER DR. NUGENT.
--- NOTE | 2019-05-31 19:00 | NUR ---
PT BACK ON FLOOR FROM EGD.
--- NOTE | 2019-05-31 20:41 | NUR ---
SPOKE WITH DR. JACQUES ABOUT PT NOPT RECEIVING DIALYSIS. ORDERED TO CALL DR. DÍAZ.
--- NOTE | 2019-05-31 20:44 | NUR ---
DR. DÍAZ STATED PT CAN GO TO DIALYSIS TOMORROW MORNING INSTEAD.
--- NOTE | 2019-05-31 20:53 | NUR ---
SPOKE WITH DIALYSIS NURSE ON ANSWERING SERVICE. STATED THAT THEY WOULD SEND MESSAGE TO ONCALL DIALYSIS NURSE TO PUT PT ON DIALYSIS SCHEDULE TOMORROW MORNING PER DR. DÍAZ.
[2019-06-01] VITALS: BP 109/58
--- NOTE | 2019-06-01 05:57 | NUR ---
PRN PERCOCET ADMINISTERED FOR PT C/O 03/18 BACK AND SHOULDER PAIN. NO OTHER COMPLAINTS AT THIS TIME. CALL LIGHT IN REACH.
--- NOTE | 2019-06-01 06:39 | NUR ---
0800 DOSE OF MIDODRINE ADMINISTERED AT THIS TIME. DIALYSIS CALLED AND ARE READY FOR PT.
[2019-06-01 07:09] LABS: BASO % 0.2 % (0.0-1.0); EOS # 0.1 10*3/uL (0.0-0.4); HEMATOCRIT 25.2 % (42.0-52.0); HEMOGLOBIN 8.3 g/dl (14.0-18.0); LYMPH # 1.9 10*3/uL (1.3-4.4); LYMPH % 30.9 % (27.0-41.0); MEAN CELL VOLUME 98.1 fl (80.0-94.0); MEAN CORPUSCULAR HGB 32.3 pg (27.0-31.0); MEAN CORPUSCULAR HGB CONC 32.9 g/dl (33.0-37.0); MEAN PLATELET VOLUME 11.3 fl (9.6-12.3); MONO # 0.5 10*3/uL (0.1-1.0); MONO % 7.5 % (3.0-9.0); NEUT # 3.8 10*3/uL (2.3-7.9); NEUT % 60.1 % (47.0-73.0); PLATELET COUNT AUTOMATED 65 10*3/uL (130-400); RED BLOOD COUNT 2.57 10*6/uL (4.50-5.90); RED CELL DISTRI WIDTH 18.2 % (0-14.5); WHITE BLOOD COUNT 6.3 10*3/uL (4.8-10.8)
[2019-06-01 07:11] LABS: ALBUMIN 2.3 gm/dl (3.1-4.5); CREATININE 5.2 mg/dL (0.70-1.30); POTASSIUM 4.1 mmol/L (3.5-5.1); TOTAL PROTEIN 5.5 gm/dL (6.4-8.2)
--- NOTE | 2019-06-01 10:00 | NUR ---
Mobile Equipment Servicer in to see patient. No new needs or request at this time. When medically stable he will be discharged to [facility] where he is a LTC resident. shore worker following. Per multidisciplinary discharge planning meeting possible discharge tomorrow as patient is having dialysis today.
--- NOTE | 2019-06-01 10:57 | NUR ---
PHYSICAL THERAPY Pt in Dialysis and unavailable. Will attempt later. Thank you Jeanie Delacruz, PT, DPT
--- NOTE | 2019-06-01 11:30 | NUR ---
PT BACK INTO ROOM FROM DIALYSIS. NO S/S OF DISTRESS NOTED. RESPIRATIONS ARE EASY AND REGULAR ON 3L NC. NO STATED COMPLAINTS. BED IN LOWEST LOCKED POSITION AND CALL LIGHT WITHIN REACH. WILL CONTINUE TO MONITOR.
--- NOTE | 2019-06-01 11:57 | NUR ---
Patient not available as he is getting dialysis. Altagracia Beth OTR/L
[2019-06-01 12:00] VITALS: BP 107/54
[2019-06-01 16:00] VITALS: BP 90/48
--- NOTE | 2019-06-01 19:28 | NUR ---
ZOFRAN ADMINISTERED FOR PT C/O NAUSEA WITHOUT VOMITING. WILL CONTINUE TO MONITOR.
[2019-06-01 20:00] VITALS: BP 89/47; BP 90/50
[2019-06-02] VITALS: BP 88/52
[2019-06-02 06:43] LABS: EOS % 0.8 % (1.0-4.0); HEMATOCRIT 24.7 % (42.0-52.0); LYMPH # 1.2 10*3/uL (1.3-4.4); LYMPH % 22.8 % (27.0-41.0); MEAN CELL VOLUME 100.8 fl (80.0-94.0); MEAN CORPUSCULAR HGB 32.7 pg (27.0-31.0); MEAN CORPUSCULAR HGB CONC 32.4 g/dl (33.0-37.0); MEAN PLATELET VOLUME 11.7 fl (9.6-12.3); MONO # 0.3 10*3/uL (0.1-1.0); MONO % 6.6 % (3.0-9.0); NEUT # 3.6 10*3/uL (2.3-7.9); NEUT % 69.2 % (47.0-73.0); PLATELET COUNT AUTOMATED 57 10*3/uL (130-400); RED BLOOD COUNT 2.45 10*6/uL (4.50-5.90); WHITE BLOOD COUNT 5.2 10*3/uL (4.8-10.8)
[2019-06-02 06:49] LABS: ALBUMIN 2.3 gm/dl (3.1-4.5); CREATININE 3.37 mg/dL (0.70-1.30); POTASSIUM 3.3 mmol/L (3.5-5.1); TOTAL PROTEIN 5.2 gm/dL (6.4-8.2)
--- NOTE | 2019-06-02 07:00 | NUR ---
ARRIVED ON SHIFT, PATIENT DID NOT AROUSE FOR BEDSIDE REPORT, WHITE BOARD UPDATED.
--- NOTE | 2019-06-02 07:56 | NUR ---
LINKING MACHINE OPERATOR faxed updates to [facility]. -YANIRA Muhammad
--- NOTE | 2019-06-02 07:56 | NUR ---
Shift chart check completed.
[2019-06-02 08:00] VITALS: BP 86/50
--- NOTE | 2019-06-02 08:58 | NUR ---
PHYSICAL THERAPY Pt peacefully sleeping. Will attempt therapy evaluation at a later time. Thank you Jeanie Delacruz, PT, DPT
--- NOTE | 2019-06-02 09:00 | NUR ---
Electrical Engineer Mep in to see patient. No new needs or request at this time. When medically stable he will be discharged to [facility] where he is a LTC resident. wine cellar worker following. Per multidisciplinary discharge planning meeting possible discharge tomorrow, Wednesday.
[2019-06-02 12:00] VITALS: BP 90/60
--- NOTE | 2019-06-02 14:50 | NUR ---
PHYSICAL THERAPY Pt in dialysis. Will attempt at later time if appropriate and available. thank you Jeanie Delacruz, PT, DPT
--- NOTE | 2019-06-02 14:51 | NUR ---
Patient not available for Occupational Therapy as he is still in dialysis. Altagracia Beth OTR/L
[2019-06-02 20:00] VITALS: BP 93/76
--- NOTE | 2019-06-02 20:00 | NUR ---
PATIENT CHANGED AND REPOSTIIONED BY STAFF. HEEL PROTECTORS IN PLACE. NO DISTRESS NOTED. NO COMPLAINTS AT THIS TIME. CALL LIGHT WITHIN REACH.
--- NOTE | 2019-06-02 23:49 | NUR ---
NOTIFIED DR SANDOVAL OF MANUAL BP 86/38. JUST MONITOR AT THIS TIME.
[2019-06-03] VITALS (8 sets, daily range): BP systolic 75–99; BP diastolic 38–62
--- NOTE | 2019-06-03 03:23 | NUR ---
PATIENT PULLED UP IN BED AND REPOSITIONED WITH WEDGES. BED LOCKED IN LOWEST POSITION. CALL LIGHT WITHIN REACH.
--- NOTE | 2019-06-03 03:53 | NUR ---
24 HR chart check completed.
[2019-06-03 06:27] LABS: HEMATOCRIT 23.6 % (42.0-52.0); HEMOGLOBIN 7.6 g/dl (14.0-18.0); MEAN CELL VOLUME 99.2 fl (80.0-94.0); MEAN CORPUSCULAR HGB 31.9 pg (27.0-31.0); MEAN CORPUSCULAR HGB CONC 32.2 g/dl (33.0-37.0); MEAN PLATELET VOLUME 11.6 fl (9.6-12.3); PLATELET COUNT AUTOMATED 49 10*3/uL (130-400); RED BLOOD COUNT 2.38 10*6/uL (4.50-5.90); RED CELL DISTRI WIDTH 17.8 % (0-14.5); WHITE BLOOD COUNT 5.2 10*3/uL (4.8-10.8)
[2019-06-03 06:41] LABS: ALBUMIN 2.5 gm/dl (3.1-4.5); CREATININE 2.47 mg/dL (0.70-1.30); PHOSPHOROUS 2.2 mg/dL (2.5-4.9); POTASSIUM 3.6 mmol/L (3.5-5.1)
[2019-06-03 06:43] LABS: TOTAL PROTEIN 5.2 gm/dL (6.4-8.2)
[2019-06-03 07:10] LABS: TOTAL CELLS COUNTED 100 #CELLS
[2019-06-03 07:11] LABS: OVALOCYTES FEW; PLATELET SUFFICIENCY LOW (NORMAL); POLYCHROMASIA SLIGHT
--- NOTE | 2019-06-03 08:29 | NUR ---
CALLED FOR BP 88/42. SAID OK. WILL GIVE SCHEDULED MIDODRINE. SEE MAR.
--- NOTE | 2019-06-03 08:42 | NUR ---
TOELRATED AM MEDS WELL WHOLE WITH WATER. NO COMPLAINTS VOICED. HEPARIN HELD FRO LOW PLTS THIS AM. READJUSTED PILLOW PT REQUESTED. RESTING COMFORTABLY IN BED. RESPERS EASY AND REGUALR ON 2L.
--- NOTE | 2019-06-03 09:18 | NUR ---
CALLED. ORDERED TO D/C LASSAMANTHA. SEE MAR.
--- NOTE | 2019-06-03 10:10 | NUR ---
CALLED FOR PRESSURE OF 80/46. NEW ORDER FOR 500 BOLUS REC'D AND ONE TIME ALBUMIN. SEE MAR.
--- NOTE | 2019-06-03 15:28 | NUR ---
NORCO GIVEN FOR PAIN RATED 5/10 FOR BACK PAIN AND BILAT HIP PAIN. CALL LIGHT IN REACH. WILL MONITOR.
--- NOTE | 2019-06-03 19:20 | NUR ---
ARRIVED ON SHIFT, INTRODUCED TO PATIENT, BEDSIDE REPORT RECEIEVED, NO NEEDS VOICED AT THIS TIME.
--- NOTE | 2019-06-03 19:25 | NUR ---
CALL PLACED TO DR. ADAMS WITH CONSULT.
--- NOTE | 2019-06-03 21:44 | NUR ---
CALL PLACED TO DR. GLYNN REGUARDING PATIENTS HEPARIN ORDERED BID, ORDER RECEIVED TO DISCONTINUE.
--- NOTE | 2019-06-03 23:15 | NUR ---
24 HR chart check completed.
[2019-06-04] VITALS: BP 102/50
--- NOTE | 2019-06-04 01:42 | NUR ---
Patient sleeping. Respirations relaxed and easy. Siderails up X 2. Wheellocks on, bed in low position, with call light within reach. BRITTANY PHILLIPS
[2019-06-04 06:24] LABS: ALBUMIN 2.4 gm/dl (3.1-4.5); CREATININE 2.96 mg/dL (0.70-1.30); POTASSIUM 3.9 mmol/L (3.5-5.1); TOTAL PROTEIN 5.2 gm/dL (6.4-8.2)
[2019-06-04 06:26] LABS: EOS # 0.1 10*3/uL (0.0-0.4); EOS % 1.1 % (1.0-4.0); HEMATOCRIT 25.5 % (42.0-52.0); HEMOGLOBIN 8.2 g/dl (14.0-18.0); LYMPH # 2.4 10*3/uL (1.3-4.4); LYMPH % 37.7 % (27.0-41.0); MEAN CELL VOLUME 99.2 fl (80.0-94.0); MEAN CORPUSCULAR HGB 31.9 pg (27.0-31.0); MEAN CORPUSCULAR HGB CONC 32.2 g/dl (33.0-37.0); MEAN PLATELET VOLUME 12.5 fl (9.6-12.3); MONO # 0.5 10*3/uL (0.1-1.0); MONO % 8.4 % (3.0-9.0); NEUT # 3.4 10*3/uL (2.3-7.9); NEUT % 52.3 % (47.0-73.0); PLATELET COUNT AUTOMATED 57 10*3/uL (130-400); RED BLOOD COUNT 2.57 10*6/uL (4.50-5.90); RED CELL DISTRI WIDTH 17.6 % (0-14.5); WHITE BLOOD COUNT 6.4 10*3/uL (4.8-10.8)
[2019-06-04 08:00] VITALS: BP 94/50
--- NOTE | 2019-06-04 11:30 | NUR ---
PHYSICAL THERAPY PT LEON COMPLETED 06/04/19: FULL EVALUATION TO FOLLOW. RECOMMEND PT WHILE HERE TO ADDRESS DECREASED ROM ,STRENGTH, BED MOBILITY AND TRANSFERS. PT EVAL IS MODERATE COMPLEXITY: [id number]. D/C PLANS : BACK TO [facility] WHEN MEDICALLY STABLE AND BASED ON PARTICIPATION AND PERFORMANCE WHILE HERE MAY BENEFIT FROM SKILLED PT INTERVENTION TO REGAIN HIGHEST LEVEL OF FUNCTIONAL MOBILITY HE STATES HE WOULD LIKE TO BE ABLE TO TRNASFER WITH ASSIST VS ALINA AND TRY TO GET BACK ON HIS FEET AGAIN AND BE MORE MOBILE. THANK YOU FOR REFERRAL [facility]
[2019-06-04 12:00] VITALS: BP 99/65
[2019-06-04 16:00] VITALS: BP 101/50
[2019-06-04 20:00] VITALS: BP 78/40; BP 85/43
--- NOTE | 2019-06-04 20:20 | NUR ---
CALLED DR. GLYNN FOR LOW BP OF 78/40. REVIEWED PATIENT CONDITION AND PREVIOUS ORDERS. ORDERS RECEIVED.
[2019-06-04 22:00] VITALS: BP 103/56
[2019-06-05] VITALS (7 sets, daily range): BP systolic 92–103; BP diastolic 54–67
--- NOTE | 2019-06-05 00:36 | NUR ---
PT REQUERSTED SOMETHING FOR ANXIETY. MEDICATED WITH PRN XANEX. WILL CHECK EFFECTIVENESS. CALL LIGHT WITHIN REACH.
--- NOTE | 2019-06-05 01:33 | NUR ---
PT SLEEPING. RESPIRATIONS EASY, NONLABORED. ANXIETY MED SEEMS TO BE EFFECTIVE. CALL LIGHT WITHIN REACH.
[2019-06-05 06:23] LABS: EOS # 0.1 10*3/uL (0.0-0.4); EOS % 0.9 % (1.0-4.0); HEMATOCRIT 24.1 % (42.0-52.0); HEMOGLOBIN 7.7 g/dl (14.0-18.0); LYMPH % 28.2 % (27.0-41.0); MEAN CELL VOLUME 102.1 fl (80.0-94.0); MEAN CORPUSCULAR HGB 32.6 pg (27.0-31.0); MEAN PLATELET VOLUME 12.5 fl (9.6-12.3); MONO # 0.6 10*3/uL (0.1-1.0); MONO % 7.9 % (3.0-9.0); NEUT # 4.3 10*3/uL (2.3-7.9); NEUT % 62.6 % (47.0-73.0); PLATELET COUNT AUTOMATED 53 10*3/uL (130-400); RED BLOOD COUNT 2.36 10*6/uL (4.50-5.90); RED CELL DISTRI WIDTH 17.8 % (0-14.5); WHITE BLOOD COUNT 6.9 10*3/uL (4.8-10.8)
[2019-06-05 06:27] LABS: CREATININE 3.83 mg/dL (0.70-1.30); POTASSIUM 4.6 mmol/L (3.5-5.1)
--- NOTE | 2019-06-05 10:30 | NUR ---
Environmental Designer in to see patient. No new needs or request at this time. When medically stable he will be discharged to [facility] where he is a LTC resident. wood and wood products factory worker following. He will have dialysis today.
--- NOTE | 2019-06-05 10:41 | NUR ---
Occupational therapy orders received and chart reviewed. Patient was initially agreeable to OT evaluation in the morning on 06/05/19. Patient participated in orientation questions, A&Ox3, followed by home set-up. Patient is from [facility] and was assisted with dressing, bathing, transfers, and mobility. Per patient, he uses a nigel at baseline and has not walked in 6-8 months. Patient then refused completion of further evaluation of transfers, ADLs, and UE ROM/MMT due to "having dialysis later." Will follow up for completion of OT evaluation when patient is agreeable and appropriate. Thank you. Rachel Melendez, OTR/L
--- NOTE | 2019-06-05 12:49 | NUR ---
PT SENT TO DIALYSIS VIA BED
--- NOTE | 2019-06-05 13:25 | NUR ---
PHYSICAL THERAPY Patient was in dialysis this pm when approached for therapy visit and not available for treatment at this time. Will continue per POC as able. Aj Shoemaker, SENIOR DATA MODELER
--- NOTE | 2019-06-05 17:44 | NUR ---
RETURN FROM DIALYSIS
--- NOTE | 2019-06-05 19:45 | NUR ---
PT IS AWAKE AND SITTING UP IN BED AT THIS TIME. THERE ARE NO C/O PAIN OR DISCOMFORT VOICED. RESPS ARE EASY AND NONLABORED. PT STATES THAT HE IS FEELING OKAY AND DOES NOT NEED ANYTHING AT THIS TIME. BED IS LOW, CALL LIGHT WITHIN REACH. WILL CONTINUE TO MONITOR.
--- NOTE | 2019-06-05 22:43 | NUR ---
DRESSING CHANGED FOR WOUND ON RIGHT FOOT
[2019-06-06] VITALS: BP 100/52; BP 88/55
--- NOTE | 2019-06-06 | NUR ---
RESTING IN BED. RESPIRATIONS EASY. LUNGS DIMINISHED. PULSE OX 100% 2L. CALL LIGHT WITHIN REACH. NO VOICED COMPLAINTS
--- NOTE | 2019-06-06 02:37 | NUR ---
24 HR chart check completed.
[2019-06-06 06:36] LABS: EOS # 0.1 10*3/uL (0.0-0.4); EOS % 0.9 % (1.0-4.0); HEMATOCRIT 24.6 % (42.0-52.0); HEMOGLOBIN 7.8 g/dl (14.0-18.0); LYMPH # 1.8 10*3/uL (1.3-4.4); LYMPH % 33.8 % (27.0-41.0); MEAN CELL VOLUME 101.2 fl (80.0-94.0); MEAN CORPUSCULAR HGB 32.1 pg (27.0-31.0); MEAN CORPUSCULAR HGB CONC 31.7 g/dl (33.0-37.0); MEAN PLATELET VOLUME 12.6 fl (9.6-12.3); MONO # 0.5 10*3/uL (0.1-1.0); MONO % 9.2 % (3.0-9.0); NEUT % 55.5 % (47.0-73.0); PLATELET COUNT AUTOMATED 51 10*3/uL (130-400); RED BLOOD COUNT 2.43 10*6/uL (4.50-5.90); RED CELL DISTRI WIDTH 18.2 % (0-14.5); WHITE BLOOD COUNT 5.4 10*3/uL (4.8-10.8)
[2019-06-06 06:47] LABS: CREATININE 2.67 mg/dL (0.70-1.30)
[2019-06-06 07:29] LABS: POTASSIUM 3.6 mmol/L (3.5-5.1)
[2019-06-06 08:00] VITALS: BP 118/68
--- NOTE | 2019-06-06 08:24 | NUR ---
PHYSICAL THERAPY Patient presented to therapy in supine with bed alarm activated and head of bed elevated. Patient is on 2 liters of spO2 VIA NASAL CANULA. Patient was identified by name and on wristband. Patient gives informed consent for treatment. Patient has no complaints of pain. Patient performed supine to sitting at EOB transfer with MAX A X 1. Patient was able to roll to side with SBA , but required MAX A X 1 to go from side-lying to sitting at EOB. Patient sat on EOB for 8 minutes total with SBA. Patient performed bilateral LE ther ex in sitting on EOB ,including LAQs, ankle pumps and marches x 10 each AROM. Patient requested to lie back down due to dizziness. Patient performed supine bilateral LE ther ex , including quad sets and ankle pumps x 10 each AROM and attempted SLR x 5 EACH AND UNABLE TO RAISE LEs OFF OF BED himself AAROM. Patient required MAX A X 1 scoot up in bed with sheet. Patient was left in supine with head of bed elevated, call light within reach, and bed alarm activated. Patient was 1:1 with this BREAKER UP MACHINE OPERATOR for 25 minutes total. MITA MCLAIN BREAKER UP MACHINE OPERATOR Patient
--- NOTE | 2019-06-06 10:30 | NUR ---
Brand Ambassador Promotional Model in to see patient. No new needs or request at this time. When medically stable he will be discharged to [facility] where he is a LTC resident. hot iron worker following. Per multidisciplinary discharge planning meeting patient is a possible discharge today.
[2019-06-06 12:00] VITALS: BP 97/56
--- NOTE | 2019-06-06 12:24 | NUR ---
PT PULLED UP AND REPOSITIONED IN BED FOR LUNCH. NO C/O AT THIS TIME. CALL LIGHT IN REACH.
--- NOTE | 2019-06-06 13:59 | NUR ---
PT REQUESTING XANAX MEDICATION OUTDATED. CALLED DR. KARI AVILEZ REGARDING RENEW MEDICATION OK TO RENEW.
--- NOTE | 2019-06-06 14:24 | NUR ---
MEDICATED WITH XANAX PO PER PRN ORDER, SEE EMAR. PER PT REQUEST AND FOR ANXIETY. CALL LIGHT IN REACH.
--- NOTE | 2019-06-06 15:15 | NUR ---
RESTING IN BED. STATES MEDICATION EFFECTIVE. CALL LIGHT IN REACH.
[2019-06-06 16:00] VITALS: BP 102/58
--- NOTE | 2019-06-06 16:42 | NUR ---
CALLED DR. AVILEZ REGARDING PT PERCOCET OUTDATING. PT REQUESTING PAIN MEDICATION. RENEWED PER HIM.
--- NOTE | 2019-06-06 16:45 | NUR ---
PT RESTING IN BED. RESP-EASY AND REGULAR AT THIS TIME. OXYGEN IN USE. PT REQUESTING PAIN MEDICATION. CALL LIGHT IN REACH. SEE SHIFT ASSESSMENT.
--- NOTE | 2019-06-06 17:50 | NUR ---
MEDICATED WITH PERCOCET PO PT REQUEST FOR BILATERAL SHOULDER PAIN AND BUTTOCK PAIN, RATES PAIN 7 ON PAIN SCALE 0-10. PT CLEANED UP AND PULLED UP IN BED FOR DINNER. CALL LIGHT IN REACH.
[2019-06-06 20:00] VITALS: BP 127/93
--- NOTE | 2019-06-06 20:38 | NUR ---
Shift chart check completed.24 HR chart check completed.
--- NOTE | 2019-06-06 21:36 | NUR ---
PATIENT MEDICATED WITH ZOFRAN FOR COMPLAINTS OF NAUSEA AND UPSET STOMACH. RN WILL MONITOR FOR EFFECTIVENESS AND RELIEF OF SYMPTOMS
[2019-06-06 23:52] VITALS: BP 90/48
[2019-06-07] VITALS: BP 84/44
[2019-06-07 02:15] VITALS: BP 92/48
--- NOTE | 2019-06-07 05:31 | NUR ---
MARKY HAYWARD [id number] Please refer to the physician's history and physical for past medical history, comorbid conditions, and allergies. Diagnosis: ABD DISTENSION,ANEMIA,ASCITES,GENERAL WEAKNESS,CKD Tye Score: 12,HIGH RISK WOUND DESCRIPTIONS: Wound Number: 1 Location of the wound: right outer aspect of great toe Type of wound: DTI Size: 0.6cm x 0.8cm x <0.1cm Tunneling: none Undermining: none Sinus Tract: none Presence of Exudate: none Amount: None Color: Red, dark purple Odor: None Periwound Skin Appearance: Normal Wound edges: approximated Pain (associated with wound): none at time of assessment How does patient state this happened? pt unable to state how this happened Wound Number: 2 entire coccyx is red and blanchable at time of assessment. Scar tissue noted at time of assessment. No drainage noted at time of assessment. Wound Number: 3 Right hip is red and blanchable at time of assessment. Scar tissue noted at time of assessment. No drainage noted at time of assessment. Wound Number: 4 Left 2nd toe no open areas noted at time of assessment. No drainage noted at time of assessment. Wound Number: 5 Location of the wound: left 3rd toe Type of wound: stage 1 Size: 0.3cm x 0.2cm x <0.1cm Tunneling: none Undermining: none Sinus Tract: none Presence of Exudate: none Amount: None Color: Red Odor: None Periwound Skin Appearance: Normal Wound edges: approximate Pain (associated with wound): none at time of assessment How does patient state this happened? pt states he is unsure how this happened but hasn't been wearing his boots. Wound Number: 6 Location of the wound: left 4th toe Type of wound: stage 1 Size: 0.3cm x 0.3cm x <0.1cm Tunneling: none Undermining: none Sinus Tract: none Presence of Exudate: none Amount: None Color: Red Odor: None Periwound Skin Appearance: Normal Wound edges: approximate Pain (associated with wound): none at time of assessment How does patient state this happened? pt states he is unsure how this happened but hasn't been wearing his boots. Wound Number: 7 Location of the wound: perirectal Type of wound: IAD Thickness: Partial Size: 5.0cm x 5.5cm x 0.1cm Tunneling: none Undermining: none Sinus Tract: none Presence of Exudate: Serosanguineous Amount: Light Color: Red Odor: None Periwound Skin Appearance: Normal Wound edges: approximated Pain (associated with wound): none at time of assesssment How does patient state this happened? pt is incontient of stool at time of assessment and nurse caring for patient states he has been have diarrhea. Surface the patient is resting on: Isoflex SKIN PREVENTION RECOMMENDATION: 1. Pressure redistribution support surface as appropriate 2. Elevate heels 3. Remove boots/TEDS every shift and reapply 4. Head of bed 30 degrees as tolerated 5. Assess nutrition and hydration 6. Manage moisture 7. Avoid the use of containment devices while in bed 8. Use absorptive products on surfaces limit layers of linens on bed 9. Turn and reposition every 1-2 hours in bed and every 1 hour in chair as tolerated 10. Weight shifts every 15 minutes while up in chair 11. Offloading with pillows or device to keep heels elevated off bed 12. Monitor skin at least every shift 13. Inspect under medical devices twice a day WOUND TREATMENT RECOMMENDATIONS: D/C MASD to coccyx and right hip. Cleanse perirectal area with soap and water and apply calazime every shift and prn for soiling. Continue wheelchair cushion when out of bed and heel raiser pro boots while in bed Continue DTI guideslines to medial aspect of right great toe. D/C stage 2 guidelines to left 2nd toe. Stage 1 guidelines: Apply sureprep to left 3rd and 4th toe and cover with bandaid daily.
--- NOTE | 2019-06-07 05:40 | NUR ---
FOOTWEAR SALES REPRESENTATIVE IN TO SEE PATIENT, 3 NEW AREAS FOUND ON PATIENTS 3RD TOE ON LEFT FOOT, 4TH TOE ON LEFT FOOT AND PERIRECTAL AREA RELATED TO INCONTINENCE. NEW ORDERS TO BE OBTAINED
[2019-06-07 06:24] LABS: EOS # 0.1 10*3/uL (0.0-0.4); EOS % 1.2 % (1.0-4.0); HEMATOCRIT 25.6 % (42.0-52.0); HEMOGLOBIN 8.1 g/dl (14.0-18.0); LYMPH % 32.9 % (27.0-41.0); MEAN CELL VOLUME 103.2 fl (80.0-94.0); MEAN CORPUSCULAR HGB 32.7 pg (27.0-31.0); MEAN CORPUSCULAR HGB CONC 31.6 g/dl (33.0-37.0); MEAN PLATELET VOLUME 12.2 fl (9.6-12.3); MONO # 0.6 10*3/uL (0.1-1.0); MONO % 10.2 % (3.0-9.0); NEUT # 3.3 10*3/uL (2.3-7.9); NEUT % 55.4 % (47.0-73.0); PLATELET COUNT AUTOMATED 52 10*3/uL (130-400); RED BLOOD COUNT 2.48 10*6/uL (4.50-5.90); RED CELL DISTRI WIDTH 18.2 % (0-14.5)
[2019-06-07 06:31] LABS: CREATININE 3.21 mg/dL (0.70-1.30); POTASSIUM 3.9 mmol/L (3.5-5.1)
--- NOTE | 2019-06-07 07:40 | NUR ---
PT RESTING IN BED. PULLED UP AND REPOSITIONED IN BED. RESP-EASY AND REGULAR. OXYGEN IN USE. NO C/O AT THIS TIME. CALL LIGHT IN REACH. SEE SHIFT ASSESSMENT.
--- NOTE | 2019-06-07 07:58 | NUR ---
Dr. Martinez notified of wound care recommendations.
[2019-06-07 08:00] VITALS: BP 95/53
--- NOTE | 2019-06-07 09:15 | NUR ---
PHYSICAL THERAPY Patient was out of his room in Dialysis this am when approached for therapy. Will continue per POC as able. Aj Shoemaker, 2ND GRADE TEACHER
--- NOTE | 2019-06-07 09:36 | NUR ---
C/O BILATERAL SHOULDER PAIN AND BUTT PAIN PER PT. RATES PAIN 7 ON PAIN SCALE 0-10. MEDICATED WITH PERCOCET PO PER PRN ORDER, SEE EMAR. CALL LIGHT IN REACH. PT IN DIALYSIS.
--- NOTE | 2019-06-07 11:08 | NUR ---
PT IN DIALYSIS
--- NOTE | 2019-06-07 13:20 | NUR ---
PHYSICAL THERAPY Patient was out of his room this pm for an US and not available for therapy at this time. Will continue per POC as able. Aj Shoemaker, HAT BLOCKER
--- NOTE | 2019-06-07 13:37 | NUR ---
PT BACK TO THE FLOOR FROM DIALYSIS.
--- NOTE | 2019-06-07 14:41 | NUR ---
PT RELAXING AND EATING LUNCH. REPOSITIONED FOR COMFORT. NO COMPLAINTS AT THIS TIME. CALL LIGHT WITHIN REACH.
[2019-06-07 16:00] VITALS: BP 97/58
--- NOTE | 2019-06-07 17:35 | NUR ---
PT REQUESTING SOMETHING FOR NAUSEA. MEDICATED WITH PRN ZOFRAN. WILL CHECK EFFECTIVENESS. CALL LIGHT WITHIN REACH.
--- NOTE | 2019-06-07 18:15 | NUR ---
PT STATES NAUSEA MEDICATION WAS EFFECTIVE. CALL LIGHT WITHIN REACH.
[2019-06-07 20:00] VITALS: BP 98/69
--- NOTE | 2019-06-07 23:00 | NUR ---
ASSUMED CARE FOR THIS PT AT THIS TIME. PT RESTING QUIETLY IN BED. NO C/O VOICED. CALL LIGHT IN REACH.
[2019-06-07 23:30] VITALS: BP 82/48
--- NOTE | 2019-06-07 23:45 | NUR ---
DR. JACQUES NOTIFIED OF PT'S MANUAL BP OF 82/48. MONITOR PT FOR NOW.
[2019-06-08] VITALS (14 sets, daily range): BP systolic 76–115; BP diastolic 47–67
--- NOTE | 2019-06-08 04:36 | NUR ---
pt medicated w/percocet for c/o general pain. repositioned for comfort.
[2019-06-08 06:16] LABS: HEMATOCRIT 24.5 % (42.0-52.0); HEMOGLOBIN 7.7 g/dl (14.0-18.0); MEAN CELL VOLUME 103.4 fl (80.0-94.0); MEAN CORPUSCULAR HGB 32.5 pg (27.0-31.0); MEAN CORPUSCULAR HGB CONC 31.4 g/dl (33.0-37.0); PLATELET COUNT AUTOMATED 48 10*3/uL (130-400); RED BLOOD COUNT 2.37 10*6/uL (4.50-5.90); RED CELL DISTRI WIDTH 18.6 % (0-14.5); WHITE BLOOD COUNT 6.4 10*3/uL (4.8-10.8)
[2019-06-08 06:20] LABS: CREATININE 2.57 mg/dL (0.70-1.30)
[2019-06-08 07:26] LABS: TOTAL CELLS COUNTED 100 #CELLS
[2019-06-08 07:27] LABS: PLATELET SUFFICIENCY LOW (NORMAL); POLYCHROMASIA SLIGHT
--- NOTE | 2019-06-08 08:11 | NUR ---
PHYSICAL THERAPY Patient is eating breakfast at this time. Will check back later. MITA MCLAIN WORKDAY CONSULTANT
--- NOTE | 2019-06-08 08:30 | NUR ---
Tank Refinisher in to see patient. No new needs or request at this time. When medically stable he will be discharged to [facility] where he is a LTC resident. travelers' aid worker following. Per multidisciplinary discharge planning meeting patient is going down for a paracentesis today and will have dialysis tomorrow.
--- NOTE | 2019-06-08 08:45 | NUR ---
ATTEMPTED TO CONTACT WOUND CARE NURSE REGARDING WOUND CARE ORDERS. WILL TRY AGAIN.
--- NOTE | 2019-06-08 09:20 | NUR ---
PT TRANSPORTED VIA BED FOR PARACENTESIS
--- NOTE | 2019-06-08 09:30 | NUR ---
GAVE WOUND CARE RECCOMENDATIONS TO DR AGGARWAL.NO NEW ORDERS AT THIS TIME.
--- NOTE | 2019-06-08 10:19 | NUR ---
PATIENT BACK FROM PARACENTESIS. RESTING IN BED. NO S/S OF DISTRESS. CALL LIGHT WITHIN REACH
[2019-06-08 10:45] LABS: BODY FLUID WBC 114 /uL
--- NOTE | 2019-06-08 11:46 | NUR ---
PT COMPLAINS OF NAUSEA. MEDICATED WITH ZOFRAN. VERBALIZED RELIEF. VOICES NO OTHER CONCERNS AT THIS TIME. RESTING IN BED. CALL LIGHT WITHIN REACH
[2019-06-08 12:16] LABS: BF LYMPHOCYTES 29 %; BF MACROPHAGES 62 %; BF MESOTHELIALS 2 %; BF MONOCYTES 6 %; BF NEUTROPHILS 1 %
--- NOTE | 2019-06-08 13:00 | NUR ---
Nursing screen received and Occupational Therapy referral received. Thank you. Altagracia Beth OTR/l
--- NOTE | 2019-06-08 14:13 | NUR ---
Occupational Therapy evaluation offered this date. Patient very evasive and non-committal regarding suggested OT eval. Patient reports he gets up in w/c at LTC via Ananda lift and is independent in feeding but is assisted with grooming and all other ADLs at Ltc. Pt reports that his shoulders are limited and painful. Patient did not feel any therapy would help his UEs. Discharge OT referral as patient feels content with his current status and says as long as he"feels fine" he is satisfied. Thank you. Altagracia Beth OTR/l
--- NOTE | 2019-06-08 14:34 | NUR ---
PATIENT COMPLAINS OF 6/10 BACK PAIN. MEDICATED PER ORDER. WILL CONTINUE TO MONITOR FOR RELIEF. VOICES NO OTHER CONCERNS AT THIS TIME. RESTING IN BED. CALL LIGHT WITHIN REACH.
--- NOTE | 2019-06-08 15:27 | NUR ---
PERCOCET EFFECTIVE PER PT
--- NOTE | 2019-06-08 15:55 | NUR ---
PHYSICAL THERAPY Patient presented to therapy in supine with head of bed elevated and bed alarm activated. Patient was identified by name and on wristband. Patient gives informed consent for treatment. Patient performed supine to sitting at EOB transfer with MAX A X 1. Patient performed sitting on EOB with SBA for 15 minutes total. Patient performed bilateral LE ther ex x 15 reps each, including LAQs, marches, heel/toe raises, hip adduction with pillow and hip abduction in sitting on EOB. Patient transferred back to supine in bed with MIN A X 1. Patient moved up to head of bed with MAX A X 1 with sheet. Patient was left in supine with head of bed elevated, call light within reach, and bed alarm activated. Patient was 1:1 with this DOWNSTAIRS MAID for 24 minutes total. MITA MCLAIN DOWNSTAIRS MAID
--- NOTE | 2019-06-08 16:12 | NUR ---
PATIENT COMPLAINS OF PAIN AFTER PHYSICAL THERAPY. MEDICATED WITH TYLENOL. WILL CONTINUE TO MONITOR FOR RELIEF. VOICES NO OTHER CONCERNS AT THIS TIME. RESTING IN BED. CALL LIGHT WITHIN REACH.
--- NOTE | 2019-06-08 17:58 | NUR ---
TYLENOL EFFECTIVE PER PT
[2019-06-09] VITALS: BP 96/43
--- NOTE | 2019-06-09 08:38 | NUR ---
DIALYSIS CALLED. SAID PT WAS REQUESTING SOMETHING FOR PAIN. MEDICATED PER ORDER. WILL MONITOR FOR RELIEF.
--- NOTE | 2019-06-09 09:00 | NUR ---
Gastrointestinal Technician in to see patient. He is currently in the dialysis room. No new needs or request at this time. When medically stable he will be discharged to [facility] where he is a LTC resident. early childhood worker following.
[2019-06-09 09:20] LABS: HEMATOCRIT 23.4 % (42.0-52.0); HEMOGLOBIN 7.4 g/dl (14.0-18.0); MEAN CELL VOLUME 103.5 fl (80.0-94.0); MEAN CORPUSCULAR HGB 32.7 pg (27.0-31.0); MEAN CORPUSCULAR HGB CONC 31.6 g/dl (33.0-37.0); MEAN PLATELET VOLUME 12.5 fl (9.6-12.3); PLATELET COUNT AUTOMATED 49 10*3/uL (130-400); RED BLOOD COUNT 2.26 10*6/uL (4.50-5.90); RED CELL DISTRI WIDTH 18.4 % (0-14.5); WHITE BLOOD COUNT 6.1 10*3/uL (4.8-10.8)
--- NOTE | 2019-06-09 09:30 | NUR ---
PERCOCET EFFECTIVE PER PT
[2019-06-09 10:15] LABS: ATYPICAL LYMPHS 1 % (0-0); PLATELET SUFFICIENCY LOW (NORMAL); SCHISTOCYTES FEW; TOTAL CELLS COUNTED 100 #CELLS
--- NOTE | 2019-06-09 11:52 | NUR ---
Dr. Martinez notified of wound care recommendations.
[2019-06-09 13:08] LABS: CREATININE 1.76 mg/dL (0.70-1.30)
[2019-06-09 14:00] VITALS: BP 98/56
[2019-06-09 16:00] VITALS: BP 112/63
--- NOTE | 2019-06-09 16:05 | NUR ---
PHYSICAL THERAPY CO-SIGN I approve of the Physical Therapy notes written above. Jeanie Delacruz, PT, DPT
--- NOTE | 2019-06-09 18:00 | NUR ---
PT COMPLAINS OF NAUSEA. MEDICATED PER ORDER. WILL CONTINUE TO MONITOR FOR RELIEF.
[2019-06-09 20:00] VITALS: BP 97/61
--- NOTE | 2019-06-09 21:50 | NUR ---
XANAX GIVEN PER ORDER FOR ANXIETY PER PT.REQUEST. SEE MAR
--- NOTE | 2019-06-09 22:50 | NUR ---
XANAX EFFECTIVE FOR ANXIETY PER PT.
[2019-06-10] VITALS: BP 96/57
--- NOTE | 2019-06-10 02:53 | NUR ---
24 HR chart check completed.
[2019-06-10 07:09] LABS: HEMOGLOBIN 7.2 g/dl (14.0-18.0); MEAN CELL VOLUME 104.1 fl (80.0-94.0); MEAN CORPUSCULAR HGB 32.6 pg (27.0-31.0); MEAN CORPUSCULAR HGB CONC 31.3 g/dl (33.0-37.0); MEAN PLATELET VOLUME 12.5 fl (9.6-12.3); PLATELET COUNT AUTOMATED 48 10*3/uL (130-400); RED BLOOD COUNT 2.21 10*6/uL (4.50-5.90); RED CELL DISTRI WIDTH 18.3 % (0-14.5); WHITE BLOOD COUNT 5.2 10*3/uL (4.8-10.8)
[2019-06-10 07:29] LABS: CREATININE 2.48 mg/dL (0.70-1.30)
[2019-06-10 07:44] LABS: BASOPHILS 2 % (0-1); PLATELET SUFFICIENCY LOW (NORMAL); TOTAL CELLS COUNTED 100 #CELLS
[2019-06-10 08:00] VITALS: BP 103/60
--- NOTE | 2019-06-10 08:33 | NUR ---
PATIENT REFUSED ALL AM MEDICATIONS/PO'S/EYE DROPS/INJECTIONS.
[2019-06-10 12:00] VITALS: BP 91/44
--- NOTE | 2019-06-10 14:23 | NUR ---
PHYSICAL THERAPY BRIM MOLDER attempted to see patient x 2 this date. On first attempt patient just recieved lunch tray; second attempt patient was sleeping and would not wake when therapist attempted to initiate therapy session. Vilma Peraza, BRIM MOLDER
--- NOTE | 2019-06-10 15:51 | NUR ---
MEDICATED WITH PRN PO PERCOCET AND XANAX FOR LOW BACK PAIN AND ANXIETY.
[2019-06-10 16:00] VITALS: BP 103/55
--- NOTE | 2019-06-10 19:00 | NUR ---
ARRIVED ON SHIFT, INTRODUCED TO PATIENT, BEDSIDE REPORT RECEIVED, NO NEEDS VOICED AT THIS TIME. WHITE BOARD UPDATED.
[2019-06-10 20:00] VITALS: BP 101/55
--- NOTE | 2019-06-10 20:25 | NUR ---
24 HR chart check completed.
[2019-06-11] VITALS: BP 94/51
--- NOTE | 2019-06-11 02:00 | NUR ---
Patient sleeping. Respirations relaxed and easy. Siderails up X2. Wheellocks on. BED IN LOW POSITION, CALL LIGHT WITHIN REACH. BRITTANY PHILLIPS
[2019-06-11 08:00] VITALS: BP 116/68
--- NOTE | 2019-06-11 10:02 | NUR ---
MEDICATED WITH PRN PO PERCOCET FOR C/O LOW BACK PAIN.
--- NOTE | 2019-06-11 11:00 | NUR ---
PRN PO PERCOCET EFFECTIVE, PER PATIENT.
[2019-06-11 12:00] VITALS: BP 96/48
--- NOTE | 2019-06-11 15:24 | NUR ---
MEDICATED WITH PRN IV ZOFRAN FOR NAUSEA.
[2019-06-11 16:00] VITALS: BP 92/65
--- NOTE | 2019-06-11 18:33 | NUR ---
MEDICATED WITH PRN PO PERCOCET FOR C/O PERIRECTAL, SACRAL, AND LOW BACK PAIN.
--- NOTE | 2019-06-11 19:00 | NUR ---
ARRIVED ON SHIFT, REPORT RECEIVED FROM OFF GOING NURSE, PATIENT DID NOT AWAKEN FOR BEDSIDE REPORT, WHITE BOARD UPDATED.
[2019-06-11 20:00] VITALS: BP 105/61
--- NOTE | 2019-06-11 22:26 | NUR ---
24 HR chart check completed.
[2019-06-12] VITALS (8 sets, daily range): BP systolic 84–103; BP diastolic 44–57
--- NOTE | 2019-06-12 04:04 | NUR ---
Patient sleeping. Respirations relaxed and easy. Siderails up X 2. Wheellocks on, bed in low position, call light within reach. BRITTANY PHILLIPS
[2019-06-12 07:09] LABS: EOS # 0.1 10*3/uL (0.0-0.4); EOS % 1.3 % (1.0-4.0); HEMATOCRIT 23.4 % (42.0-52.0); HEMOGLOBIN 7.3 g/dl (14.0-18.0); LYMPH # 1.6 10*3/uL (1.3-4.4); LYMPH % 32.8 % (27.0-41.0); MEAN CELL VOLUME 104.5 fl (80.0-94.0); MEAN CORPUSCULAR HGB 32.6 pg (27.0-31.0); MEAN CORPUSCULAR HGB CONC 31.2 g/dl (33.0-37.0); MEAN PLATELET VOLUME 12.8 fl (9.6-12.3); MONO # 0.4 10*3/uL (0.1-1.0); NEUT # 2.7 10*3/uL (2.3-7.9); NEUT % 57.3 % (47.0-73.0); PLATELET COUNT AUTOMATED 51 10*3/uL (130-400); RED BLOOD COUNT 2.24 10*6/uL (4.50-5.90); RED CELL DISTRI WIDTH 18.1 % (0-14.5); WHITE BLOOD COUNT 4.8 10*3/uL (4.8-10.8)
[2019-06-12 07:28] LABS: CREATININE 3.68 mg/dL (0.70-1.30); POTASSIUM 4.9 mmol/L (3.5-5.1)
--- NOTE | 2019-06-12 07:30 | NUR ---
CALL PLACED TO DR. BRITTON TO ADVISE OF CONSULT, LEFT VOICEMAIL REQUESTED CB
--- NOTE | 2019-06-12 08:30 | NUR ---
PHYSICAL THERAPY Patient was out of his room in dialysis this am when approached for therapy and not available for treatment at this time. Will continue per POC as able. Aj Shoemaker, SCHOOL COMMUNITY RELATIONS COORDINATOR
--- NOTE | 2019-06-12 08:46 | NUR ---
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 HIV CTS SPECIALIST faxed clinical updates to [facility]. -YANIRA Muhammad
--- NOTE | 2019-06-12 10:30 | NUR ---
Pony Ride Attendant in to see patient. No new needs or request at this time. When medically stable he will be discharged to [facility] where he is a LTC resident. tradeshow worker following. Per multidisciplinary discharge planning meeting patient will have dialysis today.
--- NOTE | 2019-06-12 12:30 | NUR ---
PHYSICAL THERAPY Patient was supine in bed this pm when approached for therapy visit and stated he had just returned from dialysis and was unable to participate until he has something to eat. Patient unable to give this therapist a time frame to return. Will continue per POC as able. Aj Shoemaker, CHEESE GRADER
--- NOTE | 2019-06-12 20:07 | NUR ---
CLARIFIED ORDER FOR PLATELETS WITH . INSTRUCTED TO GIVE ONE UNIT TONIGHT AND ONE UNIT IN THE MORNING PRIOR TO PARACENTESIS. AWARE THAT PLATELETS ARE NOT YET HERE THE PT REQUIRES IRRADIATED PLATELETS.
--- NOTE | 2019-06-12 22:56 | NUR ---
FIRST UNIT OF PLTs INITIATED AT THIS TIME. UNABLE TO SCAN PRODUCT CODE AT THIS TIME. LAB/BLOOD BANK MADE AWARE OF THIS. PRODUCT VERIFIED BY THIS RN AND LEO CARTAGENA RN. INITIAL RATE AT 60 ML/HR. WILL INCREASE AFTER 15 MINUTES PER ORDER.
--- NOTE | 2019-06-12 23:30 | NUR ---
PT TOLERATING PLT INFUSION WELL. WILL CONTINUE TO MONITOR.
--- NOTE | 2019-06-12 23:50 | NUR ---
FIRST UNIT OF PLATELETS COMPLETE AT THIS TIME. PT TOLERATED WELL. PT WAS INCONTINENT OF STOOL. PT CLEANED UP, NEW BED LINENS/BRIEF/GOWN PROVIDED. PATIENT REPOSITIONED ON R SIDE PER REQUEST USING WEDGE. BED LEFT LOCKED IN LOW POSITION, BED RAILS UP X2, BED ALARM INTACT. WILL MONITOR. CALL LIGHT IN REACH.
[2019-06-13 06:25] VITALS: BP 97/58
--- NOTE | 2019-06-13 06:25 | NUR ---
SECOND UNIT OF PLATELETS INITIATED AT THIS TIME PER ORDER. INITIAL RATE SET TO 60 ML/HR FOR FIRST 15 MINUTES, THEN WILL INCREASE IF PT TOLERATES. WILL MONITOR. CALL LIGHT IN REACH. BED ALARM INTACT.
[2019-06-13 06:45] VITALS: BP 99/57
--- NOTE | 2019-06-13 06:45 | NUR ---
PT TOLERATING PLT INFUSION. VSS. RATE INCREASED. WILL MONITOR.
--- NOTE | 2019-06-13 07:29 | NUR ---
UNIT #2 OF PLTs COMPLETE AT THIS TIME. PT TOLERATED WELL. BEDSIDE REPORT GIVEN TO CATHY ANG. LAB AWARE THAT AM LABS CAN NOW BE DRAWN.
[2019-06-13 07:55] LABS: MEAN CELL VOLUME 103.3 fl (80.0-94.0); MEAN CORPUSCULAR HGB 32.4 pg (27.0-31.0); MEAN CORPUSCULAR HGB CONC 31.4 g/dl (33.0-37.0); MEAN PLATELET VOLUME 11.4 fl (9.6-12.3); RED BLOOD COUNT 2.13 10*6/uL (4.50-5.90); RED CELL DISTRI WIDTH 18.1 % (0-14.5); WHITE BLOOD COUNT 4.1 10*3/uL (4.8-10.8)
[2019-06-13 08:00] VITALS: BP 101/61
[2019-06-13 08:06] LABS: CREATININE 2.87 mg/dL (0.70-1.30); POTASSIUM 4.5 mmol/L (3.5-5.1)
[2019-06-13 08:07] LABS: PLATELET COUNT AUTOMATED 74 10*3/uL (130-400)
[2019-06-13 08:09] LABS: HEMOGLOBIN 6.9 g/dl (14.0-18.0)
[2019-06-13 08:38] LABS: TOTAL CELLS COUNTED 100 #CELLS
--- NOTE | 2019-06-13 08:39 | NUR ---
PHYSICAL THERAPY Patient request that therapy come back later becuase he is not feeling well and Dr. Quick is suppossed to come in and see him. Will check back later with patient. MITA MCLAIN FOREMAN/PILE DRIVING AND ERECTION
[2019-06-13 08:41] LABS: PLATELET SUFFICIENCY LOW (NORMAL)
[2019-06-13 08:42] LABS: ACANTHOCYTES FEW; SCHISTOCYTES FEW
--- NOTE | 2019-06-13 11:09 | NUR ---
PT TAKEN TO RADIOLOGY FOR PERICENTESIS.
[2019-06-13 12:00] VITALS: BP 110/65
--- NOTE | 2019-06-13 13:30 | NUR ---
Forensic Audit Expert in to see patient. No new needs or request at this time. When medically stable he will be discharged to [facility] where he is a LTC resident. Discussed discharge planning with Dr. Carranza. He had a paracentesis today for 7 liters and he is dialysis tomorrow; therefore, plan is to discharge patient on .
--- NOTE | 2019-06-13 13:59 | NUR ---
PHYSICAL THERAPY Patient is about to be given a blood transfusion and says he doesn't want to do therapy due to this. Patient also says he is not feeling well. When asked if he would like to do supine bed exercises he declined that also, because of not feeling well. This LOGISTICS OFFICER checked with CATHY Chacko and she confirmed that the patient was ,in fact, going to receive a blood transfusion today. CATHY Chacko also said that the patient is NOT going to be discharged today. MITA MCLAIN LOGISTICS OFFICER
[2019-06-13 16:00] VITALS: BP 120/71; BP 99/61
--- NOTE | 2019-06-13 16:50 | NUR ---
PT MEDICATED WITH ZOFRAN FOR C/O NAUSEA.
[2019-06-13 20:00] VITALS: BP 106/68
[2019-06-13 20:30] LABS: HEMATOCRIT 23.9 % (42.0-52.0); HEMOGLOBIN 7.5 g/dl (14.0-18.0)
[2019-06-14] VITALS (11 sets, daily range): BP systolic 95–116; BP diastolic 53–79
--- NOTE | 2019-06-14 02:00 | NUR ---
PT REFUSING TO WEAR BOOTS AT THIS TIME.
--- NOTE | 2019-06-14 02:31 | NUR ---
SPOKE WITH DR JACQUES H&H TO BE ORDERED 2 HOURS AFTER FIRST TRANSFUSION.
--- NOTE | 2019-06-14 02:45 | NUR ---
BLOOD TRANSFUSION INITIATED AT THIS TIME. PRE BLOOD VITALS ARE FOLLOW T:97.8, P:80, R:18, BP: 115/62, PO: 100% 2L NC.
--- NOTE | 2019-06-14 05:08 | NUR ---
FIRST UNIT OF BLOOD FINISHED INFUSING AT THIS TIME. H&H ORDERED FOR 0710. NO SIGNS AND SYMPTOMS OF A TRANSFUSION REACTION. PT TOLERATED WELL. POST BLOOD VITALS FOLLOWS T:97.9, P:74, R:18, BP:102/66, PO:100% 2L NC.
--- NOTE | 2019-06-14 06:32 | NUR ---
MARKY HAYWARD [id number] Please refer to the physician's history and physical for past medical history, comorbid conditions, and allergies. Diagnosis: ABD DISTENSION,ANEMIA,ASCITES,GENERAL WEAKNESS,CKD Tye Score: 11,HIGH RISK WOUND DESCRIPTIONS: Wound Number: 1 Location of the wound: right outer aspect of great toe Type of wound: DTI Size: 0.6cm x 0.6cm x <0.1cm Tunneling: none Undermining: none Sinus Tract: none Presence of Exudate: none Amount: None Color: Red, dark purple Odor: None Periwound Skin Appearance: Normal Wound edges: approximated Pain (associated with wound): none at time of assessment How does patient state this happened? pt unable to state how this happened Wound Number: 2 entire coccyx is red and blanchable at time of assessment. Scar tissue noted at time of assessment. No drainage noted at time of assessment. Wound Number: 3 Right hip is red and blanchable at time of assessment. Scar tissue noted at time of assessment. No drainage noted at time of assessment. Wound Number: 4 Left 2nd toe no open areas noted at time of assessment. No drainage noted at time of assessment. Wound Number: 5 Location of the wound: left 3rd toe Type of wound: stage 1 Size: 0.3cm x 0.2cm x <0.1cm Tunneling: none Undermining: none Sinus Tract: none Presence of Exudate: none Amount: None Color: Red Odor: None Periwound Skin Appearance: Normal Wound edges: approximate Pain (associated with wound): none at time of assessment How does patient state this happened? pt states he is unsure how this happened but hasn't been wearing his boots. Wound Number: 6 Location of the wound: left 4th toe Type of wound: stage 1 Size: 0.3cm x 0.3cm x <0.1cm Tunneling: none Undermining: none Sinus Tract: none Presence of Exudate: none Amount: None Color: Red Odor: None Periwound Skin Appearance: Normal Wound edges: approximate Pain (associated with wound): none at time of assessment How does patient state this happened? pt states he is unsure how this happened but hasn't been wearing his boots. Wound Number: 7 Location of the wound: perirectal Type of wound: IAD Thickness: Partial Size: 2.5cm x 5.0cm x 0.1cm Tunneling: none Undermining: none Sinus Tract: none Presence of Exudate: Serosanguineous Amount: Light Color: Red Odor: None Periwound Skin Appearance: Normal Wound edges: approximated Pain (associated with wound): none at time of assesssment How does patient state this happened? pt is incontient of stool at time of assessment and nurse caring for patient states he has been have diarrhea. Surface the patient is resting on: Isoflex SKIN PREVENTION RECOMMENDATION: 1. Pressure redistribution support surface as appropriate 2. Elevate heels 3. Remove boots/TEDS every shift and reapply 4. Head of bed 30 degrees as tolerated 5. Assess nutrition and hydration 6. Manage moisture 7. Avoid the use of containment devices while in bed 8. Use absorptive products on surfaces limit layers of linens on bed 9. Turn and reposition every 1-2 hours in bed and every 1 hour in chair as tolerated 10. Weight shifts every 15 minutes while up in chair 11. Offloading with pillows or device to keep heels elevated off bed 12. Monitor skin at least every shift 13. Inspect under medical devices twice a day WOUND TREATMENT RECOMMENDATIONS: Continue dressing change to perirectal area Continue DTI guidelines to medial aspect of right great toe Continue dressing change order to left 3rd toe and 4th toe. Continue wheelchair cushion when oob Continue heel raiser pro boots to bilateral feet while in bed.
[2019-06-14 07:08] LABS: HEMATOCRIT 30.8 % (42.0-52.0); HEMOGLOBIN 9.9 g/dl (14.0-18.0)
[2019-06-14 09:14] LABS: EOS # 0.1 10*3/uL (0.0-0.4); EOS % 1.4 % (1.0-4.0); HEMATOCRIT 30.4 % (42.0-52.0); HEMOGLOBIN 9.7 g/dl (14.0-18.0); LYMPH # 2.1 10*3/uL (1.3-4.4); LYMPH % 29.5 % (27.0-41.0); MEAN CELL VOLUME 102.4 fl (80.0-94.0); MEAN CORPUSCULAR HGB 32.7 pg (27.0-31.0); MEAN CORPUSCULAR HGB CONC 31.9 g/dl (33.0-37.0); MEAN PLATELET VOLUME 12.3 fl (9.6-12.3); MONO # 0.5 10*3/uL (0.1-1.0); MONO % 7.5 % (3.0-9.0); NEUT # 4.3 10*3/uL (2.3-7.9); NEUT % 60.9 % (47.0-73.0); PLATELET COUNT AUTOMATED 77 10*3/uL (130-400); RED BLOOD COUNT 2.97 10*6/uL (4.50-5.90); RED CELL DISTRI WIDTH 17.3 % (0-14.5)
--- NOTE | 2019-06-14 09:20 | NUR ---
PHYSICAL THERAPY PT SUPINE IN BED SLEEPING AND IN ABLE TO BE ARROUSED UPON FIRST ATTEMPT THIS A.M. UPON SECOND ATTEMPT PT STATES " I HAD ONE UNIT OF BLOOD THROUGH THE NIGHT AND HAVE TO GO TO 4 HOURS A DIALYSIS AND THEN ANOTHER UNIT OF BLOOD. I WANT NO THERAPY TODAY." PHYSICAL THERAPY WILL TRY AT A LATER TIME/DATE. VARGAS COTA PTA
--- NOTE | 2019-06-14 09:30 | NUR ---
Icing And Glaze Maker in to see patient. No new needs or request at this time. When medically stable he will be discharged to [facility] where he is a LTC resident. He is scheduled for dialysis today, plan is to discharge patient to [facility] tomorrow.
--- NOTE | 2019-06-14 11:21 | NUR ---
[facility] [place] requesting updated clinicals for review. printed and faxed updates. 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
--- NOTE | 2019-06-14 14:59 | NUR ---
MEDICATED WITH DILAUDID PER ORDER AND REQUEST.
--- NOTE | 2019-06-14 20:14 | NUR ---
SPOKE WITH DR PIERCE. INFORMED HIM THAT PATIENT WAS REQUESTING ANOTHER DOSE OF DILUADID. STATED TO GO AHEAD AND GIVE 0.25MG IV NOW.
[2019-06-14 20:20] LABS: HEMATOCRIT 27.5 % (42.0-52.0); HEMOGLOBIN 8.8 g/dl (14.0-18.0)
--- NOTE | 2019-06-14 20:46 | NUR ---
PATIENT COMPLAINS OF 8/10 "ALL OVER" PAIN. MEDICATED PER ORDER. WILL CONTINUE TO MONITOR FOR RELIEF. ALSO REQUESTING AMBIEN AT THIS TIME. VOICES NO OTHER CONCERNS. RESTING IN BED. CALL LIGHT WITHIN REACH
--- NOTE | 2019-06-14 21:46 | NUR ---
DILAUDID EFFECTIVE PER PT
--- NOTE | 2019-06-14 23:30 | NUR ---
24 HR chart check completed.
[2019-06-15] VITALS: BP 94/77
--- NOTE | 2019-06-15 01:45 | NUR ---
Patient resting quietly with no c/o discomfort. Respirations easy and regular. Vital signs stable. No overt distress. CALL LIGHT WITHIN REACH HISSOM,HALINA
--- NOTE | 2019-06-15 01:50 | NUR ---
CUSTOMS GUARD STATED THAT PATIENT WAS REFUSING BATH AT THIS TIME. WENT IN TO TALK WITH PATIENT AND HE STATED HE "JUST DIDNT WANT TO".
--- NOTE | 2019-06-15 02:11 | NUR ---
PT COMPLAINS OF NAUSEA. MEDICATED PER ORDER. VERBALIZED RELIEF. VOICES NO OTHER CONCERNS AT THIS TIME. RESTING IN BED. CALL LIGHT WITHIN REACH
--- NOTE | 2019-06-15 03:50 | NUR ---
SPOKE WITH DR JACQUES. INFORMED HIM THAT PATIENT WAS REQUESTING ANOTHER DOSE OF DILAUDID. STATED TO GIVE HIM 0.25MG OF DILAUDID NOW.
--- NOTE | 2019-06-15 05:00 | NUR ---
DILAUDID EFFECTIVE PER PT
[2019-06-15 06:46] LABS: EOS # 0.1 10*3/uL (0.0-0.4); EOS % 1.7 % (1.0-4.0); HEMATOCRIT 26.8 % (42.0-52.0); HEMOGLOBIN 8.4 g/dl (14.0-18.0); LYMPH # 1.4 10*3/uL (1.3-4.4); LYMPH % 26.4 % (27.0-41.0); MEAN CELL VOLUME 103.1 fl (80.0-94.0); MEAN CORPUSCULAR HGB 32.3 pg (27.0-31.0); MEAN CORPUSCULAR HGB CONC 31.3 g/dl (33.0-37.0); MEAN PLATELET VOLUME 12.1 fl (9.6-12.3); MONO # 0.5 10*3/uL (0.1-1.0); MONO % 8.9 % (3.0-9.0); NEUT # 3.3 10*3/uL (2.3-7.9); NEUT % 62.8 % (47.0-73.0); PLATELET COUNT AUTOMATED 65 10*3/uL (130-400); RED CELL DISTRI WIDTH 17.6 % (0-14.5); WHITE BLOOD COUNT 5.2 10*3/uL (4.8-10.8)
[2019-06-15 07:13] LABS: POTASSIUM 4.5 mmol/L (3.5-5.1)
[2019-06-15 07:19] LABS: CREATININE 2.35 mg/dL (0.70-1.30)
[2019-06-15 08:00] VITALS: BP 100/60
--- NOTE | 2019-06-15 08:21 | NUR ---
PT RESTING IN BED. NO DISTRESS NOTED. WILL MONITOR
--- NOTE | 2019-06-15 11:30 | NUR ---
ATTEMPTED TO CALL DR NUGENT REGARDING PT [facility] PHONE IS RINGING BUSY
[2019-06-15 12:00] VITALS: BP 102/65
--- NOTE | 2019-06-15 12:00 | NUR ---
Spoke to son, Arturo, who would like to meet in the patient's room at 1300 to discuss hospice options.
--- NOTE | 2019-06-15 13:00 | NUR ---
Casino Host in to see patient. Discussed hospice services with son who is at the bedside and patient. Explained hospice doesn't mean just end of life care that it is for comfort also. Hospice would help in controlling his pain. He understands that if he wants to revoke hospice at any time and come back to the hospital that is possible. Answered patient's and son's questions to the best of my knowledge. When provided with a list of agencies they chose [facility]. Patient is being discharged to [facility] today where he is a LTC resident. gas plant worker following and notified of son and patient request for [facility] to follow patient at [facility].
[2019-06-15] MEDS ORDERED: PERCOCET 5-3251 EACH PO (14:32)
--- NOTE | 2019-06-15 14:43 | NUR ---
PHYSICAL THERAPY Patient declined therapy session this afternoon due to not feeling well and saying ,"he is being put on hospice and discharged probably today". Will check back at later date. MITA MCLAIN IMPORT/EXPORT AGENT
--- NOTE | 2019-06-15 14:56 | NUR ---
HEPATOLOGY PHYSICIAN notified of patient discharge. HEPATOLOGY PHYSICIAN spoke with [employer] who stated a 4:30 sheepskin pickler would be best. HEPATOLOGY PHYSICIAN spoke with [facility]. They are able to transport the patient between 4:30-5pm. HEPATOLOGY PHYSICIAN notified [facility]. HEPATOLOGY PHYSICIAN left message for patients son to ask for a return call. HEPATOLOGY PHYSICIAN notified [employer] of transport time. HEPATOLOGY PHYSICIAN faxed discharge orders to [facility]. HEPATOLOGY PHYSICIAN attempted to reach out to patients son who works in this facility, he is gone for the day will attempt reach him again before this HEPATOLOGY PHYSICIAN leaves for the day. -YANIRA Muhammad
[2019-06-15 16:00] VITALS: BP 105/66
--- NOTE | 2019-06-15 16:01 | NUR ---
PT REFUSED DC WOUND PHOTOS
--- NOTE | 2019-06-15 16:01 | NUR ---
REPORT CALLED TO VO
--- NOTE | 2019-06-15 16:51 | NUR ---
Discharge instructions reviewed with patient/family. Patient receptive and verbalizes understanding. Follow-up care arranged. Written instructions given to patient/family. RK HOGUE
--- NOTE | 2019-06-16 08:13 | NUR ---
PHYSICAL THERAPY CO-SIGN I approve of the Physical Therapy notes written above. Jeanie Delacruz, PT, DPT
== END 2019-06-15 16:51 | DRG 432 ==
LOC: ED 13:24 → EDHOLD 15:16 → 5E 15:16
PROVIDERS: Emergency Medicine; Internal Medicine; Internal Medicine Nephrology; Student in an Organized Health Care Education/Training Program; ADMIT Internal Medicine
PROC: 0W9G3ZZ Drainage of Peritoneal Cavity, Percutaneous Approach (ICD-10-PCS; principal; 2019-05-29)
PROC: 30233N1 Transfusion of Nonautologous Red Blood Cells into Peripheral Vein, Percutaneous Approach (ICD-10-PCS; 2019-05-30)
PROC: 0DB68ZX Excision of Stomach, Via Natural or Artificial Opening Endoscopic, Diagnostic (ICD-10-PCS; 2019-05-31)
PROC: 0W9G3ZZ Drainage of Peritoneal Cavity, Percutaneous Approach (ICD-10-PCS; 2019-06-08)
PROC: 30233R1 Transfusion of Nonautologous Platelets into Peripheral Vein, Percutaneous Approach (ICD-10-PCS; 2019-06-12)
PROC: 0W9G3ZZ Drainage of Peritoneal Cavity, Percutaneous Approach (ICD-10-PCS; 2019-06-13)
PROC: 5A1D70Z Performance of Urinary Filtration, Intermittent, Less than 6 Hours Per Day (ICD-10-PCS; 2019-06-14)
DX: K74.60 Unspecified cirrhosis of liver (principal); N18.6 End stage renal disease; E43 Unspecified severe protein-calorie malnutrition; K76.6 Portal hypertension; R18.8 Other ascites; E87.1 Hypo-osmolality and hyponatremia; I50.32 Chronic diastolic (congestive) heart failure; J90 Pleural effusion, not elsewhere classified; I13.2 Hypertensive heart and chronic kidney disease with heart failure and with stage 5 chronic kidney disease, or end stage renal disease; D68.9 Coagulation defect, unspecified; K22.10 Ulcer of esophagus without bleeding; D61.818 Other pancytopenia; Z68.1 Body mass index [BMI] 19.9 or less, adult; D53.9 Nutritional anemia, unspecified; I95.9 Hypotension, unspecified; M48.00 Spinal stenosis, site unspecified; Z66 Do not resuscitate; M54.30 Sciatica, unspecified side; M19.90 Unspecified osteoarthritis, unspecified site; D46.9 Myelodysplastic syndrome, unspecified; Z51.5 Encounter for palliative care; K44.9 Diaphragmatic hernia without obstruction or gangrene; K21.0 Gastro-esophageal reflux disease with esophagitis; Z96.653 Presence of artificial knee joint, bilateral; R19.5 Other fecal abnormalities; K59.00 Constipation, unspecified; R62.7 Adult failure to thrive; E11.22 Type 2 diabetes mellitus with diabetic chronic kidney disease; E11.65 Type 2 diabetes mellitus with hyperglycemia; F32.9 Major depressive disorder, single episode, unspecified; J44.9 Chronic obstructive pulmonary disease, unspecified; K29.70 Gastritis, unspecified, without bleeding; Z99.2 Dependence on renal dialysis; Z88.1 Allergy status to other antibiotic agents; Z88.8 Allergy status to other drugs, medicaments and biological substances; Z79.84 Long term (current) use of oral hypoglycemic drugs; Z98.1 Arthrodesis status; Z90.79 Acquired absence of other genital organ(s); Z83.3 Family history of diabetes mellitus; Z82.49 Family history of ischemic heart disease and other diseases of the circulatory system; Z80.8 Family history of malignant neoplasm of other organs or systems